=== PATIENT | male | born 1970 | race Caucasian/White ===

== ENCOUNTER 2017-02-04 20:43 | Inpatient (IN) | payer BC, OTHER ==
[2017-02-04] MEDS ORDERED: SODIUM CHLORIDE 0.9% 1,000 ML IV STA (21:20)
[2017-02-04] MEDS ORDERED: HYDROmorphone 0.5 MG/0.5 ML SYRINGE IVP STA (21:20)
[2017-02-04] MEDS ORDERED: ONDANSETRON 4 MG/2 ML VIAL IVP STA (21:20)
--- NOTE | 2017-02-04 21:38 | ED ---
Abdominal Pain HPI - General Chief Complaint: Abdominal Pain Stated Complaint: Abd Pain Time Seen by Provider: 02/04/17 21:15 Source: patient Mode of arrival: ambulatory Limitations: no limitations - History of Present Illness Initial Comments: This is a 46-year-old male patient who presents to the emergency department today with complaints of upper abdominal pain and vomiting 4 hours. Patient states that the pain is an intense pressure like pain that does radiate into his back. He states that the pain is constant. He states he feels tender over the upper abdomen as well. He states prior to onset of symptoms he was feeling well. Patient has a past medical history significant for colon cancer with bowel resection, hernia repair, and cholecystectomy. He also has a history of DVT does have a [place] filter. Patient denies any recent rash, fever, chills , shortness breath, chest pain, diarrhea, constipation, numbness, tingling, dizziness, weakness, hematuria, dysuria, urinary urgency, urinary frequency, headache, visual changes, or any other complaints. He denies any recent travel or sick contacts. Last bowel movement was this morning. States it was normal. - Related Data Home Medications Medication Instructions Recorded Confirmed Esomeprazole Magnesium [NexIUM] 40 mg PO BID 09/30/13 02/04/17 Losartan Potassium [Cozaar] 50 mg PO QAM 09/30/13 02/04/17 Allergies Allergy/AdvReac Type Severity Reaction Status Date / Time Penicillins Allergy Anaphylaxis Verified 02/04/17 21:41 Review of Systems ROS Statement: Those systems with pertinent positive or pertinent negative responses have been documented in the HPI. ROS Other: All systems not noted in ROS Statement are negative. Past Medical History Past Medical History: Cancer, Deep Vein Thrombosis (DVT), GERD/Reflux, Hypertension Additional Past Medical History / Comment(s): LYMPHOMA-CHEMO 2003 History of Any Multi-Drug Resistant Organisms: None Reported Past Surgical History: Bowel Resection, Cholecystectomy, Hernia Repair, Tonsillectomy Additional Past Surgical History / Comment(s): GREENFIELFD FILTER Past Anesthesia/Blood Transfusion Reactions: No Reported Reaction Past Psychological History: No Psychological Hx Reported Smoking Status: Never smoker Past Alcohol Use History: Occasional Past Drug Use History: None Reported - Past Family History Mother Family Medical History: No Reported History Father Family Medical History: Myocardial Infarction ([place]) Additional Family Medical History / Comment(s): AT AGE 48 General Exam Limitations: no limitations General appearance: alert, in no apparent distress, other (this is a well- developed, well-nourished adult male patient in no acute distress. Vital signs upon presentation are temperature 96.8F, pulse 70, respirations 18, blood pressure 151/84, pulse ox 97% on room air.) Eye exam: Present: normal appearance, PERRL, EOMI. Absent: scleral icterus, conjunctival injection, periorbital swelling ENT exam: Present: normal exam, normal oropharynx, mucous membranes moist Respiratory exam: Present: normal lung sounds bilaterally. Absent: respiratory distress, wheezes, rales, rhonchi, stridor Cardiovascular Exam: Present: regular rate, normal rhythm, normal heart sounds. Absent: systolic murmur, diastolic murmur, rubs, gallop, clicks GI/Abdominal exam: Present: soft, distended, tenderness (Tenderness over the upper abdomen especially in the mid epigastric region), normal bowel sounds. Absent: guarding, rebound, rigid, hernia (no obvious abdominal hernia) Back exam: Present: normal inspection. Absent: CVA tenderness (R), CVA tenderness (L) Neurological exam: Present: alert, oriented X3, CN II-XII intact Psychiatric exam: Present: normal affect, normal mood Skin exam: Present: warm, dry, intact, normal color. Absent: rash Course Vital Signs 02/04/17 02/04/17 02/05/17 21:08 23:06 00:00 Temperature 96.8 F L 98.2 F Pulse Rate 70 82 96 Pulse Rate [ Pulse Oximetery ] Respiratory 18 18 20 Rate Blood Pressure 151/84 142/74 135/68 Blood Pressure [Left Arm] O2 Sat by Pulse 97 74 L 96 Oximetry 02/05/17 02/05/17 02/05/17 01:17 01:54 02:44 Temperature 98.5 F Pulse Rate 83 Pulse Rate [ 100 Pulse Oximetery ] Respiratory 16 16 Rate Blood Pressure 139/80 Blood Pressure 140/88 [Left Arm] O2 Sat by Pulse 96 96 95 Oximetry Medical Decision Making - Medical Decision Making 46-year-old male patient presented to emergency department today for evaluation of upper abdominal pain and vomiting 4 hours. Labs were reviewed and did show an elevated white blood cell count of 15.8, an elevated plasma lactic acid at 2.4. Urinalysis was negative. KUB x-ray showed overall nonobstructive bowel gas pattern. With patient's history of multiple abdominal surgeries, elevated white count, an elevated lactic acid did perform computed tomography scan of the abdomen which did show a mechanical bowel obstruction and a partially incarcerated umbilical hernia. Patient continued to have significant pain throughout his stay here. Vital signs are within normal limits. My attending Dr. Marcum did speak to Dr. Mg who agrees to admit patient for further surgical evaluation. Patient will have NG tube placed. IV fluids are ordered. Pain management is ordered. - Lab Data Result diagrams: 02/04/17 21:30 02/04/17 21:30 Lab Results 02/04/17 02/04/17 02/04/17 Range/Units 21:30 21:30 21:30 WBC 15.8 H (3.8-10.6) k/uL RBC 5.66 (4.30-5.90) m/uL Hgb 16.6 (13.0-17.5) gm/dL Hct 50.7 (39.0-53.0) % MCV 89.6 (80.0-100.0) fL MCH 29.3 (25.0-35.0) pg MCHC 32.8 (31.0-37.0) g/dL RDW 12.5 (11.5-15.5) % Plt Count 303 (150-450) k/uL Neutrophils % 84 % Lymphocytes % 11 % Monocytes % 4 % Eosinophils % 1 % Basophils % 0 % Neutrophils # 13.3 H (1.3-7.7) k/uL Lymphocytes # 1.7 (1.0-4.8) k/uL Monocytes # 0.6 (0-1.0) k/uL Eosinophils # 0.1 (0-0.7) k/uL Basophils # 0.0 (0-0.2) k/uL Sodium 142 (137-145) mmol/L Potassium 4.3 (3.5-5.1) mmol/L Chloride 105 (98-107) mmol/L Carbon Dioxide 25 (22-30) mmol/L Anion Gap 12 mmol/L BUN 17 (9-20) mg/dL Creatinine 1.20 (0.66-1.25) mg/dL Est GFR (MDRD) Af Amer >60 (>60 ml/min/1.73 sqM) Est GFR (MDRD) Non-Af >60 (>60 ml/min/1.73 sqM) Glucose 117 H (74-99) mg/dL Lactic Ac Sepsis Rflx Plasma Lactic Acid Darnell 2.4 H* (0.7-2.0) mmol/L Calcium 10.2 (8.4-10.2) mg/dL Total Bilirubin 0.8 (0.2-1.3) mg/dL AST 30 (17-59) U/L ALT 49 (21-72) U/L Alkaline Phosphatase 99 (38-126) U/L Total Protein 8.1 (6.3-8.2) g/dL Albumin 4.7 (3.5-5.0) g/dL Amylase 61 (30-110) U/L Lipase 78 (23-300) U/L Urine Color Urine Appearance (Clear) Urine pH (5.0-8.0) Ur Specific [place] (1.001-1.035) Urine Protein (Negative) Urine Glucose (UA) (Negative) Urine Ketones (Negative) Urine Blood (Negative) Urine Nitrite (Negative) Urine Bilirubin (Negative) Urine Urobilinogen (<2.0) mg/dL Ur Leukocyte Esterase (Negative) 02/04/17 02/04/17 02/05/17 Range/Units 21:30 22:32 01:46 WBC (3.8-10.6) k/uL RBC (4.30-5.90) m/uL Hgb (13.0-17.5) gm/dL Hct (39.0-53.0) % MCV (80.0-100.0) fL MCH (25.0-35.0) pg MCHC (31.0-37.0) g/dL RDW (11.5-15.5) % Plt Count (150-450) k/uL Neutrophils % % Lymphocytes % % Monocytes % % Eosinophils % % Basophils % % Neutrophils # (1.3-7.7) k/uL Lymphocytes # (1.0-4.8) k/uL Monocytes # (0-1.0) k/uL Eosinophils # (0-0.7) k/uL Basophils # (0-0.2) k/uL Sodium (137-145) mmol/L Potassium (3.5-5.1) mmol/L Chloride (98-107) mmol/L Carbon Dioxide (22-30) mmol/L Anion Gap mmol/L BUN (9-20) mg/dL Creatinine (0.66-1.25) mg/dL Est GFR (MDRD) Af Amer (>60 ml/min/1.73 sqM) Est GFR (MDRD) Non-Af (>60 ml/min/1.73 sqM) Glucose (74-99) mg/dL Lactic Ac Sepsis Rflx Y Plasma Lactic Acid Darnell 1.1 (0.7-2.0) mmol/L Calcium (8.4-10.2) mg/dL Total Bilirubin (0.2-1.3) mg/dL AST (17-59) U/L ALT (21-72) U/L Alkaline Phosphatase (38-126) U/L Total Protein (6.3-8.2) g/dL Albumin (3.5-5.0) g/dL Amylase (30-110) U/L Lipase (23-300) U/L Urine Color Yellow Urine Appearance Clear (Clear) Urine pH 6.0 (5.0-8.0) Ur Specific [place] 1.023 (1.001-1.035) Urine Protein Trace H (Negative) Urine Glucose (UA) Negative (Negative) Urine Ketones 1+ H (Negative) Urine Blood Negative (Negative) Urine Nitrite Negative (Negative) Urine Bilirubin Negative (Negative) Urine Urobilinogen 2.0 (<2.0) mg/dL Ur Leukocyte Esterase Negative (Negative) - Radiology Data Radiology results: report reviewed, image reviewed Two-view x-ray of the abdomen shows no sign of intestinal obstruction or pneumoperitoneum. Inferior vena cava filter is noted. There are clips from cholecystectomy. There is no sign of a mass. Lung bases are clear. Impression by Dr. Phelan shows nonacute abdomen. No adverse change compared to old exam. CT of the abdomen and pelvis with contrast report reviewed in its entirety. Impression by Dr. Phelan shows partly incarcerated umbilical hernia containing small bowel. There is an apparent resultant mechanical small bowel obstruction. This is best demonstrated and sagittal image 70. This abnormality however is also present with similar severity on the old computed tomography scan of 10/28/2014. There appears to be decreased flow fluid through the abnormal segment on today's exam. There appears to be very little intestinal content in the large bowel. Disposition Clinical Impression: Mechanical obstruction of the intestine, Incarcerated umbilical hernia Disposition: ADMITTED IP TO THIS [facility] Condition: Serious Referrals: Jhonatan Casanova MD [Primary Care Provider] - 1-2 days Decision to Admit Reason: Admit from EC Decision Date: 02/05/17 Decision Time: 01:30
--- NOTE | 2017-02-04 22:01 | XR ---
EXAMINATION TYPE: XR KUB DATE OF EXAM: 02/04/2017 COMPARISON: 11/01/2014 HISTORY: Abdominal pain TECHNIQUE: 2 views FINDINGS: There is no sign of intestinal obstruction or pneumoperitoneum. Inferior vena cava filter i s noted. There are clips from cholecystectomy. There is no sign of a mass. Lung bases are clear. IMPRESSION: Nonacute abdomen. No adverse change compared to old exam.
[2017-02-04 22:13] LABS: Basophils % (A) 0 %; CHCM 33.6; Eosinophils # (A) 0.1 k/uL (0-0.7); Eosinophils % (A) 1 %; HCT 50.7 % (39.0-53.0); HDW 2.57; HGB 16.6 gm/dL (13.0-17.5); Luc # (Auto) 0.09; Luc % (Auto) 1; Lymphocytes # (A) 1.7 k/uL (1.0-4.8); Lymphocytes % (A) 11 %; MCH 29.3 pg (25.0-35.0); MCHC 32.8 g/dL (31.0-37.0); MCV 89.6 fL (80.0-100.0); Mean Platelet Volume 6.9; Monocytes # (A) 0.6 k/uL (0-1.0); Monocytes % (A) 4 %; Neutrophils # (A) 13.3 k/uL (1.3-7.7); Neutrophils % (A) 84 %; RBC 5.66 m/uL (4.30-5.90); RDW 12.5 % (11.5-15.5); WBC 15.8 k/uL (3.8-10.6); WBC (Perox) 14.23
[2017-02-04 22:25] LABS: Appearance,Urine Clear (Clear); Bilirubin,Urine Negative (Negative); Glucose,Urine (UA) Negative (Negative); Ketones,Urine 1+ (Negative); Leukocyte Esterase,Urine Negative (Negative); Nitrite,Urine Negative (Negative); Protein,Urine Trace (Negative); Specific Gravity,Urine 1.023 (1.001-1.035); UA Billing (MACRO vs. MICRO) CHEM
[2017-02-04 22:32] LABS: ALT 49 U/L (21-72); AST 30 U/L (17-59); Alkaline Phosphatase 99 U/L (38-126); Amylase 61 U/L (30-110); Anion Gap 12 mmol/L; Blood Urea Nitrogen 17 mg/dL (9-20); Calcium 10.2 mg/dL (8.4-10.2); Carbon Dioxide 25 mmol/L (22-30); Chloride 105 mmol/L (98-107); Glucose 117 mg/dL (74-99); Non-African American GFR(MDRD) >60 (>60 ml/min/1.73 sqM); Potassium 4.3 mmol/L (3.5-5.1); Sodium 142 mmol/L (137-145); Total Bilirubin 0.8 mg/dL (0.2-1.3); Total Protein 8.1 g/dL (6.3-8.2)
[2017-02-04] MEDS ORDERED: RX INFO: IV CONTRAST WAS GIVEN 1 EACH MISC MISCELLANE PRN (22:54)
[2017-02-04] MEDS ORDERED: HYDROmorphone 1 MG/ML 1 ML SYRINGE IVP STA (22:56)
--- NOTE | 2017-02-04 23:49 | CT ---
EXAMINATION TYPE: CT abdomen pelvis w con DATE OF EXAM: 02/04/2017 COMPARISON: 10/21/1714 HISTORY: Abd pain CT DLP: 2629.10 mGycm Automated exposure control for dose reduction was used. TECHNIQUE: Helical acquisition of images was performed from the lung bases through the pelvis. CONTRAST: Performed without Oral Contrast and with IV Contrast, patient injected with 100 mL of Omnipaque 300. FINDINGS: Lung bases are clear. There is no pleural effusion. Heart size is normal. Liver spleen pancreas appear normal. There are clips from cholecystectomy. Bile ducts are not dilated . There is no adrenal mass. Kidneys show satisfactory contrast opacification. There is no hydronephrosi s. Inferior vena cava filter is noted. There are some fluid-filled distended loops of small bowel in the mid abdomen. These measure up to 3.5 cm. There is a transition point at the umbilicus. There is a n incarcerated umbilical hernia that contains a loop of small bowel. The hernia measures 3 x 1.5 cm. There is very little intestinal content in the large bowel. I see no bony destructive process. Bladder distends smoothly. There is no evidence of a pelvic mass. There is no sign of appendicitis. IMPRESSION: THERE IS A PARTLY INCARCERATED UMBILICAL HERNIA CONTAINING SMALL BOWEL. THERE IS AN APPARENT RESULTAN T MECHANICAL SMALL BOWEL OBSTRUCTION. THIS IS BEST DEMONSTRATED ON SAGITTAL IMAGE 70. THIS ABNORMALIT Y HOWEVER IS ALSO PRESENT WITH SIMILAR SEVERITY ON THE OLD CT SCAN OF 10/28/2014. THERE APPEARS TO BE DECREASED FLOW OF FLUID THROUGH THE ABNORMAL SEGMENT ON TODAY'S EXAM COMPARED TO OLD EXAM.
[2017-02-05] MEDS ORDERED: HYDROmorphone 1 MG/ML 1 ML SYRINGE IVP STA (00:34)
[2017-02-05] MEDS ORDERED: ONDANSETRON 4 MG/2 ML VIAL IVP STA (00:53)
[2017-02-05] MEDS ORDERED: ONDANSETRON 4 MG/2 ML VIAL IVP PRN (01:25)
[2017-02-05] MEDS ORDERED: NALOXONE 0.4 MG/ML 1 ML VIAL IV PRN (01:25)
[2017-02-05] MEDS: SODIUM CHLORIDE 0.9% 1,000 ML IV SCH ×2 (02:09→11:49)
[2017-02-05] MEDS: HYDROmorphone 1 MG/ML 1 ML SYRINGE IVP PRN ×5 (03:02→21:12)
[2017-02-05] MEDS: FAMOTIDINE 20 MG/2 ML VIAL IV SCH ×2 (09:51→21:12)
--- NOTE | 2017-02-05 10:00 | P.GSHP ---
History of Present Illness H&P Date: 02/05/17 Chief Complaint: Bowel obstruction Patient presents the hospital with a several-day history of nausea vomiting abdominal pain. Pain was increasing in severity. Came to the hospital with those complaints. X-rays and subsequent CAT scan revealed findings consistent with small bowel obstruction. The CAT scan is almost identical to a CAT scan performed 2 years ago. The patient has a history of small bowel lymphoma. He underwent small bowel resection for that in the past. He then had a hernia present at the operative site that was repaired with an onlay mesh. We suspected that the appearance of the small bowel reflected a small herniation of the fascia beneath the mesh in 2014. He was treated nonoperatively at that time and did well with no recurrent symptoms until now. He does not feel a bulge himself. His pain was diffuse in nature. He does feel much better since the nasogastric tube was placed. Lactic acid was initially elevated but normalized. - Review of Systems Comment: The patient denies any acute changes in vision or hearing, no dysphagia or odynophagia, no chest pain or shortness of breath, no dysuria or hematuria, no headache, no runny nose, no rectal bleeding or melena, no unexplained weight loss Past Medical History Past Medical History: Cancer, Deep Vein Thrombosis (DVT), GERD/Reflux, Hypertension Additional Past Medical History / Comment(s): LYMPHOMA-CHEMO 2003 History of Any Multi-Drug Resistant Organisms: None Reported Past Surgical History: Bowel Resection, Cholecystectomy, Hernia Repair, Tonsillectomy Additional Past Surgical History / Comment(s): GREENFIELFD FILTER Past Anesthesia/Blood Transfusion Reactions: No Reported Reaction Past Psychological History: No Psychological Hx Reported Smoking Status: Never smoker Past Alcohol Use History: Occasional Past Drug Use History: None Reported - Past Family History Mother Family Medical History: No Reported History Father Family Medical History: Myocardial Infarction ([place]) Additional Family Medical History / Comment(s): AT AGE 48 Medications and Allergies Home Medications Medication Instructions Recorded Confirmed Type Esomeprazole Magnesium [NexIUM] 40 mg PO BID 09/30/13 02/04/17 History Losartan Potassium [Cozaar] 50 mg PO QAM 09/30/13 02/04/17 History Allergies Allergy/AdvReac Type Severity Reaction Status Date / Time Penicillins Allergy Anaphylaxis Verified 02/04/17 21:41 Surgical - Exam Vital Signs Temp Pulse Resp BP Pulse Ox 96.8 F L 70 18 151/84 97 02/04/17 21:08 02/04/17 21:08 02/04/17 21:08 02/04/17 21:08 02/04/17 21:08 Physical exam: General: Well-developed, well-nourished HEENT: Normocephalic, sclerae nonicteric Abdomen: Somewhat obese, no palpable fascial defect or mass at the umbilicus, mild diffuse tenderness, nondistended Extremities: No edema Neuro: Alert and oriented Results - Labs 02/04/17 21:30 02/04/17 21:30 Abnormal Lab Results - Last 24 Hours (Table) 02/04/17 02/04/17 02/04/17 Range/Units 21:30 21:30 21:30 WBC 15.8 H (3.8-10.6) k/uL Neutrophils # 13.3 H (1.3-7.7) k/uL Glucose 117 H (74-99) mg/dL Plasma Lactic Acid Darnell 2.4 H* (0.7-2.0) mmol/L Urine Protein (Negative) Urine Ketones (Negative) 02/04/17 Range/Units 21:30 WBC (3.8-10.6) k/uL Neutrophils # (1.3-7.7) k/uL Glucose (74-99) mg/dL Plasma Lactic Acid [place] (0.7-2.0) mmol/L Urine Protein Trace H (Negative) Urine Ketones 1+ H (Negative) Diabetes panel 02/04/17 Range/Units 21:30 Sodium 142 (137-145) mmol/L Potassium 4.3 (3.5-5.1) mmol/L Chloride 105 (98-107) mmol/L Carbon Dioxide 25 (22-30) mmol/L BUN 17 (9-20) mg/dL Creatinine 1.20 (0.66-1.25) mg/dL Glucose 117 H (74-99) mg/dL Calcium 10.2 (8.4-10.2) mg/dL AST 30 (17-59) U/L ALT 49 (21-72) U/L Alkaline Phosphatase 99 (38-126) U/L Total Protein 8.1 (6.3-8.2) g/dL Albumin 4.7 (3.5-5.0) g/dL Calcium panel 02/04/17 Range/Units 21:30 Calcium 10.2 (8.4-10.2) mg/dL Albumin 4.7 (3.5-5.0) g/dL Pituitary panel 02/04/17 Range/Units 21:30 Sodium 142 (137-145) mmol/L Potassium 4.3 (3.5-5.1) mmol/L Chloride 105 (98-107) mmol/L Carbon Dioxide 25 (22-30) mmol/L BUN 17 (9-20) mg/dL Creatinine 1.20 (0.66-1.25) mg/dL Glucose 117 H (74-99) mg/dL Calcium 10.2 (8.4-10.2) mg/dL Adrenal panel 02/04/17 Range/Units 21:30 Sodium 142 (137-145) mmol/L Potassium 4.3 (3.5-5.1) mmol/L Chloride 105 (98-107) mmol/L Carbon Dioxide 25 (22-30) mmol/L BUN 17 (9-20) mg/dL Creatinine 1.20 (0.66-1.25) mg/dL Glucose 117 H (74-99) mg/dL Calcium 10.2 (8.4-10.2) mg/dL Total Bilirubin 0.8 (0.2-1.3) mg/dL AST 30 (17-59) U/L ALT 49 (21-72) U/L Alkaline Phosphatase 99 (38-126) U/L Total Protein 8.1 (6.3-8.2) g/dL Albumin 4.7 (3.5-5.0) g/dL Assessment and Plan (1) Partial small bowel obstruction Narrative/Plan: The patient has a CAT scan that looks almost identical to 12 years ago. He responded well to nonoperative therapy at that time. Options of surgical exploration versus observation were reviewed. We will continue nasogastric tube to suction for now. Repeat abdominal x-rays tomorrow. If the patient fails to improve Will consider operative repair. Would consider robotic laparoscopic approach if necessary. Current Visit: No Status: Acute Code(s): K56.69 - OTHER INTESTINAL OBSTRUCTION * DO NOT USE * SNOMED Code(s): 007326807
--- NOTE | 2017-02-05 16:16 | P.CONS ---
History of Present Illness - Reason for Consult Leukocytosis - History of Present Illness This is a pleasant 40-year-old man with a known history of lymphoma after which patient had a bowel resection surgery since then patient had issues with the hernia patient that came in with complaints of abdominal pain 10 x 10 along with nausea vomiting patient received an NG tube NG tube stopped draining now patient is not nauseous patient's NG tube is clamped at this time patient had a CAT scan of the abdomen which showed hernia with possible incarceration patient was admitted to Dr. Mg service, patient denied any fever, chills, nausea, vomiting patient's abdominal been well is well-controlled with the present pain management patient denied any dysuria cough. Review of Systems REVIEW OF SYSTEMS: CONSTITUTIONAL: No fever, no malaise, no fatigue. HEENT: No recent visual problems or hearing problems. Denied any sore throat. CARDIOVASCULAR: No chest pain, orthopnea, PND, no palpitations, no syncope. PULMONARY: No shortness of breath, no cough, no hemoptysis. GASTROINTESTINAL: No diarrhea, NEUROLOGICAL: No headaches, no weakness, no numbness. HEMATOLOGICAL: Denies any bleeding or petechiae. GENITOURINARY: Denies any burning micturition, frequency, or urgency. MUSCULOSKELETAL/RHEUMATOLOGICAL: Denies any joint pain, swelling, or any muscle pain. ENDOCRINE: Denies any polyuria or polydipsia. The rest of the 14-point review of systems is negative. Past Medical History Past Medical History: Cancer, Deep Vein Thrombosis (DVT), GERD/Reflux, Hypertension Additional Past Medical History / Comment(s): LYMPHOMA-CHEMO 2003 History of Any Multi-Drug Resistant Organisms: None Reported Past Surgical History: Bowel Resection, Cholecystectomy, Hernia Repair, Tonsillectomy Additional Past Surgical History / Comment(s): GREENFIELFD FILTER Past Anesthesia/Blood Transfusion Reactions: No Reported Reaction Past Psychological History: No Psychological Hx Reported Smoking Status: Never smoker Past Alcohol Use History: Occasional Past Drug Use History: None Reported - Past Family History Mother Family Medical History: No Reported History Father Family Medical History: Myocardial Infarction ([place]) Additional Family Medical History / Comment(s): AT AGE 48 Medications and Allergies Home Medications Medication Instructions Recorded Confirmed Type Esomeprazole Magnesium [NexIUM] 40 mg PO BID 09/30/13 02/04/17 History Losartan Potassium [Cozaar] 50 mg PO QAM 09/30/13 02/04/17 History Allergies Allergy/AdvReac Type Severity Reaction Status Date / Time Penicillins Allergy Anaphylaxis Verified 02/04/17 21:41 Physical Exam Vitals: Vital Signs Temp Pulse Pulse Resp BP BP Pulse Ox 02/05/17 15:00 97.1 F L 98 16 130/73 95 02/05/17 07:00 98.1 F 106 H 16 124/80 94 L 02/05/17 03:00 16 02/05/17 02:44 98.5 F 100 16 140/88 95 02/05/17 01:54 83 16 139/80 96 02/05/17 01:17 96 02/05/17 00:00 98.2 F 96 20 135/68 96 02/04/17 23:06 82 18 142/74 74 L 02/04/17 21:08 96.8 F L 70 18 151/84 97 Intake and Output 02/05/17 02/05/17 02/05/17 06:59 14:59 22:59 Intake Total 1320 Output Total 650 Balance 670 Intake: Amount of Fluid Infused ( 1000 ml) Intake, IV Titration 320 Amount Sodium Chloride 0.9% 1, 320 000 ml @ 80 mls/hr IV . [id number] ELIZABETH Rx#:[id number] Output: Gastric Drainage 650 Other: # Voids 1 PHYSICAL EXAMINATION: GENERAL: The patient is alert and oriented x3, not in any acute distress. Well developed, well nourished. HEENT: Pupils are round and equally reacting to light. EOMI. No scleral icterus. No conjunctival pallor. Normocephalic, atraumatic. No pharyngeal erythema. No thyromegaly. CARDIOVASCULAR: S1 and S2 present. No murmurs, rubs, or gallops. PULMONARY: Chest is clear to auscultation, no wheezing or crackles. ABDOMEN: Soft, distended abdomen without any rebound or rigidity patient does have some facial that pressure topical area and periorbital area without any obvious hernia MUSCULOSKELETAL: No joint swelling or deformity. EXTREMITIES: No cyanosis, clubbing, or pedal edema. NEUROLOGICAL: Gross neurological examination did not reveal any focal deficits. SKIN: No rashes. Results CBC & Chem 7: 02/04/17 21:30 02/04/17 21:30 Labs: Abnormal Lab Results - Last 24 Hours (Table) 11/03/17 11/03/17 11/03/17 Range/Units 21:30 21:30 21:30 WBC 15.8 H (3.8-10.6) k/uL Neutrophils # 13.3 H (1.3-7.7) k/uL Glucose 117 H (74-99) mg/dL Plasma Lactic Acid Darnell 2.4 H* (0.7-2.0) mmol/L Urine Protein (Negative) Urine Ketones (Negative) 02/04/17 Range/Units 21:30 WBC (3.8-10.6) k/uL Neutrophils # (1.3-7.7) k/uL Glucose (74-99) mg/dL Plasma Lactic Acid Darnell (0.7-2.0) mmol/L Urine Protein Trace H (Negative) Urine Ketones 1+ H (Negative) Assessment and Plan Plan: #1 possible small bowel resection: Conservative measures with an NG tube which is presently clamped IV fluids at 80 mL/h which is appropriate. #2 leukocytosis: Reactive secondary to a partial small bowel obstruction nausea vomiting. Continue with IV fluids. #3 hypertension patient is on losartan at home which can be held at this time to prevent hypotension secondary to nausea vomiting. #4 mild acute renal dysfunction secondary to nausea vomiting prerenal azotemia patient will be continued on IV fluids as mentioned above. #5 history of lymphoma and in the past which is in remission #6 she of DVT in the past without any anticoagulation at this point of time patient had a [place] filter patient is on DVT prophylaxis with subcutaneous heparin
[2017-02-05] MEDS: HEPARIN SODIUM,PORCINE 5,000 UNIT/ML 1 ML VIAL SQ SCH ×2 (17:30→17:35)
[2017-02-06] MEDS: HEPARIN SODIUM,PORCINE 5,000 UNIT/ML 1 ML VIAL SQ SCH ×4 (01:46→23:58)
[2017-02-06] MEDS: HYDROmorphone 1 MG/ML 1 ML SYRINGE IVP PRN (01:50)
--- NOTE | 2017-02-06 07:17 | XR ---
EXAMINATION TYPE: XR abdomen 2V , 3 VIEWS DATE OF EXAM ORDERED: 02/06/2017 HISTORY: Follow-up bowel obstruction. COMPARISON: Previous study dated 02/04/2017. FINDINGS: The lung bases appear clear. The abdominal gas pattern is nonspecific. There are nondistended air-filled loops of large and small bowel throughout the abdomen. There is no evidence of free air. There is no evidence of gross obstruc tion. No unusual calcifications are seen. The patient is NG tube is within the distal esophagus and should likely be advanced. There has been a previous cholecystectomy. There is an inferior vena cava filter in place. IMPRESSION: 1. NONSPECIFIC ABDOMEN. 2. THE PATIENT IS NG TUBE IS NOT WITHIN THE STOMACH AND SHOULD BE ADVANCED.
[2017-02-06 07:36] LABS: Basophils % (A) 0 %; CHCM 32.5; Eosinophils # (A) 0.2 k/uL (0-0.7); Eosinophils % (A) 2 %; HCT 48.9 % (39.0-53.0); HDW 2.52; HGB 15.4 gm/dL (13.0-17.5); Luc # (Auto) 0.16; Luc % (Auto) 1; Lymphocytes # (A) 3.1 k/uL (1.0-4.8); Lymphocytes % (A) 26 %; MCH 29.1 pg (25.0-35.0); MCHC 31.4 g/dL (31.0-37.0); MCV 92.6 fL (80.0-100.0); Mean Platelet Volume 6.8; Monocytes # (A) 0.9 k/uL (0-1.0); Monocytes % (A) 8 %; Neutrophils # (A) 7.2 k/uL (1.3-7.7); Neutrophils % (A) 63 %; RBC 5.29 m/uL (4.30-5.90); RDW 12.6 % (11.5-15.5); WBC 11.6 k/uL (3.8-10.6); WBC (Perox) 11.18
[2017-02-06 07:44] LABS: Anion Gap 11 mmol/L; Blood Urea Nitrogen 18 mg/dL (9-20); Calcium 8.9 mg/dL (8.4-10.2); Carbon Dioxide 25 mmol/L (22-30); Chloride 107 mmol/L (98-107); Glucose 85 mg/dL (74-99); Non-African American GFR(MDRD) >60 (>60 ml/min/1.73 sqM); Potassium 3.7 mmol/L (3.5-5.1); Sodium 143 mmol/L (137-145)
[2017-02-06] MEDS: SODIUM CHLORIDE 0.9% 1,000 ML IV SCH (07:54)
[2017-02-06] MEDS: FAMOTIDINE 20 MG/2 ML VIAL IV SCH ×2 (08:06→20:02)
--- NOTE | 2017-02-06 09:29 | P.PN ---
Subjective Progress Note Date: 02/06/17 Principal diagnosis: Bowel obstruction Patient had 2 large bouts of diarrhea yesterday. No pain at this time. X-rays are improved and the nasogastric tube was in the mid esophagus. White blood cell count 11.6. Objective - Vital Signs Vital signs: Vital Signs Temp 98.5 F 02/06/17 07:00 Pulse 87 02/06/17 07:00 Resp 16 02/06/17 07:00 BP 119/73 02/06/17 07:00 Pulse Ox 96 02/06/17 07:00 Intake & Output 02/05/17 02/06/17 02/06/17 19:59 06:59 18:59 Intake Total Output Total Balance Intake: Intake, IV Titration Amount Sodium Chloride 0.9% 1, 000 ml @ 80 mls/hr IV . [id number] [facility] Rx#:[id number] Output: Gastric Drainage Urine Other: Voiding Method # Voids - Exam Abdomen: Soft, nontender, nondistended - Labs CBC & Chem 7: 02/06/17 07:19 02/06/17 07:19 Labs: Abnormal Lab Results - Last 24 Hours (Table) 02/06/17 Range/Units 07:19 WBC 11.6 H (3.8-10.6) k/uL Assessment and Plan (1) Partial small bowel obstruction Narrative/Plan: We'll remove the nasogastric tube at this point. Begin clear liquids. Ambulate. Current Visit: No Status: Acute Code(s): K56.69 - OTHER INTESTINAL OBSTRUCTION * DO NOT USE * SNOMED Code(s): 000130796
[2017-02-06] MEDS: ACETAMINOPHEN TAB 325 MG TAB PO PRN ×2 (10:54→20:02)
--- NOTE | 2017-02-06 14:55 | P.PN ---
Subjective is admitted with partial small bowel obstruction doing much better today patient has sluggish bowel sounds NG was removed and bleeding in the hallway patient is passing gas Constitutional: Denied any fatigue denied any fever. Cardio vascular: denied any chest pain, palpitations Gastrointestinal denied any nausea vomiting Pulmonary: Denied any shortness of breath cough Neurologic denied any new focal deficits Objective - Vital Signs Vital signs: Vital Signs Temp 98.5 F 02/06/17 07:00 Pulse 87 02/06/17 07:00 Resp 16 02/06/17 07:00 BP 119/73 02/06/17 07:00 Pulse Ox 96 02/06/17 07:00 Intake & Output 02/05/17 02/06/17 02/06/17 19:59 06:59 18:59 Intake Total Output Total Balance Intake: Intake, IV Titration Amount Sodium Chloride 0.9% 1, 000 ml @ 80 mls/hr IV . [id number] [facility] Rx#:[id number] Output: Gastric Drainage Urine Other: Voiding Method # Voids - Exam GENERAL: The patient is alert and oriented x3, not in any acute distress. Well developed, well nourished. HEENT: Pupils are round and equally reacting to light. EOMI. No scleral icterus. No conjunctival pallor. Normocephalic, atraumatic. No pharyngeal erythema. No thyromegaly. CARDIOVASCULAR: S1 and S2 present. No murmurs, rubs, or gallops. PULMONARY: Chest is clear to auscultation, no wheezing or crackles. ABDOMEN: Soft,sluggish bowel sounds, no rebound or rigidity MUSCULOSKELETAL: No joint swelling or deformity. EXTREMITIES: No cyanosis, clubbing, or pedal edema. NEUROLOGICAL: Gross neurological examination did not reveal any focal deficits. SKIN: No rashes. - Labs CBC & Chem 7: 02/06/17 07:19 02/06/17 07:19 Labs: Abnormal Lab Results - Last 24 Hours (Table) 02/06/17 Range/Units 07:19 WBC 11.6 H (3.8-10.6) k/uL Assessment and Plan Plan: #1 possible small bowel resection: Conservative measures with an NG tube which is presently clamped IV fluids at 80 mL/h which is appropriate.probing ileus #2 leukocytosis: Reactive secondary to a partial small bowel obstruction nausea vomiting. Continue with IV fluids. #3 hypertension patient is on losartan at home which can be held at this time to prevent hypotension secondary to nausea vomiting. #4 mild acute renal dysfunction secondary to nausea vomiting prerenal azotemia patient will be continued on IV fluids as mentioned above. #5 history of lymphoma and in the past which is in remission #6 she of DVT in the past without any anticoagulation at this point of time patient had a [place] filter patient is on DVT prophylaxis with subcutaneous heparin
[2017-02-07 06:31] LABS: Basophils % (A) 0 %; CH 29.7; CHCM 33.1; Eosinophils # (A) 0.2 k/uL (0-0.7); Eosinophils % (A) 3 %; HCT 45.3 % (39.0-53.0); HDW 2.67; HGB 14.8 gm/dL (13.0-17.5); Luc # (Auto) 0.17; Luc % (Auto) 2; Lymphocytes % (A) 32 %; MCH 29.4 pg (25.0-35.0); MCHC 32.7 g/dL (31.0-37.0); MCV 89.9 fL (80.0-100.0); Mean Platelet Volume 7.1; Monocytes # (A) 0.7 k/uL (0-1.0); Monocytes % (A) 8 %; Neutrophils # (A) 5.2 k/uL (1.3-7.7); Neutrophils % (A) 56 %; RBC 5.04 m/uL (4.30-5.90); RDW 12.3 % (11.5-15.5); WBC 9.3 k/uL (3.8-10.6); WBC (Perox) 9.36
[2017-02-07 06:44] LABS: Anion Gap 9 mmol/L; Blood Urea Nitrogen 15 mg/dL (9-20); Calcium 9.1 mg/dL (8.4-10.2); Carbon Dioxide 24 mmol/L (22-30); Chloride 106 mmol/L (98-107); Glucose 85 mg/dL (74-99); Non-African American GFR(MDRD) >60 (>60 ml/min/1.73 sqM); Potassium 3.5 mmol/L (3.5-5.1); Sodium 139 mmol/L (137-145)
[2017-02-07] MEDS: SODIUM CHLORIDE 0.9% 1,000 ML IV SCH ×3 (06:49→17:56)
[2017-02-07] MEDS ORDERED: POTASSIUM CHLORIDE ER 20 MEQ TAB.ER PO STA (08:52)
[2017-02-07] MEDS: HEPARIN SODIUM,PORCINE 5,000 UNIT/ML 1 ML VIAL SQ SCH ×3 (08:57→23:25)
[2017-02-07] MEDS: FAMOTIDINE 20 MG/2 ML VIAL IV SCH ×2 (08:57→20:31)
--- NOTE | 2017-02-07 09:27 | P.PN ---
<Mary Ann Mike - Last Filed: 02/07/17 09:31> Subjective Progress Note Date: 02/07/17 46-year-old male seen and examined up ambulating in the [place]. Patient state 3 loose watery stools last night no blood noted in stool less abdominal pain tolerating clear liquid diet reports no nausea no vomiting patients being treated for partial small bowel obstruction Objective - Vital Signs Vital signs: Vital Signs Temp 98.4 F 02/07/17 07:00 Pulse 64 02/07/17 07:00 Resp 16 02/07/17 07:00 BP 127/85 02/07/17 07:00 Pulse Ox 95 02/07/17 07:00 Intake & Output 02/06/17 02/07/17 02/07/17 18:59 06:59 18:59 Intake Total 640 1760 220 Balance 640 1760 220 Weight 122.47 kg Intake: Intake, IV Titration 640 1280 Amount Sodium Chloride 0.9% 1, 640 1280 000 ml @ 80 mls/hr IV . [id number] [facility] Rx#:[id number] Oral 480 220 Other: Voiding Method Toilet # Voids 3 - Exam GENERAL APPEARANCE: 46-year-old male patient is alert, oriented, in no acute distress. Up ambulating in the [place] VITAL SIGNS: Reviewed HEENT: Head is normocephalic and atraumatic. Pupils are equal and reactive. The nares are patent. Oropharynx is clear without lesions. NECK: Supple without lymphadenopathy. Traches midline. HEART: S1, S2. Regular rate and rhythm. Denying chest pain no murmur LUNGS: No crackles or wheezes are heard. On room air adequate air entry essentially clear no cough noted ABDOMEN: Soft, few hypoactive bowel tones noted reports no nausea vomiting reports less abdominal pain less distended. No peritoneal signs. No palpable organomegaly or masses. Patient states he has had 3 loose watery stools during the night no blood noted in urinating no difficulty tolerating clear liquid EXTREMITIES: Normal skin color and turgor. No cyanosis, rash, ulceration, clubbing or edema. Radial pedal pulses are 2/4 bilaterally. NEUROLOGICAL: No focal deficits. Strength and sensation are grossly intact. - Labs CBC & Chem 7: 02/07/17 06:02 02/07/17 06:02 Assessment and Plan Assessment: Impression Present on admission abdominal pain suspect due to partial small bowel obstruction History of small bowel lymphoma Electrolyte abnormality hypokalemia Leukocytosis present on admission suspect reactive Plan Continue clear liquid diet Continue ambulation increase activity Potassium to be replaced Repeat labs in the morning DVT and GI prophylaxis IV fluid at 80cchr The above impression and plan of care have been discussed and directed by signing physician. Mary Ann Mike nurse practitioner acting as scribe for signing physician. <Chemo Mg - Last Filed: 02/07/17 18:14> Objective - Vital Signs Vital signs: Vital Signs Temp 98.5 F 02/07/17 14:43 Pulse 74 02/07/17 14:43 Resp 16 02/07/17 14:43 BP 116/70 02/07/17 14:43 Pulse Ox 95 02/07/17 07:00 Intake & Output 02/06/17 02/07/17 02/07/17 18:59 06:59 18:59 Intake Total 640 1760 1050 Balance 640 1760 1050 Weight 122.47 kg Intake: Intake, IV Titration 640 1280 600 Amount Sodium Chloride 0.9% 1, 640 1280 600 000 ml @ 80 mls/hr IV . [id number] [facility] Rx#:[id number] Oral 480 450 Other: Voiding Method Toilet # Voids 3 1 - Labs CBC & Chem 7: 02/07/17 06:02 02/07/17 06:02 Assessment and Plan Assessment: Patient doing well today. Abdominal pain is resolved. Some hunger pains. No nausea or vomiting. He has had loose stools. Will advance diet. Possible discharge tomorrow. (1) Partial small bowel obstruction Current Visit: No Status: Acute Code(s): K56.69 - OTHER INTESTINAL OBSTRUCTION * DO NOT USE * SNOMED Code(s): 829529211
--- NOTE | 2017-02-07 15:19 | P.PN ---
Subjective is admitted with partial small bowel obstruction doing much better today patient has sluggish bowel sounds NG was removed and bleeding in the hallway patient is passing gas 2016 Patient started having diarrhea about 3 episodes C. diff testing will be obtained if he continues to have diarrhea . Constitutional: Denied any fatigue denied any fever. Cardio vascular: denied any chest pain, palpitations Gastrointestinal denied any nausea vomiting Pulmonary: Denied any shortness of breath cough Neurologic denied any new focal deficits Objective - Vital Signs Vital signs: Vital Signs Temp 98.5 F 02/07/17 14:43 Pulse 74 02/07/17 14:43 Resp 16 02/07/17 14:43 BP 116/70 02/07/17 14:43 Pulse Ox 95 02/07/17 07:00 Intake & Output 02/06/17 02/07/17 02/07/17 18:59 06:59 18:59 Intake Total 640 1760 1050 Balance 640 1760 1050 Weight 122.47 kg Intake: Intake, IV Titration 640 1280 600 Amount Sodium Chloride 0.9% 1, 640 1280 600 000 ml @ 80 mls/hr IV . [id number] [facility] Rx#:[id number] Oral 480 450 Other: Voiding Method Toilet # Voids 3 1 - Exam GENERAL: The patient is alert and oriented x3, not in any acute distress. Well developed, well nourished. HEENT: Pupils are round and equally reacting to light. EOMI. No scleral icterus. No conjunctival pallor. Normocephalic, atraumatic. No pharyngeal erythema. No thyromegaly. CARDIOVASCULAR: S1 and S2 present. No murmurs, rubs, or gallops. PULMONARY: Chest is clear to auscultation, no wheezing or crackles. ABDOMEN: Soft, normoactive bowel sounds, no rebound or rigidity MUSCULOSKELETAL: No joint swelling or deformity. EXTREMITIES: No cyanosis, clubbing, or pedal edema. NEUROLOGICAL: Gross neurological examination did not reveal any focal deficits. SKIN: No rashes. - Labs CBC & Chem 7: 02/07/17 06:02 02/07/17 06:02 Assessment and Plan Plan: #1 possible small bowel resection: NG tube was removed patient was having diarrhea clamped IV fluids at 80 mL/h which is appropriate.probing ileus. We will rule out C. diff #2 leukocytosis: Reactive secondary to a partial small bowel obstruction nausea vomiting. Continue with IV fluids. #3 hypertension patient is on losartan at home which can be held at this time to prevent hypotension secondary to nausea vomiting. #4 mild acute renal dysfunction secondary to nausea vomiting prerenal azotemia patient will be continued on IV fluids as mentioned above. #5 history of lymphoma and in the past which is in remission #6 she of DVT in the past without any anticoagulation at this point of time patient had a [place] filter patient is on DVT prophylaxis with subcutaneous heparin We will continue to follow the patient on as-needed basis.
[2017-02-08] MEDS: SODIUM CHLORIDE 0.9% 1,000 ML IV SCH ×2 (05:38→22:17)
[2017-02-08 07:22] LABS: Basophils # (A) 0.1 k/uL (0-0.2); Basophils % (A) 1 %; CH 30.2; CHCM 33.8; Eosinophils # (A) 0.2 k/uL (0-0.7); Eosinophils % (A) 3 %; HCT 47.7 % (39.0-53.0); HDW 2.65; HGB 15.4 gm/dL (13.0-17.5); Luc # (Auto) 0.15; Luc % (Auto) 2; Lymphocytes # (A) 2.5 k/uL (1.0-4.8); Lymphocytes % (A) 28 %; MCHC 32.4 g/dL (31.0-37.0); MCV 89.6 fL (80.0-100.0); Mean Platelet Volume 6.9; Monocytes # (A) 0.6 k/uL (0-1.0); Monocytes % (A) 7 %; Neutrophils # (A) 5.4 k/uL (1.3-7.7); Neutrophils % (A) 60 %; RBC 5.32 m/uL (4.30-5.90); RDW 12.4 % (11.5-15.5); WBC (Perox) 8.83
[2017-02-08 07:33] LABS: Anion Gap 10 mmol/L; Blood Urea Nitrogen 10 mg/dL (9-20); Calcium 9.1 mg/dL (8.4-10.2); Carbon Dioxide 21 mmol/L (22-30); Chloride 108 mmol/L (98-107); Glucose 86 mg/dL (74-99); Non-African American GFR(MDRD) >60 (>60 ml/min/1.73 sqM); Sodium 139 mmol/L (137-145)
--- NOTE | 2017-02-08 08:02 | XR ---
EXAMINATION TYPE: XR abdomen 2V DATE OF EXAM: 02/08/2017 CLINICAL DATA: 46-year-old male partial small bowel obstruction, [facility] COMPARISON: 02/06/2017 and 02/04/2017. FINDINGS: Lung bases are clear. No evidence for free intraperitoneal air. Persistent air seen throughout the colon. Small air-fluid levels scattered within the small bowel. Mi ldly dilated left abdominal small bowel loop measuring 4.0 cm. Overall appearance is not significantl y changed from prior. Air extends distally into the rectum. IVC filter. Focal punctate left paramedian mid abdominal calcification seems to be localized just oscar p to the abdominal wall musculature on prior CT. Surgical changes at the left lower quadrant. IMPRESSION: 1. Similar mildly dilated 3.9 cm small bowel loop in the left mid abdomen with scattered small air-fl uid levels. Given the presence of colonic air, partial small bowel obstruction not excluded. No evide nce of worsening obstruction. 2. No free air.
[2017-02-08] MEDS: FAMOTIDINE 20 MG/2 ML VIAL IV SCH (08:25)
[2017-02-08] MEDS: HEPARIN SODIUM,PORCINE 5,000 UNIT/ML 1 ML VIAL SQ SCH ×3 (08:25→23:46)
--- NOTE | 2017-02-08 13:37 | P.PN ---
Subjective Progress Note Date: 02/08/17 46-year-old male seen and examined at bedside. Patient has been up ambulating in the hallway. Patient states and 7 AM he has had 1 small loose watery stool no blood noted. Patient continues to report having slight tenderness to the abdominal wall improving. Patient states is tolerating diet no reports of nausea vomiting Objective - Vital Signs Vital signs: Vital Signs Temp 98.4 F 02/08/17 07:00 Pulse 65 02/08/17 10:17 Resp 16 02/08/17 10:17 BP 118/78 02/08/17 07:00 Pulse Ox 96 02/08/17 07:00 Intake & Output 02/07/17 02/08/17 02/08/17 18:59 06:59 18:59 Intake Total 1050 840 Balance 1050 840 Intake: Intake, IV Titration 600 840 Amount Sodium Chloride 0.9% 1, 600 840 000 ml @ 80 mls/hr IV . [id number] [facility] Rx#:[id number] Oral 450 Other: Voiding Method Toilet Toilet # Voids 1 1 - Exam Physical exam 46-year-old gentleman resting in bed appears no acute distress states abdominal discomfort improving Lungs essentially clear adequate air movement on room air Heart S1-S2 audible and regular denying chest pain Abdomen slight tenderness across the abdominal wall nondistended bowel tones present no nausea no vomiting states 1 stool this morning no blood noted Extremities no edema noted - Labs CBC & Chem 7: 02/08/17 06:56 02/08/17 06:56 Labs: Abnormal Lab Results - Last 24 Hours (Table) 02/08/17 Range/Units 06:56 Chloride 108 H (98-107) mmol/L Carbon Dioxide 21 L (22-30) mmol/L Assessment and Plan Assessment: Impression Present on admission abdominal pain suspect due to partial small bowel obstruction History of small bowel lymphoma Electrolyte abnormality hypokalemia Leukocytosis present on admission suspect reactive Plan Advance diet as tolerated Continue ambulation increase activity Repeat labs in the morning DVT and GI prophylaxis IV fluid at 80cchr The above impression and plan of care have been discussed and directed by signing physician. Mary Ann Mike nurse practitioner acting as scribe for signing physician.
[2017-02-08] MEDS: FAMOTIDINE 20 MG TAB PO SCH (22:19)
[2017-02-09 02:28] VITALS: RESP 16
[2017-02-09] MEDS: SODIUM CHLORIDE 0.9% 1,000 ML IV SCH (04:20)
[2017-02-09 07:45] LABS: Basophils % (A) 0 %; CH 30.5; CHCM 34.4; Eosinophils # (A) 0.2 k/uL (0-0.7); Eosinophils % (A) 3 %; HCT 45.1 % (39.0-53.0); HDW 2.65; Luc # (Auto) 0.15; Luc % (Auto) 2; Lymphocytes # (A) 2.3 k/uL (1.0-4.8); Lymphocytes % (A) 27 %; MCH 29.6 pg (25.0-35.0); MCHC 33.3 g/dL (31.0-37.0); MCV 89.1 fL (80.0-100.0); Monocytes # (A) 0.6 k/uL (0-1.0); Monocytes % (A) 7 %; Neutrophils # (A) 5.2 k/uL (1.3-7.7); Neutrophils % (A) 61 %; RBC 5.06 m/uL (4.30-5.90); RDW 12.7 % (11.5-15.5); WBC 8.5 k/uL (3.8-10.6); WBC (Perox) 8.49
[2017-02-09 08:04] LABS: ALT 54 U/L (21-72); AST 31 U/L (17-59); Alkaline Phosphatase 78 U/L (38-126); Anion Gap 10 mmol/L; Blood Urea Nitrogen 13 mg/dL (9-20); Calcium 9.5 mg/dL (8.4-10.2); Carbon Dioxide 22 mmol/L (22-30); Chloride 107 mmol/L (98-107); Glucose 89 mg/dL (74-99); Non-African American GFR(MDRD) >60 (>60 ml/min/1.73 sqM); Potassium 3.7 mmol/L (3.5-5.1); Sodium 139 mmol/L (137-145); Total Bilirubin 0.6 mg/dL (0.2-1.3); Total Protein 6.7 g/dL (6.3-8.2)
[2017-02-09 08:20] VITALS: BP 122/76; PULSE 62; TEMP 97.9
[2017-02-09] MEDS: FAMOTIDINE 20 MG TAB PO SCH (08:55)
[2017-02-09] MEDS: HEPARIN SODIUM,PORCINE 5,000 UNIT/ML 1 ML VIAL SQ SCH (08:56)
--- NOTE | 2017-02-09 09:26 | P.DS ---
Providers Date of admission: 02/05/17 01:14 Expected date of discharge: 02/09/17 Attending physician: Chemo Mg Consults: 02/05/17 10:22 Consult Physician Routine Consulting Provider: Holli Larson Consult Reason/Comments: Medical management Do you want consulting provider notified?: Yes [facility] [place] [facility] Course: 46-year-old male presented on the day of admission to the emergency room with a chief complaint of having a nausea sensation vomiting with abdominal pain which had increased in severity patient did have a CAT scan with abdominal x-rays which did show findings consistent with a small bowel obstruction. The CAT scan was compared to a CAT scan done 2 years prior they were almost identical. Patient does have a history of a small bowel lymphoma. Patient had undergone small bowel resection in the past. Also had a hernia at the operative site repaired. Patient was admitted and treated for the small obstruction . Nasogastric tube was placed on admission placed on bowel rest with IV hydration monitored closely over the course of hospitalization symptoms improved nasogastric tube was able to be removed diet slowly advanced on the day of discharge abdominal pain had resolved patient was tolerating a soft diet bowel function resumed no frequent stooling . Patient was felt to be clinically stable and appropriate to proceed with a discharge to home Impression Present on admission abdominal pain with nausea vomiting suspect due to partial small bowel obstruction resolved History of lymphoma in remission Electrolyte abnormality hypokalemia resolved Leukocytosis present on admission suspect reactive resolved Present on admission acute renal failure secondary to nausea vomiting prerenal azotemia resolved The above impression and plan of care have been discussed and directed by signing physician. Mary Ann Mike nurse practitioner acting as scribe for signing physician. Patient Condition at Discharge: Serious Plan - Discharge Summary Discharge Rx Participant: Yes New Discharge Prescriptions: Continue Esomeprazole Magnesium [NexIUM] 40 mg PO BID Losartan Potassium [Cozaar] 50 mg PO QAM Discharge Medication List Esomeprazole Magnesium [NexIUM] 40 mg PO BID 09/30/13 [History] Losartan Potassium [Cozaar] 50 mg PO QAM 09/30/13 [History] Follow up Appointment(s)/Referral(s): Jhonatan Casanova MD [Primary Care Provider] - 1-2 days Chemo Mg MD [Medical Doctor] - 1 Week Activity/Diet/Wound Care/Special Instructions: Return to the nearest emergency room if symptoms recur nausea vomiting abdominal pain Discharge Disposition: HOME SELF-CARE
--- NOTE | 2017-02-10 01:11 | P.PN ---
Subjective Progress Note Date: 02/08/17 Principal diagnosis: Small bowel obstruction is admitted with partial small bowel obstruction doing much better today patient has sluggish bowel sounds NG was removed and bleeding in the hallway patient is passing gas 2016 Patient started having diarrhea about 3 episodes C. diff testing will be obtained if he continues to have diarrhea . Constitutional: Denied any fatigue denied any fever. Cardio vascular: denied any chest pain, palpitations Gastrointestinal denied any nausea vomiting Pulmonary: Denied any shortness of breath cough Neurologic denied any new focal deficits Objective - Vital Signs Vital signs: Vital Signs Temp 97.9 F 02/09/17 08:20 Pulse 62 02/09/17 08:20 Resp 16 02/09/17 08:20 BP 122/76 02/09/17 08:20 Pulse Ox 95 02/09/17 08:20 Intake & Output 02/08/17 02/09/17 02/09/17 18:59 06:59 18:59 Intake Total 400 150 Balance 400 150 Intake: Intake, IV Titration 400 Amount Sodium Chloride 0.9% 1, 400 000 ml @ 80 mls/hr IV . [id number] [facility] Rx#:[id number] Oral 150 Other: Voiding Method Toilet Toilet # Voids 1 - Exam GENERAL: The patient is alert and oriented x3, not in any acute distress. Well developed, well nourished. HEENT: Pupils are round and equally reacting to light. EOMI. No scleral icterus. No conjunctival pallor. Normocephalic, atraumatic. No pharyngeal erythema. No thyromegaly. CARDIOVASCULAR: S1 and S2 present. No murmurs, rubs, or gallops. PULMONARY: Chest is clear to auscultation, no wheezing or crackles. ABDOMEN: Soft, normoactive bowel sounds, no rebound or rigidity MUSCULOSKELETAL: No joint swelling or deformity. EXTREMITIES: No cyanosis, clubbing, or pedal edema. NEUROLOGICAL: Gross neurological examination did not reveal any focal deficits. - Labs CBC & Chem 7: 02/09/17 07:18 02/09/17 07:18 Assessment and Plan Assessment: #1 possible small bowel obstruction: NG tube was removed. patient was having diarrhea. Continue IV fluids at 80 mL/h which is appropriate.if continues to have diarrhea we will rule out C. diff #2 leukocytosis: Reactive secondary to a partial small bowel obstruction nausea vomiting. Continue with IV fluids. #3 hypertension patient is on losartan at home which can be held at this time to prevent hypotension secondary to nausea vomiting. #4 mild acute renal dysfunction secondary to nausea vomiting prerenal azotemia patient will be continued on IV fluids as mentioned above. #5 history of lymphoma and in the past which is in remission #6 history of DVT in the past without any anticoagulation at this point of time patient had a [place] filter patient is on DVT prophylaxis with subcutaneous heparin
--- NOTE | 2017-02-10 01:13 | P.PN ---
Subjective Progress Note Date: 02/09/17 Principal diagnosis: Small bowel obstruction is admitted with partial small bowel obstruction doing much better today patient has sluggish bowel sounds NG was removed and bleeding in the hallway patient is passing gas 2016 Patient started having diarrhea about 3 episodes C. diff testing will be obtained if he continues to have diarrhea . 02/09/2017 Patient denied any complaints of abdominal pain. Diarrhea resolved. Patient did have bowel movement no fever no chills. Otherwise patient is stable to be discharged home today Constitutional: Denied any fatigue denied any fever. Cardio vascular: denied any chest pain, palpitations Gastrointestinal denied any nausea vomiting Pulmonary: Denied any shortness of breath cough Neurologic denied any new focal deficits Objective - Vital Signs Vital signs: Vital Signs Temp 97.9 F 02/09/17 08:20 Pulse 62 02/09/17 08:20 Resp 16 02/09/17 08:20 BP 122/76 02/09/17 08:20 Pulse Ox 95 02/09/17 08:20 Intake & Output 02/08/17 02/09/17 02/09/17 18:59 06:59 18:59 Intake Total 400 150 Balance 400 150 Intake: Intake, IV Titration 400 Amount Sodium Chloride 0.9% 1, 400 000 ml @ 80 mls/hr IV . [id number] [facility] Rx#:[id number] Oral 150 Other: Voiding Method Toilet Toilet # Voids 1 - Exam GENERAL: The patient is alert and oriented x3, not in any acute distress. Well developed, well nourished. HEENT: Pupils are round and equally reacting to light. EOMI. No scleral icterus. No conjunctival pallor. Normocephalic, atraumatic. No pharyngeal erythema. No thyromegaly. CARDIOVASCULAR: S1 and S2 present. No murmurs, rubs, or gallops. PULMONARY: Chest is clear to auscultation, no wheezing or crackles. ABDOMEN: Soft, normoactive bowel sounds, no rebound or rigidity MUSCULOSKELETAL: No joint swelling or deformity. EXTREMITIES: No cyanosis, clubbing, or pedal edema. NEUROLOGICAL: Gross neurological examination did not reveal any focal deficits. - Labs CBC & Chem 7: 02/09/17 07:18 02/09/17 07:18 Assessment and Plan Assessment: #1 possible small bowel obstruction: Improved conservatively. NG tube was removed. Patient did have bowel movement. No diarrhea today #2 leukocytosis: Reactive secondary to a partial small bowel obstruction nausea vomiting. Resolved #3 hypertension patient is on losartan at home which can be held at this time to prevent hypotension secondary to nausea vomiting. #4 mild acute renal dysfunction secondary to nausea vomiting prerenal azotemia patient will be continued on IV fluids as mentioned above. #5 history of lymphoma and in the past which is in remission #6 history of DVT in the past without any anticoagulation at this point of time patient had a [place] filter patient is on DVT prophylaxis with subcutaneous heparin
== END 2017-02-09 12:33 | disposition home or self-care (01) | DRG 389 ==
LOC: EC 20:43 → 3SUR 02-05 01:14
PROVIDERS: ADMIT Surgery; ATTEND Surgery
PROC: 0D9670Z Drainage of Stomach with Drainage Device, Via Natural or Artificial Opening (ICD-10-PCS; principal; 2017-02-05)
DX: K56.600 Partial intestinal obstruction, unspecified as to cause (principal); K42.0 Umbilical hernia with obstruction, without gangrene; N17.9 Acute kidney failure, unspecified; I10 Essential (primary) hypertension; E87.6 Hypokalemia; D72.829 Elevated white blood cell count, unspecified; K21.9 Gastro-esophageal reflux disease without esophagitis; R79.89 Other specified abnormal findings of blood chemistry; R19.7 Diarrhea, unspecified; Z79.899 Other long term (current) drug therapy; Z85.72 Personal history of non-Hodgkin lymphomas; Z88.0 Allergy status to penicillin; Z82.49 Family history of ischemic heart disease and other diseases of the circulatory system
CPT/HCPCS: 36415; 74000; 74020; 74177; 80048; 80053; 81003; 82150; 83605; 83690; 85025; 96361; 96374; 96375; 96376; 99285

== ENCOUNTER 2017-08-31 16:32 | Inpatient (IN) | payer BC ==
[2017-08-31] MEDS ORDERED: KETOROLAC 30 MG/ML 1 ML VIAL IVP STA (17:20)
[2017-08-31] MEDS ORDERED: SODIUM CHLORIDE 0.9% 1,000 ML IV STA ×2 (17:20)
[2017-08-31] MEDS ORDERED: ONDANSETRON 4 MG/2 ML VIAL IVP STA (17:20)
[2017-08-31] MEDS ORDERED: MORPHINE SULFATE 2 MG/ML SYRINGE IV STA (17:20)
--- NOTE | 2017-08-31 17:20 | ED ---
Abdominal Pain HPI - General Chief Complaint: Abdominal Pain Stated Complaint: POSS BOWEL OBSTRUCTON Time Seen by Provider: 08/31/17 16:59 Source: patient, RN notes reviewed, old records reviewed Mode of arrival: ambulatory Limitations: no limitations - History of Present Illness Initial Comments: This patient's a pleasant 46-year-old male with history of bowel obstructions presents today with 1 day of abdominal pain and nausea and vomiting. He reports that he has not had a bowel movement and has not been passing gas since 11 AM this morning. Patient relates that this feels similar to his previous bouts instructions. His surgeon is Dr. Mg. He's had bowel resection, cholecystectomy, hernia repairs by Dr. Mg. Patient denies any fever or chills. No urinary symptoms including hematuria. He does state that the pain will radiate towards his back. - Related Data Home Medications Medication Instructions Recorded Confirmed Esomeprazole Magnesium [NexIUM] 40 mg PO BID 09/30/13 08/31/17 Losartan Potassium [Cozaar] 50 mg PO QAM 09/30/13 08/31/17 Allergies Allergy/AdvReac Type Severity Reaction Status Date / Time Penicillins Allergy Anaphylaxis Verified 08/31/17 17:50 Review of Systems ROS Statement: Those systems with pertinent positive or pertinent negative responses have been documented in the HPI. ROS Other: All systems not noted in ROS Statement are negative. Past Medical History Past Medical History: Cancer, Deep Vein Thrombosis (DVT), GERD/Reflux, Hypertension Additional Past Medical History / Comment(s): LYMPHOMA-CHEMO 2003 History of Any Multi-Drug Resistant Organisms: None Reported Past Surgical History: Bowel Resection, Cholecystectomy, Hernia Repair, Tonsillectomy Additional Past Surgical History / Comment(s): GREENFIELFD FILTER Past Anesthesia/Blood Transfusion Reactions: No Reported Reaction Past Psychological History: No Psychological Hx Reported Smoking Status: Never smoker Past Alcohol Use History: Occasional Past Drug Use History: None Reported - Past Family History Mother Family Medical History: No Reported History Father Family Medical History: Myocardial Infarction ([place]) Additional Family Medical History / Comment(s): AT AGE 48 General Exam - General Exam Comments Initial Comments: This Patient is a 46-year-old male. Alert and oriented. No significant distress. Reports his pain is a 10 out of 10. Limitations: no limitations General appearance: alert, in no apparent distress Head exam: Present: atraumatic, normocephalic, normal inspection ENT exam: Present: normal exam, mucous membranes moist Neck exam: Present: normal inspection. Absent: tenderness, meningismus, lymphadenopathy Respiratory exam: Present: normal lung sounds bilaterally. Absent: respiratory distress, wheezes, rales, rhonchi, stridor Cardiovascular Exam: Present: regular rate, normal rhythm, normal heart sounds. Absent: systolic murmur, diastolic murmur, rubs, gallop, clicks GI/Abdominal exam: Present: soft, tenderness, diminished bowel sounds, other ( Patient has diffuse abdominal tenderness, worse in left upper quadrant.). Absent: distended, guarding, rebound, rigid, normal bowel sounds Extremities exam: Present: normal inspection, full ROM, normal capillary refill. Absent: tenderness, pedal edema, joint swelling, calf tenderness Back exam: Present: normal inspection Neurological exam: Present: alert, oriented X3, CN II-XII intact Psychiatric exam: Present: normal affect, normal mood Skin exam: Present: warm, dry, intact, normal color. Absent: rash Course Vital Signs 08/31/17 08/31/17 16:54 19:01 Temperature 97.6 F 98.6 F Pulse Rate 80 89 Respiratory 18 16 Rate Blood Pressure 146/81 134/74 O2 Sat by Pulse 96 95 Oximetry Medical Decision Making - Medical Decision Making 38-year-old male history of bowel instructions presents today she pointed nausea vomiting abdominal pain. Has not had bowel movements today. Patient's labwork was reviewed shows elevated leukocytosis. CT abdomen and pelvis are completed. Evidence of partial small bowel traction. NG tube placed. Limited the Patient for medicine consult to surgery. Patient's family does wish that they would not like to do any surgery and have the bowel instruction likely resolve on its own as it has been past. Patient started on IV fluids. Given pain medication. - Lab Data Result diagrams: 08/31/17 17:43 08/31/17 17:43 Lab Results 08/31/17 08/31/17 Range/Units 17:43 17:43 WBC 15.5 H (3.8-10.6) k/uL RBC 5.96 H (4.30-5.90) m/uL Hgb 17.3 (13.0-17.5) gm/dL Hct 51.5 (39.0-53.0) % MCV 86.4 (80.0-100.0) fL MCH 29.1 (25.0-35.0) pg MCHC 33.6 (31.0-37.0) g/dL RDW 13.0 (11.5-15.5) % Plt Count 300 (150-450) k/uL Neutrophils % 80 % Lymphocytes % 13 % Monocytes % 5 % Eosinophils % 1 % Basophils % 0 % Neutrophils # 12.4 H (1.3-7.7) k/uL Lymphocytes # 2.0 (1.0-4.8) k/uL Monocytes # 0.8 (0-1.0) k/uL Eosinophils # 0.1 (0-0.7) k/uL Basophils # 0.0 (0-0.2) k/uL Sodium 143 (137-145) mmol/L Potassium 4.4 (3.5-5.1) mmol/L Chloride 104 (98-107) mmol/L Carbon Dioxide 22 (22-30) mmol/L Anion Gap 17 mmol/L BUN 16 (9-20) mg/dL Creatinine 1.04 (0.66-1.25) mg/dL Est GFR (CKD-EPI)AfAm >90 (>60 ml/min/1.73 sqM) Est GFR (CKD-EPI)NonAf 85 (>60 ml/min/1.73 sqM) Glucose 116 H (74-99) mg/dL Calcium 10.5 H (8.4-10.2) mg/dL Total Bilirubin 0.7 (0.2-1.3) mg/dL AST 33 (17-59) U/L ALT 43 (21-72) U/L Alkaline Phosphatase 101 (38-126) U/L Total Protein 8.0 (6.3-8.2) g/dL Albumin 4.9 (3.5-5.0) g/dL Amylase 62 (30-110) U/L Lipase 91 (23-300) U/L - Radiology Data Radiology results: report reviewed Multiple dilated fluid-filled small bowel loops which appear narrowing region of the malleoli and distal ileum is normal caliber. There is prominence of loops in the colon to mild degree just proximal to the anastomosis of the distal colon surgery site however the opening is widely pain is visualized. [place] clinical correlation is recommended for partial small bowel obstruction. Mild ileus of the colon may be present as well. Mild to moderate fatty infiltration of liver. Read by Dr. Cesar. Disposition Clinical Impression: Partial small bowel obstruction Disposition: ADMITTED IP TO THIS HOSP Condition: Stable Is patient prescribed a controlled substance at d/c from ED?: No When asked, does pt state using other controlled substances?: No If prescribed controlled substance>3 days was MAPS reviewed?: No If opioid is for acute pain is fill amount 7 days or less?: No If Rx opioid, was Start Talking consent form obtained?: No Referrals: Jhonatan Casanova MD [Primary Care Provider] - 1-2 days Time of Disposition: 21:07
[2017-08-31 18:06] LABS: Basophils % (A) 0 %; Eosinophils # (A) 0.1 k/uL (0-0.7); Eosinophils % (A) 1 %; HCT 51.5 % (39.0-53.0); HGB 17.3 gm/dL (13.0-17.5); Lymphocytes % (A) 13 %; MCH 29.1 pg (25.0-35.0); MCHC 33.6 g/dL (31.0-37.0); MCV 86.4 fL (80.0-100.0); Mean Platelet Volume 7.2; Monocytes # (A) 0.8 k/uL (0-1.0); Monocytes % (A) 5 %; Neutrophils # (A) 12.4 k/uL (1.3-7.7); Neutrophils % (A) 80 %; Platelet Count 300 k/uL (150-450); RBC 5.96 m/uL (4.30-5.90); WBC 15.5 k/uL (3.8-10.6)
[2017-08-31 18:27] LABS: ALT 43 U/L (21-72); AST 33 U/L (17-59); Albumin 4.9 g/dL (3.5-5.0); Alkaline Phosphatase 101 U/L (38-126); Amylase 62 U/L (30-110); Blood Urea Nitrogen 16 mg/dL (9-20); Calcium 10.5 mg/dL (8.4-10.2); Carbon Dioxide 22 mmol/L (22-30); Glucose 116 mg/dL (74-99); Lipase 91 U/L (23-300); Potassium 4.4 mmol/L (3.5-5.1); Sodium 143 mmol/L (137-145); Total Bilirubin 0.7 mg/dL (0.2-1.3)
[2017-08-31] MEDS ORDERED: RX INFO: IV CONTRAST WAS GIVEN 1 EACH MISC MISCELLANE PRN (18:34)
--- NOTE | 2017-08-31 19:11 | XR ---
EXAMINATION TYPE: XR KUB DATE OF EXAM: 08/31/2017 COMPARISON: NONE INDICATION: Abdomen pain TECHNIQUE: Single view abdomen upright view FINDINGS: Air-fluid levels are within small bowel loops. Some differential air-fluid levels may be present. Air -fluid level may be within the colon and ascending loop. Ascending loop air-fluid levels are present. Correlate for partial obstruction. Report was called to emergency room PA by Dr. Cesar by telephon e at time of interpretation. Psoas margins are normal. No organomegaly is present. Filter is just to the right of the midline at the L2 level IMPRESSION: 1. Multiple air-fluid levels with some differential air-fluid levels within small bowel as well as ai r fluid within the colon. Correlate for gastroenteritis. Partial small bowel obstruction should be co nsidered.
[2017-08-31 19:29] LABS: Anion Gap 17 mmol/L; Chloride 104 mmol/L (98-107)
--- NOTE | 2017-08-31 20:21 | CT ---
EXAMINATION TYPE: CT abdomen pelvis w con DATE OF EXAM: 08/31/2017 COMPARISON: NONE INDICATION: Generalized abd pain, nausea and vomiting. Abnormal plain films. History of prior bowel o bstructions. DLP: 1944. mGycm, Automated exposure control for dose reduction was used. CONTRAST: 100ml mL of Isovue 300. Study performed without Oral Contrast TECHNIQUE: Axial images were obtained from above the diaphragm to the pubic rami in the axial plane a t 5 mm thick sections. Reconstructed images are reviewed on the computer in the coronal plane. FINDINGS: Limited CT sections are obtained the lung bases. The lung bases are clear. CT ABDOMEN: Liver: Mild to moderate fatty infiltration throughout the liver. No discrete masses are evident. Spleen: Normal Pancreas: Normal Adrenal glands: The adrenal glands are normal. Gallbladder: Surgically absent Kidneys: No masses are evident. No hydronephrosis is present. No cysts are present. Delayed images were obtained through the kidneys, which remain unremarkable. There is a retrocaval right renal arpita ry Aorta: Normal Inferior vena cava: Filter is present below the renal arteries. CT PELVIS: Multiple dilated small bowel loops containing fluid are present. Air is present within the colon whic h is decompressed. Some transition appears to be within the distal ileum proximal to the terminal ile um. This tapers without abrupt change. Fluid appears to be the mid ileum. Distal colonic surgery is n oted. There is slight prominence of the colon just proximal to the surgery site. However, the opening appears widely patent. There is a loop of small bowel in an anterior abdominal wall hernia in the pe riumbilical region. Obstruction ovary is not evident. Appendix: Normal as visualized. No suspicious dilated structure or inflammatory changes evident. Urinary bladder: Normal. Genitourinary structures: Prostate prominence is present. Osseous structures: No suspicious lytic or sclerotic lesions. IMPRESSIONS: 1. Multiple dilated fluid-filled small bowel loops which appear to narrow in the region of the mid i leum. Distal ileum is more normal caliber. There is some prominence of loops of colon to mild degree just proximal to the anastomosis of the distal colon sigmoid colon surgery site. However, the opening is widely patent as visualized. Clinical correlation is recommended for partial small bowel obstruct ion. Mild ileus of the colon may be present as well. 2. Mild to moderate fatty infiltration liver.
[2017-08-31] MEDS ORDERED: MORPHINE SULFATE 2 MG/ML SYRINGE IVP STA (21:00)
[2017-08-31] MEDS ORDERED: KETOROLAC 30 MG/ML 1 ML VIAL IVP PRN (21:02)
[2017-08-31] MEDS ORDERED: MORPHINE SULFATE 4 MG/ML SYRINGE IV PRN (21:02)
[2017-08-31] MEDS ORDERED: NALOXONE 0.4 MG/ML 1 ML VIAL IV PRN (21:02)
[2017-08-31] MEDS ORDERED: ONDANSETRON 4 MG/2 ML VIAL IVP PRN (21:02)
[2017-09-01] MEDS ORDERED: MORPHINE SULFATE 4 MG/ML SYRINGE ONE ×2 (01:30→05:35)
[2017-09-01] MEDS ORDERED: ONDANSETRON 4 MG/2 ML VIAL ONE (01:30)
[2017-09-01] MEDS ORDERED: SODIUM CHLORIDE 0.9% 1,000 ML BAG ONE (01:30)
[2017-09-01 06:26] LABS: Appearance,Urine Clear (Clear); Bilirubin,Urine Negative (Negative); Blood,Urine Negative (Negative); Color,Urine Yellow; Glucose,Urine (UA) Negative (Negative); Ketones,Urine Negative (Negative); Leukocyte Esterase,Urine Negative (Negative); Nitrite,Urine Negative (Negative); Protein,Urine Trace (Negative); Urobilinogen,Urine <2.0 mg/dL (<2.0)
[2017-09-01] MEDS: PANTOPRAZOLE 40 MG/10 ML VIAL IV SCH (09:32)
[2017-09-01] MEDS: SODIUM CHLORIDE 0.9% 1,000 ML IV SCH ×3 (09:36→17:09)
[2017-09-01 14:55] VITALS: RESP 16
--- NOTE | 2017-09-01 16:23 | P.GSCN ---
History of Present Illness Consult date: 09/01/17 Reason for Consult: Abdominal pain History of present illness: Pleasant 46-year-old male who presented on the day of admission to the emergency room after developing a sudden onset of mid epigastric abdominal pain with nausea vomiting and inability to keep fluids down. Patient stated he had not had a bowel movement but was passing gas. Patient stated that he felt similar symptoms when he had a previous bowel obstruction in February 2017. Patient's primary surgical physician is Dr. Mg Who is rounding on behalf of patient has a history of small bowel lymphoma. He underwent a small bowel resection in the past. Patient was last hospitalized for a bowel obstruction in February 2017 treated conservatively Currently patient states since the nasogastric tube is in place there is an improvement in the discomfort in the abdomen and has been up ambulating abdomen less distended less bloating in the emergency room and nasogastric tube was placed and connected to suction with a slight improvement after the nasogastric tube is been placed. CAT scan in the emergency room did show multiple dilated fluid-filled small bowel loops appeared to be narrow in the region of the mid ileum suggestive of partial small bowel obstruction mild ileus of the colon likely. Review of Systems Essentially unremarkable except as mentioned in the present illness Past Medical History Past Medical History: Cancer, Deep Vein Thrombosis (DVT), GERD/Reflux, Hypertension Additional Past Medical History / Comment(s): LYMPHOMA-CHEMO 2003 History of Any Multi-Drug Resistant Organisms: None Reported Past Surgical History: Bowel Resection, Cholecystectomy, Hernia Repair, Tonsillectomy Additional Past Surgical History / Comment(s): GREENFIELFD FILTER Past Anesthesia/Blood Transfusion Reactions: No Reported Reaction Past Psychological History: No Psychological Hx Reported Smoking Status: Never smoker Past Alcohol Use History: Occasional Past Drug Use History: None Reported - Past Family History Mother Family Medical History: No Reported History Father Family Medical History: Myocardial Infarction ([place]) Additional Family Medical History / Comment(s): AT AGE 48 Medications and Allergies Home Medications Medication Instructions Recorded Confirmed Type Esomeprazole Magnesium [NexIUM] 40 mg PO BID 09/30/13 08/31/17 History Losartan Potassium [Cozaar] 50 mg PO QAM 09/30/13 08/31/17 History Allergies Allergy/AdvReac Type Severity Reaction Status Date / Time Penicillins Allergy Anaphylaxis Verified 08/31/17 17:50 Surgical - Exam Vital Signs Temp Pulse Resp BP Pulse Ox 97.6 F 80 18 146/81 96 08/31/17 16:54 08/31/17 16:54 08/31/17 16:54 08/31/17 16:54 08/31/17 16:54 GENERAL APPEARANCE: Pleasant 46-year-old male patient is alert, oriented, in no acute distress. VITAL SIGNS: Reviewed HEENT: Head is normocephalic and atraumatic. Pupils are equal and reactive. The nares are patent. Oropharynx is clear without lesions. NECK: Supple without lymphadenopathy. Traches midline. HEART: S1, S2. Regular rate and rhythm. Denies any chest pain LUNGS: No crackles or wheezes are heard. Adequate air movement bilaterally ABDOMEN: Soft, diffuse tenderness across the abdominal wall with a nasal gastric tube connected to suction brownish secretions noted nondistended with a few bowel sounds. No peritoneal signs. No palpable organomegaly or masses. Reports no nausea no vomiting urinating no difficulty EXTREMITIES: Normal skin color and turgor. No cyanosis, rash, ulceration, clubbing or edema. Radial pedal pulses are 2/4 bilaterally. NEUROLOGICAL: No focal deficits. Strength and sensation are grossly intact. Results - Labs 08/31/17 17:43 08/31/17 17:43 Abnormal Lab Results - Last 24 Hours (Table) 08/31/17 08/31/17 09/01/17 Range/Units 17:43 17:43 05:50 WBC 15.5 H (3.8-10.6) k/uL RBC 5.96 H (4.30-5.90) m/uL Neutrophils # 12.4 H (1.3-7.7) k/uL Glucose 116 H (74-99) mg/dL Calcium 10.5 H (8.4-10.2) mg/dL Ur Specific [place] 1.050 H (1.001-1.035) Urine Protein Trace H (Negative) Diabetes panel 08/31/17 Range/Units 17:43 Sodium 143 (137-145) mmol/L Potassium 4.4 (3.5-5.1) mmol/L Chloride 104 (98-107) mmol/L Carbon Dioxide 22 (22-30) mmol/L BUN 16 (9-20) mg/dL Creatinine 1.04 (0.66-1.25) mg/dL Glucose 116 H (74-99) mg/dL Calcium 10.5 H (8.4-10.2) mg/dL AST 33 (17-59) U/L ALT 43 (21-72) U/L Alkaline Phosphatase 101 (38-126) U/L Total Protein 8.0 (6.3-8.2) g/dL Albumin 4.9 (3.5-5.0) g/dL Calcium panel 08/31/17 Range/Units 17:43 Calcium 10.5 H (8.4-10.2) mg/dL Albumin 4.9 (3.5-5.0) g/dL Pituitary panel 08/31/17 Range/Units 17:43 Sodium 143 (137-145) mmol/L Potassium 4.4 (3.5-5.1) mmol/L Chloride 104 (98-107) mmol/L Carbon Dioxide 22 (22-30) mmol/L BUN 16 (9-20) mg/dL Creatinine 1.04 (0.66-1.25) mg/dL Glucose 116 H (74-99) mg/dL Calcium 10.5 H (8.4-10.2) mg/dL Adrenal panel 08/31/17 Range/Units 17:43 Sodium 143 (137-145) mmol/L Potassium 4.4 (3.5-5.1) mmol/L Chloride 104 (98-107) mmol/L Carbon Dioxide 22 (22-30) mmol/L BUN 16 (9-20) mg/dL Creatinine 1.04 (0.66-1.25) mg/dL Glucose 116 H (74-99) mg/dL Calcium 10.5 H (8.4-10.2) mg/dL Total Bilirubin 0.7 (0.2-1.3) mg/dL AST 33 (17-59) U/L ALT 43 (21-72) U/L Alkaline Phosphatase 101 (38-126) U/L Total Protein 8.0 (6.3-8.2) g/dL Albumin 4.9 (3.5-5.0) g/dL Assessment and Plan Assessment: Impression Present on admission intractable nausea vomiting with abdominal pain suspect due to a partial small bowel obstruction CAT scan of the abdomen pelvis on admission showed evidence to suggest partial small bowel obstruction with a mild ileus of: History of small bowel lymphoma History of a small bowel resection in the past Hernia at the operative site repaired with mesh Plan IV fluid for hydration Clamped the nasogastric tube for the next 6 hours start clear liquid if able to tolerate we'll remove the nasal gastric tube Encourage ambulation DVT and GI prophylaxis Pain control Dictating the consultation note for Dr. lewis rounding on behalf of The above impression and plan of care have been discussed and directed by signing physician. Mary Ann Mike nurse practitioner acting as scribe for signing physician.
[2017-09-01] MEDS: ENOXAPARIN 40 MG/0.4 ML SYRINGE SQ SCH (17:10)
--- NOTE | 2017-09-01 17:14 | HP ---
HISTORY AND PHYSICAL DATE OF ADMISSION: 08/31/17 DATE OF SERVICE: 09/01/17 PRESENTING COMPLAINT: Nausea, vomiting, abdominal pain. HISTORY OF PRESENTING COMPLAINT: This is a 46-year-old patient of Dr. Casanova. Chronic stable medical conditions include GERD, hypertension, obesity. The patient has had prior bowel obstructions and normally follows with Dr. Mg. Dr. Peña is covering for the same. Patient has had prior bowel obstructions and has a history of small bowel lymphoma. The patient has had prior bowel resection and subsequently bowel obstructions. The patient presented with increasing abdominal pain yesterday around noon. The patient subsequently started vomiting after 4 hours. There was no fever and no chills. The patient's last bowel movement was yesterday morning. The patient is found to have a bowel obstruction. NG tube was placed to suction, admitted for the same. REVIEW OF SYSTEMS: Constitutional: Tired. HEENT none. Respiratory none. Cardiovascular none. Gastrointestinal as above. Genitourinary: None. Musculoskeletal none. Dermatological and hematologic, lymphatic none. Psychiatry none. Neurological none. PAST MEDICAL HISTORY: DVT, GERD, hypertension, lymphoma. PAST SURGICAL HISTORY: Bowel resection, cholecystectomy, hernia repair, tonsillectomy, [place] filter. SOCIAL HISTORY: No smoking. Alcohol occasional. . 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 FAMILY HISTORY: Reviewed, noncontributory to the presentation. HOME MEDICATIONS: 1. Cozaar 50 mg p.o. daily. 2. Nexium 40 mg p.o. b.i.d. ALLERGIES: PENICILLIN. PHYSICAL EXAMINATION: Temperature 96.9, pulse 75, respiration 17, blood pressure 152/84, pulse ox 97% on room air. GENERAL APPEARANCE: Well built, BMI 38.7, lying in bed, tired appearing. EYES: Pupils are equal. Conjunctivae normal. HEENT: External appearance of nose and ears normal. Oral cavity dry with NG tube in place. NECK: JVD not raised. Mass not palpable. RESPIRATORY: Effort normal. LUNGS: Fair entry. CARDIOVASCULAR: 1st and second sounds normal. No edema. ABDOMEN: Slightly tender. Liver and spleen palpable. No mass palpable. Bowel sounds are present. LYMPHATIC: No lymph nodes palpable in the neck and axilla. PSYCHIATRY: Alert and oriented x3. Mood and affect normal. NEUROLOGICAL: Pupils equal. Cranial nerves grossly intact. Power and sensation grossly intact. INVESTIGATIONS: White count 15.5, hemoglobin 13.3, potassium 4.4. CT scan of the abdomen and pelvis: Multiple dilated small-bowel loops ending in the region of the mid ileum. Some fatty infiltration of the liver. ASSESSMENT: 1. Acute small-bowel obstruction in a patient has had prior bowel surgery, could be from adhesions, now with NG tube in place. 2. Non-alcoholic hepatitis steatosis. 3. Obesity BMI 38.7. 4. Essential hypertension. 5. Gastroesophageal reflux disease. PLAN: NG tube was placed. The patient is put on IV fluids. Dr. Mg/Dr. Peña was consulted. We will give Lovenox for DVT prophylaxis. Follow electrolytes. Care was discussed with the patient. Copy to Dr. Casanova. MMKELLYL / EMILYN: [id number] /
[2017-09-02] MEDS: ENOXAPARIN 40 MG/0.4 ML SYRINGE SQ SCH (08:21)
[2017-09-02] MEDS: PANTOPRAZOLE 40 MG/10 ML VIAL IV SCH (08:21)
[2017-09-02 08:36] LABS: Anion Gap 13 mmol/L; Blood Urea Nitrogen 16 mg/dL (9-20); Carbon Dioxide 22 mmol/L (22-30); Chloride 105 mmol/L (98-107); Glucose 82 mg/dL (74-99); Potassium 3.9 mmol/L (3.5-5.1); Sodium 140 mmol/L (137-145)
[2017-09-02 10:29] VITALS: BP 128/77; PULSE 62; TEMP 98.2
[2017-09-02] MEDS ORDERED: MORPHINE SULFATE 2 MG/ML SYRINGE IV PRN (11:07)
--- NOTE | 2017-09-02 12:20 | P.DS ---
Providers Date of admission: 08/31/17 21:19 Expected date of discharge: 09/02/17 Attending physician: Hiram Nogueira Consults: 08/31/17 21:02 Consult Physician Stat Consulting Provider: Nicholas Peña Consult Reason/Comments: Small bowel obstruction Do you want consulting provider notified?: Yes [facility] Course: 46-year-old male presented on the day of admission to the emergency room to be evaluated for the chief complaint of sudden onset of midepigastric abdominal pain with intractable nausea vomiting unable to keep any fluid down patient stated that symptoms felt similar to the last episode where he had a small bowel obstruction treated conservatively in February 2017. Patient was placed on bowel rest with nasogastric tube placed with IV fluid for hydration CAT scan done in the emergency room did show multiple dilated fluid-filled small bowel loops suggestive of partial small bowel obstruction mild ileus. On the day of discharge patient was ambulatory on the unit and the nasal gastric tube was removed the day before. Patient was tolerating a full liquid diet stated passing gas abdominal discomfort improved had several small stools and was anxious to be discharged home Impression Present on admission intractable nausea vomiting with abdominal pain suspect due to a partial small bowel obstruction resolved CAT scan of the abdomen pelvis on admission showed evidence to suggest partial small bowel obstruction with a mild ileus of: History of small bowel lymphoma History of a small bowel resection in the past Hernia at the operative site repaired with mesh Patient Condition at Discharge: Stable Plan - Discharge Summary Discharge Rx Participant: No New Discharge Prescriptions: Continue Esomeprazole Magnesium [NexIUM] 40 mg PO BID Losartan Potassium [Cozaar] 50 mg PO QAM Discharge Medication List Esomeprazole Magnesium [NexIUM] 40 mg PO BID 09/30/13 [History] Losartan Potassium [Cozaar] 50 mg PO QAM 09/30/13 [History] Follow up Appointment(s)/Referral(s): Chemo Mg MD [Medical Doctor] - 09/08/17 8:30 am (please bring ID Insurance and Medication List) Jhonatan Casanova MD [Primary Care Provider] - 09/06/17 8:00 am Activity/Diet/Wound Care/Special Instructions: Continue on a soft diet until seen in the follow-up visit with Dr. Mg Discharge Disposition: HOME SELF-CARE
--- NOTE | 2017-09-02 22:55 | PN ---
PROGRESS NOTE DATE OF SERVICE: 09/02/2017 PRESENTING COMPLAINT: Bowel obstruction. INTERVAL HISTORY: This patient presented with small bowel obstruction. Doing much better today. Did tolerate a liquid diet. Had a bowel movement yesterday. Up and about. REVIEW OF SYSTEMS: Done for constitutional, cardiovascular, GI, pulmonary; relevant findings as above. CURRENT MEDICATIONS: Reviewed. PHYSICAL EXAMINATION: Temperature 98.2, pulse 62, respiration 16, blood pressure 128/77, pulse ox 97% on room air. GENERAL APPEARANCE: Lying in bed, comfortable. EYES: Pupils equal. Conjunctivae normal. NECK: JVD not raised. Mass not palpable. RESPIRATORY: Effort normal. Lungs are clear. CARDIOVASCULAR: First and second sounds normal. No edema. ABDOMEN: Soft, non-tender. Liver and spleen not palpable. PSYCHIATRY: Alert and oriented x3. Mood and affect normal. INVESTIGATIONS: Potassium 3.9. ASSESSMENT: 1. Acute small bowel obstruction, partial, with prior bowel surgery, clinically resolved. 2. Non-alcoholic hepatic steatosis. 3. Obesity; body mass index of 38.7. 4. Essential hypertension. 5. Gastroesophageal reflux disease. PLAN: Dr. Casey Reese's TRANSCRIPT CLERK, did discharge the patient this afternoon. MMODL / IJN: [id number] /
== END 2017-09-02 13:30 | disposition home or self-care (01) | DRG 390 ==
LOC: EC 16:32 → 3SUR 21:19
PROVIDERS: ADMIT Hospitalist; ATTEND Hospitalist
DX: K56.51 Intestinal adhesions [bands], with partial obstruction (principal); K56.7 Ileus, unspecified; D72.829 Elevated white blood cell count, unspecified; E66.9 Obesity, unspecified; I10 Essential (primary) hypertension; K21.9 Gastro-esophageal reflux disease without esophagitis; K76.0 Fatty (change of) liver, not elsewhere classified; Z68.38 Body mass index [BMI] 38.0-38.9, adult; Z79.899 Other long term (current) drug therapy; Z82.49 Family history of ischemic heart disease and other diseases of the circulatory system; Z85.72 Personal history of non-Hodgkin lymphomas; Z90.49 Acquired absence of other specified parts of digestive tract; Z92.21 Personal history of antineoplastic chemotherapy; Z95.9 Presence of cardiac and vascular implant and graft, unspecified; Z88.0 Allergy status to penicillin; Z86.718 Personal history of other venous thrombosis and embolism
CPT/HCPCS: 36415; 43753; 74018; 74177; 80048; 80053; 81003; 82150; 83690; 85025; 96361; 96374; 96375; 99285

== ENCOUNTER → 2017-10-31 | Outpatient (CLI) | payer BC ==
[2017-11-01 02:28] LABS: Shrimp IgE 2.34 kU/L
[2017-11-02 13:58] LABS: Crab IgE <0.35 kU/L (<0.35); Crab IgE Class CLASS 0
[2017-11-02 13:59] LABS: Lobster IgE <0.35 kU/L (<0.35); Lobster IgE Class CLASS 0
== END | disposition home or self-care (01) ==
LOC: LABWHC1 15:19
PROVIDERS: ATTEND Nurse Practitioner Adult Health
DX: T78.40XA Allergy, unspecified, initial encounter (principal)
CPT/HCPCS: 36415; 82785; 86003

== ENCOUNTER 2018-05-23 09:16 | Inpatient (IN) | payer BC ==
[2018-05-23] MEDS ORDERED: ONDANSETRON 4 MG/2 ML VIAL IVP STA (09:37)
[2018-05-23] MEDS ORDERED: SODIUM CHLORIDE 0.9% 1,000 ML IV STA ×2 (09:37)
[2018-05-23] MEDS ORDERED: MORPHINE SULFATE 4 MG/ML SYRINGE IV STA ×2 (09:37→11:22)
--- NOTE | 2018-05-23 09:50 | ED ---
General Adult HPI - General Chief complaint: Abdominal Pain Stated complaint: Bowel pain Time Seen by Provider: 05/23/18 09:23 Source: patient, RN notes reviewed Mode of arrival: ambulatory Limitations: no limitations - History of Present Illness Initial comments: Patient 47-year-old male with significant past medical history for bowel resection, bowel obstruction, presented to the emergency room today with a chief complaint of increased nausea vomiting that started yesterday. Patient does admit that he did have a bowel movement in the afternoon. States he is passing gas last night but nothing this morning. Patient does admit that his abdomen feels full and distended. He does admit that it feels similar to an obstruction that is had in the past. Patient denies any signs of blood in the emesis. Patient denies any recent fever, chills, shortness of breath, chest pain , back pain, numbness or tingling, headaches or visual changes, or any other complaints. - Related Data Home Medications Medication Instructions Recorded Confirmed Esomeprazole Magnesium [NexIUM] 40 mg PO BID 09/30/13 05/23/18 Losartan Potassium [Cozaar] 50 mg PO QAM 09/30/13 05/23/18 Allergies Allergy/AdvReac Type Severity Reaction Status Date / Time Penicillins Allergy Anaphylaxis Verified 05/23/18 10:07 Review of Systems ROS Statement: Those systems with pertinent positive or pertinent negative responses have been documented in the HPI. ROS Other: All systems not noted in ROS Statement are negative. Past Medical History Past Medical History: Cancer, Deep Vein Thrombosis (DVT), GERD/Reflux, Hypertension Additional Past Medical History / Comment(s): LYMPHOMA-CHEMO 2004 History of Any Multi-Drug Resistant Organisms: None Reported Past Surgical History: Bowel Resection, Cholecystectomy, Hernia Repair, Tonsillectomy Additional Past Surgical History / Comment(s): GREENFIELFD FILTER Past Anesthesia/Blood Transfusion Reactions: No Reported Reaction Past Psychological History: No Psychological Hx Reported Smoking Status: Never smoker Past Alcohol Use History: Occasional Past Drug Use History: None Reported - Past Family History Mother Family Medical History: No Reported History Father Family Medical History: Myocardial Infarction ([place]) Additional Family Medical History / Comment(s): AT AGE 48 General Exam - General Exam Comments Initial Comments: General: The patient is awake and alert, in no distress, and does not appear acutely ill. Eye: There is normal conjunctiva bilaterally. No signs of icterus. Ears, nose, mouth and throat: There are moist mucous membranes and no oral lesions. Neck: The neck is suppleVD. Cardiovascular: There is a regular rate and rhythm. No murmur, rub or gallop is appreciated. Respiratory: Lungs are clear to auscultation, respirations are non-labored, breath sounds are equal. No wheezes, stridor, rales, or rhonchi. Gastrointestinal: Abdomen soft on palpation. Mild tenderness throughout the upper and lower quadrants. No rebound, guarding Musculoskeletal: Normal ROM, no tenderness. Neurological: A&O x 3. CN II-XII intact, There are no obvious motor or sensory deficits. Coordination appears grossly intact. Speech is normal. Skin: Skin is warm and dry and no rashes or lesions are noted. Psychiatric: Cooperative, appropriate mood & affect, normal judgment. Limitations: no limitations Course Vital Signs 05/23/18 05/23/18 05/23/18 09:19 12:11 12:20 Temperature 97.8 F 98.3 F Pulse Rate 80 78 Respiratory 18 16 Rate Blood Pressure 125/86 139/79 O2 Sat by Pulse 99 96 Oximetry Medical Decision Making - Medical Decision Making Patient's labs have been reviewed and does show 14,000 white count. Patient's had multiple episodes nausea vomiting. Has had no flatulence since yesterday. Patient has history of SBO. Patient CT the abdomen and pelvis does show evidence for small bowel obstruction. Patient will be admitted to the hospital. Patient has seen in the past. - Lab Data Result diagrams: 05/23/18 10:25 05/23/18 10:25 Lab Results 05/23/18 05/23/18 Range/Units 10:25 10:25 WBC 14.3 H (3.8-10.6) k/uL RBC 5.93 H (4.30-5.90) m/uL Hgb 17.3 (13.0-17.5) gm/dL Hct 52.9 (39.0-53.0) % MCV 89.1 (80.0-100.0) fL MCH 29.3 (25.0-35.0) pg MCHC 32.8 (31.0-37.0) g/dL RDW 13.2 (11.5-15.5) % Plt Count 294 (150-450) k/uL Neutrophils % 86 % Lymphocytes % 9 % Monocytes % 4 % Eosinophils % 1 % Basophils % 0 % Neutrophils # 12.3 H (1.3-7.7) k/uL Lymphocytes # 1.2 (1.0-4.8) k/uL Monocytes # 0.5 (0-1.0) k/uL Eosinophils # 0.2 (0-0.7) k/uL Basophils # 0.0 (0-0.2) k/uL Sodium 140 (137-145) mmol/L Potassium 5.0 (3.5-5.1) mmol/L Chloride 103 (98-107) mmol/L Carbon Dioxide 25 (22-30) mmol/L Anion Gap 12 mmol/L BUN 20 (9-20) mg/dL Creatinine 1.27 H (0.66-1.25) mg/dL Est GFR (CKD-EPI)AfAm 76 (>60 ml/min/1.73 sqM) Est GFR (CKD-EPI)NonAf 66 (>60 ml/min/1.73 sqM) Glucose 139 H (74-99) mg/dL Calcium 10.6 H (8.4-10.2) mg/dL Total Bilirubin 1.0 (0.2-1.3) mg/dL AST 28 (17-59) U/L ALT 49 (21-72) U/L Alkaline Phosphatase 88 (38-126) U/L Total Protein 8.1 (6.3-8.2) g/dL Albumin 4.7 (3.5-5.0) g/dL Amylase 55 (30-110) U/L Lipase 76 (23-300) U/L Disposition Clinical Impression: SBO (small bowel obstruction) Disposition: ADMITTED IP TO THIS HOSP Condition: Good Is patient prescribed a controlled substance at d/c from ED?: No Referrals: Jhonatan Casanova MD [Primary Care Provider] - 1-2 days Time of Disposition: 13:18
[2018-05-23 10:53] LABS: Basophils % (A) 0 %; Eosinophils # (A) 0.2 k/uL (0-0.7); Eosinophils % (A) 1 %; HCT 52.9 % (39.0-53.0); HGB 17.3 gm/dL (13.0-17.5); Lymphocytes # (A) 1.2 k/uL (1.0-4.8); Lymphocytes % (A) 9 %; MCH 29.3 pg (25.0-35.0); MCHC 32.8 g/dL (31.0-37.0); MCV 89.1 fL (80.0-100.0); Mean Platelet Volume 6.6; Monocytes # (A) 0.5 k/uL (0-1.0); Monocytes % (A) 4 %; Neutrophils # (A) 12.3 k/uL (1.3-7.7); Neutrophils % (A) 86 %; Platelet Count 294 k/uL (150-450); RBC 5.93 m/uL (4.30-5.90); RDW 13.2 % (11.5-15.5); WBC 14.3 k/uL (3.8-10.6)
[2018-05-23 11:02] LABS: Albumin 4.7 g/dL (3.5-5.0); Calcium 10.6 mg/dL (8.4-10.2); Total Protein 8.1 g/dL (6.3-8.2)
--- NOTE | 2018-05-23 11:23 | XR ---
EXAMINATION TYPE: XR abdomen complete w decub DATE OF EXAM: 05/23/2018 COMPARISON: 08/31/2017 HISTORY: Abdominal pain. History of small bowel obstruction and partial small bowel resection. TECHNIQUE: Supine, upright, and right lateral decubitus views of the abdomen were obtained. FINDINGS: Scattered air-fluid levels are seen within nondilated small bowel, a physiologic number. Link rgical clips are noted within the right upper quadrant from prior cholecystectomy. Surgical sutures s urrounding the left hemicolon. No dilated large or small bowel are noted. Mild degree of retained col onic stool seen within the right hemicolon. Inferior vena cava filter is noted. Osseous structures ar e grossly intact. No pneumoperitoneum. IMPRESSION: Diffuse centralized air-fluid levels within small bowel suggests mild. No dilated loops of small curly l or large bowel to suggest obstruction.
--- NOTE | 2018-05-23 12:30 | CT ---
EXAMINATION TYPE: CT abdomen pelvis w con DATE OF EXAM: 05/23/2018 COMPARISON: 08/31/2017 HISTORY: 47-year-old male with pain and vomiting TECHNIQUE: Contiguous axial scanning of the abdomen and pelvis following administration of 100 ml Iso isabelle 300 IV contrast. Delayed images through the kidneys and coronal/sagittal reconstructions perform ed. CT DLP: 1747.7 mGycm Automated exposure control for dose reduction was used. FINDINGS: Heart normal size without pericardial effusion. Lung bases clear without pleural effusion. No focal liver lesion or biliary ductal dilatation. Portal venous system is patent. Cholecystectomy clips. Adrenal glands, kidneys, spleen, and pancreas appear within normal limits. An IVC filter is present. No free fluid or free air. The majority of the colon is collapsed. Proximal to mid small bowel loops are dilated up to 3.5 cm and fluid-filled with air-fluid levels. In the left mid to lower abdomen, there is a small bowel anastomosis with staple line which remains pat ulous measuring up to 5.8 cm. This may be a chronic post surgical basis. However, the small bowel jus t beyond the anastomosis, axial image 65 and coronal image 59 focally narrows in the remaining small bowel loops are collapsed. There is a small Thomas hernia with the abdominal wall defect at the mid abdominal midline measuring 3.1 cm wide. This contains a short segment of some of the dilated small bowel. This may represent a site of second transition point relating to a partial obstruction, referred to sagittal image 76. Mild associated mesenteric edema, refer to axial image 47. Bladder partially distended. No abnormal fluid collection the pelvis or pelvic lymphadenopathy. Bones: Degenerative changes right SI joint. No osseous destructive process. IMPRESSION: 1. LEFT MID TO LOWER ABDOMINAL SMALL BOWEL ANASTOMOSIS WHICH REMAINS PATULOUS AT 5.8 CM. THIS MAY BE CHRONIC POSTOPERATIVE CHANGE. HOWEVER, THERE IS TRANSITION POINT OF A SUSPECTED HIGH-GRADE SMALL NIKOLAI L OBSTRUCTION IMMEDIATELY FOLLOWING THE ANASTOMOSIS. PROXIMAL SMALL BOWEL LOOPS ARE DILATED UP TO 2.5 CM WITH AIR-FLUID LEVELS. 2. SUSPECT A SECOND TRANSITION POINT OF A PARTIAL SMALL BOWEL OBSTRUCTION (SAGITTAL IMAGE 76) AT THE SITE OF MID ABDOMINAL THOMAS HERNIA. 3. ASSOCIATED MILD MESENTERIC EDEMA. NO FREE AIR OR FREE FLUID.
[2018-05-23] MEDS ORDERED: HYDROmorphone 0.5 MG/0.5 ML SYRINGE IVP STA (13:01)
[2018-05-23] MEDS ORDERED: ONDANSETRON 4 MG/2 ML VIAL IVP PRN (13:19)
[2018-05-23] MEDS ORDERED: SODIUM CHLORIDE 0.9% 1,000 ML IV ONE (13:19)
[2018-05-23] MEDS ORDERED: NALOXONE 0.4 MG/ML 1 ML VIAL IV PRN ×2 (13:19→15:47)
[2018-05-23 14:20] LABS: Appearance,Urine Clear (Clear); Bilirubin,Urine Negative (Negative); Blood,Urine Trace (Negative); Color,Urine Yellow; Glucose,Urine (UA) Negative (Negative); Ketones,Urine Negative (Negative); Leukocyte Esterase,Urine Negative (Negative); Mucus,Urine Few /hpf; Nitrite,Urine Negative (Negative); PH, Urine 5.5 (5.0-8.0); Protein,Urine Trace (Negative); RBC,Urine 2 /hpf (0-5); Urobilinogen,Urine <2.0 mg/dL (<2.0); WBC,Urine 1 /hpf (0-5)
[2018-05-23 14:23] LABS: Specific Gravity,Urine >1.050 (1.001-1.035)
[2018-05-23] MEDS: HYDROmorphone 1 MG/ML 1 ML SYRINGE IVP PRN ×2 (15:40→20:33)
[2018-05-23] MEDS ORDERED: MELATONIN 3 MG TABLET PO PRN (15:47)
--- NOTE | 2018-05-23 15:59 | P.HPIM ---
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 In the ER he underwent an extensive evaluation. His vital signs within normal limits on arrival. Laboratory analysis showed acute kidney injury with a creatinine of 1.27. CT abdomen and pelvis showed possible small bowel obstruction with 2 different transition point , some of which might be chronic. He had an NG tube placed in the ER and received IV fluids as well as antiemetics and pain control. He was subsequently admitted for further monitoring and care. Patient seen and examined at bedside. He states that last night at 10:30 PM he started having lower abdominal pain. He describes it as diffuse around his abdomen with radiation to his back. It is burning pressure at sometimes and then increases in intensity and becomes sharp. He vomited multiple times throughout the night last night and this morning approximately 8 times. He had one episode of diarrhea yesterday. He became flushed and warm feeling with the vomiting yesterday but denies any overt fever or chills. He has not had any chest pain, shortness of breath, or dysuria. He does note increased urination over the last several weeks. He follows with Dr. Casanova on an outpatient basis. He reports his only recent change in medication was coming off of vitamin D 50 ,000 units of starting vitamin D 2000 units approximately 2 weeks ago. His lymphoma has been in remission and he follows with Dr. Mckinnon once yearly. He has seen Dr. Mg in the past for his multiple small bowel obstructions. He was last admitted for 1 in August 2017. Review of Systems Pertinent positives and negatives as discussed in HPI, a complete review of systems was performed and all other systems are negative. Past Medical History Past Medical History: Cancer, Deep Vein Thrombosis (DVT), GERD/Reflux, Hypertension Additional Past Medical History / Comment(s): Lymphoma/small bowel with surgery and chemo in 2003, small bowel obstructions, DVT R calf, History of Any Multi-Drug Resistant Organisms: None Reported Past Surgical History: Bowel Resection, Cholecystectomy, Hernia Repair, Tonsillectomy Additional Past Surgical History / Comment(s): Bowel resection d/t small bowel lymphoma, colonoscopies, incisional hernia repair with mesh x2, vanita filter, port a cath now removed. 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 - Past Family History Mother Family Medical History: No Reported History Additional Family Medical History / Comment(s): Mother is healthy Father Family Medical History: Myocardial Infarction ([place]) Additional Family Medical History / Comment(s): AT AGE 48 OF A AR Medications and Allergies Home Medications Medication Instructions Recorded Confirmed Type Esomeprazole Magnesium [NexIUM] 40 mg PO BID 09/30/13 05/23/18 History Losartan Potassium [Cozaar] 50 mg PO QAM 09/30/13 05/23/18 History Allergies Allergy/AdvReac Type Severity Reaction Status Date / Time Penicillins Allergy Anaphylaxis Verified 05/23/18 10:07 Physical Exam Osteopathic Statement: *. No significant issues noted on an osteopathic structural exam other than those noted in the History and Physical/Consult. Vitals: Vital Signs Temp Pulse Pulse Resp BP BP Pulse Ox 05/23/18 14:55 98.0 F 101 H 16 134/88 96 05/23/18 14:06 98.2 F 74 18 96 05/23/18 13:58 111 H 18 135/89 95 05/23/18 13:00 16 98 05/23/18 12:20 98.3 F 78 96 05/23/18 12:11 16 139/79 05/23/18 09:19 97.8 F 80 18 125/86 99 Intake and Output 05/23/18 05/23/18 05/23/18 06:59 14:59 22:59 Intake Total 1000 Balance 1000 Intake: Amount of Fluid Infused ( 1000 ml) Other: Weight 122.47 kg General: non toxic, moderate distress, appears at stated age, Derm: no unusual rashes/lesions no unusual ecchymoses, warm, dry Head: atraumatic, normocephalic, symmetric Eyes: EOMI, no lid lag, anicteric sclera, pupils equal round reactive to light ENT: Nose and ears atraumatic, no thrush, no pharyngeal erythema Neck: No thyromegaly, no cervical lymphadenopathy, trachea midline, supple Mouth: no lip lesion, mucus membranes dry Cardiovascular: S1S2 reg, no murmur, positive posterior tibial pulse bilateral, no edema, capillary refill less than 2 seconds Lungs: CTA bilateral, no rhonchi, no rales , no accessory muscle use Abdominal: soft, tenderness to palpation diffusely, no guarding, no appreciable organomegaly, hypoactive bowel sounds Ext: no gross muscle atrophy, muscle strength 5 out of 5 in all 4 extremities grossly, no contractures, Neuro: CN II-XI grossly intact, light touch intact all 4 extremities, finger to nose within normal limits, Psych: Alert, oriented, appropriate affect] Results CBC & Chem 7: 05/23/18 10:25 05/23/18 10:25 Labs: Abnormal Lab Results - Last 24 Hours (Table) 05/23/18 05/23/18 05/23/18 Range/Units 10:25 10:25 13:05 WBC 14.3 H (3.8-10.6) k/uL RBC 5.93 H (4.30-5.90) m/uL Neutrophils # 12.3 H (1.3-7.7) k/uL Creatinine 1.27 H (0.66-1.25) mg/dL Glucose 139 H (74-99) mg/dL Calcium 10.6 H (8.4-10.2) mg/dL Ur Specific [place] >1.050 H (1.001-1.035) Urine Protein Trace H (Negative) Urine Blood Trace H (Negative) Urine Mucus Few H (None) /hpf CT scan - abdomen: report reviewed CT scan - pelvis: report reviewed Thrombosis Risk Factor Assmnt - DVT/VTE Prophylaxis DVT/VTE Prophylaxis: Pharmacologic Prophylaxis ordered - Choose All That Apply Any of the Below Risk Factors Present?: Yes Each Factor Represents 1 point: Age 41-60 years, Obesity (BMI >25) Other Risk Factors: Yes Each Risk Factor Represents 2 Points: Malignancy Each Risk Factor Represents 3 Points: History of DVT/PE Other congenital or acquired thrombophilia - If yes, enter type in comment: No Thrombosis Risk Factor Assessment Total Risk Factor Score: 7 Thrombosis Risk Factor Assessment Level: High Risk Assessment and Plan Assessment: Small bowel obstruction with possible transition point -Mentioned obtain NG tube to LIS, ice chips to keep mouth moist -Pain control -Antiemetics -Consult surgery Acute kidney injury secondary to dehydration -Status post 1 L IV fluids in the ER, continue normal saline at 125 an hour -Hold Cozaar today -Repeat basic metabolic profile in a.m. -Avoid additional nephrotoxic agents Hyperglycemia on admission -We'll check hemoglobin A1c -Monitor her sugar level with repeat morning blood sugar Morbid obesity with BMI 38.7 -Structured outpatient weight loss 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 Mckinnon History of DVT -chemical prophylaxis for DVT The patient is admitted with an anticipated greater than 2 midnight stay for evaluation of small bowel obstruction. Surrogate decision-maker:-Mirna CODE STATUS:Full DVT prophylaxis: Heparin Discussed with: Patient, nursing Anticipated discharge date: 2-[address]: home A total of 55 minutes was spent on the care of this complex patient more than 50 % of the time was spent in counseling and care coordination.
[2018-05-23] MEDS: KETOROLAC 30 MG/ML 1 ML VIAL IVP PRN ×2 (17:41→23:57)
[2018-05-23] MEDS: HEPARIN SODIUM,PORCINE 5,000 UNIT/ML 1 ML VIAL SQ SCH ×2 (17:41→23:56)
[2018-05-23] MEDS: SODIUM CHLORIDE 0.9% 1,000 ML IV SCH ×2 (17:43→23:58)
[2018-05-23] MEDS: ONDANSETRON 4 MG/2 ML VIAL IVP PRN ×2 (17:46→23:57)
--- NOTE | 2018-05-23 19:43 | P.GSCN ---
History of Present Illness Consult date: 05/23/18 Reason for Consult: sbo History of present illness: Patient well known to our service. Patient presents with pain that began last night associated with numerous episodes of nausea and vomiting. Some bloating. Patient has a history of previous small bowel resection for lymphoma. He then underwent 2 separate incisional hernia repairs. Last surgery was approximately 8-10 years ago. Over the last 2 years he has had 2 admissions for small bowel obstruction and one outpatient small bowel obstruction that he managed conservatively. Repeat CAT scan performed shows distended proximal small bowel loops with at least 1 possibly 2 separate areas where the bowel transitions into more normal in fact slightly collapsed small bowel. The patient previously as stated has responded well to conservative measures. Nasogastric tube was placed. Clear output currently. Patient's pain is controlled with IV narcotics. Patient describes the pain at times is burning. Denies fevers. White blood cell count slightly elevated. Review of Systems The patient denies any acute changes in vision or hearing, no dysphagia or odynophagia, no chest pain or shortness of breath, no dysuria or hematuria, no headache, no runny nose, no rectal bleeding or melena, no unexplained weight loss Past Medical History Past Medical History: Cancer, Deep Vein Thrombosis (DVT), GERD/Reflux, Hypertension Additional Past Medical History / Comment(s): Lymphoma/small bowel with surgery and chemo in 2003, small bowel obstructions, DVT R calf, History of Any Multi-Drug Resistant Organisms: None Reported Past Surgical History: Bowel Resection, Cholecystectomy, Hernia Repair, Tonsillectomy Additional Past Surgical History / Comment(s): Bowel resection d/t small bowel lymphoma, colonoscopies, incisional hernia repair with mesh x2, vanita filter, port a cath now removed. Past Anesthesia/Blood Transfusion Reactions: No Reported Reaction Smoking Status: Never smoker Past Alcohol Use History: Occasional - Past Family History Mother Family Medical History: No Reported History Additional Family Medical History / Comment(s): Mother is healthy Father Family Medical History: Myocardial Infarction ([place]) Additional Family Medical History / Comment(s): AT AGE 48 OF A [place] Medications and Allergies Home Medications Medication Instructions Recorded Confirmed Type Esomeprazole Magnesium [NexIUM] 40 mg PO BID 09/30/13 05/23/18 History Losartan Potassium [Cozaar] 50 mg PO QAM 09/30/13 05/23/18 History Allergies Allergy/AdvReac Type Severity Reaction Status Date / Time Penicillins Allergy Anaphylaxis Verified 05/23/18 10:07 Surgical - Exam Vital Signs Temp Pulse Resp BP Pulse Ox 97.8 F 80 18 125/86 99 05/23/18 09:19 05/23/18 09:19 05/23/18 09:19 05/23/18 09:19 05/23/18 09:19 Physical exam: General: Well-developed, well-nourished HEENT: Normocephalic, sclerae nonicteric Abdomen: Slightly distended, mild diffuse tenderness, previous scarring noted, no hernias Extremities: No edema Neuro: Alert and oriented Results - Labs 05/23/18 10:25 05/23/18 10:25 Abnormal Lab Results - Last 24 Hours (Table) 05/23/18 05/23/18 05/23/18 Range/Units 10:25 10:25 13:05 WBC 14.3 H (3.8-10.6) k/uL RBC 5.93 H (4.30-5.90) m/uL Neutrophils # 12.3 H (1.3-7.7) k/uL Creatinine 1.27 H (0.66-1.25) mg/dL Glucose 139 H (74-99) mg/dL Calcium 10.6 H (8.4-10.2) mg/dL Ur Specific [place] >1.050 H (1.001-1.035) Urine Protein Trace H (Negative) Urine Blood Trace H (Negative) Urine Mucus Few H (None) /hpf Diabetes panel 05/23/18 Range/Units 10:25 Sodium 140 (137-145) mmol/L Potassium 5.0 (3.5-5.1) mmol/L Chloride 103 (98-107) mmol/L Carbon Dioxide 25 (22-30) mmol/L BUN 20 (9-20) mg/dL Creatinine 1.27 H (0.66-1.25) mg/dL Glucose 139 H (74-99) mg/dL Calcium 10.6 H (8.4-10.2) mg/dL AST 28 (17-59) U/L ALT 49 (21-72) U/L Alkaline Phosphatase 88 (38-126) U/L Total Protein 8.1 (6.3-8.2) g/dL Albumin 4.7 (3.5-5.0) g/dL Calcium panel 05/23/18 Range/Units 10:25 Calcium 10.6 H (8.4-10.2) mg/dL Albumin 4.7 (3.5-5.0) g/dL Pituitary panel 05/23/18 Range/Units 10:25 Sodium 140 (137-145) mmol/L Potassium 5.0 (3.5-5.1) mmol/L Chloride 103 (98-107) mmol/L Carbon Dioxide 25 (22-30) mmol/L BUN 20 (9-20) mg/dL Creatinine 1.27 H (0.66-1.25) mg/dL Glucose 139 H (74-99) mg/dL Calcium 10.6 H (8.4-10.2) mg/dL Adrenal panel 05/23/18 Range/Units 10:25 Sodium 140 (137-145) mmol/L Potassium 5.0 (3.5-5.1) mmol/L Chloride 103 (98-107) mmol/L Carbon Dioxide 25 (22-30) mmol/L BUN 20 (9-20) mg/dL Creatinine 1.27 H (0.66-1.25) mg/dL Glucose 139 H (74-99) mg/dL Calcium 10.6 H (8.4-10.2) mg/dL Total Bilirubin 1.0 (0.2-1.3) mg/dL AST 28 (17-59) U/L ALT 49 (21-72) U/L Alkaline Phosphatase 88 (38-126) U/L Total Protein 8.1 (6.3-8.2) g/dL Albumin 4.7 (3.5-5.0) g/dL Assessment and Plan (1) SBO (small bowel obstruction) Narrative/Plan: Patient with recurrent small bowel obstruction. He has responded well to conservative measures in the past. We'll repeat abdominal x-rays tomorrow. No immediate plans for surgical intervention. Will check plain film of the abdomen to evaluate the tip of the nasogastric tube since there is only clear fluid present within the nasogastric tube and container. Current Visit: Yes Status: Acute Code(s): K56.609 - UNSP INTESTNL OBST, UNSP TO PARTIAL VERSUS COMPLETE OBST SNOMED Code(s): 237251760
--- NOTE | 2018-05-23 19:49 | XR ---
EXAMINATION: XR chest 1V portable DATE AND TIME: 05/23/2018 7:43 PM CLINICAL INDICATION: PHH; check NG tube placement TECHNIQUE: Departmental protocol COMPARISON: 06/16/2009 FINDINGS: Overlying soft tissues are prominent, obscuring visualization. NG tube is present, but very difficult to see distal to the mid thoracic esophagus expected position. It appears to course over the expecte d position of the thoracic esophagus, looping to have its tip apparently positioned over the expected position of the gastric cardia. Clinical NG tube testing is requested, to ensure intragastric positioning. Alternatively, repeat radiography centered over the epigastrium can further characterize. IMPRESSION: Limited study.
--- NOTE | 2018-05-23 21:52 | XR ---
EXAMINATION TYPE: XR abdomen 1V DATE OF EXAM: 05/23/2018 COMPARISON: 05/23/2018, 11:00 AM HISTORY: NG tube placement, follow-up SBO TECHNIQUE: AP supine FINDINGS: NG tube courses over the expected position of the distal most thoracic esophagus, and over the expected position of the gastric cardia - to loop back upon itself to have its tip superimposed o aleshia the expected position of the gastric cardia. IMPRESSION: NG tube.
[2018-05-24] MEDS: HYDROmorphone 1 MG/ML 1 ML SYRINGE IVP PRN ×3 (00:07→12:00)
[2018-05-24] MEDS: KETOROLAC 30 MG/ML 1 ML VIAL IVP PRN ×3 (05:30→23:51)
[2018-05-24] MEDS: ONDANSETRON 4 MG/2 ML VIAL IVP PRN ×2 (05:31→23:51)
[2018-05-24] MEDS: SODIUM CHLORIDE 0.9% 1,000 ML IV SCH ×3 (05:34→23:53)
[2018-05-24 07:55] LABS: Basophils % (A) 0 %; Eosinophils # (A) 0.1 k/uL (0-0.7); Eosinophils % (A) 1 %; HCT 50.3 % (39.0-53.0); HGB 15.6 gm/dL (13.0-17.5); Lymphocytes # (A) 2.6 k/uL (1.0-4.8); Lymphocytes % (A) 24 %; MCH 28.7 pg (25.0-35.0); MCHC 31.1 g/dL (31.0-37.0); MCV 92.1 fL (80.0-100.0); Mean Platelet Volume 6.5; Monocytes # (A) 0.9 k/uL (0-1.0); Monocytes % (A) 8 %; Neutrophils % (A) 65 %; Platelet Count 266 k/uL (150-450); RBC 5.46 m/uL (4.30-5.90); RDW 13.2 % (11.5-15.5); WBC 10.8 k/uL (3.8-10.6)
[2018-05-24 08:08] LABS: Albumin 3.7 g/dL (3.5-5.0); Potassium 4.5 mmol/L (3.5-5.1); Total Bilirubin 1.2 mg/dL (0.2-1.3); Total Protein 6.5 g/dL (6.3-8.2)
[2018-05-24] MEDS: HEPARIN SODIUM,PORCINE 5,000 UNIT/ML 1 ML VIAL SQ SCH ×3 (08:30→23:55)
--- NOTE | 2018-05-24 09:35 | CDI ---
Documentation Clarification Form Date: 05/24/2018 9:06:30 AM From: Lizeth Edwards RN, CCDS Admit Date: 05/23/2018 1:16:00 PM Patient Name: Juve Knott Visit Number: [id number] Discharge Date: ATTENTION: The Clinical Documentation Specialists (CDI) and [facility] Coding Staff appreciate your assistance in clarifying documentation. Please respond to the clarification below the line at the bottom and electronically sign. The CDI & [facility] Coding staff will review the response and follow-up if needed. Please note: Queries are made part of the Legal Health Record. If you have any questions, please contact the author of this message via ITS. Dr. Chemo Mg The patient presented with complaints of nausea and vomiting, some bloating. History/Risk Factors: Small bowel resection for Lymphoma, Incisional hernia repairs x2, Hypertension Clinical Indicators: 47 year-old male with history of small bowel obstruction present with nausea, vomiting and abdominal pain and distention. Lab findings: WBC 14.3 CR 1.27, Cat scan abdomen: Left mid to lower abdominal small bowel anastomosis which remains patulous at 5.8 cm. This may be chronic postoperative change. There is transition point of a suspected high-grade small bowel obstruction immediately following the anastomosis. Proximal small bowel loops are dilated up to 2.5 cm with air-fluid levels Suspect a second transition point of partial small bowel obstruction at site of mid abdominal Thomas hernia Associated mild mesenteric edema. No free air or free fluid. Vital Signs: 125/86 80 18 97.8 99 % RA Treatment: Ice chips NGT LIS IV Fluids Dilaudid IVP PRN Antiemetics Serial Abdomen x-rays In your professional opinion, can you please further clarify small bowel obstruction? (Specify cause if known, e.g.: post procedural, adhesions, mechanical, other) Partial small bowel obstruction Incomplete small bowel obstruction Complete small bowel obstruction Other, please specify Unable to determine (Last Revision: July 2017) Small bowel obstruction incomplete/resolved likely on the basis of adhesions ___ MTDD
[2018-05-24] MEDS ORDERED: SODIUM CHLORIDE 0.9% 500 ML 500 ML IV ONE (10:53)
--- NOTE | 2018-05-24 10:59 | P.PN ---
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 In the ER he underwent an extensive evaluation. His vital signs within normal limits on arrival. Laboratory analysis showed acute kidney injury with a creatinine of 1.27. CT abdomen and pelvis showed possible small bowel obstruction with 2 different transition point , some of which might be chronic. He had an NG tube placed in the ER and received IV fluids as well as antiemetics and pain control. He was subsequently admitted for further monitoring and care. His NGT was maintained over night. He was seen by Dr. Mg who recommended conservative management at this time. Patient examined at bedside. He is still having some abdominal cramping. It is still as severe when it there is yesterday however it is much less frequent. He is still not passing gas. He does feels that his mouth is dry. No chest pain or shortness of breath. Objective - Vital Signs Vital signs: Vital Signs Temp 97.9 F 05/24/18 04:33 Pulse 86 05/24/18 04:33 Resp 18 05/24/18 04:33 BP 149/93 05/24/18 04:33 Pulse Ox 95 05/24/18 04:33 Intake & Output 05/23/18 05/24/18 05/24/18 18:59 06:59 18:59 Intake Total 1000 1750 Output Total 200 375 Balance 800 1375 Weight 122.47 kg Intake: Amount of Fluid Infused ( 1000 ml) Intake, IV Titration 1750 Amount Sodium Chloride 0.9% 1, 1750 000 ml @ 125 mls/hr IV . Q8H [facility] Rx#:[id number] Output: Gastric Drainage 200 375 Other: Voiding Method Toilet # Voids 1 - Exam General: non toxic, no distress, appears at stated age, obese Derm: warm, dry Head: atraumatic, normocephalic, symmetric Eyes: EOMI, no lid lag, anicteric sclera Mouth: no lip lesion, mucus membranes moist Cardiovascular: S1S2 reg, no murmur, positive posterior tibial pulse bilateral, Lungs: CTA bilateral, no rhonchi, no rales , no accessory muscle use Abdominal: Hypoactive bowel sounds soft, + tender to palpation diffusely, no guarding, no appreciable organomegaly Ext: no gross muscle atrophy, no edema, no contractures Neuro: CN II-XI grossly intact, no focal neuro deficits Psych: Alert, oriented, appropriate affect - Labs CBC & Chem 7: 05/24/18 07:29 05/24/18 07:29 Labs: Abnormal Lab Results - Last 24 Hours (Table) 05/23/18 05/23/18 05/23/18 Range/Units 10:25 10:25 13:05 WBC 14.3 H (3.8-10.6) k/uL RBC 5.93 H (4.30-5.90) m/uL Neutrophils # 12.3 H (1.3-7.7) k/uL Chloride (98-107) mmol/L BUN (9-20) mg/dL Creatinine 1.27 H (0.66-1.25) mg/dL Glucose 139 H (74-99) mg/dL Calcium 10.6 H (8.4-10.2) mg/dL Ur Specific [place] >1.050 H (1.001-1.035) Urine Protein Trace H (Negative) Urine Blood Trace H (Negative) Urine Mucus Few H (None) /hpf 05/24/18 05/24/18 Range/Units 07:29 07:29 WBC 10.8 H (3.8-10.6) k/uL RBC (4.30-5.90) m/uL Neutrophils # (1.3-7.7) k/uL Chloride 108 H (98-107) mmol/L BUN 26 H (9-20) mg/dL Creatinine 1.35 H (0.66-1.25) mg/dL Glucose (74-99) mg/dL Calcium (8.4-10.2) mg/dL Ur Specific [place] (1.001-1.035) Urine Protein (Negative) Urine Blood (Negative) Urine Mucus (None) /hpf Assessment and Plan Assessment: Small bowel obstruction with possible transition point -Maintain obtain NG tube to LIS, ice chips to keep mouth moist -Pain control -Antiemetics -Surgery recs appreciated: Conservative mgt at this time Acute kidney injury secondary to dehydration -increase IVF -Hold Cozaar -Repeat basic metabolic profile in a.m. 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 Mckinnon History of DVT -chemical prophylaxis for DVT DVT prophylaxis: Heparin Discussed with: Patient, nursing Anticipated discharge date: 2-[address]: home A total of 25 minutes was spent on the care of this complex patient more than 50 % of the time was spent in counseling and care coordination.
--- NOTE | 2018-05-24 11:32 | XR ---
EXAMINATION TYPE: XR abdomen 2V DATE OF EXAM: 05/24/2018 COMPARISON: 05/23/2018 INDICATION: Small bowel follow up, NG tube placement TECHNIQUE: Single view abdomen upright view. Additional supine view was obtained. FINDINGS: Colonic bowel gas is present. Fecal debris is in the ascending colon. Nondilated air-filled small bow el loops are within the midabdomen. Slightly prominent proximal jejunal small bowel loop is present i n left upper quadrant. Air-fluid levels are present within small bowel loops. Low-grade partial small bowel obstruction in the proximal jejunum is not excluded. Correlate with symptoms. Psoas margins are normal. No organomegaly is present. Filter is within the inferior vena cava region. Nasogastric tube tip is within the left upper quadran t of the abdomen. IMPRESSION: 1. Mild partial small bowel obstruction is not excluded. Resolving partial small bowel obstruction co uld be considered. 2. There is increasing air and fecal debris within the colon.
[2018-05-24 13:35] LABS: Hemoglobin A1C 5.6 % (4.0-6.0)
--- NOTE | 2018-05-24 21:25 | P.PN ---
Subjective Progress Note Date: 05/24/18 Principal diagnosis: Small bowel obstruction Patient states he feels slightly better today. He did pass some flatus. No bowel movement. Today's x-rays appear improved. Nasogastric tube remains clear colored. Tip of nasogastric tube seems appropriately placed. White blood cell count improved. Objective - Vital Signs Vital signs: Vital Signs Temp 98.4 F 05/24/18 20:40 Pulse 78 05/24/18 20:40 Resp 18 05/24/18 20:40 BP 123/74 05/24/18 20:40 Pulse Ox 95 05/24/18 20:40 Intake & Output 05/24/18 05/24/18 05/25/18 06:59 18:59 06:59 Intake Total 1750 1720 Output Total 375 50 Balance 1375 1670 Intake: Intake, IV Titration 1750 1700 Amount Sodium Chloride 0.9% 1, 1750 1700 000 ml @ 150 mls/hr IV . Q6H40M [facility] Rx#:[id number] Oral 20 Output: Gastric Drainage 375 50 Other: Voiding Method Toilet Toilet # Voids 1 2 - Exam Abdomen: Soft, mild distention, mild diffuse tenderness - Labs CBC & Chem 7: 05/24/18 07:29 05/24/18 07:29 Labs: Abnormal Lab Results - Last 24 Hours (Table) 05/24/18 05/24/18 Range/Units 07:29 07:29 WBC 10.8 H (3.8-10.6) k/uL Chloride 108 H (98-107) mmol/L BUN 26 H (9-20) mg/dL Creatinine 1.35 H (0.66-1.25) mg/dL Assessment and Plan (1) SBO (small bowel obstruction) Narrative/Plan: Continue nasogastric tube to suction. Keep nothing by mouth. Ambulate. Current Visit: Yes Status: Acute Code(s): K56.609 - UNSP INTESTNL OBST, UNSP TO PARTIAL VERSUS COMPLETE OBST SNOMED Code(s): 510756834
[2018-05-25] MEDS: SODIUM CHLORIDE 0.9% 1,000 ML IV SCH ×3 (04:58→19:26)
[2018-05-25] MEDS: HEPARIN SODIUM,PORCINE 5,000 UNIT/ML 1 ML VIAL SQ SCH ×3 (08:30→23:56)
--- NOTE | 2018-05-25 10:56 | P.PN ---
Subjective Progress Note Date: 05/25/18 Principal diagnosis: Patient feels okay today still having some abdominal pain didn't have any bowel movement but passed gas No chest pain no shortness of breath Constitutional: No acute distress, conversant, pleasant Eyes: moist conjunctiva, no lid-lag ENMT: NC/AT Oropharynx clear, no erythema, exudates Neck: Supple, FROM, no masses, or JVD No carotid bruits No thyromegaly Lungs: Clear to auscultation Cardiovascular: Heart regular in rate and rhythm, No murmurs, gallops, or rubs No peripheral edema Abdominal: Soft no major tenderness Skin: Normal temperature, tone, texture, turgor No induration No subcutaneous nodules No rash, lesions No ulcers Extremities: No digital cyanosis No clubbing Pedal pulses intact and symmetrical Radial pulses intact and symmetrical Normal gait and station No calf tenderness Psychiatric:Alert and oriented to person, place and time Appropriate affect Intact judgement Neuro: No obvious weakness Vital Signs - 24 hr 05/24/18 05/24/18 05/24/18 12:47 20:40 22:05 Temperature 97.8 F 98.4 F Pulse Rate [ 78 Apical] Pulse Rate [ 75 Pulse Oximetery ] Respiratory 18 18 18 Rate Blood Pressure 149/89 123/74 [Left Arm] O2 Sat by Pulse 95 95 Oximetry 05/25/18 05/25/18 05/25/18 05:00 07:38 09:00 Temperature 98 F 98.5 F Pulse Rate [ 77 Apical] Pulse Rate [ 77 77 Pulse Oximetery ] Respiratory 16 16 Rate Blood Pressure 133/77 135/73 [Left Arm] O2 Sat by Pulse 94 L 95 Oximetry Small bowel obstruction with possible transition point -Maintain obtain NG tube to LIS, ice chips to keep mouth moist -Pain control -Antiemetics Abdominal pain improved patient did pass gas but didn't have any bowel movement Surgery following Acute kidney injury secondary to dehydration - Monitor Hyperglycemia on admission - -Monitor sugar level Morbid obesity with BMI 38.7 -Structured outpatient weight loss 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 Mckinnon History of DVT -chemical prophylaxis for DVT Overall the condition of the patient clinically improving continue conservative management and for any new recommendations from surgery Objective - Vital Signs Vital signs: Vital Signs Temp 98.5 F 05/25/18 07:38 Pulse 77 05/25/18 09:00 Resp 16 05/25/18 07:38 BP 135/73 05/25/18 07:38 Pulse Ox 95 05/25/18 07:38 Intake & Output 05/24/18 05/25/18 05/25/18 18:59 06:59 18:59 Intake Total 1720 20 Output Total 50 200 Balance 1670 20 -200 Intake: Intake, IV Titration 1700 Amount Sodium Chloride 0.9% 1, 1700 000 ml @ 150 mls/hr IV . Q6H40M [facility] Rx#:[id number] Oral 20 20 Output: Gastric Drainage 50 Urine 200 Other: Voiding Method Toilet Toilet Toilet # Voids 2 2 - Labs CBC & Chem 7: 05/24/18 07:29 05/24/18 07:29
--- NOTE | 2018-05-25 22:10 | P.PN ---
Subjective Progress Note Date: 05/25/18 Principal diagnosis: Small bowel obstruction Patient with no new complaints. He is passing flatus. No bowel movement. He has not had any pain medication since last night. NG output seems decreased. Objective - Vital Signs Vital signs: Vital Signs Temp 98.0 F 05/25/18 20:30 Pulse 78 05/25/18 20:30 Resp 16 05/25/18 20:30 BP 137/77 05/25/18 20:30 Pulse Ox 97 05/25/18 20:30 Intake & Output 05/25/18 05/25/18 05/26/18 06:59 18:59 06:59 Intake Total 20 600 Output Total 500 700 Balance 20 -500 -100 Intake: Intake, IV Titration 600 Amount Sodium Chloride 0.9% 1, 600 000 ml @ 150 mls/hr IV . Q6H40M [facility] Rx#:[id number] Oral 20 Output: Gastric Drainage 200 Urine 500 500 Other: Voiding Method Toilet Toilet # Voids 2 - Exam Abdomen: Soft, nontender, nondistended - Labs CBC & Chem 7: 05/24/18 07:29 05/24/18 07:29 Assessment and Plan (1) SBO (small bowel obstruction) Narrative/Plan: Keep nasogastric tube today. Check repeat x-rays tomorrow. Decision regarding small bowel series or nasogastric tube removal based on that study. Current Visit: Yes Status: Acute Code(s): K56.609 - UNSP INTESTNL OBST, UNSP TO PARTIAL VERSUS COMPLETE OBST SNOMED Code(s): 065340984
[2018-05-26] MEDS: SODIUM CHLORIDE 0.9% 1,000 ML IV SCH ×4 (01:44→19:42)
[2018-05-26] MEDS: ONDANSETRON 4 MG/2 ML VIAL IVP PRN ×2 (04:43→12:47)
[2018-05-26] MEDS: KETOROLAC 30 MG/ML 1 ML VIAL IVP PRN ×3 (04:48→19:40)
[2018-05-26] MEDS: HEPARIN SODIUM,PORCINE 5,000 UNIT/ML 1 ML VIAL SQ SCH ×3 (08:08→19:59)
[2018-05-26 09:29] LABS: Basophils % (A) 0 %; Eosinophils # (A) 0.2 k/uL (0-0.7); Eosinophils % (A) 3 %; HCT 46.5 % (39.0-53.0); HGB 14.7 gm/dL (13.0-17.5); Lymphocytes # (A) 1.9 k/uL (1.0-4.8); Lymphocytes % (A) 24 %; MCHC 31.7 g/dL (31.0-37.0); MCV 91.5 fL (80.0-100.0); Monocytes # (A) 0.6 k/uL (0-1.0); Monocytes % (A) 7 %; Neutrophils # (A) 4.9 k/uL (1.3-7.7); Neutrophils % (A) 64 %; Platelet Count 198 k/uL (150-450); RBC 5.08 m/uL (4.30-5.90); RDW 13.1 % (11.5-15.5); WBC 7.7 k/uL (3.8-10.6)
[2018-05-26 09:36] LABS: ALT 43 U/L (21-72); AST 27 U/L (17-59); Albumin 3.7 g/dL (3.5-5.0); Alkaline Phosphatase 77 U/L (38-126); Anion Gap 10 mmol/L; Blood Urea Nitrogen 17 mg/dL (9-20); Calcium 8.8 mg/dL (8.4-10.2); Carbon Dioxide 20 mmol/L (22-30); Chloride 110 mmol/L (98-107); Glucose 79 mg/dL (74-99); Potassium 4.1 mmol/L (3.5-5.1); Sodium 140 mmol/L (137-145); Total Bilirubin 1.3 mg/dL (0.2-1.3); Total Protein 6.4 g/dL (6.3-8.2)
--- NOTE | 2018-05-26 11:27 | P.PN ---
Subjective Progress Note Date: 05/26/18 Principal diagnosis: Patient feels better today did pass gas and did have a bowel movement abdominal pain improved Constitutional: No acute distress, conversant, pleasant Eyes: Anicteric sclerae, moist conjunctiva, no lid-lag PERRLA ENMT: No acute ANXIETY. GETTING "EVERYONE OS-AMY TESTED Neck: Supple, FROM, no masses, or JVD No carotid bruits No thyromegaly Lungs: Clear to auscultation Cardiovascular: Heart regular in rate and rhythm, No murmurs, Abdominal: Soft Nontender, no guarding, rebound or rigidity Abdomen moving with respiration Normoactive bowel sounds No hepatomegaly, No splenomegaly No palpable mass No abdominal wall hernia noted Skin: Normal temperature, tone, texture, turgor No induration No subcutaneous nodules No rash, lesions No ulcers Extremities: No digital cyanosis No clubbing Pedal pulses intact and symmetrical Radial pulses intact and symmetrical Normal gait and station No calf tenderness Psychiatric:Alert and oriented to person, place and time Appropriate affect Intact judgement Neuro: No obvious weakness 5 minutes Vital Signs - 8 hr 05/26/18 04:48 Temperature 97.5 F L Pulse Rate [ 79 Pulse Oximetery ] Respiratory 17 Rate Blood Pressure 169/84 [Left Arm] O2 Sat by Pulse 95 Oximetry Small bowel obstruction with possible transition point No abdominal pain this morning -Maintain obtain NG tube to LIS, ice chips to keep mouth moist -Pain control -Antiemetics Patient did have a bowel movement today and abdominal pain improved awaiting KUB results and surgery decision Acute kidney injury secondary to dehydration - Monitor Hyperglycemia on admission - -Monitor sugar level Morbid obesity with BMI 38.7 -Structured outpatient weight loss 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 Mckinnon History of DVT -chemical prophylaxis for DVT Overall the condition of the patient stable surgery following Objective - Vital Signs Vital signs: Vital Signs Temp 97.5 F L 05/26/18 04:48 Pulse 79 05/26/18 04:48 Resp 17 05/26/18 04:48 BP 169/84 05/26/18 04:48 Pulse Ox 95 05/26/18 04:48 Intake & Output 05/25/18 05/26/18 05/26/18 18:59 06:59 18:59 Intake Total 1800 Output Total 750 2100 Balance -750 -300 Intake: Intake, IV Titration 1800 Amount Sodium Chloride 0.9% 1, 1800 000 ml @ 150 mls/hr IV . Q6H40M [facility] Rx#:[id number] Output: Gastric Drainage 250 600 Urine 500 1500 Other: Voiding Method Toilet Urinal # Voids 1 # Bowel Movements 1 - Labs CBC & Chem 7: 05/26/18 08:33 05/26/18 08:33 Labs: Abnormal Lab Results - Last 24 Hours (Table) 05/26/18 Range/Units 08:33 Chloride 110 H (98-107) mmol/L Carbon Dioxide 20 L (22-30) mmol/L
[2018-05-26 13:06] VITALS: BMI 38.7
--- NOTE | 2018-05-26 14:24 | P.PN ---
Subjective Progress Note Date: 05/26/18 Principal diagnosis: Small bowel obstruction Patient had a large bowel movement yesterday. Minimal pain currently. Nasogastric output however did increase overnight. X-rays improved. Objective - Vital Signs Vital signs: Vital Signs Temp 97.2 F L 05/26/18 11:52 Pulse 62 05/26/18 11:52 Resp 18 05/26/18 11:52 BP 134/74 05/26/18 11:52 Pulse Ox 97 05/26/18 11:52 Intake & Output 05/25/18 05/26/18 05/26/18 18:59 06:59 18:59 Intake Total 1800 Output Total 750 2100 Balance -750 -300 Weight 122.47 kg Intake: Intake, IV Titration 1800 Amount Sodium Chloride 0.9% 1, 1800 000 ml @ 150 mls/hr IV . Q6H40M [facility] Rx#:[id number] Output: Gastric Drainage 250 600 Urine 500 1500 Other: Voiding Method Toilet Urinal # Voids 1 # Bowel Movements 1 - Exam Abdomen: Soft, mild distention, nontender - Labs CBC & Chem 7: 05/26/18 08:33 05/26/18 08:33 Labs: Abnormal Lab Results - Last 24 Hours (Table) 05/26/18 Range/Units 08:33 Chloride 110 H (98-107) mmol/L Carbon Dioxide 20 L (22-30) mmol/L Assessment and Plan (1) SBO (small bowel obstruction) Narrative/Plan: Will check small bowel series today given the increased nasogastric tube output. Further decisions regarding nasogastric tube removal pending those results. Current Visit: Yes Status: Acute Code(s): K56.609 - UNSP INTESTNL OBST, UNSP TO PARTIAL VERSUS COMPLETE OBST SNOMED Code(s): 529726095
--- NOTE | 2018-05-26 16:14 | XR ---
EXAMINATION TYPE: XR abdomen 2V DATE OF EXAM: 05/26/2018 COMPARISON: None INDICATION: Follow-up bowel obstruction TECHNIQUE: Single view abdomen upright view. A supine view was also obtained. FINDINGS: There is normal colonic bowel gas present. Small amounts nonspecific small bowel gas is within the ab domen. Postsurgical changes are noted in the left lower quadrant. Cholecystectomy clips in right upper quadrant. A filter is at the L2-L3 level. Nasogastric tube has i ts tip in the left upper quadrant of the abdomen. Psoas margins are normal. No organomegaly is present. No free air is evident. No suspicious differential air-fluid levels are evident. IMPRESSION: 1. Nonspecific abdomen. Air cells within the colon without evidence of obstruction.
--- NOTE | 2018-05-26 16:19 | FL ---
EXAMINATION TYPE: FL small bowel follow through DATE OF EXAM: 05/26/2018 CLINICAL HISTORY: History of small bowel obstruction with nausea and vomiting. TECHNIQUE: A single contrast small bowel follow through is performed utilizing barium. 16 ounces o f thin barium was injected through the nasogastric tube. 16 seconds of fluoroscopy time was utilized with 7 images saved. COMPARISON: None FINDINGS: The small bowel study shows normal transit to the colon in less than 1 hour and 20 minutes. There is a normal mucosal fold pattern throughout the small bowel. There is no evidence of any stricture or filling defect noted. The terminal ileum is spotted and appears unremarkable. IMPRESSION: Unremarkable small bowel follow through. Normal small bowel to colonic transit time.
[2018-05-26 21:11] VITALS: RESP 16; TEMP 97.7
[2018-05-27] MEDS: SODIUM CHLORIDE 0.9% 1,000 ML IV SCH ×2 (03:14→11:53)
[2018-05-27] MEDS: KETOROLAC 30 MG/ML 1 ML VIAL IVP PRN ×2 (03:14→09:14)
[2018-05-27 04:54] VITALS: BP 124/74; PULSE 54
[2018-05-27 07:55] LABS: Basophils % (A) 0 %; Eosinophils # (A) 0.2 k/uL (0-0.7); Eosinophils % (A) 3 %; HCT 39.6 % (39.0-53.0); HGB 13.4 gm/dL (13.0-17.5); Lymphocytes # (A) 1.9 k/uL (1.0-4.8); Lymphocytes % (A) 25 %; MCH 30.1 pg (25.0-35.0); MCHC 33.7 g/dL (31.0-37.0); MCV 89.4 fL (80.0-100.0); Mean Platelet Volume 6.9; Monocytes # (A) 0.6 k/uL (0-1.0); Monocytes % (A) 8 %; Neutrophils # (A) 4.7 k/uL (1.3-7.7); Neutrophils % (A) 62 %; Platelet Count 209 k/uL (150-450); RBC 4.43 m/uL (4.30-5.90); RDW 12.9 % (11.5-15.5); WBC 7.6 k/uL (3.8-10.6)
[2018-05-27] MEDS: HEPARIN SODIUM,PORCINE 5,000 UNIT/ML 1 ML VIAL SQ SCH (09:09)
--- NOTE | 2018-05-27 09:51 | P.PN ---
Subjective Progress Note Date: 05/27/18 Principal diagnosis: Small bowel obstruction Patient doing well today. Tolerating diet. Yesterday small bowel series was normal. August discharge today. Objective - Vital Signs Vital signs: Vital Signs Temp 97.7 F 05/27/18 04:53 Pulse 54 L 05/27/18 04:53 Resp 16 05/27/18 04:53 BP 124/74 05/27/18 04:53 Pulse Ox 96 05/27/18 04:53 Intake & Output 05/26/18 05/27/18 05/27/18 18:59 06:59 18:59 Intake Total 1200 1340 Balance 1200 1340 Weight 122.47 kg Intake: IV 1200 500 Sodium Chloride 0.9% 1, 1200 500 000 ml @ 150 mls/hr IV . Q6H40M [facility] Rx#:[id number] Intake, IV Titration 600 Amount Sodium Chloride 0.9% 1, 600 000 ml @ 150 mls/hr IV . Q6H40M [facility] Rx#:[id number] Oral 240 Other: Voiding Method Toilet Urinal # Voids 1 - Exam Abdomen: Soft, nontender, nondistended - Labs CBC & Chem 7: 05/27/18 06:55 05/26/18 08:33 Assessment and Plan (1) SBO (small bowel obstruction) Narrative/Plan: Patient with recurrent small bowel obstruction. Likely the patient has a fixed narrowing related to previous adhesions. Discussed the importance of low fiber diet and avoiding trigger foods. August discharge. Follow-up as needed. Current Visit: Yes Status: Acute Code(s): K56.609 - UNSP INTESTNL OBST, UNSP TO PARTIAL VERSUS COMPLETE OBST SNOMED Code(s): 636835589
--- NOTE | 2018-05-27 11:47 | P.DS ---
Providers Date of admission: 05/23/18 13:16 Attending physician: Carina Bhatt DO Consults: 05/23/18 13:19 Consult Physician Stat Consulting Provider: Chemo Mg Reason/Comments: SBO Do you want consulting provider notified?: Yes Primary care physician: Jhonatan Casanova - Discharge Diagnosis(es) (1) SBO (small bowel obstruction) Current Visit: Yes Status: Acute (2) History of lymphoma Current Visit: Yes Status: Acute (3) VERNON (acute kidney injury) Current Visit: Yes Status: Acute (4) Hyperglycemia Current Visit: Yes Status: Acute Hospital Course: The Patient is a 47-year-old male past medical history of hypertension , 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 In the ER he underwent an extensive evaluation. His vital signs within normal limits on arrival. Laboratory analysis showed acute kidney injury with a creatinine of 1.27. CT abdomen and pelvis showed possible small bowel obstruction with 2 different transition point , some of which might be chronic. He had an NG tube placed in the ER and received IV fluids as well as antiemetics and pain control. He was subsequently admitted for further monitoring and care. The patient was placed on NG tube with low intermittent suctioning and was seen by Dr. Mg who recommended conservative management, with treatment the patient's symptoms gradually improved. Follow-up small bowel follow through showed unremarkable small bowel with normal small bowel colonic transit time. The patient's diet was advanced is tolerating his low fiber diet. He was subsequently discharged home in stable condition and instructed to follow-up with his PCP in a week. This discharge process took approximately 35 minutes Patient Condition at Discharge: Good Plan - Discharge Summary Discharge Rx Participant: No New Discharge Prescriptions: No Action Esomeprazole Magnesium [NexIUM] 40 mg PO BID Losartan Potassium [Cozaar] 50 mg PO QAM Discharge Medication List Esomeprazole Magnesium [NexIUM] 40 mg PO BID 09/30/13 [History] Losartan Potassium [Cozaar] 50 mg PO QAM 09/30/13 [History] Follow up Appointment(s)/Referral(s): Jhonatan Casanova MD [Primary Care Provider] - 1-2 days
== END 2018-05-27 13:08 | disposition home or self-care (01) | DRG 389 ==
LOC: EC 09:16 → 3NMEDONC 13:16
PROVIDERS: ADMIT Internal Medicine; ATTEND Internal Medicine
DX: K56.609 Unspecified intestinal obstruction, unspecified as to partial versus complete obstruction (principal); N17.9 Acute kidney failure, unspecified; E66.01 Morbid (severe) obesity due to excess calories; E86.0 Dehydration; I10 Essential (primary) hypertension; K21.9 Gastro-esophageal reflux disease without esophagitis; R73.9 Hyperglycemia, unspecified; Z68.38 Body mass index [BMI] 38.0-38.9, adult; Z92.21 Personal history of antineoplastic chemotherapy; Z90.49 Acquired absence of other specified parts of digestive tract; Z86.718 Personal history of other venous thrombosis and embolism; Z79.899 Other long term (current) drug therapy; Z88.0 Allergy status to penicillin; Z85.72 Personal history of non-Hodgkin lymphomas; Z82.49 Family history of ischemic heart disease and other diseases of the circulatory system
CPT/HCPCS: 36415; 71045; 74018; 74019; 74021; 74177; 74250; 80053; 81001; 82150; 83036; 83690; 85025; 96361; 96374; 96375; 96376; 99285

== ENCOUNTER 2018-07-22 20:58 | Inpatient (IN) | payer BC ==
[2018-07-22] MEDS ORDERED: ONDANSETRON 4 MG/2 ML VIAL IVP STA (22:27)
[2018-07-22] MEDS ORDERED: SODIUM CHLORIDE 0.9% 500 ML 500 ML IV STA (22:27)
[2018-07-22] MEDS ORDERED: HYDROmorphone 1 MG/ML 1 ML SYRINGE IVP STA (22:27)
[2018-07-22 22:42] LABS: Basophils % (A) 0 %; Eosinophils % (A) 0 %; HCT 52.1 % (39.0-53.0); Lymphocytes # (A) 1.7 k/uL (1.0-4.8); Lymphocytes % (A) 10 %; MCH 30.2 pg (25.0-35.0); MCHC 33.4 g/dL (31.0-37.0); MCV 90.6 fL (80.0-100.0); Mean Platelet Volume 7.1; Monocytes # (A) 0.9 k/uL (0-1.0); Monocytes % (A) 5 %; Neutrophils # (A) 14.6 k/uL (1.3-7.7); Neutrophils % (A) 84 %; Platelet Count 281 k/uL (150-450); RBC 5.75 m/uL (4.30-5.90); RDW 13.1 % (11.5-15.5); WBC 17.4 k/uL (3.8-10.6)
--- NOTE | 2018-07-22 22:49 | XR ---
EXAM: XR Abdomen, 1 View CLINICAL HISTORY: ITS.REASON XR Reason: abdominal pain TECHNIQUE: Frontal supine view of the abdomen/pelvis. COMPARISON: Radiograph 05/26/18 IMPRESSION: Copious amounts of stool throughout the colon. IVC filter is in place. No definite bowel obstruction. Cholecystectomy clips are seen. No free air.
[2018-07-22 22:51] LABS: ALT 38 U/L (21-72); AST 24 U/L (17-59); Alkaline Phosphatase 103 U/L (38-126); Amylase 57 U/L (30-110); Anion Gap 12 mmol/L; Blood Urea Nitrogen 19 mg/dL (9-20); Calcium 10.4 mg/dL (8.4-10.2); Carbon Dioxide 24 mmol/L (22-30); Chloride 105 mmol/L (98-107); Glucose 119 mg/dL (74-99); Lipase 78 U/L (23-300); Potassium 4.3 mmol/L (3.5-5.1); Sodium 141 mmol/L (137-145); Total Bilirubin 0.9 mg/dL (0.2-1.3); Total Protein 8.4 g/dL (6.3-8.2)
[2018-07-22 22:57] LABS: HGB 17.4 gm/dL (13.0-17.5)
[2018-07-22 23:03] LABS: Appearance,Urine Clear (Clear); Bilirubin,Urine Negative (Negative); Blood,Urine Negative (Negative); Color,Urine Yellow; Glucose,Urine (UA) Negative (Negative); Hyaline Casts,Urine 7 /lpf (0-2); Ketones,Urine 1+ (Negative); Leukocyte Esterase,Urine Negative (Negative); Mucus,Urine Moderate /hpf; Nitrite,Urine Negative (Negative); PH, Urine 5.5 (5.0-8.0); Protein,Urine 1+ (Negative); RBC,Urine 1 /hpf (0-5); Specific Gravity,Urine 1.027 (1.001-1.035); Squamous Epithelial Cell,Urine <1 /hpf (0-4); Urobilinogen,Urine <2.0 mg/dL (<2.0); WBC,Urine 1 /hpf (0-5)
--- NOTE | 2018-07-22 23:48 | ED ---
Abdominal Pain HPI - General Source: patient Mode of arrival: ambulatory Limitations: no limitations <Nicol Arreaga - Last Filed: 07/23/18 00:54> <Mendy Garner - Last Filed: 07/24/18 03:17> - General Chief Complaint: Abdominal Pain Stated Complaint: Constipation Time Seen by Provider: 07/22/18 21:37 - History of Present Illness Initial Comments: 47-year-old male patient presents to the emergency department today for evaluation of upper abdominal pain and vomiting. Patient states that symptoms started early this morning. Patient states he has vomited several times since then. Patient states he did have a small bowel movement this morning. Patient states he is not currently passing gas. She has had bowel obstructions in the past with his most recent being in May. 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 Patient denies any hematemesis, hematochezia or melena. Denies any fevers or chills with this. Patient denies any recent rash, shortness breath, chest pain, back pain, numbness, tingling, dizziness, weakness, hematuria, dysuria, urinary urgency, urinary frequency, headache, visual changes, or any other complaints. (Nicol Arreaga) - Related Data Home Medications Medication Instructions Recorded Confirmed Losartan Potassium [Cozaar] 50 mg PO DAILY 09/30/13 07/23/18 Allergies Allergy/AdvReac Type Severity Reaction Status Date / Time Penicillins Allergy Anaphylaxis Verified 07/23/18 08:18 Review of Systems ROS Other: All systems not noted in ROS Statement are negative. <Nicol Arreaga - Last Filed: 07/23/18 00:54> ROS Other: All systems not noted in ROS Statement are negative. <Mendy Garner - Last Filed: 07/24/18 03:17> ROS Statement: Those systems with pertinent positive or pertinent negative responses have been documented in the HPI. Past Medical History Past Medical History: Cancer, Deep Vein Thrombosis (DVT), GERD/Reflux, Hypertension Additional Past Medical History / Comment(s): Lymphoma/small bowel with surgery and chemo in 2003, small bowel obstructions, DVT R calf, History of Any Multi-Drug Resistant Organisms: None Reported Past Surgical History: Bowel Resection, Cholecystectomy, Hernia Repair, Tonsillectomy Additional Past Surgical History / Comment(s): Bowel resection d/t small bowel lymphoma, colonoscopies, incisional hernia repair with mesh x2, vanita filter, port a cath now removed. Past Anesthesia/Blood Transfusion Reactions: No Reported Reaction Past Psychological History: No Psychological Hx Reported Smoking Status: Never smoker Past Alcohol Use History: Occasional Past Drug Use History: None Reported - Past Family History Mother Family Medical History: No Reported History Additional Family Medical History / Comment(s): Mother is healthy Father Family Medical History: Myocardial Infarction ([place]) Additional Family Medical History / Comment(s): AT AGE 48 OF A [place] <Nicol Arreaga M - Last Filed: 07/23/18 00:54> General Exam Limitations: no limitations General appearance: alert, in no apparent distress, other (Physical well- developed, well-nourished adult male patient in no acute distress. Vital signs upon presentation are temperature 97.8F, pulse 98, respirations 18, blood pressure 106/87, pulse ox 99% on room air. ) Eye exam: Present: normal appearance, PERRL, EOMI. Absent: scleral icterus, conjunctival injection, periorbital swelling ENT exam: Present: normal exam, normal oropharynx, mucous membranes moist Respiratory exam: Present: normal lung sounds bilaterally. Absent: respiratory distress, wheezes, rales, rhonchi, stridor Cardiovascular Exam: Present: regular rate, normal rhythm, normal heart sounds. Absent: systolic murmur, diastolic murmur, rubs, gallop, clicks GI/Abdominal exam: Present: soft, tenderness (Midepigastric tenderness, periumbi lical tenderness), normal bowel sounds. Absent: distended, guarding, rebound, rigid Neurological exam: Present: alert, oriented X3, CN II-XII intact Psychiatric exam: Present: normal affect, normal mood Skin exam: Present: warm, dry, intact, normal color. Absent: rash <Nicol Arreaga M - Last Filed: 07/23/18 00:54> Course Vital Signs 07/22/18 07/22/18 07/23/18 21:36 23:21 00:30 Temperature 97.8 F Pulse Rate 98 82 84 Respiratory 18 18 18 Rate Blood Pressure 106/87 106/79 113/72 O2 Sat by Pulse 99 98 95 Oximetry 07/23/18 07/23/18 01:47 03:17 Temperature 98.2 F Pulse Rate 83 88 Respiratory 18 18 Rate Blood Pressure 146/87 128/83 O2 Sat by Pulse 96 98 Oximetry Medical Decision Making - Lab Data Result diagrams: 07/22/18 21:54 07/22/18 21:54 - Radiology Data Radiology results: report reviewed, image reviewed <Nicol Arreaga - Last Filed: 07/23/18 00:54> - Lab Data Result diagrams: 07/22/18 21:54 07/22/18 21:54 <Mendy Garner - Last Filed: 07/24/18 03:17> - Medical Decision Making 47-year-old male patient presents to the emergency department today for evaluation of upper abdominal pain and vomiting since this morning. Physical examination does reveal tenderness periumbilically in the midepigastric region. Labs reviewed and did reveal elevated white blood cell count is 17,000, this is felt to be reactive from vomiting. KUB x-ray of the abdomen showed copious amounts of stool throughout the colon but no definite of bowel obstruction, we did then obtain CT abdomen and pelvis with contrast which showed a small bowel obstruction. Patient will be admitted to the hospital for further monitoring and surgical evaluation. As he has not currently vomiting and no longer feeling nauseated we will withhold NG tube at this time but did discuss later placement if his symptoms return. He'll be admitted to Dr. Nogueira with Dr. Mg on consult. Patient verbalizes understanding and is agreeable to this plan of care. (Nicol Arreaga) I was available for consultation in the emergency department. The history and physical exam were done by the midlevel provider. I was consulted for this patient's care. I reviewed the case with the midlevel provider and based on their presentation of the patient, I agree with the assessment, medical decision making and plan of care as documented. I discussed patient care with Dr. ruiz agrees with plan for admission, medical management of small bowel obstruction and a consult to Dr. Torres as the patient is an established patient. Chart was dictated using [employer] dictation software. Attempts were made to correct any dictation errors however some typographical errors may persist. (Mendy Garner) - Lab Data Lab Results 07/22/18 07/22/18 07/22/18 Range/Units 21:54 21:54 22:39 WBC 17.4 H (3.8-10.6) k/uL RBC 5.75 (4.30-5.90) m/uL Hgb 17.4 D (13.0-17.5) gm/dL Hct 52.1 (39.0-53.0) % MCV 90.6 (80.0-100.0) fL MCH 30.2 (25.0-35.0) pg MCHC 33.4 (31.0-37.0) g/dL RDW 13.1 (11.5-15.5) % Plt Count 281 (150-450) k/uL Neutrophils % 84 % Lymphocytes % 10 % Monocytes % 5 % Eosinophils % 0 % Basophils % 0 % Neutrophils # 14.6 H (1.3-7.7) k/uL Lymphocytes # 1.7 (1.0-4.8) k/uL Monocytes # 0.9 (0-1.0) k/uL Eosinophils # 0.0 (0-0.7) k/uL Basophils # 0.0 (0-0.2) k/uL Sodium 141 (137-145) mmol/L Potassium 4.3 (3.5-5.1) mmol/L Chloride 105 (98-107) mmol/L Carbon Dioxide 24 (22-30) mmol/L Anion Gap 12 mmol/L BUN 19 (9-20) mg/dL Creatinine 1.03 (0.66-1.25) mg/dL Est GFR (CKD-EPI)AfAm >90 (>60 ml/min/1.73 sqM) Est GFR (CKD-EPI)NonAf 85 (>60 ml/min/1.73 sqM) Glucose 119 H (74-99) mg/dL Calcium 10.4 H (8.4-10.2) mg/dL Total Bilirubin 0.9 (0.2-1.3) mg/dL AST 24 (17-59) U/L ALT 38 (21-72) U/L Alkaline Phosphatase 103 (38-126) U/L Total Protein 8.4 H (6.3-8.2) g/dL Albumin 5.0 (3.5-5.0) g/dL Amylase 57 (30-110) U/L Lipase 78 (23-300) U/L Urine Color Yellow Urine Appearance Clear (Clear) Urine pH 5.5 (5.0-8.0) Ur Specific [place] 1.027 (1.001-1.035) Urine Protein 1+ H (Negative) Urine Glucose (UA) Negative (Negative) Urine Ketones 1+ H (Negative) Urine Blood Negative (Negative) Urine Nitrite Negative (Negative) Urine Bilirubin Negative (Negative) Urine Urobilinogen <2.0 (<2.0) mg/dL Ur Leukocyte Esterase Negative (Negative) Urine RBC 1 (0-5) /hpf Urine WBC 1 (0-5) /hpf Ur Squamous Epith Cells <1 (0-4) /hpf Hyaline Casts 7 H (0-2) /lpf Urine Mucus Moderate H (None) /hpf - Radiology Data One view x-ray of the abdomen is obtained. Report was reviewed in its entirety. Impression by Dr. Muñoz shows copious amounts of stool throughout the colon. IVC filter is in place. No definite bowel obstruction. Cholecystectomy cultures seen. No free air. CT abdomen and pelvis with contrast was obtained. Report was reviewed in its entirety. Impression by Dr. Muñoz shows evidence of early/partial small bowel obstruction with transition point the site of anastomosis of the left lower quadrant of the abdomen. Hepatic steatosis. (Nicol Arreaga) Disposition Decision to Admit Reason: Admit from EC Decision Date: 07/23/18 Decision Time: 00:54 <Nicol Arreaga - Last Filed: 07/23/18 00:54> <Mendy Garner - Last Filed: 07/24/18 03:17> Clinical Impression: Small bowel obstruction Disposition: ADMITTED IP TO THIS HOSP Condition: Serious
--- NOTE | 2018-07-23 00:02 | CT ---
EXAM: CT Abdomen and Pelvis With Intravenous Contrast CLINICAL HISTORY: ITS.REASON CT Reason: abdominal pain TECHNIQUE: Axial computed tomography images of the abdomen and pelvis with intravenous contrast. CTDI is 38 mGy and DLP is 1740 mGy-cm. This CT exam was performed using one or more of the following dose reduction techniques: automated exposure control, adjustment of the mA and/or kV according to patient size, and/or use of iterative reconstruction technique. COMPARISON: Radiograph 07/22/18 FINDINGS: Lung bases: No mass. No consolidation. ABDOMEN: Liver: Steatosis. Gallbladder and bile ducts: Removed. Pancreas: Unremarkable. Spleen: Unremarkable. Adrenals: Unremarkable. Kidneys and ureters: No hydronephrosis. Stomach and bowel: Dilated loops of small bowel with transition point at the site of anastomosis in the left lower quadrant PELVIS: Appendix: No evidence of appendicitis. Bladder: Unremarkable. Reproductive: Unremarkable. ABDOMEN and PELVIS: Intraperitoneal space: Unremarkable. Bones/joints: No acute fractures. Soft tissues: Unremarkable. Vasculature: No abdominal aortic aneurysm. IVC filter is in place. Lymph nodes: No enlarged lymph nodes. IMPRESSION: 1. Evidence of early/partial small bowel obstruction with transition point in the site of anastomosis at the left lower quadrant of the abdomen. 2. Hepatic steatosis. <MYCVCSECTION> [employer] 07/23/18 00:13 Verify Receipt Verified receipt with Jess in ER for Dr. Arreaga on 07/23 00:13 (-04:00)
[2018-07-23] MEDS ORDERED: NALOXONE 0.4 MG/ML 1 ML VIAL IV PRN (00:52)
[2018-07-23] MEDS: HYDROmorphone 1 MG/ML 1 ML SYRINGE IVP PRN ×7 (01:50→22:51)
[2018-07-23] MEDS: SODIUM CHLORIDE 0.9% 1,000 ML IV SCH ×3 (01:50→19:40)
[2018-07-23] MEDS: ONDANSETRON 4 MG/2 ML VIAL IVP PRN ×3 (04:07→15:28)
[2018-07-23 04:30] VITALS: BMI 38.7
[2018-07-23] MEDS ORDERED: SODIUM CHLORIDE 0.9% 2,000 ML IV ONE (13:50)
--- NOTE | 2018-07-23 13:50 | P.GSCN ---
History of Present Illness Consult date: 07/23/18 Reason for Consult: Bowel obstruction Requesting physician: Mendy Garner History of present illness: CHIEF COMPLAINT: Small bowel obstruction HISTORY OF PRESENT ILLNESS: The patient is a 47 year old male who reports multiple episodes of recurrent small bowel obstruction for more than 2+ days. His last event was May 2018 almost a month and a half ago which was treated conservatively. His history is significant for lymphoma diagnosed after small bowel resection. Reports not able to pass flatus since yesterday. Reports chronic nausea. He does report abdominal gas bloat. No recent emesis today. He had a small bowel resection in 2003 at which time his diagnosis of lymphoma was confirmed. No recent blood in stools. He had last seen Dr. Mg in the last 2 months. He reports his pain is periumbilical including left upper quadrant cramp-like nature and constant. PAST MEDICAL HISTORY: See list. PAST SURGICAL HISTORY: See list. MEDICATIONS: See list. ALLERGIES: See list. SOCIAL HISTORY: No illicit drug use FAMILY HISTORY: No reports of Crohn's disease or inflammatory bowel disease REVIEW OF ORGAN SYSTEMS: CONSTITUTIONAL: No fevers or chills. No recent weight loss. EYES: Denies any trouble with vision. No glasses. HEENT: No difficulties with hearing. No nosebleeds. No difficulty swallowing. RESPIRATORY: Denies pneumonia. Denies any troubles with breathing or dyspnea on exertion. CARDIOVASCULAR: Denies any chest pain, palpitations, or recent heart attacks. GASTROINTESTINAL: Denies fatty food intolerance. Has change in bowel habits and gas bloat. GENITOURINARY: Denies any blood in urine or increased urinary frequency. NEUROLOGICAL: Denies any numbness or tingling along the distal extremities. No seizure disorders or headaches. MUSCULOSKELETAL: Has back pain, stiffness or joint arthritis. SKIN: No current skin cancer. No rash. PSYCHIATRIC: Denies current depression or suicidal thoughts. ENDOCRINE: Denies current thyroid disorders. Denies any blood sugar glucose intolerance. HEME/LYMPHATIC: Denies any lumps and bumps around the neck. Past deep venous thrombosis. ALLERGY/IMMUNOLOGY: Past history of chemotherapy for lymphoma. BREAST: Denies current breast lumps, pain or nipple discharge. PHYSICAL EXAM: VITALS: Reviewed CONSTITUTIONAL: Well developed and in no acute distress. EYES: Conjuctivae without sclera icterus. Pupils are equally round and reactive to light. Extraocular movements grossly intact. HEAD, EARS, NOSE, THROAT: Moist buccal mucosa. Head is atraumatic, normocephalic. Hears conversational speech. No nasal drainage. Good dentition. NECK: Supple. No JV distention. No thyroidomegaly. RESPIRATORY: Non-labored respirations and equal bilateral excursions. No gross wheezes. CARDIOVASCULAR: Regular rate and rhythm. Extremities without moderate edema. Palpable 2+ radial pulses. ABDOMEN: Soft. Well-healed periumbilical incision midline. No peritonitis. Minimal distention. LYMPH: No neck lymphadenopathy. No axillary lymphadenopathy. MUSCULOSKELETAL: Range of motion bilateral upper extremities within normal veras its. Nail and fingers with good capillary refill. SKIN: Warm and well perfused with good skin turgor. NEUROLOGIC: Cranial nerves I through XII grossly intact. No focal or lateralizing signs. PSYCH: Appropriate affect. Alert and oriented to person, place and time. Displays appropriate insight. CLINCAL LABS: Reviewed with leukocytosis, white count over 17,000 RADIOLOGY: Report reviewed without pneumoperitoneum IMAGING: Independently reviewed with localized small bowel loops along the left upper lower abdomen. ASSESSMENT: 1. History of recurrent small bowel obstruction 2. Personal history of lymphoma, small bowel PLAN: 1. Recommend IV fluid hydration as symptoms with ongoing over 2+ days 2. Advised nasogastric tube decompression for conservative treatment 3. May have ice chips only. Thank you for this kind consultation. Past Medical History Past Medical History: Cancer, Deep Vein Thrombosis (DVT), GERD/Reflux, Hypertension Additional Past Medical History / Comment(s): Lymphoma/small bowel with surgery and chemo in 2003, small bowel obstructions, DVT R calf, History of Any Multi-Drug Resistant Organisms: None Reported Past Surgical History: Bowel Resection, Cholecystectomy, Hernia Repair, Tonsillectomy Additional Past Surgical History / Comment(s): Bowel resection d/t small bowel lymphoma, colonoscopies, incisional hernia repair with mesh x2, vanita filter, port a cath now removed. Past Anesthesia/Blood Transfusion Reactions: No Reported Reaction Past Psychological History: No Psychological Hx Reported Additional Psychological History / Comment(s): Pt resides with his spouse. 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 Smoking Status: Never smoker Past Alcohol Use History: Rare Past Drug Use History: None Reported - Past Family History Mother Family Medical History: No Reported History Additional Family Medical History / Comment(s): Mother is healthy Father Family Medical History: Myocardial Infarction ([place]) Additional Family Medical History / Comment(s): AT AGE 48 OF A [place] Medications and Allergies Home Medications Medication Instructions Recorded Confirmed Type Losartan Potassium [Cozaar] 50 mg PO DAILY 09/30/13 07/23/18 History Allergies Allergy/AdvReac Type Severity Reaction Status Date / Time Penicillins Allergy Anaphylaxis Verified 07/23/18 08:18 Surgical - Exam Vital Signs Temp Pulse Resp BP Pulse Ox 97.8 F 98 18 106/87 99 07/22/18 21:36 07/22/18 21:36 07/22/18 21:36 07/22/18 21:36 07/22/18 21:36 Results - Labs 07/22/18 21:54 07/22/18 21:54 Abnormal Lab Results - Last 24 Hours (Table) 07/22/18 07/22/18 07/22/18 Range/Units 21:54 21:54 22:39 WBC 17.4 H (3.8-10.6) k/uL Neutrophils # 14.6 H (1.3-7.7) k/uL Glucose 119 H (74-99) mg/dL Calcium 10.4 H (8.4-10.2) mg/dL Total Protein 8.4 H (6.3-8.2) g/dL Urine Protein 1+ H (Negative) Urine Ketones 1+ H (Negative) Hyaline Casts 7 H (0-2) /lpf Urine Mucus Moderate H (None) /hpf Diabetes panel 07/22/18 Range/Units 21:54 Sodium 141 (137-145) mmol/L Potassium 4.3 (3.5-5.1) mmol/L Chloride 105 (98-107) mmol/L Carbon Dioxide 24 (22-30) mmol/L BUN 19 (9-20) mg/dL Creatinine 1.03 (0.66-1.25) mg/dL Glucose 119 H (74-99) mg/dL Calcium 10.4 H (8.4-10.2) mg/dL AST 24 (17-59) U/L ALT 38 (21-72) U/L Alkaline Phosphatase 103 (38-126) U/L Total Protein 8.4 H (6.3-8.2) g/dL Albumin 5.0 (3.5-5.0) g/dL Calcium panel 07/22/18 Range/Units 21:54 Calcium 10.4 H (8.4-10.2) mg/dL Albumin 5.0 (3.5-5.0) g/dL Pituitary panel 07/22/18 Range/Units 21:54 Sodium 141 (137-145) mmol/L Potassium 4.3 (3.5-5.1) mmol/L Chloride 105 (98-107) mmol/L Carbon Dioxide 24 (22-30) mmol/L BUN 19 (9-20) mg/dL Creatinine 1.03 (0.66-1.25) mg/dL Glucose 119 H (74-99) mg/dL Calcium 10.4 H (8.4-10.2) mg/dL Adrenal panel 07/22/18 Range/Units 21:54 Sodium 141 (137-145) mmol/L Potassium 4.3 (3.5-5.1) mmol/L Chloride 105 (98-107) mmol/L Carbon Dioxide 24 (22-30) mmol/L BUN 19 (9-20) mg/dL Creatinine 1.03 (0.66-1.25) mg/dL Glucose 119 H (74-99) mg/dL Calcium 10.4 H (8.4-10.2) mg/dL Total Bilirubin 0.9 (0.2-1.3) mg/dL AST 24 (17-59) U/L ALT 38 (21-72) U/L Alkaline Phosphatase 103 (38-126) U/L Total Protein 8.4 H (6.3-8.2) g/dL Albumin 5.0 (3.5-5.0) g/dL - Imaging CT scan - abdomen: report reviewed, image reviewed CT scan - pelvis: report reviewed, image reviewed Assessment and Plan (1) Morbid obesity due to excess calories Current Visit: Yes Status: Acute Code(s): E66.01 - MORBID (SEVERE) OBESITY DUE TO EXCESS CALORIES SNOMED Code(s): 262482810 (2) BMI 38.0-38.9,adult Current Visit: Yes Status: Acute Code(s): Z68.38 - BODY MASS INDEX (BMI) 38.0-38.9, ADULT SNOMED Code(s): 114036053 (3) History of DVT (deep vein thrombosis) Current Visit: Yes Status: Acute Code(s): Z86.718 - PERSONAL HISTORY OF O THER VENOUS THROMBOSIS AND EMBOLISM SNOMED Code(s): 574046977 (4) SBO (small bowel obstruction) Current Visit: Yes Status: Acute Code(s): K56.609 - UNSP INTESTNL OBST, UNSP TO PARTIAL VERSUS COMPLETE OBST SNOMED Code(s): 084170862 (5) VERNON (acute kidney injury) Current Visit: No Status: Acute Code(s): N17.9 - ACUTE KIDNEY FAILURE, UNSPECIFIED SNOMED Code(s): 26199979 (6) History of lymphoma Current Visit: No Status: Acute Code(s): Z85.79 - PRSNL HX OF MALIG NEOPLM OF LYMPHOID, HEMATPOETC & REL TISS SNOMED Code(s): 695573192 (7) Partial small bowel obstruction Current Visit: No Status: Acute Code(s): K56.69 - OTHER INTESTINAL OBSTRUCTION * DO NOT USE * SNOMED Code(s): 045749925 (8) Hypertensive heart disease Current Visit: Yes Status: Acute Code(s): I11.9 - HYPERTENSIVE HEART DISEASE WITHOUT HEART FAILURE SNOMED Code(s): 14588528
--- NOTE | 2018-07-23 19:12 | XR ---
EXAMINATION TYPE: XR chest 1V DATE OF EXAM: 07/23/2018 COMPARISON: 05/23/2018 HISTORY: NG tube placement TECHNIQUE: Single frontal view of the chest is obtained. FINDINGS: Heart and mediastinum are normal. Lungs are clear. There is nasogastric tube looped in the gastric fundus. Diaphragm is normal. IMPRESSION: Normal chest. NG tube is in good position.
[2018-07-23] MEDS: ENOXAPARIN 40 MG/0.4 ML SYRINGE SQ SCH (22:43)
--- NOTE | 2018-07-24 03:56 | HP ---
HISTORY AND PHYSICAL DATE OF ADMISSION: 07/23/2018 PRESENTING COMPLAINT: Abdominal pain. HISTORY OF PRESENTING COMPLAINT: This is a pleasant 47-year-old patient of Dr. Casanova. Chronic stable medical conditions include GERD, hypertension, obesity. The patient does follow up with Dr. Mg. The patient has had a history of small bowel lymphoma and has been treated with bowel resection and subsequently has had bowel resections not too long ago. He was in the hospital in May. Had an NG tube placed and patient responded to conservative management. The patient and his were out, had breakfast and following breakfast patient started off with increasing abdominal pain and it became severe, followed by nausea, vomiting. There were no fever, no chills. The patient's last bowel movement was yesterday. Patient presented here. The patient's CT scan of the abdomen and pelvis showed a small bowel obstruction and patient admitted for the same. When I saw the patient, NG tube had just been ordered by Dr. Guzman. The patient's is present. REVIEW OF SYSTEMS: CONSTITUTIONAL: Tired. HEENT: None. RESPIRATORY: None. GASTROINTESTINAL: As above. GENITOURINARY: None. MUSCULOSKELETAL: None. DERMATOLOGICAL, HEMATOLOGIC, LYMPHATICS: None. PSYCHIATRY: None. NEUROLOGICAL: None. PAST HISTORY: DVT, GERD, hypertension, lymphoma, recurrent bowel obstruction. PAST SURGICAL HISTORY: Bowel resection, cholecystectomy, hernia repair, tonsillectomy, Speedy filter. SOCIAL HISTORY: No smoking. Alcohol occasionally. . 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 FAMILY HISTORY: Reviewed and noncontributory to presentation. HOME MEDICATIONS: Cozaar 50 mg a day. ALLERGIES: PENICILLIN. PHYSICAL EXAMINATION: Temperature 98.3, pulse 75, respiration 16, blood pressure 120/79, pulse ox 95% on room air. GENERAL APPEARANCE: Well-built. BMI 38. Lying in bed, awake. EYES: Pupils equal. Conjunctivae normal. HEENT: External appearance of ears and nose is normal. Oral cavity normal. NECK: JVD not raised. Mass not palpable. Respiratory effort normal. LUNGS: Clear. CARDIOVASCULAR: First and second sounds normal. No edema. ABDOMEN: Distended, tender. No guarding or rigidity. Bowel sounds sluggish. LYMPHATIC: No lymph node palpable in neck or axillae. PSYCHIATRY: Alert and oriented x3. Mood and affect normal. NEUROLOGICAL: Pupils equal. Cranial nerves grossly intact. Power and sensation grossly intact. INVESTIGATIONS: White count 19.4, hemoglobin 17.4, potassium 4.3. BUN and creatinine is normal. Calcium 10.4. CT scan of the abdomen and pelvis shows partial early partial small bowel obstruction and hepatic steatosis. ASSESSMENT: 1. Acute partial small bowel obstruction in a patient who has had previous bowel surgery for lymphoma and bowel resection with recurrent episodes. Now will be requiring an NG tube. 2. Obesity, BMI 38. 3. Hepatic steatosis. 4. Gastroesophageal reflux disease. 5. Essential hypertension. PLAN: The patient is getting an NG tube. Home medications will be resumed. We will increase IV fluids to 125 mL an hour. Lovenox for DVT prophylaxis. Dr. Guzman from General Surgery saw the patient. Care was discussed with the patient and . MYRNA / JAYE: [id number] /
[2018-07-24] MEDS: HYDROmorphone 1 MG/ML 1 ML SYRINGE IVP PRN (04:23)
[2018-07-24 07:52] LABS: Anion Gap 3 mmol/L; Blood Urea Nitrogen 18 mg/dL (9-20); Calcium 8.9 mg/dL (8.4-10.2); Carbon Dioxide 29 mmol/L (22-30); Chloride 110 mmol/L (98-107); Glucose 77 mg/dL (74-99); Potassium 4.2 mmol/L (3.5-5.1); Sodium 142 mmol/L (137-145)
[2018-07-24 08:22] LABS: Basophils % (A) 0 %; Eosinophils # (A) 0.2 k/uL (0-0.7); Eosinophils % (A) 2 %; HCT 42.6 % (39.0-53.0); Lymphocytes # (A) 2.5 k/uL (1.0-4.8); Lymphocytes % (A) 32 %; MCH 29.6 pg (25.0-35.0); MCHC 32.9 g/dL (31.0-37.0); MCV 89.9 fL (80.0-100.0); Mean Platelet Volume 7.1; Monocytes # (A) 0.5 k/uL (0-1.0); Monocytes % (A) 7 %; Neutrophils # (A) 4.5 k/uL (1.3-7.7); Neutrophils % (A) 57 %; Platelet Count 233 k/uL (150-450); RBC 4.74 m/uL (4.30-5.90); RDW 13.7 % (11.5-15.5)
[2018-07-24] MEDS: ENOXAPARIN 40 MG/0.4 ML SYRINGE SQ SCH (09:29)
--- NOTE | 2018-07-24 09:50 | XR ---
EXAMINATION TYPE: XR KUB DATE OF EXAM: 07/24/2018 COMPARISON: 07/22/2018 INDICATION: Abdomen pain history of small bowel obstruction TECHNIQUE: Single view abdomen upright view FINDINGS: Normal colonic bowel gas is present. There are some air-fluid levels within the ascending colon. Smal l bowel has couple of air-fluid levels and is nondilated. Nasogastric tube is been introduced and has its tip in left upper quadrant of the abdomen. Psoas margins are normal. No organomegaly is present. Cholecystectomy clips are in the right upper quadrant. Note is made of an IVC filter. IMPRESSION: 1. Nonspecific abdomen. Air and fecal debris is within the colon. Small amount of small bowel gas is present.
--- NOTE | 2018-07-24 15:08 | P.PN ---
Subjective Progress Note Date: 07/24/18 Principal diagnosis: Small bowel obstruction Patient is well known to our service. Patient was just hospitalized approximately 2 months ago with similar symptoms. Patient was eating food and [place] that consisted of a large caramel apple. The patient states he noticed the consistency was quite fibrous. The following morning after he had that the evening prior he developed abdominal discomfort, swelling, and subsequent vomiting. Patient has responded well to conservative measures for his bowel obstruction the past. The patient and I have felt that he likely has 1 or more sites of small bowel narrowing that is obstructing with ends dry foods. Between his last episode and now he had been trying to avoid foods with skins or seeds or dry foods. Currently he is doing better. His pain is resolved. He is passing flatus today. His x-rays today are improved as well. Objective - Vital Signs Vital signs: Vital Signs Temp 97.9 F 07/24/18 07:00 Pulse 78 07/24/18 07:00 Resp 14 07/24/18 07:00 BP 157/93 07/24/18 07:00 Pulse Ox 95 07/24/18 07:00 Intake & Output 07/23/18 07/24/18 07/24/18 18:59 06:59 18:59 Intake Total 525 900 Output Total 250 1350 550 Balance 275 -450 -550 Intake: Intake, IV Titration 525 900 Amount Sodium Chloride 0.9% 1, 525 900 000 ml @ 75 mls/hr IV . [id number] [facility] Rx#:[id number] Output: Gastric Drainage 250 450 50 Urine 900 500 Other: Voiding Method Toilet Toilet Urinal # Voids 2 - Exam Abdomen: Soft, nontender, nondistended - Labs CBC & Chem 7: 07/24/18 07:16 07/24/18 07:16 Labs: Abnormal Lab Results - Last 24 Hours (Table) 07/24/18 Range/Units 07:16 Chloride 110 H (98-107) mmol/L Assessment and Plan (1) SBO (small bowel obstruction) Narrative/Plan: Options reviewed with the patient. He would like to hold off on surgical exploration at this time. I suspect the patient's obstruction has resolved spontaneously at this point. We'll remove nasogastric tube. Begin clear liquid s. Current Visit: Yes Status: Acute Code(s): K56.609 - UNSP INTESTNL OBST, UNSP TO PARTIAL VERSUS COMPLETE OBST SNOMED Code(s): 823958025
[2018-07-24] MEDS: SODIUM CHLORIDE 0.9% 1,000 ML IV SCH ×2 (18:27→20:30)
--- NOTE | 2018-07-25 04:41 | PN ---
PROGRESS NOTE DATE OF SERVICE: July 24, 2018 PRESENTING COMPLAINT: Bowel obstruction. INTERVAL HISTORY: This patient with previous bowel surgery, admitted with small-bowel obstruction. NG tube remains in place. Abdominal pain is better. Has passed some flatus. No bowel movement. No fever no chills. REVIEW OF SYSTEMS: Done for constitutional, cardiovascular, GI, pulmonary; relevant findings as above. CURRENT MEDICATIONS: Reviewed. PHYSICAL EXAMINATION: VITAL SIGNS: Temperature 98.1, pulse 83, respirations 16, blood pressure 144/88, pulse ox 97% on room air. GENERAL APPEARANCE: Lying in bed, awake. EYES: Pupils equal. Conjunctivae normal. HEENT: External appearance of nose and ears normal. Oral cavity normal. NG tube in place. RESPIRATORY: Effort normal. LUNGS are clear. CARDIOVASCULAR: First and second sounds normal. No edema. ABDOMEN: Distended, soft. Mild tenderness. Bowel sounds sluggish. Liver and spleen not palpable. PSYCHIATRY: Alert and oriented x3. Mood and affect normal. INVESTIGATIONS: White count 18, hemoglobin 14. Abdominal x-ray is also noted. ASSESSMENT: 1. Acute small-bowel obstruction NG tube in place. 2. Obesity BMI 30. 3. Hepatic steatosis. 4. Gastroesophageal reflux disease. 5. Essential hypertension. PLAN: Continue current medication and treatment plan. Follow with surgery. Care was discussed with the patient. MMODL / IJN: [id number] /
[2018-07-25] MEDS: ENOXAPARIN 40 MG/0.4 ML SYRINGE SQ SCH (08:44)
--- NOTE | 2018-07-25 10:52 | P.PN ---
<Cynthia Abarca - Last Filed: 07/25/18 10:48> Subjective Progress Note Date: 07/25/18 CHIEF COMPLAINT: Small bowel obstruction HISTORY OF PRESENT ILLNESS: Patient seen and examined at the bedside. NG tube was discontinued yesterday and patient was started on liquids. Patient denies abdominal pain. Denies nausea or vomiting. Patient reports passing flatus and having 2 soft bowel movements overnight. PHYSICAL EXAM: VITAL SIGNS: Reviewed. GENERAL: Well-developed in no acute distress. HEENT: No sclera icterus. Extraocular movements grossly intact. Moist buccal mucosa. Head is atraumatic, normocephalic. ABDOMEN: Soft. Nondistended. Nontender. NEUROLOGIC: Alert and oriented. Cranial nerves II through XII grossly intact. ASSESSMENT: 1. Small bowel obstruction PLAN: 1. Advance diet to full liquids for lunch 2. Possible discharge home this afternoon Nurse practitioner note has been reviewed by physician. Signing provider agrees with the documented findings, assessment, and plan of care. Objective - Vital Signs Vital signs: Vital Signs Temp 98.4 F 07/25/18 07:00 Pulse 69 07/25/18 07:00 Resp 14 07/25/18 07:00 BP 167/83 07/25/18 07:00 Pulse Ox 96 07/25/18 07:00 Intake & Output 07/24/18 07/25/18 07/25/18 18:59 06:59 18:59 Intake Total 600 Output Total 550 0 Balance -550 600 Intake: Intake, IV Titration 600 Amount Sodium Chloride 0.9% 1, 600 000 ml @ 75 mls/hr IV . [id number] [facility] Rx#:[id number] Output: Gastric Drainage 50 Urine 500 Emesis 0 Other: Voiding Method Toilet # Bowel Movements 1 - Labs CBC & Chem 7: 07/24/18 07:16 07/24/18 07:16 <Chemo Mg - Last Filed: 07/25/18 17:04> Subjective As above. Patient doing well. Tolerating diet. Good bowel function now. Will discharge today. Follow-up as outpatient. Objective - Vital Signs Vital signs: Vital Signs Temp 98 F 07/25/18 15:00 Pulse 70 07/25/18 15:00 Resp 12 07/25/18 15:00 BP 146/93 07/25/18 15:00 Pulse Ox 99 07/25/18 15:00 Intake & Output 07/24/18 07/25/18 07/25/18 18:59 06:59 18:59 Intake Total 600 500 Output Total 550 0 Balance -550 600 500 Intake: Intake, IV Titration 600 500 Amount Sodium Chloride 0.9% 1, 600 500 000 ml @ 75 mls/hr IV . [id number] [facility] Rx#:[id number] Output: Gastric Drainage 50 Urine 500 Emesis 0 Other: Voiding Method Toilet # Voids 2 # Bowel Movements 1 - Labs CBC & Chem 7: 07/24/18 07:16 07/24/18 07:16 Assessment and Plan (1) SBO (small bowel obstruction) Current Visit: Yes Status: Acute Code(s): K56.609 - UNSP INTESTNL OBST, UNSP TO PARTIAL VERSUS COMPLETE OBST SNOMED Code(s): 363644128
[2018-07-25 16:17] VITALS: BP 146/93; PULSE 70; RESP 12; TEMP 98
--- NOTE | 2018-07-26 06:50 | DS ---
DISCHARGE SUMMARY DATE OF ADMISSION: 07/23/2018 DATE OF DISCHARGE: 07/25/2018 FINAL DIAGNOSES: 1. Acute partial small-bowel obstruction, responded well to NG tube. 2. Obesity, body mass index 38. 3. Hepatic steatosis. 4. Gastroesophageal reflux disease. 5. Essential hypertension. 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 Yet again presented with bowel obstruction and was given NG tube to which he responded well. Today, having bowel movement, passing flatus. Did tolerate a diet. Doing well. No further symptoms. Cleared by Surgery to go home. On examination, temperature 98.4, pulse 69, respiration 14, blood pressure 146/93, pulse ox 99% on room air. ABDOMEN: Soft, minimal tenderness. CONSULTATION: Dr. Mg from General Surgery. DISCHARGE MEDICATION: Losartan 50 mg p.o. daily. Follow up with Dr. Mg in 2 weeks. Follow up with Dr. Jhonatan Casanova in 3 days. The patient may return to work on 07/28/2018. MMODL / IJN: [id number] /
== END 2018-07-25 17:42 | disposition home or self-care (01) | DRG 390 ==
LOC: EC 20:58 → 4SSUR 07-23 01:56
PROVIDERS: ADMIT Hospitalist; ATTEND Hospitalist
DX: K56.600 Partial intestinal obstruction, unspecified as to cause (principal); E66.01 Morbid (severe) obesity due to excess calories; K76.0 Fatty (change of) liver, not elsewhere classified; K21.9 Gastro-esophageal reflux disease without esophagitis; I11.9 Hypertensive heart disease without heart failure; Z68.38 Body mass index [BMI] 38.0-38.9, adult; Z92.21 Personal history of antineoplastic chemotherapy; Z86.718 Personal history of other venous thrombosis and embolism; Z90.49 Acquired absence of other specified parts of digestive tract; Z85.72 Personal history of non-Hodgkin lymphomas; Z79.899 Other long term (current) drug therapy; Z88.0 Allergy status to penicillin; Z82.49 Family history of ischemic heart disease and other diseases of the circulatory system
CPT/HCPCS: 36415; 71045; 74018; 74177; 80048; 80053; 81001; 82150; 83690; 85025; 96361; 96374; 96375; 96376; 99285

== ENCOUNTER 2020-05-04 18:45 | Inpatient (IN) | payer BC ==
[2020-05-04] MEDS ORDERED: PANTOPRAZOLE 40 MG/10 ML VIAL IVP STA (19:06)
[2020-05-04] MEDS ORDERED: MORPHINE SULFATE 4 MG/ML SYRINGE IV STA (19:06)
[2020-05-04] MEDS ORDERED: SODIUM CHLORIDE 0.9% 1,000 ML IV STA ×3 (19:06→20:53)
[2020-05-04] MEDS ORDERED: METOCLOPRAMIDE 5 MG/ML 2 ML VIAL IVP STA (19:06)
[2020-05-04] MEDS ORDERED: ONDANSETRON 4 MG/2 ML VIAL IVP PRN (19:57)
[2020-05-04] MEDS ORDERED: LABETALOL SYRINGE 5 MG/ML IVP STA (20:03)
--- NOTE | 2020-05-04 20:03 | ED ---
Abdominal Pain HPI - General Chief Complaint: Abdominal Pain Stated Complaint: bowel problem Time Seen by Provider: 05/04/20 18:54 Source: patient Mode of arrival: ambulatory Limitations: no limitations - History of Present Illness Initial Comments: This 49-year-old male presents with a complaint of some diffuse abdominal pain. He states that this started at approximately 11 AM today. He does complain of some moderate abdominal distention. He did have a bowel movement at approximately 11 AM today. He's had several bouts of nausea and vomiting. He has a history of previous bowel obstruction and states that this feels. He similar. He last had a bowel obstruction approximately 2 years ago. His initial bulb structure and wasn't 2004 due to an abdominal mass which was removed. He talked to his surgeon on-call and they recommended that he come to the emergency department for further evaluation and treatment. He denies any fevers or chills. There is no other complaints or modifying factors. He relates that the pain is fairly severe. - Related Data Home Medications Medication Instructions Recorded Confirmed Esomeprazole Magnesium [NexIUM] 40 mg PO BID 05/04/20 05/04/20 Losartan Potassium [Cozaar] 50 mg PO DAILY 05/04/20 05/04/20 Allergies Allergy/AdvReac Type Severity Reaction Status Date / Time Penicillins Allergy Anaphylaxis Verified 05/04/20 20:14 Review of Systems ROS Statement: Those systems with pertinent positive or pertinent negative responses have been documented in the HPI. ROS Other: All systems not noted in ROS Statement are negative. Past Medical History Past Medical History: Cancer, Deep Vein Thrombosis (DVT), GERD/Reflux, Hyp ertension Additional Past Medical History / Comment(s): Lymphoma/small bowel with surgery and chemo in 2003, small bowel obstructions, DVT R calf, History of Any Multi-Drug Resistant Organisms: None Reported Past Surgical History: Bowel Resection, Cholecystectomy, Hernia Repair, Tonsillectomy Additional Past Surgical History / Comment(s): Bowel resection d/t small bowel lymphoma, colonoscopies, incisional hernia repair with mesh x2, vanita filter, port a cath now removed. Past Anesthesia/Blood Transfusion Reactions: No Reported Reaction Past Psychological History: No Psychological Hx Reported Smoking Status: Never smoker Past Alcohol Use History: Rare Past Drug Use History: None Reported - Past Family History Mother Family Medical History: No Reported History Additional Family Medical History / Comment(s): Mother is healthy Father Family Medical History: Myocardial Infarction (AR) Additional Family Medical History / Comment(s): AT AGE 48 OF A AR General Exam - General Exam Comments Initial Comments: GENERAL: The patient is well nourished and well hydrated. VITAL SIGNS: Heart rate, blood pressure, respiratory rate reviewed as recorded in nurse's notes. EYES: Pupils are round and reactive. Extraocular movements are intact. No conjunctival / lid redness or swelling. ENT: No external evidence of injury, swelling, or ecchymosis. Airway is patent. Throat is clear. NECK: Nontender. No swelling or evidence of injury. No subcutaneous emphysema. Trachea is midline. No thyroid mass. HEART: Regular rate and rhythm. Good peripheral pulses. LUNGS/CHEST: Breath sounds clear and equal bilaterally. No rales, rhonchi, or wheezes. No ecchymosis, subcutaneous emphysema, or tenderness. ABDOMEN: There is mild distention, obese abdomen, moderate diffuse tenderness. No palpable masses or organomegaly. No peritoneal signs. No abdominal wall swelling or ecchymosis. EXTREMITIES: No extremity tenderness. Normal muscle tone and function. No thoracolumbar tenderness. NEUROLOGIC: Sensation is grossly intact. Cranial nerve exam reveals face is symmetrical, tongue is midline, speech is clear. SKIN: No abrasions or ecchymosis is noted. No induration or masses noted. PSYCHIATRIC: Alert and oriented. Appropriate behavior and judgment. Limitations: no limitations Course Vital Signs 05/04/20 05/04/20 18:47 20:32 Temperature 98.8 F Pulse Rate 102 H 74 Respiratory 20 18 Rate Blood Pressure 184/112 177/98 O2 Sat by Pulse 99 98 Oximetry Medical Decision Making - Medical Decision Making The patient was seen and examined. All diagnostics are reviewed. He receives 4 mg of morphine intravenously and 10 mg Reglan. Ample fluid hydration is given. The laboratory came back showing an elevation of the white blood cell count as well as an elevation of the lactic acid. The computed tomography scan came back suspicious for partial small bowel obstruction, please see report for details. It is felt as though symptoms are consistent with a partial small bowel obstruction. The patient receives additional morphine for intractable pain and is feeling better on recheck. The case is discussed with Dr. Peña and he is agreeable with admission. He would like IV fluids, NG tube, IV antibiotics and for patient to be admitted to Dr. Nielsen's service. Patient is agreeable with this plan. - Lab Data Result diagrams: 05/04/20 19:50 05/04/20 19:50 Lab Results 05/04/20 05/04/20 05/04/20 Range/Units 19:50 19:50 19:50 WBC 16.0 H (3.8-10.6) k/uL RBC 5.76 (4.30-5.90) m/uL Hgb 17.0 (13.0-17.5) gm/dL Hct 51.1 (39.0-53.0) % MCV 88.7 (80.0-100.0) fL MCH 29.6 (25.0-35.0) pg MCHC 33.3 (31.0-37.0) g/dL RDW 12.8 (11.5-15.5) % Plt Count 267 (150-450) k/uL MPV 7.8 Neutrophils % 75 % Lymphocytes % 18 % Monocytes % 5 % Eosinophils % 1 % Basophils % 0 % Neutrophils # 12.0 H (1.3-7.7) k/uL Lymphocytes # 2.8 (1.0-4.8) k/uL Monocytes # 0.8 (0-1.0) k/uL Eosinophils # 0.1 (0-0.7) k/uL Basophils # 0.1 (0-0.2) k/uL Sodium 141 (137-145) mmol/L Potassium 4.6 (3.5-5.1) mmol/L Chloride 107 (98-107) mmol/L Carbon Dioxide 23 (22-30) mmol/L Anion Gap 11 mmol/L BUN 13 (9-20) mg/dL Creatinine 1.12 (0.66-1.25) mg/dL Est GFR (CKD-EPI)AfAm 88 (>60 ml/min/1.73 sqM) Est GFR (CKD-EPI)NonAf 76 (>60 ml/min/1.73 sqM) Glucose 121 H (74-99) mg/dL Plasma Lactic Acid Darnell 3.7 H* (0.7-2.0) mmol/L Calcium 10.0 (8.4-10.2) mg/dL Total Bilirubin 0.6 (0.2-1.3) mg/dL AST 36 (17-59) U/L ALT 48 (4-49) U/L Alkaline Phosphatase 96 (38-126) U/L Total Protein 8.1 (6.3-8.2) g/dL Albumin 4.6 (3.5-5.0) g/dL Lipase 111 (23-300) U/L Disposition Clinical Impression: Acute abdominal pain, Hypertensive urgency, Nausea and vomiting, Hx of int estinal obstruction, Partial small bowel obstruction, Leukocytosis, Lactic acidosis Disposition: ADMITTED IP TO THIS HOSP Condition: Fair Is patient prescribed a controlled substance at d/c from ED?: No Referrals: Jhonatan Casanova MD [Primary Care Provider] - 1-2 days Time of Disposition: 20:58 Decision Date: 05/04/20 Decision Time: 20:58
[2020-05-04 20:06] LABS: Basophils # (A) 0.1 k/uL (0-0.2); Basophils % (A) 0 %; Eosinophils # (A) 0.1 k/uL (0-0.7); Eosinophils % (A) 1 %; HCT 51.1 % (39.0-53.0); Lymphocytes # (A) 2.8 k/uL (1.0-4.8); Lymphocytes % (A) 18 %; MCH 29.6 pg (25.0-35.0); MCHC 33.3 g/dL (31.0-37.0); MCV 88.7 fL (80.0-100.0); Mean Platelet Volume 7.8; Monocytes # (A) 0.8 k/uL (0-1.0); Monocytes % (A) 5 %; Neutrophils % (A) 75 %; Platelet Count 267 k/uL (150-450); RBC 5.76 m/uL (4.30-5.90); RDW 12.8 % (11.5-15.5)
[2020-05-04 20:18] LABS: Albumin 4.6 g/dL (3.5-5.0); Potassium 4.6 mmol/L (3.5-5.1); Total Bilirubin 0.6 mg/dL (0.2-1.3); Total Protein 8.1 g/dL (6.3-8.2)
--- NOTE | 2020-05-04 20:40 | CT ---
EXAMINATION TYPE: CT abdomen pelvis w con DATE OF EXAM: 05/04/2020 COMPARISON: 07/22/2018 HISTORY: Abdominal pain, changes in bowel activity. Hx small bowel ca, hx bowel resection CT DLP: 2109.9 mGycm Automated exposure control for dose reduction was used. CONTRAST: Performed with IV Contrast, patient injected with 100 mL of Isovue 300. Images obtained from the diaphragm to the floor the pelvis with IV contrast. The lung bases are clear. There is no pleural effusion. Heart size is normal. Liver spleen stomach pancreas appear intact. Bile ducts are not dilated. There are clips from cholecy stectomy. There is no adrenal mass. Kidneys show satisfactory contrast opacification. There is no hydronephrosi s. There is inferior vena cava filter noted. There is no retroperitoneal adenopathy. Ureters are not dilated. Delayed images show normal renal excretion. The bladder distends smoothly. There is no ingui nal hernia. There is no ascites. There are some mildly dilated fluid-filled loops of small bowel in the mid abdomen. There is no evide nce of thickened appendix. Terminal ileum appears normal. There is previous small bowel surgery in th e left mid abdomen. Small bowel dilated up to 4.2 cm. Transition point not seen. Lumbar vertebra have normal alignment. There is no compression fracture. Posterior elements are intac t. Sacroiliac joints appear normal. Bony pelvis is intact. Hip joints are intact. IMPRESSION: Dilated small bowel suggestive of ileus or partial mechanical obstruction not significantly different than old exam. Previous surgery.
[2020-05-04] MEDS ORDERED: MORPHINE SULFATE 4 MG/ML SYRINGE IVP STA (20:44)
[2020-05-04] MEDS ORDERED: LEVOFLOXACIN 750MG-D5W PMX 750 MG in DEXTROSE/WATER 1 150ML.BAG IVPB STA (20:52)
[2020-05-04] MEDS ORDERED: metroNIDAZOLE-NS PMX 500 MG in SALINE 1 100ML.BAG IVPB STA (20:52)
[2020-05-04] MEDS ORDERED: MORPHINE SULFATE 4 MG/ML SYRINGE IV PRN (20:58)
[2020-05-04] MEDS ORDERED: ACETAMINOPHEN TAB 325 MG TAB PO PRN (20:58)
[2020-05-04] MEDS ORDERED: NALOXONE 0.4 MG/ML 1 ML VIAL IV PRN (20:58)
[2020-05-04] MEDS ORDERED: LABETALOL 5 MG/ML VIAL MDV IVP PRN (21:03)
[2020-05-04 21:17] LABS: Prothrombin Time 10.4 sec (9.0-12.0)
[2020-05-04 21:21] LABS: Partial Thromboplastin Time 19.6 sec (22.0-30.0)
[2020-05-04 21:33] LABS: Appearance,Urine Clear (Clear); Bilirubin,Urine Negative (Negative); Blood,Urine Negative (Negative); Color,Urine Yellow; Glucose,Urine (UA) Negative (Negative); Ketones,Urine Negative (Negative); Leukocyte Esterase,Urine Negative (Negative); Nitrite,Urine Negative (Negative); Protein,Urine Trace (Negative); Urobilinogen,Urine <2.0 mg/dL (<2.0)
--- NOTE | 2020-05-04 21:43 | XR ---
EXAMINATION TYPE: XR KUB DATE OF EXAM: 05/04/2020 COMPARISON: 07/24/2018 HISTORY: Check tube placement TECHNIQUE: 2 views supine FINDINGS: There is nasogastric tube with the tip at the gastric fundus. Bowel gas pattern shows some distended small bowel loops with air and fluid. There are clips from cholecystectomy. Lung bases are clear. There is contrast in the urinary bladder. IMPRESSION: Mildly dilated small bowel appears new compared to old exam. No free air. NG tube is in t he gastric fundus.
[2020-05-04 21:46] LABS: Specific Gravity,Urine 1.046 (1.001-1.035)
[2020-05-04] MEDS ORDERED: hydrALAZINE HCL 20 MG/ML 1 ML VIAL IVP PRN (22:17)
[2020-05-05] MEDS: ONDANSETRON 4 MG/2 ML VIAL IVP PRN ×2 (00:13→07:43)
[2020-05-05] MEDS: HYDROmorphone 1 MG/ML 1 ML SYRINGE IVP PRN ×7 (01:04→19:47)
[2020-05-05] MEDS: metroNIDAZOLE-NS PMX 500 MG in SALINE 1 100ML.BAG IVPB SCH ×3 (05:36→19:48)
[2020-05-05 06:49] LABS: Basophils % (A) 0 %; Eosinophils % (A) 0 %; HCT 47.3 % (39.0-53.0); HGB 15.9 gm/dL (13.0-17.5); Lymphocytes # (A) 1.2 k/uL (1.0-4.8); Lymphocytes % (A) 7 %; MCHC 33.5 g/dL (31.0-37.0); MCV 89.4 fL (80.0-100.0); Mean Platelet Volume 7.2; Monocytes # (A) 1.1 k/uL (0-1.0); Monocytes % (A) 7 %; Neutrophils # (A) 13.9 k/uL (1.3-7.7); Neutrophils % (A) 85 %; Platelet Count 277 k/uL (150-450); RBC 5.29 m/uL (4.30-5.90); RDW 12.8 % (11.5-15.5); WBC 16.3 k/uL (3.8-10.6)
[2020-05-05] MEDS: ENOXAPARIN 40 MG/0.4 ML SYRINGE SQ SCH (07:43)
[2020-05-05] MEDS: PANTOPRAZOLE 40 MG/10 ML VIAL IV SCH (07:45)
[2020-05-05] MEDS ORDERED: LOSARTAN 25 MG TAB PO SCH (09:00)
--- NOTE | 2020-05-05 11:16 | P.GSHP ---
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 Patient is also history of incisional hernia repair with mesh and DVT with Sp[place] filter placement. Patient presented to the emergency room with complaints of diffuse abdominal pain that started around 11:00 yesterday morning. He complains of abdominal distention with nausea and vomiting intermittently. His last bowel movement was around 8 AM yesterday. He reports since then he has had no bowel movements or passed any gas. Patient had computed tomography scan of the abdomen and pelvis showing dilated small bowel suggestive of ileus or partial mechanical obstruction not significantly diffe rent than old exam. Patient did have elevated white count of 16.3 and elevated lactic acid of 3.7. He was hypertensive. He's received IV fluids, IV antibiotics and medications for blood pressure. During the night patient's NG tube was not suctioning correctly. I NG tube was adjusted by nursing this morning. And he has had about 700 out brownish liquid over the last 3 hours. Patient is now reporting some improvement in his abdominal discomfort and distention. He denies any fever, chills or sweats. PAST MEDICAL HISTORY: See list. PAST SURGICAL HISTORY: See list. MEDICATIONS: See list. ALLERGIES: See list. SOCIAL HISTORY: No illicit drug use. REVIEW OF SYSTEMS: CONSTITUTIONAL: Denies fever or chills. HEENT: Denies blurred vision, vision changes, or eye pain. Denies hemoptysis CARDIOVASCULAR: Denies chest pain or pressure. RESPIRATORY: No shortness of breath. GASTROINTESTINAL: See HPI for pertinent findings HEMATOLOGIC: Denies bleeding disorders. GENITOURINARY: Denies any blood in urine or increased urinary frequency. SKIN: Denies pruitis. Denies rash. PHYSICAL EXAM: VITAL SIGNS: Reviewed GENERAL: Well-developed in no acute distress. HEENT: No sclera icterus. Extraocular movements grossly intact. Moist buccal mucosa. Head is atraumatic, normocephalic. No nasal drainage. ABDOMEN: Distended, diffuse tenderness NEUROLOGIC: Alert and oriented. Cranial nerves II through XII grossly intact. LABORATORY DATA: WBC 16 down to 16.3 hemoglobin 17 down to 15.9 Sodium 141 creatinine 1.12 glucose 121 lactic 3.7 down to 1.8 LFTs and lipase normal Covid not detected UA negative IMAGING: computed tomography scan of the abdomen and pelvis showing dilated small bowel suggestive of ileus or partial mechanical obstruction not significantly different than old exam. KUB x-ray mildly dilated small bowel appears new compared to old exam. No free air. ASSESSMENT: 1. Partial small bowel obstruction versus ileus 2. History of recurrent small bowel obstructions 3. 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 Signing provider agrees with the documented findings, assessment, and plan of care. Past Medical History Past Medical History: Cancer, Deep Vein Thrombosis (DVT), GERD/Reflux, Hypertension Additional Past Medical History / Comment(s): Lymphoma/small bowel with surgery and chemo in 2003, small bowel obstructions, DVT R calf, History of Any Multi-Drug Resistant Organisms: None Reported Past Surgical History: Bowel Resection, Cholecystectomy, Hernia Repair, Tonsillectomy Additional Past Surgical History / Comment(s): Bowel resection d/t small bowel lymphoma, colonoscopies, incisional hernia repair with mesh x2, vanita filter, port a cath now removed. Past Anesthesia/Blood Transfusion Reactions: No Reported Reaction Past Psychological History: No Psychological Hx Reported Additional Psychological History / Comment(s): Pt resides with his spouse. 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 Smoking Status: Never smoker Past Alcohol Use History: Rare Past Drug Use History: None Reported - Past Family History Mother Family Medical History: No Reported History Additional Family Medical History / Comment(s): Mother is healthy Father Family Medical History: Myocardial Infarction ([place]) Additional Family Medical History / Comment(s): AT AGE 48 OF A [place] Medications and Allergies Home Medications Medication Instructions Recorded Confirmed Type Esomeprazole Magnesium [NexIUM] 40 mg PO BID 05/04/20 05/04/20 History Losartan Potassium [Cozaar] 50 mg PO DAILY 05/04/20 05/04/20 History Allergies Allergy/AdvReac Type Severity Reaction Status Date / Time Penicillins Allergy Anaphylaxis Verified 05/04/20 20:14 Surgical - Exam Vital Signs Temp Pulse Resp BP Pulse Ox 98.8 F 102 H 20 184/112 99 05/04/20 18:47 05/04/20 18:47 05/04/20 18:47 05/04/20 18:47 05/04/20 18:47 Results - Labs 05/05/20 06:04 05/04/20 19:50 Abnormal Lab Results - Last 24 Hours (Table) 05/04/20 05/04/20 05/04/20 Range/Units 19:50 19:50 19:50 WBC 16.0 H (3.8-10.6) k/uL Neutrophils # 12.0 H (1.3-7.7) k/uL Monocytes # (0-1.0) k/uL APTT (22.0-30.0) sec Glucose 121 H (74-99) mg/dL Plasma Lactic Acid Darnell (0.7-2.0) mmol/L Ur Specific [place] 1.046 H (1.001-1.035) Urine Protein Trace H (Negative) 05/04/20 05/04/20 05/05/20 Range/Units 19:50 20:50 06:04 WBC 16.3 H (3.8-10.6) k/uL Neutrophils # 13.9 H (1.3-7.7) k/uL Monocytes # 1.1 H (0-1.0) k/uL APTT 19.6 L (22.0-30.0) sec Glucose (74-99) mg/dL Plasma Lactic Acid Darnell 3.7 H* (0.7-2.0) mmol/L Ur Specific [place] (1.001-1.035) Urine Protein (Negative) Diabetes panel 05/04/20 Range/Units 19:50 Sodium 141 (137-145) mmol/L Potassium 4.6 (3.5-5.1) mmol/L Chloride 107 (98-107) mmol/L Carbon Dioxide 23 (22-30) mmol/L BUN 13 (9-20) mg/dL Creatinine 1.12 (0.66-1.25) mg/dL Glucose 121 H (74-99) mg/dL Calcium 10.0 (8.4-10.2) mg/dL AST 36 (17-59) U/L ALT 48 (4-49) U/L Alkaline Phosphatase 96 (38-126) U/L Total Protein 8.1 (6.3-8.2) g/dL Albumin 4.6 (3.5-5.0) g/dL Calcium panel 05/04/20 Range/Units 19:50 Calcium 10.0 (8.4-10.2) mg/dL Albumin 4.6 (3.5-5.0) g/dL Pituitary panel 05/04/20 Range/Units 19:50 Sodium 141 (137-145) mmol/L Potassium 4.6 (3.5-5.1) mmol/L Chloride 107 (98-107) mmol/L Carbon Dioxide 23 (22-30) mmol/L BUN 13 (9-20) mg/dL Creatinine 1.12 (0.66-1.25) mg/dL Glucose 121 H (74-99) mg/dL Calcium 10.0 (8.4-10.2) mg/dL Adrenal panel 05/04/20 Range/Units 19:50 Sodium 141 (137-145) mmol/L Potassium 4.6 (3.5-5.1) mmol/L Chloride 107 (98-107) mmol/L Carbon Dioxide 23 (22-30) mmol/L BUN 13 (9-20) mg/dL Creatinine 1.12 (0.66-1.25) mg/dL Glucose 121 H (74-99) mg/dL Calcium 10.0 (8.4-10.2) mg/dL Total Bilirubin 0.6 (0.2-1.3) mg/dL AST 36 (17-59) U/L ALT 48 (4-49) U/L Alkaline Phosphatase 96 (38-126) U/L Total Protein 8.1 (6.3-8.2) g/dL Albumin 4.6 (3.5-5.0) g/dL <Chemo Mg - Last Filed: 05/05/20 14:44> History of Present Illness As above. Patient with recurrent bowel obstruction thought to be related to a recurrent incisional hernia containing a small loop of small intestine. CAT scan fairly similar to the patient's prior 2 admissions dating back 2 years. Patient feels better after nasogastric tube was working better. He thinks this obstruction may be related to eating coleslaw on Tuesday. Last bowel movement and flatus yesterday. Continue NG tube to suction. Options again discussed with the patient regarding repair recurrent incisional hernia. He will consider. For now repeat x-rays tomorrow. Surgical - Exam Vital Signs Temp Pulse Resp BP Pulse Ox 98.8 F 102 H 20 184/112 99 05/04/20 18:47 05/04/20 18:47 05/04/20 18:47 05/04/20 18:47 05/04/20 18:47 Results - Labs 05/05/20 06:04 05/04/20 19:50 Abnormal Lab Results - Last 24 Hours (Table) 05/04/20 05/04/20 05/04/20 Range/Units 19:50 19:50 19:50 WBC 16.0 H (3.8-10.6) k/uL Neutrophils # 12.0 H (1.3-7.7) k/uL Monocytes # (0-1.0) k/uL APTT (22.0-30.0) sec Glucose 121 H (74-99) mg/dL Plasma Lactic Acid Darnell (0.7-2.0) mmol/L Ur Specific [place] 1.046 H (1.001-1.035) Urine Protein Trace H (Negative) 05/04/20 05/04/20 05/05/20 Range/Units 19:50 20:50 06:04 WBC 16.3 H (3.8-10.6) k/uL Neutrophils # 13.9 H (1.3-7.7) k/uL Monocytes # 1.1 H (0-1.0) k/uL APTT 19.6 L (22.0-30.0) sec Glucose (74-99) mg/dL Plasma Lactic Acid Darnell 3.7 H* (0.7-2.0) mmol/L Ur Specific [place] (1.001-1.035) Urine Protein (Negative) Diabetes panel 05/04/20 Range/Units 19:50 Sodium 141 (137-145) mmol/L Potassium 4.6 (3.5-5.1) mmol/L Chloride 107 (98-107) mmol/L Carbon Dioxide 23 (22-30) mmol/L BUN 13 (9-20) mg/dL Creatinine 1.12 (0.66-1.25) mg/dL Glucose 121 H (74-99) mg/dL Calcium 10.0 (8.4-10.2) mg/dL AST 36 (17-59) U/L ALT 48 (4-49) U/L Alkaline Phosphatase 96 (38-126) U/L Total Protein 8.1 (6.3-8.2) g/dL Albumin 4.6 (3.5-5.0) g/dL Calcium panel 05/04/20 Range/Units 19:50 Calcium 10.0 (8.4-10.2) mg/dL Albumin 4.6 (3.5-5.0) g/dL Pituitary panel 05/04/20 Range/Units 19:50 Sodium 141 (137-145) mmol/L Potassium 4.6 (3.5-5.1) mmol/L Chloride 107 (98-107) mmol/L Carbon Dioxide 23 (22-30) mmol/L BUN 13 (9-20) mg/dL Creatinine 1.12 (0.66-1.25) mg/dL Glucose 121 H (74-99) mg/dL Calcium 10.0 (8.4-10.2) mg/dL Adrenal panel 05/04/20 Range/Units 19:50 Sodium 141 (137-145) mmol/L Potassium 4.6 (3.5-5.1) mmol/L Chloride 107 (98-107) mmol/L Carbon Dioxide 23 (22-30) mmol/L BUN 13 (9-20) mg/dL Creatinine 1.12 (0.66-1.25) mg/dL Glucose 121 H (74-99) mg/dL Calcium 10.0 (8.4-10.2) mg/dL Total Bilirubin 0.6 (0.2-1.3) mg/dL AST 36 (17-59) U/L ALT 48 (4-49) U/L Alkaline Phosphatase 96 (38-126) U/L Total Protein 8.1 (6.3-8.2) g/dL Albumin 4.6 (3.5-5.0) g/dL
[2020-05-05] MEDS: SODIUM CHLORIDE 0.9% 1,000 ML IV SCH (11:28)
--- NOTE | 2020-05-05 13:02 | P.CONS ---
History of Present Illness - Reason for Consult Partial small bowel obstruction. - History of Present Illness Pleasant 49-year-old male with known history of a small bowel resection in 2003 for small bowel lymphoma with multiple small bowel obstructions came in the with complaints of nausea vomiting abdominal pain across the abdomen in the midabdomen sharp in nature 9/10 in severity with multiple episodes of nausea vomiting. Patient is found to have partial small bowel obstruction. Patient has an NG tube drained about 850 mL. Patient had a CT of the abdomen which showed ileus or partial mechanical small bowel obstruction. Patient had a lactic acid elevation. And had incisional hernia repair in the past and patient does have leukocytosis. Patient was also started on antibiotics in ER. Patient blood pressure is low normal patient does state losartan for blood pressure. Review of Systems REVIEW OF SYSTEMS: CONSTITUTIONAL: No fever, no malaise, no fatigue. HEENT: No recent visual problems or hearing problems. Denied any sore throat. CARDIOVASCULAR: No chest pain, orthopnea, PND, no palpitations, no syncope. PULMONARY: No shortness of breath, no cough, no hemoptysis. GASTROINTESTINAL: As mentioned in HPI NEUROLOGICAL: No headaches, no weakness, no numbness. HEMATOLOGICAL: Denies any bleeding or petechiae. GENITOURINARY: Denies any burning micturition, frequency, or urgency. MUSCULOSKELETAL/RHEUMATOLOGICAL: Denies any joint pain, swelling, or any muscle pain. ENDOCRINE: Denies any polyuria or polydipsia. The rest of the 14-point review of systems is negative. Past Medical History Past Medical History: Cancer, Deep Vein Thrombosis (DVT), GERD/Reflux, Hypertension Additional Past Medical History / Comment(s): Lymphoma/small bowel with surgery and chemo in 2003, small bowel obstructions, DVT R calf, History of Any Multi-Drug Resistant Organisms: None Reported Past Surgical History: Bowel Resection, Cholecystectomy, Hernia Repair, Tonsillectomy Additional Past Surgical History / Comment(s): Bowel resection d/t small bowel lymphoma, colonoscopies, incisional hernia repair with mesh x2, vanita filter, port a cath now removed. Past Anesthesia/Blood Transfusion Reactions: No Reported Reaction Past Psychological History: No Psychological Hx Reported Additional Psychological History / Comment(s): Pt resides with his spouse. 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 Smoking Status: Never smoker Past Alcohol Use History: Rare Past Drug Use History: None Reported - Past Family History Mother Family Medical History: No Reported History Additional Family Medical History / Comment(s): Mother is healthy Father Family Medical History: Myocardial Infarction ([place]) Additional Family Medical History / Comment(s): AT AGE 48 OF A [place] Medications and Allergies Home Medications Medication Instructions Recorded Confirmed Type Esomeprazole Magnesium [NexIUM] 40 mg PO BID 05/04/20 05/04/20 History Losartan Potassium [Cozaar] 50 mg PO DAILY 05/04/20 05/04/20 History Allergies Allergy/AdvReac Type Severity Reaction Status Date / Time Penicillins Allergy Anaphylaxis Verified 05/04/20 20:14 Physical Exam Vitals: Vital Signs Temp Pulse Pulse Resp BP BP Pulse Ox 05/05/20 08:00 98.0 F 90 16 108/57 93 L 05/05/20 02:50 98.1 F 82 16 104/63 96 05/04/20 23:10 97.7 F 73 18 123/76 99 05/04/20 22:33 74 18 129/79 98 05/04/20 21:00 75 18 160/88 97 05/04/20 20:32 74 18 177/98 98 05/04/20 18:47 98.8 F 102 H 20 184/112 99 Intake and Output 05/04/20 05/05/20 05/05/20 22:59 06:59 14:59 Intake Total 1000 Output Total 850 Balance 1000 -850 Intake: Intake, IV Titration 1000 Amount Sodium Chloride 0.9% 1, 900 000 ml @ 75 mls/hr IV . [id number] [facility] Rx#:[id number] metroNIDAZOLE-NS PMX 500 100 mg In Saline 1 100ml.bag @ 100 mls/hr IVPB Q8H [facility] Rx#:[id number] Output: Gastric Drainage 850 Other: Voiding Method Urinal Weight 128.82 kg PHYSICAL EXAMINATION: GENERAL: The patient is alert and oriented x3, not in any acute distress. Well developed, well nourished. HEENT: Pupils are round and equally reacting to light. EOMI. No scleral icterus. No conjunctival pallor. Normocephalic, atraumatic. No pharyngeal erythema. No thyromegaly. CARDIOVASCULAR: S1 and S2 present. No murmurs, rubs, or gallops. PULMONARY: Chest is clear to auscultation, no wheezing or crackles. ABDOMEN: Distended absent bowel sounds tympanic MUSCULOSKELETAL: No joint swelling or deformity. EXTREMITIES: No cyanosis, clubbing, or pedal edema. NEUROLOGICAL: Gross neurological examination did not reveal any focal deficits. SKIN: No rashes. Results CBC & Chem 7: 05/05/20 06:04 05/04/20 19:50 Labs: Abnormal Lab Results - Last 24 Hours (Table) 05/04/20 05/04/20 05/04/20 Range/Units 19:50 19:50 19:50 WBC 16.0 H (3.8-10.6) k/uL Neutrophils # 12.0 H (1.3-7.7) k/uL Monocytes # (0-1.0) k/uL APTT (22.0-30.0) sec Glucose 121 H (74-99) mg/dL Plasma Lactic Acid Darnell (0.7-2.0) mmol/L Ur Specific [place] 1.046 H (1.001-1.035) Urine Protein Trace H (Negative) 05/04/20 05/04/20 05/05/20 Range/Units 19:50 20:50 06:04 WBC 16.3 H (3.8-10.6) k/uL Neutrophils # 13.9 H (1.3-7.7) k/uL Monocytes # 1.1 H (0-1.0) k/uL APTT 19.6 L (22.0-30.0) sec Glucose (74-99) mg/dL Plasma Lactic Acid Darnell 3.7 H* (0.7-2.0) mmol/L Ur Specific [place] (1.001-1.035) Urine Protein (Negative) Assessment and Plan Plan: -Ileus or partial small bowel obstruction: Patient had and an NG tube, bowel rest continue with IV fluids. -Hypertension patient is hypotensive to avoid hypotension hold off on losartan and monitor blood pressure -History of lymphoma in the past -History of DVT in the past presently not on anti-correlation presently and DVT prophylaxis with subcutaneous heparin -Gastroesophageal reflux disease
[2020-05-05] MEDS: LEVOFLOXACIN 750MG-D5W PMX 750 MG in DEXTROSE/WATER 1 150ML.BAG IVPB SCH (19:48)
[2020-05-06] MEDS: SODIUM CHLORIDE 0.9% 1,000 ML IV SCH ×4 (00:15→21:32)
[2020-05-06] MEDS: HYDROmorphone 1 MG/ML 1 ML SYRINGE IVP PRN (01:47)
[2020-05-06] MEDS: metroNIDAZOLE-NS PMX 500 MG in SALINE 1 100ML.BAG IVPB SCH ×3 (05:12→21:24)
[2020-05-06] MEDS: ENOXAPARIN 40 MG/0.4 ML SYRINGE SQ SCH (08:02)
[2020-05-06] MEDS: PANTOPRAZOLE 40 MG/10 ML VIAL IV SCH (08:02)
--- NOTE | 2020-05-06 08:42 | XR ---
I told atelectasis. Follow-up is EXAMINATION TYPE: XR abdomen 2V DATE OF EXAM: 05/06/2020 HISTORY: Pain. Technique: 2 views of the abdomen are submitted. Comparison: None. Findings: There is no convincing evidence of pneumoperitoneum. NG tube is noted to course into the stomach. Cho lecystectomy clips and IVC filter in place. The Bowel gas pattern is nonspecific and nonobstructive. No sizable air-fluid levels are seen. No mass effects are noted. No renal calcifications are identified. IMPRESSION: 1. Nonspecific nonobstructive bowel gas pattern
[2020-05-06 10:30] LABS: Basophils # (A) 0.02 X 10*3/uL (0.00-0.10); Basophils % (A) 0.2 %; Eosinophils # (A) 0.14 X 10*3/uL (0.04-0.35); Eosinophils % (A) 1.4 %; HCT 46.8 % (39.6-50.0); Lymphocytes # (A) 3.01 X 10*3/uL (0.90-5.00); Lymphocytes % (A) 30.9 %; MCH 29.7 pg (27.0-32.0); MCHC 32.1 g/dL (32.0-37.0); MCV 92.7 fL (80.0-97.0); Monocytes # (A) 1.01 X 10*3/uL (0.20-1.00); Monocytes % (A) 10.4 %; Neutrophils # (A) 5.52 X 10*3/uL (1.80-7.70); Neutrophils % (A) 56.8 %; Platelet Count 230 X 10*3/uL (140-440); RBC 5.05 X 10*6/uL (4.40-5.60); WBC 9.73 X 10*3/uL (4.50-10.00)
[2020-05-06 10:51] LABS: African American GFR (CKD) 100.6 (60.0-200.0); Anion Gap 9.6 mmol/L (4.00-12.00); Carbon Dioxide 24.4 mmol/L (21.6-31.8); Non-African American GFR(CKD) 86.8 (60.0-200.0); Potassium 3.9 mmol/L (3.5-5.5)
--- NOTE | 2020-05-06 11:17 | P.PN ---
<Britt Ortiz - Last Filed: 05/06/20 12:01> Subjective Progress Note Date: 05/06/20 CHIEF COMPLAINT: Abdominal pain HISTORY OF PRESENT ILLNESS: Patient is being followed for partial small bowel obstruction. Patient is reporting improvement in his abdominal pain. He is passing gas. Denies any bowel movement. Denies any nausea or vomiting. He reports the last time he needed pain medication was once to the night. Per nursing NG tube output is decreased. 410 mL output noted through NG tube through the night. Fluid is greenish in color. Afebrile WBC normalized at 9.73 Abdominal x-ray showing nonspecific nonobstructive bowel gas pattern PHYSICAL EXAM: VITAL SIGNS: Reviewed. GENERAL: Well-developed in no acute distress. HEENT: No sclera icterus. Extraocular movements grossly intact. Moist buccal mucosa. Head is atraumatic, normocephalic. ABDOMEN: Soft. Decreased abdominal distention. Nontender NEUROLOGIC: Alert and oriented. Cranial nerves II through XII grossly intact. ASSESSMENT: 1. Recurrent Partial small bowel obstruction thought to be related to recurrent incisional hernia containing a small loop of small intestine 2. History of recurrent small bowel obstructions 3. 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 Signing provider agrees with the documented findings, assessment, and plan of care. Objective - Vital Signs Vital signs: Vital Signs Temp 98.3 F 05/06/20 08:00 Pulse 72 05/06/20 08:00 Resp 16 05/06/20 08:00 BP 144/80 05/06/20 08:00 Pulse Ox 96 05/06/20 08:00 Intake & Output 05/05/20 05/06/20 05/06/20 18:59 06:59 18:59 Output Total 850 410 Balance -850 -410 Output: Gastric Drainage 850 410 Other: Voiding Method Urinal Urinal Urinal - Labs CBC & Chem 7: 05/06/20 06:51 05/06/20 06:51 Labs: Abnormal Lab Results - Last 24 Hours (Table) 05/06/20 Range/Units 06:51 Monocytes # 1.01 H (0.20-1.00) X 10*3/uL <Chemo Mg - Last Filed: 05/06/20 12:05> Subjective As above. Patient feels better today. He is passing flatus. NG output remains somewhat high. We'll keep NG tube today. Possibly remove tomorrow if improved. Today's x-rays show no evidence of obstruction currently. Objective - Vital Signs Vital signs: Vital Signs Temp 98.3 F 05/06/20 08:00 Pulse 72 05/06/20 08:00 Resp 16 05/06/20 08:00 BP 144/80 05/06/20 08:00 Pulse Ox 96 05/06/20 08:00 Intake & Output 05/05/20 05/06/20 05/06/20 18:59 06:59 18:59 Output Total 850 410 Balance -850 -410 Output: Gastric Drainage 850 410 Other: Voiding Method Urinal Urinal Urinal - Labs CBC & Chem 7: 05/06/20 06:51 05/06/20 06:51 Labs: Abnormal Lab Results - Last 24 Hours (Table) 05/06/20 Range/Units 06:51 Monocytes # 1.01 H (0.20-1.00) X 10*3/uL
--- NOTE | 2020-05-06 15:43 | P.PN ---
Subjective Progress Note Date: 05/06/20 - Reason for Consult Partial small bowel obstruction. - History of Present Illness Pleasant 49-year-old male with known history of a small bowel resection in 2003 for small bowel lymphoma with multiple small bowel obstructions came in the with complaints of nausea vomiting abdominal pain across the abdomen in the midabdomen sharp in nature 9/10 in severity with multiple episodes of nausea vomiting. Patient is found to have partial small bowel obstruction. Patient has an NG tube drained about 850 mL. Patient had a [address] of the abdomen which showed ileus or partial mechanical small bowel obstruction. Patient had a lactic acid elevation. And had incisional hernia repair in the past and patient does have leukocytosis. Patient was also started on antibiotics in ER. Patient blood pressure is low normal patient does state losartan for blood pressure. 05/06/2020 Patient is seen in follow-up this morning currently sitting up at the bedside continue his with NG tube and continues to have bilious output noted. Patient continues with abdominal distention and is passing gas but no reports of bowel movements noted. Patient had repeat abdominal x-ray showing nonspecific nonobstructive bowel gas pattern. Following closely with surgery and patient is maintained on IV antibiotics in the form of Levaquin and Flagyl and will continue at this time. Patient is maintained on IV fluids as well. Current creatinine slightly improved today at 1 and patient normally takes Cozaar at home and will continue to monitor blood pressure closely with the possibility of resuming home medications. Will repeat a.m. labs. Review of systems: Constitutional: No reports of fatigue, fever, or chills Cardiovascular: No reports of chest pain or palpitations Respiratory: No reports of shortness of breath or cough GI: No reports of nausea, vomiting, or diarrhea, reports improvement in abdominal discomfort : No reports of dysuria or retention Neurovascular: No reports of weakness or numbness All medications have been reviewed Objective - Vital Signs Vital signs: Vital Signs Temp 98.3 F 05/06/20 08:00 Pulse 72 05/06/20 08:00 Resp 16 05/06/20 08:00 BP 144/80 05/06/20 08:00 Pulse Ox 96 05/06/20 08:00 Intake & Output 05/05/20 05/06/20 05/06/20 18:59 06:59 18:59 Output Total 850 410 Balance -850 -410 Output: Gastric Drainage 850 410 Other: Voiding Method Urinal Urinal - Exam GENERAL: The patient is alert and oriented x3, not in any acute distress. Well developed, well nourished. HEENT: Pupils are round and equally reacting to light. EOMI. No scleral icterus. No conjunctival pallor. Normocephalic, atraumatic. No pharyngeal erythema. No thyromegaly. CARDIOVASCULAR: S1 and S2 present. No murmurs, rubs, or gallops. PULMONARY: Chest is clear to auscultation, no wheezing or crackles. ABDOMEN: Distended , nontender, hypoactive bowel sounds noted MUSCULOSKELETAL: No joint swelling or deformity. EXTREMITIES: No cyanosis, clubbing, or pedal edema. NEUROLOGICAL: Gross neurological examination did not reveal any focal deficits. SKIN: No rashes. - Labs CBC & Chem 7: 05/06/20 06:51 05/06/20 06:51 Assessment and Plan Assessment: -Ileus versus partial small bowel obstruction: Patient continues with NG tube, bowel rest continue with IV fluids. -Hypertension, we'll continue to monitor closely and possibly resume losartan after repeat labs tomorrow -History of lymphoma in the past -History of DVT in the past presently not on anticoagulation presently -DVT prophylaxis with subcutaneous heparin -Gastroesophageal reflux disease -GI prophylaxis: Protonix Plan: Continue with NG tube at this time and monitor abdominal distention and NG output. Continue to monitor vital signs and repeat a.m. labs and possibly resume losartan in the morning. Creatinine is 1.0 and will continue with IV fluids and bowel rest at this time. Will continue to follow along with surgery.
[2020-05-06] MEDS: LEVOFLOXACIN 750MG-D5W PMX 750 MG in DEXTROSE/WATER 1 150ML.BAG IVPB SCH (21:24)
[2020-05-07] MEDS: SODIUM CHLORIDE 0.9% 1,000 ML IV SCH ×3 (05:22→19:11)
[2020-05-07] MEDS: metroNIDAZOLE-NS PMX 500 MG in SALINE 1 100ML.BAG IVPB SCH ×3 (05:22→20:24)
[2020-05-07] MEDS: ENOXAPARIN 40 MG/0.4 ML SYRINGE SQ SCH (07:42)
[2020-05-07] MEDS: PANTOPRAZOLE 40 MG/10 ML VIAL IV SCH (07:42)
[2020-05-07 10:08] LABS: African American GFR (CKD) 100.6 (60.0-200.0); Anion Gap 11.9 mmol/L (4.00-12.00); Calcium 8.9 mg/dL (8.7-10.3); Carbon Dioxide 20.1 mmol/L (21.6-31.8); Non-African American GFR(CKD) 86.8 (60.0-200.0); Potassium 3.7 mmol/L (3.5-5.5)
--- NOTE | 2020-05-07 11:40 | P.PN ---
Subjective Progress Note Date: 05/07/20 Principal diagnosis: Small bowel obstruction Patient feels well today. Passing flatus. No pain. Nasogastric tube output decreased. Objective - Vital Signs Vital signs: Vital Signs Temp 98.1 F 05/07/20 07:26 Pulse 73 05/07/20 07:26 Resp 18 05/07/20 07:26 BP 146/77 05/07/20 07:26 Pulse Ox 96 05/07/20 07:26 Intake & Output 05/06/20 05/07/20 05/07/20 18:59 06:59 18:59 Intake Total 1100 Output Total 2000 Balance -1999 1100 Intake: IV 1100 Sodium Chloride 0.9% 1, 1000 000 ml @ 125 mls/hr IV . Q8H [facility] Rx#:[id number] metroNIDAZOLE-NS PMX 500 100 mg In Saline 1 100ml.bag @ 100 mls/hr IVPB Q8H [facility] Rx#:[id number] Output: Gastric Drainage 500 Drainage 500 Left 500 Urine 1000 Other: Voiding Method Urinal Urinal # Voids 1 2 - Exam Abdomen: Soft, nontender, nondistended - Labs CBC & Chem 7: 05/06/20 06:51 05/07/20 06:30 Labs: Abnormal Lab Results - Last 24 Hours (Table) 05/07/20 Range/Units 06:30 Carbon Dioxide 20.1 L (21.6-31.8) mmol/L Assessment and Plan (1) Partial small bowel obstruction Narrative/Plan: Patient doing better today. Will remove nasogastric tube. Begin clear liquid diet. Possible discharge tomorrow. Current Visit: Yes Status: Acute Code(s): K56.600 - PARTIAL INTESTINAL OBSTRUCTION, UNSPECIFIED TO CAUSE SNOMED Code(s): 320255411
[2020-05-07 13:05] LABS: Basophils # (A) 0.04 X 10*3/uL (0.00-0.10); Basophils % (A) 0.5 %; Eosinophils # (A) 0.13 X 10*3/uL (0.04-0.35); Eosinophils % (A) 1.6 %; HCT 43.7 % (39.6-50.0); HGB 13.9 g/dL (13.0-17.0); Lymphocytes % (A) 29.1 %; MCH 29.4 pg (27.0-32.0); MCHC 31.8 g/dL (32.0-37.0); MCV 92.6 fL (80.0-97.0); Mean Platelet Volume 11.3 fL (9.5-12.2); Monocytes # (A) 0.79 X 10*3/uL (0.20-1.00); Monocytes % (A) 9.6 %; Neutrophils # (A) 4.84 X 10*3/uL (1.80-7.70); Neutrophils % (A) 58.7 %; Platelet Count 201 X 10*3/uL (140-440); RBC 4.72 X 10*6/uL (4.40-5.60); RDW 12.9 % (11.5-14.5); WBC 8.24 X 10*3/uL (4.50-10.00)
--- NOTE | 2020-05-07 21:11 | P.PN ---
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 Patient is found to have partial small bowel obstruction. Patient has an NG tube drained about 850 mL. Patient had a CT of the abdomen which showed ileus or partial mechanical small bowel obstruction. Patient had a lactic acid elevation. And had incisional hernia repair in the past Today-NG tube output has decreased. Patient is positive flatus. NG tube was taken out earlier today. Patient has been ablating. No nausea vomiting. Review of systems: Was done for constitutional, cardiovascular, GI, pulmonary. relevant finding as above Active Medications Acetaminophen (Acetaminophen Tab 325 Mg Tab) 650 mg PO Q6HR PRN PRN Reason: Mild Pain or Fever > 100.5 Enoxaparin Sodium (Enoxaparin 40 Mg/0.4 Ml Syringe) 40 mg SQ DAILY [facility] Last Admin: 05/07/20 07:42 Dose: 40 mg Documented by: Hydromorphone HCl (Hydromorphone 1 Mg/Ml 1 Ml Syringe) 1 mg IVP Q2HR PRN PRN Reason: Pain Last Admin: 05/06/20 01:47 Dose: 1 mg Documented by: Levofloxacin 750 mg/ IV (Solution) 150 mls @ 100 mls/hr IVPB Q24H [facility] Last Admin: 05/06/20 21:24 Dose: 100 mls/hr Documented by: Metronidazole 500 mg/ IV (Solution) 100 mls @ 100 mls/hr IVPB Q8H [facility] Last Admin: 05/07/20 20:24 Dose: 100 mls/hr Documented by: Sodium Chloride (Saline 0.9%) 1,000 mls @ 125 mls/hr IV .Q8H [facility] Last Admin: 05/07/20 19:11 Dose: 125 mls/hr Documented by: Morphine Sulfate (Morphine Sulfate 4 Mg/Ml Syringe) 4 mg IV Q4HR PRN PRN Reason: Severe Pain Last Admin: 05/05/20 00:13 Dose: 4 mg Documented by: Naloxone HCl (Naloxone 0.4 Mg/Ml 1 Ml Vial) 0.2 mg IV Q2M PRN PRN Reason: Opioid Reversal Ondansetron HCl (Ondansetron 4 Mg/2 Ml Vial) 8 mg IVP ONCE PRN PRN Reason: Nausea Ondansetron HCl (Ondansetron 4 Mg/2 Ml Vial) 4 mg IVP Q8HR PRN PRN Reason: Nausea And Vomiting Last Admin: 05/05/20 07:43 Dose: 4 mg Documented by: Pantoprazole Sodium (Pantoprazole 40 Mg/10 Ml Vial) 40 mg IV DAILY [facility] Last Admin: 05/07/20 07:42 Dose: 40 mg Documented by: On examination: VITAL SIGNS: 98.2, 66, 18, 152/80, 95% room air GENERAL APPEARANCE: Laying in bed, not in distress HEENT: Normal external appearance of nose and ear. Oral cavity dry, NG tube- discontinued EYES: Pupils equal. Conjunctiva normal. NECK: JVD not raised. Mass not palpable. RESPIRATORY: Respiratory effort normal. Lungs clear to auscultation. CARDIOVASCULAR: First and second sounds normal. No edema. ABDOMEN: Soft. Slight distention. Liver and spleen not palpable. No tenderness. No mass palpable. PSYCHIATRY: Alert and oriented x3. Mood and affect normal. Investigations: White count 8.2 hemoglobin 13.9 potassium 3.7 creatinine 1.0 Coronavirus [PCR]-not detected Computed tomography scan of the abdomen-this dilated small bowel suggestive of ileus or partial mechanical obstruction. Assessment: -Possible partial small bowel obstruction. NG tube discontinued. -GERD -Essential hypertension Plan: Patient leukocytosis appears to be more reactive. No obvious evidence of any infection. No fevers. We'll discontinue antibiotics. NG tube being discontinued by surgery. Started patient clear liquid diet. Patient has been ambulating. Discussed with the patient. Thank you Dr. Torres
[2020-05-07] MEDS: LEVOFLOXACIN 750MG-D5W PMX 750 MG in DEXTROSE/WATER 1 150ML.BAG IVPB SCH (21:37)
[2020-05-08] MEDS: metroNIDAZOLE-NS PMX 500 MG in SALINE 1 100ML.BAG IVPB SCH ×3 (04:34→21:06)
[2020-05-08] MEDS: SODIUM CHLORIDE 0.9% 1,000 ML IV SCH ×2 (04:35→08:47)
[2020-05-08] MEDS: ENOXAPARIN 40 MG/0.4 ML SYRINGE SQ SCH (08:46)
[2020-05-08] MEDS: PANTOPRAZOLE 40 MG/10 ML VIAL IV SCH (08:47)
--- NOTE | 2020-05-08 14:22 | P.PN ---
<Britt Ortiz - Last Filed: 05/08/20 14:17> Subjective Progress Note Date: 05/08/20 CHIEF COMPLAINT: Abdominal pain HISTORY OF PRESENT ILLNESS: Patient is being followed for partial small bowel obstruction. Patient had NG tube removed yesterday. He is tolerating clear liquid diet. He is having bowel movements yesterday and this morning. He reports passing gas yesterday. He denies any nausea or vomiting. He does complain of some abdominal cramping. But feels that may be due to him feeling hungry. He is afebrile. No new labs PHYSICAL EXAM: VITAL SIGNS: Reviewed. GENERAL: Well-developed in no acute distress. HEENT: No sclera icterus. Extraocular movements grossly intact. Moist buccal mucosa. Head is atraumatic, normocephalic. ABDOMEN: Soft. Nondistended. Nontender NEUROLOGIC: Alert and oriented. Cranial nerves II through XII grossly intact. ASSESSMENT: 1. Recurrent Partial small bowel obstruction thought to be related to recurrent incisional hernia containing a small loop of small intestine. Resolving. 2. History of recurrent small bowel obstructions 3. History of small bowel lymphoma requiring small bowel resection in 2003 PLAN: -Advance diet to full liquids -Increase activity -GI Protonix and DVT prophylaxis Lovenox Physician Catering Manager note has been reviewed by physician. Signing provider agrees with the documented findings, assessment, and plan of care. Objective - Vital Signs Vital signs: Vital Signs Temp 98.3 F 05/08/20 13:54 Pulse 78 05/08/20 13:54 Resp 18 05/08/20 13:54 BP 152/72 05/08/20 13:54 Pulse Ox 96 05/08/20 13:54 Intake & Output 05/07/20 05/08/20 05/08/20 18:59 06:59 18:59 Intake Total 1100 1100 Balance 1100 1100 Intake: IV 1100 1100 Sodium Chloride 0.9% 1, 1000 1000 000 ml @ 125 mls/hr IV . Q8H [facility] Rx#:[id number] metroNIDAZOLE-NS PMX 500 100 100 mg In Saline 1 100ml.bag @ 100 mls/hr IVPB Q8H [facility] Rx#:[id number] Other: Voiding Method Urinal # Voids 2 # Bowel Movements 1 1 - Labs CBC & Chem 7: 05/07/20 06:30 05/07/20 06:30 <Chemo Mg - Last Filed: 05/08/20 15:44> Subjective Patient having some abdominal cramps this afternoon. He has had 4 bowel mo vements since yesterday. No nausea or vomiting. Does not have pain like when he came into the hospital. Will increase diet for dinner. Discharge tomorrow if tolerates. Objective - Vital Signs Vital signs: Vital Signs Temp 98.3 F 05/08/20 13:54 Pulse 78 05/08/20 13:54 Resp 18 05/08/20 13:54 BP 152/72 05/08/20 13:54 Pulse Ox 96 05/08/20 13:54 Intake & Output 05/07/20 05/08/20 05/08/20 18:59 06:59 18:59 Intake Total 1100 1100 Balance 1100 1100 Intake: IV 1100 1100 Sodium Chloride 0.9% 1, 1000 1000 000 ml @ 125 mls/hr IV . Q8H [facility] Rx#:[id number] metroNIDAZOLE-NS PMX 500 100 100 mg In Saline 1 100ml.bag @ 100 mls/hr IVPB Q8H [facility] Rx#:[id number] Other: Voiding Method Urinal # Voids 2 # Bowel Movements 1 1 - Labs CBC & Chem 7: 05/07/20 06:30 05/07/20 06:30 Assessment and Plan (1) Partial small bowel obstruction Current Visit: Yes Status: Acute Code(s): K56.600 - PARTIAL INTESTINAL OBSTRUCTION, UNSPECIFIED TO CAUSE SNOMED Code(s): 742841319
[2020-05-08] MEDS: LOSARTAN 50 MG TAB PO SCH (15:08)
--- NOTE | 2020-05-08 19:46 | P.PN ---
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 Patient is found to have partial small bowel obstruction. Patient has an NG tube drained about 850 mL. Patient had a CT of the abdomen which showed ileus or partial mechanical small bowel obstruction. Patient had a lactic acid elevation. And had incisional hernia repair in the past Today-tolerated clear liquids. Has had couple of bowel movements. No nausea vomiting. Has been out of bed. Abdomen pain. Review of systems: Was done for constitutional, cardiovascular, GI, pulmonary. relevant finding as above Active Medications Acetaminophen (Acetaminophen Tab 325 Mg Tab) 650 mg PO Q6HR PRN PRN Reason: Mild Pain or Fever > 100.5 Enoxaparin Sodium (Enoxaparin 40 Mg/0.4 Ml Syringe) 40 mg SQ DAILY [facility] Last Admin: 05/08/20 08:46 Dose: 40 mg Documented by: Hydromorphone HCl (Hydromorphone 1 Mg/Ml 1 Ml Syringe) 1 mg IVP Q2HR PRN PRN Reason: Pain Last Admin: 05/06/20 01:47 Dose: 1 mg Documented by: Levofloxacin 750 mg/ IV (Solution) 150 mls @ 100 mls/hr IVPB Q24H [facility] Last Admin: 05/07/20 21:37 Dose: 100 mls/hr Documented by: Metronidazole 500 mg/ IV (Solution) 100 mls @ 100 mls/hr IVPB Q8H [facility] Last Admin: 05/08/20 12:17 Dose: 100 mls/hr Documented by: Losartan Potassium (Losartan 50 Mg Tab) 50 mg PO DAILY [facility] Last Admin: 05/08/20 15:08 Dose: 50 mg Documented by: Morphine Sulfate (Morphine Sulfate 4 Mg/Ml Syringe) 4 mg IV Q4HR PRN PRN Reason: Severe Pain Last Admin: 05/05/20 00:13 Dose: 4 mg Documented by: Naloxone HCl (Naloxone 0.4 Mg/Ml 1 Ml Vial) 0.2 mg IV Q2M PRN PRN Reason: Opioid Reversal Ondansetron HCl (Ondansetron 4 Mg/2 Ml Vial) 8 mg IVP ONCE PRN PRN Reason: Nausea Ondansetron HCl (Ondansetron 4 Mg/2 Ml Vial) 4 mg IVP Q8HR PRN PRN Reason: Nausea And Vomiting Last Admin: 05/05/20 07:43 Dose: 4 mg Documented by: On examination: VITAL SIGNS: 98.3, 78, 18, 152/72, 96% room air GENERAL APPEARANCE: Sitting up comfortable HEENT: Normal external appearance of nose and ear. Oral cavity normal EYES: Pupils equal. Conjunctiva normal. NECK: JVD not raised. Mass not palpable. RESPIRATORY: Respiratory effort normal. Lungs clear to auscultation. CARDIOVASCULAR: First and second sounds normal. No edema. ABDOMEN: Soft. Liver and spleen not palpable. No tenderness. No mass palpable. PSYCHIATRY: Alert and oriented x3. Mood and affect normal. Investigations: White count 8.2 hemoglobin 13.9 potassium 3.7 creatinine 1.0 Coronavirus [PCR]-not detected Computed tomography scan of the abdomen-this dilated small bowel suggestive of ileus or partial mechanical obstruction. Assessment: -Possible partial small bowel obstruction. NG tube discontinued.-Improved -GERD -Essential hypertension -Reactive leukocytosis-improved Plan: Doing much better. Advance to full liquids. Patient is medically stable. Encourage ambulation Thank you Dr. Torres
[2020-05-08] MEDS: LEVOFLOXACIN 750MG-D5W PMX 750 MG in DEXTROSE/WATER 1 150ML.BAG IVPB SCH (22:58)
[2020-05-09] MEDS: metroNIDAZOLE-NS PMX 500 MG in SALINE 1 100ML.BAG IVPB SCH (04:54)
[2020-05-09 07:32] VITALS: BP 113/77; PULSE 77; RESP 16; TEMP 97.9
[2020-05-09] MEDS: LOSARTAN 50 MG TAB PO SCH (07:44)
[2020-05-09] MEDS: ENOXAPARIN 40 MG/0.4 ML SYRINGE SQ SCH (07:44)
[2020-05-09 11:47] VITALS: BMI 40.7
--- NOTE | 2020-05-09 11:59 | P.DS ---
<Britt Ortiz - Last Filed: 05/09/20 11:55> Providers Expected date of discharge: 05/09/20 Hospital Course: Discharge diagnosis 1. Recurrent Partial small bowel obstruction thought to be related to recurrent incisional hernia containing a small loop of small intestine. Resolved and treated conservatively. 2. History of recurrent small bowel obstructions 3. History of small bowel lymphoma requiring small bowel resection in 2003 Hospital course This is a 49-year-old male with a known history of recurrent small bowel obstructions and history of small bowel lymphoma requiring small bowel resection in 2003. Patient is also history of incisional hernia repair with mesh and DVT with [place] filter placement. Patient presented to the emergency room with complaints of diffuse abdominal pain. He complains of abdominal distention with nausea and vomiting intermittently. Patient had computed tomography scan of the abdomen and pelvis showing dilated small bowel suggestive of ileus or partial mechanical obstruction not significantly different than old exam. Patient did have elevated white count of 16.3 and elevated lactic acid of 3.7. Patient diagnosed with a recurrent partial small bowel obstruction thought to be related to recurrent incisional hernia containing a small loop of small intestine. Patient was treated conservatively. He had NG tube placed. He then started having bowel movements and flatus. NG tube was removed. He was started on clear liquid diet and advanced slowly. He is currently tolerating a low fiber diet. Abdominal pain resolved. He is having bowel movements and flatus. He is afebrile. His white count normalized. He is stable for discharge. Please refer to chart for any further details. Physician Whiting Can Worker note has been reviewed by physician. Signing provider agrees with the documented findings, assessment, and plan of care. Patient Condition at Discharge: Fair Plan - Discharge Summary Discharge Rx Participant: No New Discharge Prescriptions: Continue Esomeprazole Magnesium [NexIUM] 40 mg PO BID Losartan Potassium [Cozaar] 50 mg PO DAILY Discharge Medication List Esomeprazole Magnesium [NexIUM] 40 mg PO BID 05/04/20 [History] Losartan Potassium [Cozaar] 50 mg PO DAILY 05/04/20 [History] Follow up Appointment(s)/Referral(s): Chemo Mg MD [Medical Doctor] - 1 Week Jhonatan Casanova MD [Primary Care Provider] - 1-2 days Patient Instructions/Handouts: Bowel Obstruction (DC) Activity/Diet/Wound Care/Special Instructions: Low fiber diet <Chemo Mg - Last Filed: 05/09/20 12:18> Providers Date of admission: 05/04/20 21:40 Attending physician: Chemo Mg Consults: 05/05/20 11:03 Consult Physician Routine Consulting Provider: Hiram Nogueira Consult Reason/Comments: medical management Do you want consulting provider notified?: Yes Primary care physician: Jhonatan Casanova - Stefan Diagnosis(es) (1) Partial small bowel obstruction Current Visit: Yes Status: Acute Hospital Course: As above. Patient admitted with partial small bowel obstruction. Symptoms gradually improved after nasogastric tube decompression. Doing well at this time. We'll discharge home on low fiber diet. Follow-up in the office 1-2 weeks.
--- NOTE | 2020-05-09 23:12 | P.PN ---
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 Patient is found to have partial small bowel obstruction. Patient has an NG tube drained about 850 mL. Patient had a CT of the abdomen which showed ileus or partial mechanical small bowel obstruction. Patient had a lactic acid elevation. And had incisional hernia repair in the past Today-diet was further advanced. Had bowel movement. Feeling better. No nausea vomiting. Feeling well. Review of systems: Was done for constitutional, cardiovascular, GI, pulmonary. relevant finding as above Current medications reviewed in today's electronic records On examination: VITAL SIGNS: 97.9, 77, 16, 22981, 97% on room air GENERAL APPEARANCE: Sitting up comfortable HEENT: Normal external appearance of nose and ear. Oral cavity normal EYES: Pupils equal. Conjunctiva normal. NECK: JVD not raised. Mass not palpable. RESPIRATORY: Respiratory effort normal. Lungs clear to auscultation. CARDIOVASCULAR: First and second sounds normal. No edema. ABDOMEN: Soft. Liver and spleen not palpable. No tenderness. No mass palpable. PSYCHIATRY: Alert and oriented x3. Mood and affect normal. Investigations: White count 8.2 hemoglobin 13.9 potassium 3.7 creatinine 1.0 Coronavirus [PCR]-not detected Computed tomography scan of the abdomen-this dilated small bowel suggestive of ileus or partial mechanical obstruction. Assessment: -Possible partial small bowel obstruction. NG tube discontinued.-Improved -GERD -Essential hypertension -Reactive leukocytosis-improved Plan: Doing well. Diet advanced. If discharged to follow-up with family doctor. Thank you Dr. Torres
== END 2020-05-09 12:42 | disposition home or self-care (01) | DRG 394 ==
LOC: EC 18:45 → 4SSUR 21:40
PROVIDERS: ADMIT Surgery; ATTEND Surgery
PROC: 0D9670Z Drainage of Stomach with Drainage Device, Via Natural or Artificial Opening (ICD-10-PCS; principal; 2020-05-04)
DX: K43.0 Incisional hernia with obstruction, without gangrene (principal); Z68.41 Body mass index [BMI] 40.0-44.9, adult; I10 Essential (primary) hypertension; K21.9 Gastro-esophageal reflux disease without esophagitis; I16.0 Hypertensive urgency; E66.9 Obesity, unspecified; Z20.822 Contact with and (suspected) exposure to COVID-19; Z92.21 Personal history of antineoplastic chemotherapy; Z90.49 Acquired absence of other specified parts of digestive tract; Z86.718 Personal history of other venous thrombosis and embolism; Z82.49 Family history of ischemic heart disease and other diseases of the circulatory system; Z85.72 Personal history of non-Hodgkin lymphomas; Z79.899 Other long term (current) drug therapy; Z88.8 Allergy status to other drugs, medicaments and biological substances; Z88.0 Allergy status to penicillin; Z98.890 Other specified postprocedural states
CPT/HCPCS: 36415; 74018; 74019; 74177; 80048; 80053; 81003; 83605; 83690; 85025; 85610; 85730; 87635; 96361; 96365; 96375; 96376; 99285

== ENCOUNTER 2020-07-17 10:54 | Emergency (ER) | payer BC ==
[2020-07-17 11:22] VITALS: RESP 18; TEMP 97.8
[2020-07-17] MEDS ORDERED: ONDANSETRON 4 MG/2 ML VIAL IVP STA (11:42)
[2020-07-17] MEDS ORDERED: KETOROLAC 15 MG/ML 1 ML VIAL IVP STA (11:42)
[2020-07-17] MEDS ORDERED: SODIUM CHLORIDE 0.9% 1,000 ML IV STA (11:42)
[2020-07-17] MEDS ORDERED: HYDROmorphone 0.5 MG/0.5 ML SYRINGE IVP STA ×2 (11:42→12:47)
--- NOTE | 2020-07-17 12:22 | ED ---
General Adult HPI - General Chief complaint: Urogenital Stated complaint: Sent by PCP - Colin kidney stones Time Seen by Provider: 07/17/20 11:24 Source: patient Mode of arrival: ambulatory Limitations: no limitations - History of Present Illness Initial comments: 49-year-old male patient presents to the emergency department today for evaluation of right flank pain with radiation to the right groin. Patient states he has a constant urge to urinate. Denies any dysuria or hematuria. Denies any fever or chills. States he has felt clammy all day. States he did have some nausea and one episode of vomiting. Denies any constipation or diarrhea. Denies pain radiation down his legs. Denies numbness or tingling or saddle anesthesia. Has had bowel obstruction related to malignancy and subsequent bowel resection and cholecystectomy in the past. Denies any hematochezia or melena. Denies history of kidney stones or similar symptoms. Patient denies any recent rash, cough, shortness of breath, chest pain, numbness, tingling, dizziness, weakness, visual changes, or any other complaints. - Related Data Home Medications Medication Instructions Recorded Confirmed Esomeprazole Magnesium [NexIUM] 40 mg PO BID 05/04/20 07/17/20 Losartan Potassium [Cozaar] 50 mg PO DAILY 05/04/20 07/17/20 Previous Rx's Medication Instructions Recorded HYDROcodone/APAP 5-325MG [[place] 5] 1 each PO Q6HR PRN #12 tab 07/17/20 Ibuprofen [Motrin] 600 mg PO Q8HR PRN #30 tab 07/17/20 Ondansetron [Zofran ODT] 4 mg PO Q8HR PRN #10 tab 07/17/20 Tamsulosin HCl [Flomax] 0.4 mg PO DAILY #7 cap 07/17/20 Allergies Allergy/AdvReac Type Severity Reaction Status Date / Time Penicillins Allergy Anaphylaxis Verified 07/17/20 12:39 Review of Systems ROS Statement: Those systems with pertinent positive or pertinent negative responses have been documented in the HPI. ROS Other: All systems not noted in ROS Statement are negative. Past Medical History Past Medical History: Cancer, Deep Vein Thrombosis (DVT), GERD/Reflux, Hypertension Additional Past Medical History / Comment(s): Lymphoma/small bowel with surgery and chemo in 2004, small bowel obstructions, DVT R calf, History of Any Multi-Drug Resistant Organisms: None Reported Past Surgical History: Bowel Resection, Cholecystectomy, Hernia Repair, Tonsillectomy Additional Past Surgical History / Comment(s): Bowel resection d/t small bowel lymphoma, colonoscopies, incisional hernia repair with mesh x2, vanita filter, port a cath now removed. Past Anesthesia/Blood Transfusion Reactions: No Reported Reaction Past Psychological History: No Psychological Hx Reported Smoking Status: Never smoker Past Alcohol Use History: Rare Past Drug Use History: None Reported - Past Family History Mother Family Medical History: No Reported History Additional Family Medical History / Comment(s): Mother is healthy Father Family Medical History: Myocardial Infarction ([place]) Additional Family Medical History / Comment(s): AT AGE 48 OF A [place] General Exam Limitations: no limitations General appearance: alert, in no apparent distress, other (This is a well- developed, well-nourished adult male patient in no acute distress. Vital signs upon presentation are temperature 97.8F, pulse 60, respirations 18, blood pressure 161/92, pulse ox 98% on room air.) ENT exam: Present: normal exam, normal oropharynx, mucous membranes moist Respiratory exam: Present: normal lung sounds bilaterally. Absent: respiratory distress, wheezes, rales, rhonchi, stridor Cardiovascular Exam: Present: regular rate, normal rhythm, normal heart sounds. Absent: systolic murmur, diastolic murmur, rubs, gallop, clicks GI/Abdominal exam: Present: soft, tenderness (Right-sided abdominal tenderness), normal bowel sounds. Absent: distended, guarding, rebound, rigid Neurological exam: Present: alert Psychiatric exam: Present: normal affect, normal mood Skin exam: Present: warm, dry, intact, normal color. Absent: rash Course Vital Signs 07/17/20 07/17/20 11:20 14:05 Temperature 97.8 F Pulse Rate 60 79 Respiratory 18 18 Rate Blood Pressure 161/92 144/78 O2 Sat by Pulse 98 98 Oximetry Medical Decision Making - Medical Decision Making 49-year-old male patient presents to the emergency department today for evaluation of right flank pain right groin pain. Physical examination did reveal right CVA tenderness. Right lower quadrant tenderness. Labs reviewed and did reveal white blood cell count of 14.0, creatinine 1.35, lactic 2.3. The white count is felt to be reactive from pain and vomiting. The lactic acid secondary to dehydration. CT abdomen and pelvis was obtained and did show evidence for right-sided hydronephrosis and right distal ureteral stone. I did discuss any results with the patient. Be treated for kidney stone with Flomax, pain medication, nausea medication. He'll be discharged follow-up with urology as soon as possible. Return parameters were discussed in detail. He verbalizes understanding and agrees with this plan. Case discussed with my attending Dr. Murphy. - Lab Data Result diagrams: 07/17/20 11:45 07/17/20 11:45 Lab Results 07/17/20 07/17/20 07/17/20 Range/Units 11:45 11:45 11:45 WBC 14.0 H (3.8-10.6) k/uL RBC 5.41 (4.30-5.90) m/uL Hgb 16.5 (13.0-17.5) gm/dL Hct 47.1 (39.0-53.0) % MCV 87.0 (80.0-100.0) fL MCH 30.6 (25.0-35.0) pg MCHC 35.1 (31.0-37.0) g/dL RDW 12.5 (11.5-15.5) % Plt Count 252 (150-450) k/uL MPV 7.1 Neutrophils % 84 % Lymphocytes % 10 % Monocytes % 5 % Eosinophils % 1 % Basophils % 0 % Neutrophils # 11.7 H (1.3-7.7) k/uL Lymphocytes # 1.4 (1.0-4.8) k/uL Monocytes # 0.6 (0-1.0) k/uL Eosinophils # 0.1 (0-0.7) k/uL Basophils # 0.0 (0-0.2) k/uL Sodium 139 (137-145) mmol/L Potassium 4.1 (3.5-5.1) mmol/L Chloride 104 (98-107) mmol/L Carbon Dioxide 24 (22-30) mmol/L Anion Gap 11 mmol/L BUN 17 (9-20) mg/dL Creatinine 1.35 H (0.66-1.25) mg/dL Est GFR (CKD-EPI)AfAm 70 (>60 ml/min/1.73 sqM) Est GFR (CKD-EPI)NonAf 60 (>60 ml/min/1.73 sqM) Glucose 118 H (74-99) mg/dL Lactic Ac Sepsis Rflx Plasma Lactic Acid Darnell (0.7-2.0) mmol/L Calcium 9.9 (8.4-10.2) mg/dL Total Bilirubin 0.7 (0.2-1.3) mg/dL AST 37 (17-59) U/L ALT 38 (4-49) U/L Alkaline Phosphatase 98 (38-126) U/L Total Protein 7.6 (6.3-8.2) g/dL Albumin 4.6 (3.5-5.0) g/dL Lipase 89 (23-300) U/L Urine Color Yellow Urine Appearance Clear (Clear) Urine pH 5.5 (5.0-8.0) Ur Specific [place] 1.019 (1.001-1.035) Urine Protein Trace H (Negative) Urine Glucose (UA) Negative (Negative) Urine Ketones Negative (Negative) Urine Blood Trace H (Negative) Urine Nitrite Negative (Negative) Urine Bilirubin Negative (Negative) Urine Urobilinogen <2.0 (<2.0) mg/dL Ur Leukocyte Esterase Negative (Negative) Urine RBC <1 (0-5) /hpf Urine WBC 1 (0-5) /hpf Ur Squamous Epith Cells <1 (0-4) /hpf Hyaline Casts 1 (0-2) /lpf Urine Mucus Few H (None) /hpf 07/17/20 07/17/20 Range/Units 11:45 13:09 WBC (3.8-10.6) k/uL RBC (4.30-5.90) m/uL Hgb (13.0-17.5) gm/dL Hct (39.0-53.0) % MCV (80.0-100.0) fL MCH (25.0-35.0) pg MCHC (31.0-37.0) g/dL RDW (11.5-15.5) % Plt Count (150-450) k/uL MPV Neutrophils % % Lymphocytes % % Monocytes % % Eosinophils % % Basophils % % Neutrophils # (1.3-7.7) k/uL Lymphocytes # (1.0-4.8) k/uL Monocytes # (0-1.0) k/uL Eosinophils # (0-0.7) k/uL Basophils # (0-0.2) k/uL Sodium (137-145) mmol/L Potassium (3.5-5.1) mmol/L Chloride (98-107) mmol/L Carbon Dioxide (22-30) mmol/L Anion Gap mmol/L BUN (9-20) mg/dL Creatinine (0.66-1.25) mg/dL Est GFR (CKD-EPI)AfAm (>60 ml/min/1.73 sqM) Est GFR (CKD-EPI)NonAf (>60 ml/min/1.73 sqM) Glucose (74-99) mg/dL Lactic Ac Sepsis Rflx Y Plasma Lactic Acid Darnell 2.3 H* (0.7-2.0) mmol/L Calcium (8.4-10.2) mg/dL Total Bilirubin (0.2-1.3) mg/dL AST (17-59) U/L ALT (4-49) U/L Alkaline Phosphatase (38-126) U/L Total Protein (6.3-8.2) g/dL Albumin (3.5-5.0) g/dL Lipase (23-300) U/L Urine Color Urine Appearance (Clear) Urine pH (5.0-8.0) Ur Specific [place] (1.001-1.035) Urine Protein (Negative) Urine Glucose (UA) (Negative) Urine Ketones (Negative) Urine Blood (Negative) Urine Nitrite (Negative) Urine Bilirubin (Negative) Urine Urobilinogen (<2.0) mg/dL Ur Leukocyte Esterase (Negative) Urine RBC (0-5) /hpf Urine WBC (0-5) /hpf Ur Squamous Epith Cells (0-4) /hpf Hyaline Casts (0-2) /lpf Urine Mucus (None) /hpf - Radiology Data Radiology results: report reviewed, image reviewed CT of the pelvis without contrast was obtained. Report reviewed in its entirety. Impression by Dr. Miller shows interval passage of 2 mm calculus in the distal right ureter causing mild right-sided hydronephrosis. Disposition Clinical Impression: Kidney stone on right side Disposition: HOME SELF-CARE Condition: Good Instructions (If sedation given, give patient instructions): Kidney Stones (ED) Additional Instructions: Increase fluids. Take medications as directed. Follow-up through primary care physician for recheck in 1-2 days. Follow-up with urology as soon as possible. Return to the emergency department for any new, worsening, or concerning symptoms Prescriptions: Tamsulosin HCl [Flomax] 0.4 mg PO DAILY #7 cap Ibuprofen [Motrin] 600 mg PO Q8HR PRN #30 tab PRN Reason: Pain HYDROcodone/APAP 5-325MG [[place] 5] 1 each PO Q6HR PRN #12 tab PRN Reason: Pain Ondansetron [Zofran ODT] 4 mg PO Q8HR PRN #10 tab PRN Reason: Nausea Is patient prescribed a controlled substance at d/c from ED?: No Referrals: Jhonatan Casanova MD [Primary Care Provider] - 1-2 days Deion Roldan MD [STAFF PHYSICIAN] - 1-2 days Time of Disposition: 13:44
[2020-07-17 12:48] LABS: Basophils % (A) 0 %; Eosinophils # (A) 0.1 k/uL (0-0.7); Eosinophils % (A) 1 %; HCT 47.1 % (39.0-53.0); HGB 16.5 gm/dL (13.0-17.5); Lymphocytes # (A) 1.4 k/uL (1.0-4.8); Lymphocytes % (A) 10 %; MCH 30.6 pg (25.0-35.0); MCHC 35.1 g/dL (31.0-37.0); Mean Platelet Volume 7.1; Monocytes # (A) 0.6 k/uL (0-1.0); Monocytes % (A) 5 %; Neutrophils # (A) 11.7 k/uL (1.3-7.7); Neutrophils % (A) 84 %; Platelet Count 252 k/uL (150-450); RBC 5.41 m/uL (4.30-5.90); RDW 12.5 % (11.5-15.5)
--- NOTE | 2020-07-17 12:48 | CT ---
EXAMINATION TYPE: CT abdomen pelvis wo con DATE OF EXAM: 07/17/2020 HISTORY: Right flank pain CT DLP: 1504 mGycm. Automated Exposure Control for Dose Reduction was Utilized. TECHNIQUE: CT scan of the abdomen and pelvis is performed without oral or IV contrast. COMPARISON: CT abdomen and pelvis May 04, 2020 and older studies FINDINGS: Within the limitations of a non-contrast study, the following observations are made. LUNG BASES: No significant abnormality is appreciated. LIVER/GB: Cholecystectomy clips are redemonstrated. Liver remains diffusely low dense consistent with diffuse fatty infiltration. PANCREAS: No significant abnormality is seen. SPLEEN: No significant abnormality is seen. ADRENALS: No significant abnormality is seen. KIDNEYS: There is and interval passage of 2 mm calculus into distal right ureter axial image 139 caus ing mild right-sided perinephric fat stranding and mild right-sided hydronephrosis, stone previously seen mid to lower pole level coronal image 76. BOWEL: Suboptimal evaluation without enteric contrast. Stomach poorly distended and suboptimally eval uated. No suspicious small or large bowel dilatation. Small bowel anastomosis left mid to lower abdom en laterally. Areas of mild wall thickening and small and large bowel loops project of poor distentio n, mild uncomplicated enterocolitis felt less likely. GENITAL ORGANS: Upper limits of normal in size prostate. LYMPH NODES: No greater than 1cm abdominal or pelvic lymph nodes are appreciated. OSSEOUS STRUCTURES: No significant abnormality is seen. OTHER: Stable infrarenal IVC protruding outside venous wall. IMPRESSION: Interval passage of 2 mm calculus into distal right ureter causing mild right-sided hydro nephrosis.
[2020-07-17 13:02] LABS: Albumin 4.6 g/dL (3.5-5.0); Appearance,Urine Clear (Clear); Bilirubin,Urine Negative (Negative); Blood,Urine Trace (Negative); Calcium 9.9 mg/dL (8.4-10.2); Color,Urine Yellow; Glucose,Urine (UA) Negative (Negative); Hyaline Casts,Urine 1 /lpf (0-2); Ketones,Urine Negative (Negative); Leukocyte Esterase,Urine Negative (Negative); Mucus,Urine Few /hpf; Nitrite,Urine Negative (Negative); PH, Urine 5.5 (5.0-8.0); Potassium 4.1 mmol/L (3.5-5.1); Protein,Urine Trace (Negative); RBC,Urine <1 /hpf (0-5); Specific Gravity,Urine 1.019 (1.001-1.035); Squamous Epithelial Cell,Urine <1 /hpf (0-4); Total Bilirubin 0.7 mg/dL (0.2-1.3); Total Protein 7.6 g/dL (6.3-8.2); Urobilinogen,Urine <2.0 mg/dL (<2.0); WBC,Urine 1 /hpf (0-5)
[2020-07-17 14:06] VITALS: BP 144/78; PULSE 79
== END 2020-07-17 14:06 | disposition home or self-care (01) ==
LOC: EC 10:54
DX: N13.2 Hydronephrosis with renal and ureteral calculous obstruction (principal); K21.9 Gastro-esophageal reflux disease without esophagitis; I10 Essential (primary) hypertension; Z86.718 Personal history of other venous thrombosis and embolism; Z79.1 Long term (current) use of non-steroidal anti-inflammatories (NSAID); Z79.899 Other long term (current) drug therapy; Z90.49 Acquired absence of other specified parts of digestive tract; Z88.0 Allergy status to penicillin
CPT/HCPCS: 36415; 80053; 83605; 83690; 85025; 81001; 74176; 99284; 96374; 96375 ×2; 96376; 96361; J2405; J1885; J1170

== ENCOUNTER → 2020-11-24 | Outpatient (CLI) | payer BC ==
--- NOTE | 2020-11-25 03:35 | MR ---
EXAMINATION TYPE: MR knee RT wo con DATE OF EXAM: 11/24/2020 COMPARISON: None HISTORY: Right knee pain, pain behind knee for 1 month. Exam performed without contrast. The anterior and posterior cruciate ligaments are intact. The collateral ligaments are intact. Joint spaces are fairly normal. I see no bony destructive process. There is no evidence of a fracture. There is some mild increased signal in the posterior horn medial meniscus without extension to the ar ticular surface. The lateral meniscus appears intact. Patella is intact. There is no significant knee joint effusion. I see no focal bone destruction. IMPRESSION: No evidence of ligamentous tear. Intrasubstance tear of the posterior horn medial meniscus without extension to the articular surface. No fracture. Normal joint spaces.
== END | disposition home or self-care (01) ==
LOC: RADMRIMAIN 17:16
PROVIDERS: ATTEND Orthopaedic Surgery Sports Medicine
DX: M23.321 Other meniscus derangements, posterior horn of medial meniscus, right knee (principal)

== ENCOUNTER 2021-02-12 16:00 | Emergency (ER) | payer BC ==
[2021-02-12 17:39] VITALS: BP 132/92
--- NOTE | 2021-02-12 18:04 | ED ---
General Adult HPI - General Chief complaint: Recheck/Abnormal Lab/Rx Stated complaint: Hypertension, 165/118, headache Time Seen by Provider: 02/12/21 17:24 Source: patient Mode of arrival: ambulatory Limitations: no limitations - History of Present Illness Initial comments: 50-year-old male presents to the emergency room for hypertension. Patient stat es they checked his blood pressure at home and it was 160/118. States he was having a slight headache. Patient states he gets this headache frequently especially when stressed. Patient's called his doctor who told him to come into the emergency room. She denies any chest pain back pain abdominal pain shortness of breath. Is otherwise feeling fine.Patient has no other complaints at this time including shortness of breath, chest pain, abdominal pain, nausea or vomiting, headache, or visual changes. - Related Data Home Medications Medication Instructions Recorded Confirmed Esomeprazole Magnesium [NexIUM] 40 mg PO BID 05/04/20 07/17/20 Losartan Potassium [Cozaar] 50 mg PO DAILY 05/04/20 07/17/20 Previous Rx's Medication Instructions Recorded HYDROcodone/APAP 5-325MG [[place] 5] 1 each PO Q6HR PRN #12 tab 07/17/20 Ibuprofen [Motrin] 600 mg PO Q8HR PRN #30 tab 07/17/20 Ondansetron [Zofran ODT] 4 mg PO Q8HR PRN #10 tab 07/17/20 Tamsulosin HCl [Flomax] 0.4 mg PO DAILY #7 cap 07/17/20 Allergies Allergy/AdvReac Type Severity Reaction Status Date / Time Penicillins Allergy Anaphylaxis Verified 02/12/21 17:02 Review of Systems ROS Statement: Those systems with pertinent positive or pertinent negative responses have been documented in the HPI. ROS Other: All systems not noted in ROS Statement are negative. Past Medical History Past Medical History: Cancer, Deep Vein Thrombosis (DVT), GERD/Reflux, Hypertension Additional Past Medical History / Comment(s): Lymphoma/small bowel with surgery and chemo in 2003, small bowel obstructions, DVT R calf, History of Any Multi-Drug Resistant Organisms: None Reported Past Surgical History: Bowel Resection, Cholecystectomy, Hernia Repair, T onsillectomy Additional Past Surgical History / Comment(s): Bowel resection d/t small bowel lymphoma, colonoscopies, incisional hernia repair with mesh x2, vanita filter, port a cath now removed. Past Anesthesia/Blood Transfusion Reactions: No Reported Reaction Past Psychological History: No Psychological Hx Reported Smoking Status: Never smoker Past Alcohol Use History: Rare Past Drug Use History: None Reported - Past Family History Mother Family Medical History: No Reported History Additional Family Medical History / Comment(s): Mother is healthy Father Family Medical History: Myocardial Infarction ([place]) Additional Family Medical History / Comment(s): AT AGE 48 OF A [place] General Exam Limitations: no limitations General appearance: alert, in no apparent distress Head exam: Present: atraumatic Eye exam: Present: normal appearance, PERRL, EOMI. Absent: scleral icterus, conjunctival injection ENT exam: Present: normal exam, mucous membranes moist Neck exam: Present: normal inspection, full ROM. Absent: tenderness Respiratory exam: Present: normal lung sounds bilaterally. Absent: respiratory distress, wheezes, rales Cardiovascular Exam: Present: regular rate, normal rhythm, normal heart sounds GI/Abdominal exam: Present: soft, normal bowel sounds. Absent: distended, tenderness Course Vital Signs 02/12/21 02/12/21 02/12/21 17:03 17:29 17:38 Temperature 98.1 F Pulse Rate 88 Respiratory 20 Rate Blood Pressure 145/103 141/100 132/92 O2 Sat by Pulse 98 Oximetry Medical Decision Making - Medical Decision Making presents initially pretensive however this did improve significantly throughout his stay to 132/92. Patient's headache is almost resolved. He has had headaches several times in the past and this is neither the worst headache of his life or an unusual headache. At this time patient is stable for outpatient follow-up. He will keep a log of his blood pressures. It is more appropriate for patient to be managed by primary care for this. He will return here for any worsening symptoms. Disposition Clinical Impression: Hypertension Disposition: HOME SELF-CARE Condition: Good Instructions (If sedation given, give patient instructions): Hypertension (ED) Additional Instructions: Please follow-up with your doctor in one to 2 days. Return to the emergency room for any worsening symptoms. Is patient prescribed a controlled substance at d/c from ED?: No Referrals: Frederic Hollis DO [Primary Care Provider] - 1-2 days Time of Disposition: 18:03
[2021-02-12 18:14] VITALS: PULSE 82; RESP 16; TEMP 98
== END 2021-02-12 18:14 | disposition home or self-care (01) ==
LOC: EC 16:00
DX: I10 Essential (primary) hypertension (principal); K21.9 Gastro-esophageal reflux disease without esophagitis; Z88.0 Allergy status to penicillin; Z86.718 Personal history of other venous thrombosis and embolism; Z90.49 Acquired absence of other specified parts of digestive tract; Z90.89 Acquired absence of other organs
CPT/HCPCS: 99283

== ENCOUNTER → 2021-02-13 | Outpatient (CLI) | payer BC ==
--- NOTE | 2021-02-13 10:52 | CT ---
EXAMINATION TYPE: CT brain wo con DATE OF EXAM: 02/13/2021 COMPARISON: None HISTORY: 50-year-old male R51.9, Headaches TECHNIQUE: Examination was done in axial plane without intravenous contrast. Coronal and sagittal r econstructions performed. CT DLP: 961.00 mGycm Automated exposure control for dose reduction was used. FINDINGS: There is no evidence of acute intracranial hemorrhage, acute ischemic changes, mass, mass-effect, or extra-axial fluid collection. There is no effacement of cerebral sulci or basal subarachnoid cister ns. There is no hydrocephalus. There is no midline shift. Puentes-white matter distinction is preserv ed. Paranasal sinuses and mastoid air cells well pneumatized. Orbits and globes are intact. IMPRESSION: No acute intracranial abnormality seen.
== END | disposition home or self-care (01) ==
LOC: RADCTMAIN 10:25
PROVIDERS: ATTEND Family Medicine
DX: R51.9 Headache, unspecified (principal)
CPT/HCPCS: 70450

== ENCOUNTER → 2021-02-20 | Outpatient (CLI) | payer BC ==
[2021-02-20 12:35] LABS: Appearance,Urine Clear (Clear); Bilirubin,Urine Negative (Negative); Blood,Urine Negative (Negative); Color,Urine Yellow; Glucose,Urine (UA) Negative (Negative); Ketones,Urine Negative (Negative); Leukocyte Esterase,Urine Negative (Negative); Nitrite,Urine Negative (Negative); PH, Urine 5.5 (5.0-8.0); Protein,Urine Negative (Negative); Specific Gravity,Urine 1.019 (1.001-1.035); Urobilinogen,Urine <2.0 mg/dL (<2.0)
[2021-02-20 18:46] LABS: HCT 52.3 % (39.6-50.0); HGB 16.9 g/dL (13.0-17.0); MCH 29.2 pg (27.0-32.0); MCHC 32.3 g/dL (32.0-37.0); MCV 90.5 fL (80.0-97.0); Mean Platelet Volume 9.7 fL (9.5-12.2); Platelet Count 319 X 10*3/uL (140-440); RBC 5.78 X 10*6/uL (4.40-5.60); RDW 12.2 % (11.5-14.5); WBC 8.93 X 10*3/uL (4.50-10.00)
[2021-02-20 20:29] LABS: ALT 38 U/L (10-49); AST 30 U/L (14-35); African American GFR (CKD) 72.7 (60.0-200.0); Albumin 4.8 g/dL (3.8-4.9); Albumin/Globulin Ratio 1.66 (1.60-3.17); Alkaline Phosphatase 100 U/L (41-126); BUN/Creat Ratio 16.62 Ratio (12.00-20.00); Blood Urea Nitrogen 21.6 mg/dL (9.0-27.0); Calcium 9.9 mg/dL (8.7-10.3); Carbon Dioxide 20.3 mmol/L (21.6-31.8); Chloride 101 mmol/L (96-109); Chol/HDL Ratio 5.15 Ratio; Globulin 2.9 g/dL (1.6-3.3); Glucose 96 mg/dL (70-110); LDL Cholesterol,Calculated 139.6 mg/dL (0.0-131.0); Non-African American GFR(CKD) 62.7 (60.0-200.0); Potassium 4.2 mmol/L (3.5-5.5); Sodium 137 mmol/L (135-145); Total Protein 7.7 g/dL (6.2-8.2)
== END | disposition home or self-care (01) ==
LOC: LABWHC1 11:01
PROVIDERS: ATTEND Family Medicine
DX: Z00.00 Encounter for general adult medical examination without abnormal findings (principal)
CPT/HCPCS: 36415; 80053; 80061; 81003; 82306; 83036; 84153; 84443; 85027

== ENCOUNTER → 2021-04-23 | Outpatient (CLI) | payer BC ==
--- NOTE | 2021-04-23 15:23 | CONS ---
CONSULTATION DATE OF SERVICE: 04/23/2021 This 50-year-old gentleman has been evaluated in [facility] for possible obstructive sleep apnea-hypopnea syndrome. HISTORY OF PRESENT ILLNESS/SLEEP-WAKE EVALUATION: Patient's usual sleep schedule is from 10:30 p.m. to 7 a.m. on weekdays and from 11 p.m. to 9 a.m. on weekends. Usually no problems with falling asleep, although he has a TV set in the bedroom. He usually sleeps on the side position. According to his , he has severe snoring and witnessed episodes of stopped breathing during sleep. The patient wakes up from sleep 4 times with 2 episodes of nocturia. No history of hypnagogic hallucinations, sleep paralysis or cataplexy. In the morning the patient wakes up tired, falling asleep during the day. He may take naps whenever he has time. [place] Sleepiness Scale is significantly increased to 16. PAST MEDICAL HISTORY: Positive for hypertension, acid reflux. PAST SURGICAL HISTORY: Neck surgery, hernia repair, bowel resection for cancer. MEDICATIONS: 1. Losartan 50 mg once a day. 2. prazole 40 mg once a day. SOCIAL HISTORY: Negative for smoking. Alcohol consumption rarely. FAMILY HISTORY: Hypertension, heart problems and arthritis. REVIEW OF SYSTEMS: Multiple awakenings from sleep, snoring, sleepiness during the day. No fevers. No double vision. No recent chest pain. No shortness of breath. No abdominal pain. No bleeding episodes. No blood in the urine. No seizure episodes. PHYSICAL EXAMINATION: GENERAL: Pleasant gentleman without distress. VITAL SIGNS: BP 167/81, HR 68, RR 14, height 5 feet 9 inches, weight 276.4, temperature 98.0, oxygen saturation at room air 95%. BMI 40.7. HEENT: PERRLA, EOMI, evaluation of oropharynx showed tongue protrudes midline. Extremely low position of soft palate; Mallampati IV. NECK: Supple, no JVD. Thyroid is not palpable. Wide neck; 20 inches in circumference. LUNGS: Clear to percussion and to auscultation. Good air exchange. No wheezing or rhonchi. HEART: S1, S2 regular. No murmurs, gallops, or rubs. ABDOMEN: Obese. EXTREMITIES: No clubbing or cyanosis. CLIENT PROFESSIONAL: Awake, alert, and oriented X3. Cranial nerves 2 to 7 intact. There is no fasciculation or atrophy. noted. No focal deficits observed. IMPRESSION: 1. Loud snoring, witnessed episodes of stopped breathing during sleep, multiple awakenings from sleep, extremely low position of soft palate, Mallampati IV, wide neck, 20 inches in circumference, excessive daytime sleepiness, [place] Sleepiness Scale 16; obstructive sleep apnea-hypopnea syndrome. 2. Obesity; body mass index 40.7. 3. Hypertension. 4. History of Burkitt lymphoma, status post abdominal surgery, including bowel resection. 5. Acid reflux. 6. Status post neck surgery. 7. Status post hernia repair. PLAN: 1. Home sleep apnea test for evaluation of patient's breathing during sleep. 2. CPAP/BiPAP titration if sleep study confirms obstructive sleep apnea-hypopnea syndrome. 3. Preferable position during sleep on the side. 4. No driving if patient feels any sleepiness. 5. I will see patient for follow up visit to explain results of testing and following plan. Thank you very much for referring this patient for consultation. Sincerely, Renan Chavez MD, PhD, FAASM Diplomat of [place] [employer] Sleep Medicine Board of [place] [employer] [facility] [place] MMODL / IJN: [id number] /
== END ==
LOC: SLEEP 14:10
PROVIDERS: ATTEND Internal Medicine
DX: G47.33 Obstructive sleep apnea (adult) (pediatric) (principal); E66.9 Obesity, unspecified; Z68.41 Body mass index [BMI] 40.0-44.9, adult; I10 Essential (primary) hypertension; K21.9 Gastro-esophageal reflux disease without esophagitis; Z85.79 Personal history of other malignant neoplasms of lymphoid, hematopoietic and related tissues; Z98.890 Other specified postprocedural states; Z79.899 Other long term (current) drug therapy; Z88.0 Allergy status to penicillin
CPT/HCPCS: 99211

== ENCOUNTER 2021-08-09 22:38 | Inpatient (IN) | payer BC ==
[2021-08-10] MEDS ORDERED: SODIUM CHLORIDE 0.9% 1,000 ML IV STA (01:28)
[2021-08-10] MEDS ORDERED: ONDANSETRON 4 MG/2 ML VIAL IVP STA (01:29)
[2021-08-10] MEDS ORDERED: MORPHINE SULFATE 4 MG/ML SYRINGE IV STA ×2 (01:29→03:57)
--- NOTE | 2021-08-10 01:32 | ED ---
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 Patient has had multiple bowel obstructions in the past and feels like he might be getting an obstruction again. Complaining of cramping pain to the left abdomen which is intermittent. No alleviating factors. Exacerbated by palpation. Patient denying any chest pain or shortness of breath. No fever or chills. No difficulty with urinations. Patient states his last bowel movement was a very tiny amount at 5 PM. Patient has stopped passing gas. Patient also has had nausea and vomiting. No headache, no fever or chills, no changes in vision or hearing, no sore throat or difficulty with speech, no neck pain, no chest pain or shortness of breath, no changes in urination or bowel movements, no numbness or tingling, no extremity pain, no skin rashes or lesions. MD Complaint: abdominal pain - Related Data Home Medications Medication Instructions Recorded Confirmed Esomeprazole Magnesium [NexIUM] 40 mg PO BID 05/04/20 07/17/20 Losartan Potassium [Cozaar] 50 mg PO DAILY 05/04/20 07/17/20 Previous Rx's Medication Instructions Recorded HYDROcodone/APAP 5-325MG [[place] 5] 1 each PO Q6HR PRN #12 tab 07/17/20 Ibuprofen [Motrin] 600 mg PO Q8HR PRN #30 tab 07/17/20 Ondansetron [Zofran ODT] 4 mg PO Q8HR PRN #10 tab 07/17/20 Tamsulosin HCl [Flomax] 0.4 mg PO DAILY #7 cap 07/17/20 Allergies Allergy/AdvReac Type Severity Reaction Status Date / Time Penicillins Allergy Anaphylaxis Verified 08/09/21 22:55 Review of Systems ROS Statement: Those systems with pertinent positive or pertinent negative responses have been documented in the HPI. ROS Other: All systems not noted in ROS Statement are negative. Past Medical History Past Medical History: Cancer, Deep Vein Thrombosis (DVT), GERD/Reflux, Hypertension Additional Past Medical History / Comment(s): Lymphoma/small bowel with surgery and chemo in 2003, small bowel obstructions, DVT R calf, History of Any Multi-Drug Resistant Organisms: None Reported Past Surgical History: Bowel Resection, Cholecystectomy, Hernia Repair, Tonsillectomy Additional Past Surgical History / Comment(s): Bowel resection d/t small bowel lymphoma, colonoscopies, incisional hernia repair with mesh x2, vanita filter, port a cath now removed. Past Anesthesia/Blood Transfusion Reactions: No Reported Reaction Past Psychological History: No Psychological Hx Reported Smoking Status: Never smoker Past Alcohol Use History: Rare Past Drug Use History: None Reported - Past Family History Mother Family Medical History: No Reported History Additional Family Medical History / Comment(s): Mother is healthy Father Family Medical History: Myocardial Infarction ([place]) Additional Family Medical History / Comment(s): AT AGE 48 OF A [place] General Exam Limitations: no limitations General appearance: alert, in no apparent distress Head exam: Present: atraumatic, normocephalic, normal inspection Eye exam: Present: normal appearance, PERRL, EOMI. Absent: scleral icterus, conjunctival injection, periorbital swelling ENT exam: Present: normal exam, mucous membranes moist Neck exam: Present: normal inspection, full ROM. Absent: tenderness, meningismus, lymphadenopathy Respiratory exam: Present: normal lung sounds bilaterally. Absent: respiratory distress, wheezes, rales, rhonchi, stridor Cardiovascular Exam: Present: regular rate, normal rhythm, normal heart sounds. Absent: systolic murmur, diastolic murmur, rubs, gallop, clicks GI/Abdominal exam: Present: soft, tenderness, guarding (Left abdomen), normal bowel sounds. Absent: distended, rebound, rigid Extremities exam: Present: normal inspection, full ROM, normal capillary refill. Absent: tenderness, pedal edema, joint swelling, calf tenderness Back exam: Present: normal inspection Neurological exam: Present: alert, oriented X3, CN II-XII intact Psychiatric exam: Present: normal affect, normal mood Skin exam: Present: warm, dry, intact, normal color. Absent: rash Course Vital Signs 08/09/21 08/10/21 22:52 02:34 Temperature 98.6 F Pulse Rate 83 72 Respiratory 18 20 Rate Blood Pressure 183/104 130/66 O2 Sat by Pulse 96 96 Oximetry - Reevaluation(s) Reevaluation #1: 08/10/21 03:48 Medical record is reviewed Symptoms minimally improved after anti-emetics and pain medicine Computed tomography scan consistent with a mechanical small bowel obstruction Patient is informed of results and questions answered Patient in no distress Medical Decision Making - Medical Decision Making Patient presents with symptomatology consistent with early small bowel obstruction. Other etiologies such as diverticulitis, other intra-abdominal infectious versus plantar etiology possible. Does not fit the clinical picture of cardiopulmonary disease. Less likely urological. Discussed findings with the patient. Discussed treatment plan. Patient will be admitted to Dr. Nogueira. Consult to Dr. Mg Supervising physicians Dr. Marcum. - Lab Data Result diagrams: 08/10/21 01:28 08/10/21 01:28 Lab Results 08/10/21 08/10/21 08/10/21 Range/Units 01:28 01:28 01:28 WBC 13.8 H (3.8-10.6) k/uL RBC 5.28 (4.30-5.90) m/uL Hgb 15.9 (13.0-17.5) gm/dL Hct 47.3 (39.0-53.0) % MCV 89.7 (80.0-100.0) fL MCH 30.2 (25.0-35.0) pg MCHC 33.7 (31.0-37.0) g/dL RDW 13.1 (11.5-15.5) % Plt Count 268 (150-450) k/uL MPV 7.1 Neutrophils % 81 % Lymphocytes % 13 % Monocytes % 5 % Eosinophils % 0 % Basophils % 0 % Neutrophils # 11.2 H (1.3-7.7) k/uL Lymphocytes # 1.7 (1.0-4.8) k/uL Monocytes # 0.7 (0-1.0) k/uL Eosinophils # 0.0 (0-0.7) k/uL Basophils # 0.0 (0-0.2) k/uL Sodium 136 L (137-145) mmol/L Potassium 4.3 (3.5-5.1) mmol/L Chloride 103 (98-107) mmol/L Carbon Dioxide 26 (22-30) mmol/L Anion Gap 7 mmol/L BUN 17 (9-20) mg/dL Creatinine 1.27 H (0.66-1.25) mg/dL Est GFR (CKD-EPI)AfAm 75 (>60 ml/min/1.73 sqM) Est GFR (CKD-EPI)NonAf 65 (>60 ml/min/1.73 sqM) Glucose 118 H (74-99) mg/dL Plasma Lactic Acid Darnell 1.2 (0.7-2.0) mmol/L Calcium 9.6 (8.4-10.2) mg/dL Total Bilirubin 0.7 (0.2-1.3) mg/dL AST 27 (17-59) U/L ALT 29 (4-49) U/L Alkaline Phosphatase 90 (38-126) U/L Total Protein 7.7 (6.3-8.2) g/dL Albumin 4.4 (3.5-5.0) g/dL Lipase 102 (23-300) U/L Urine Color Urine Appearance (Clear) Urine pH (5.0-8.0) Ur Specific [place] (1.001-1.035) Urine Protein (Negative) Urine Glucose (UA) (Negative) Urine Ketones (Negative) Urine Blood (Negative) Urine Nitrite (Negative) Urine Bilirubin (Negative) Urine Urobilinogen (<2.0) mg/dL Ur Leukocyte Esterase (Negative) 08/10/21 Range/Units 01:57 WBC (3.8-10.6) k/uL RBC (4.30-5.90) m/uL Hgb (13.0-17.5) gm/dL Hct (39.0-53.0) % MCV (80.0-100.0) fL MCH (25.0-35.0) pg MCHC (31.0-37.0) g/dL RDW (11.5-15.5) % Plt Count (150-450) k/uL MPV Neutrophils % % Lymphocytes % % Monocytes % % Eosinophils % % Basophils % % Neutrophils # (1.3-7.7) k/uL Lymphocytes # (1.0-4.8) k/uL Monocytes # (0-1.0) k/uL Eosinophils # (0-0.7) k/uL Basophils # (0-0.2) k/uL Sodium (137-145) mmol/L Potassium (3.5-5.1) mmol/L Chloride (98-107) mmol/L Carbon Dioxide (22-30) mmol/L Anion Gap mmol/L BUN (9-20) mg/dL Creatinine (0.66-1.25) mg/dL Est GFR (CKD-EPI)AfAm (>60 ml/min/1.73 sqM) Est GFR (CKD-EPI)NonAf (>60 ml/min/1.73 sqM) Glucose (74-99) mg/dL Plasma Lactic Acid [place]ell (0.7-2.0) mmol/L Calcium (8.4-10.2) mg/dL Total Bilirubin (0.2-1.3) mg/dL AST (17-59) U/L ALT (4-49) U/L Alkaline Phosphatase (38-126) U/L Total Protein (6.3-8.2) g/dL Albumin (3.5-5.0) g/dL Lipase (23-300) U/L Urine Color Yellow Urine Appearance Clear (Clear) Urine pH 6.0 (5.0-8.0) Ur Specific [place] 1.022 (1.001-1.035) Urine Protein Negative (Negative) Urine Glucose (UA) Negative (Negative) Urine Ketones Negative (Negative) Urine Blood Negative (Negative) Urine Nitrite Negative (Negative) Urine Bilirubin Negative (Negative) Urine Urobilinogen <2.0 (<2.0) mg/dL Ur Leukocyte Esterase Negative (Negative) - Radiology Data Radiology results: report reviewed, image reviewed Disposition Clinical Impression: Abdominal pain, Partial small bowel obstruction, Uncontrolled hypertension Disposition: ADMITTED IP TO THIS [facility] Condition: Fair Is patient prescribed a controlled substance at d/c from ED?: No Time of Disposition: 03:48 Decision to Admit Reason: Admit from EC Decision Time: 03:48
[2021-08-10 02:47] LABS: Appearance,Urine Clear (Clear); Bilirubin,Urine Negative (Negative); Blood,Urine Negative (Negative); Color,Urine Yellow; Glucose,Urine (UA) Negative (Negative); Ketones,Urine Negative (Negative); Leukocyte Esterase,Urine Negative (Negative); Nitrite,Urine Negative (Negative); Protein,Urine Negative (Negative); Specific Gravity,Urine 1.022 (1.001-1.035); Urobilinogen,Urine <2.0 mg/dL (<2.0)
[2021-08-10 02:51] LABS: Basophils % (A) 0 %; Eosinophils % (A) 0 %; HCT 47.3 % (39.0-53.0); HGB 15.9 gm/dL (13.0-17.5); Lymphocytes # (A) 1.7 k/uL (1.0-4.8); Lymphocytes % (A) 13 %; MCH 30.2 pg (25.0-35.0); MCHC 33.7 g/dL (31.0-37.0); MCV 89.7 fL (80.0-100.0); Mean Platelet Volume 7.1; Monocytes # (A) 0.7 k/uL (0-1.0); Monocytes % (A) 5 %; Neutrophils # (A) 11.2 k/uL (1.3-7.7); Neutrophils % (A) 81 %; Platelet Count 268 k/uL (150-450); RBC 5.28 m/uL (4.30-5.90); RDW 13.1 % (11.5-15.5); WBC 13.8 k/uL (3.8-10.6)
--- NOTE | 2021-08-10 02:52 | XR ---
EXAMINATION TYPE: XR abdomen acute w cxr DATE OF EXAM: 08/10/2021 COMPARISON: 05/06/2020 HISTORY: Abdominal pain TECHNIQUE: 5 views FINDINGS: Heart and mediastinum are normal. Lungs are clear. Diaphragm is normal. Bony thorax appears intact. There are clips from cholecystectomy. There is inferior vena cava filter. There is no eviden ce of a mass. IMPRESSION: Normal chest. Nonacute abdomen.
[2021-08-10 03:01] LABS: Albumin 4.4 g/dL (3.5-5.0); Calcium 9.6 mg/dL (8.4-10.2); Potassium 4.3 mmol/L (3.5-5.1); Total Bilirubin 0.7 mg/dL (0.2-1.3); Total Protein 7.7 g/dL (6.3-8.2)
--- NOTE | 2021-08-10 03:28 | CT ---
EXAMINATION TYPE: CT abdomen pelvis w con DATE OF EXAM: 08/10/2021 COMPARISON: 07/17/2020 HISTORY: abdominal pain and vomiting. prior history of lymphoma which affected small bowel. SX hist ory of bowel resection, cholecystectomy, and hernia repair with mesh. CT DLP: 2302.8 mGycm Automated exposure control for dose reduction was used. CONTRAST: Performed with IV Contrast, patient injected with 100ml mL of Isovue 300. The lung bases are clear. No pleural effusion. Heart size is normal. No pericardial effusion. There a re clips from cholecystectomy. Liver and spleen are intact. Stomach is intact. The bile ducts are not dilated. There is no evidence of pancreatic mass. There is no adrenal mass. Kidneys show satisfactory contrast opacification. There is no hydronephrosi s. Ureters are not dilated. Delayed images show normal renal excretion. There is inferior vena cava f ilter. There is no retroperitoneal adenopathy. Bladder distends smoothly. There is no inguinal hernia . There are multiple dilated fluid-filled small bowel loops in the mid abdomen. Distal small bowel is n ot dilated. There is previous bowel surgery with anastomosis in the left mid abdomen. Small bowel dil ated up to more than 6 cm. Transition point not identified. Lumbar vertebrae have normal alignment. Posterior elements are intact. No compression fracture. Bony pelvis is intact. The hip joints are intact. IMPRESSION: Dilated small bowel in the mid abdomen suggestive of a partial mechanical small bowel obstruction whi ch is a change compared to old exam. Transition point not seen. There is clearing of the right-sided renal obstruction compared to old exam. No evidence of any significant adenopathy.
[2021-08-10] MEDS ORDERED: ONDANSETRON 4 MG/2 ML VIAL IVP PRN (03:52)
[2021-08-10] MEDS ORDERED: NALOXONE 0.4 MG/ML 1 ML VIAL IV PRN (03:52)
[2021-08-10] MEDS ORDERED: MORPHINE SULFATE 4 MG/ML SYRINGE IV PRN (03:52)
[2021-08-10] MEDS: SODIUM CHLORIDE 0.9% 1,000 ML IV SCH ×3 (04:22→19:25)
--- NOTE | 2021-08-10 09:45 | XR ---
EXAMINATION TYPE: XR abdomen 1V DATE OF EXAM: 08/10/2021 9:40 AM CLINICAL HISTORY: NG tube placement. TECHNIQUE: Two supine KUB images of the abdomen are obtained. COMPARISON: CT abdomen and pelvis earlier today FINDINGS: New nasogastric tube projects below diaphragm and is coiled in gastric fundus. Some paucity of bowel gas. Visualized gas noted in nondistended small and large bowel loops. Single p rominent fluid-filled small bowel loop left lower quadrant seen better on CT. Midabdominal IVC filter redemonstrated. Cholecystectomy clips redemonstrated. Lung bases remain clear. Osseous structures ar e intact. IMPRESSION: As above.
[2021-08-10] MEDS: ONDANSETRON 4 MG/2 ML VIAL IVP PRN ×2 (09:49→16:06)
--- NOTE | 2021-08-10 10:54 | P.GSCN ---
History of Present Illness Consult date: 08/10/21 History of present illness: CHIEF COMPLAINT: Abdominal pain HISTORY OF PRESENT ILLNESS: This is a 50-year-old male with a known history of recurrent small bowel obstructions, history of Burkitt's lymphoma with small bowel resection in 2003. Patient last hospitalized in May 2020 with a recurrent partial small bowel obstruction thought to be related to a recurrent incisional hernia containing small loop of small intestine. He was treated conservatively. Patient reports that yesterday afternoon he ate fish and fries for lunch and then started having abdominal pain about an hour later. Most of his pain is on the left side of the abdomen and near the umbilicus. He started to become bloated and distended. And then he started to have vomiting. He did have 2 small bowel movements around 5:00 yesterday. Since then has had no further stool or flatus. He had NG tube placed with output noted in the ER per the patient. After that has had no further out through the NG tube. He had a computed tomography scan of the abdomen and pelvis showing dilated small bowel in the mid abdomen suggestive of a partial mechanical small bowel obstruction which is a change compared to old exam. Transition point not seen. Patient did have elevated white count 13.8. Denies any fever chills or sweats. Patient's other surgical history includes incisional hernia repair with mesh 2. PAST MEDICAL HISTORY: See list. PAST SURGICAL HISTORY: See list. MEDICATIONS: See list. ALLERGIES: See list. SOCIAL HISTORY: No illicit drug use. REVIEW OF SYSTEMS: CONSTITUTIONAL: Denies fever or chills. HEENT: Denies blurred vision, vision changes, or eye pain. Denies hemoptysis CARDIOVASCULAR: Denies chest pain or pressure. RESPIRATORY: No shortness of breath. GASTROINTESTINAL: See HPI for pertinent findings HEMATOLOGIC: Denies bleeding disorders. GENITOURINARY: Denies any blood in urine or increased urinary frequency. SKIN: Denies pruitis. Denies rash. PHYSICAL EXAM: VITAL SIGNS: Reviewed GENERAL: Well-developed in no acute distress. HEENT: No sclera icterus. Extraocular movements grossly intact. Moist buccal mucosa. Head is atraumatic, normocephalic. No nasal drainage. ABDOMEN: Soft. distended. Tenderness of palpation of the left side of the abdomen near the umbilicus. NEUROLOGIC: Alert and oriented. Cranial nerves II through XII grossly intact. LABORATORY DATA: WBC 13.8 hemoglobin 15.9 platelets 268 Sodium 136 potassium 4.3 creatinine 1.27 Lactic acid 1.2 LFTs and lipase within normal range Urinalysis negative IMAGING: computed tomography scan of the abdomen and pelvis showing dilated small bowel in the mid abdomen suggestive of a partial mechanical small bowel obstruction which is a change compared to old exam. Transition point not seen. There is clearing of the right-sided renal calculus obstruction compared to old exam. ASSESSMENT: 1. Abdominal pain 2. Partial mechanical small bowel obstruction 3. History of lymphoma status post small bowel resection in 2003 4. History of incisional hernia repair with mesh placement PLAN: -Further recommendations forthcoming per surgeon -Continue NG tube for decompression -Abdominal x-ray ordered for placement of NG tube -Keep patient nothing by mouth -Continue IV fluids -Continue supportive care -continue antiemetics -Continue pain medication as needed thank you for this consultation Physician Can Patcher note has been reviewed by physician. Signing provider agrees with the documented findings, assessment, and plan of care. I have personally seen and examined the patient, reviewed the MARKETING SERVICES COORDINATOR /PAs history, exam and MDM and agree with the assessment and plan as written. Based on total visit time, I have performed more than 50% of the visit. As above: CAT scan films reviewed. No transition point is identified at this time. Seems to be a gradual tapering of the bowel caliber. Keep nasogastric tube to suction given the patient's complaints of crampy abdominal pain. Repeat abdominal x-rays tomorrow. Will follow. Past Medical History Past Medical History: Cancer, Deep Vein Thrombosis (DVT), GERD/Reflux, Hyperten ronaldo Additional Past Medical History / Comment(s): Lymphoma/small bowel with surgery and chemo in 2003, small bowel obstructions, DVT R calf, History of Any Multi-Drug Resistant Organisms: None Reported Past Surgical History: Bowel Resection, Cholecystectomy, Hernia Repair, Tonsillectomy Additional Past Surgical History / Comment(s): Bowel resection d/t small bowel lymphoma, colonoscopies, incisional hernia repair with mesh x2, vanita filter, port a cath -now removed. Past Anesthesia/Blood Transfusion Reactions: No Reported Reaction Past Psychological History: No Psychological Hx Reported Additional Psychological History / Comment(s): Pt resides with his spouse. 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 Smoking Status: Never smoker Past Alcohol Use History: Rare Past Drug Use History: None Reported - Past Family History Mother Family Medical History: No Reported History Additional Family Medical History / Comment(s): Mother is healthy Father Family Medical History: Myocardial Infarction ([place]) Additional Family Medical History / Comment(s): AT AGE 48 OF A [place] Medications and Allergies Home Medications Medication Instructions Recorded Confirmed Type Esomeprazole Magnesium [NexIUM] 40 mg PO BID 05/04/20 08/10/21 History Losartan Potassium [Cozaar] 50 mg PO DAILY 05/04/20 08/10/21 History Cholecalciferol [Vitamin D3 (25 50 mcg PO DAILY 08/10/21 08/10/21 History Mcg = 1000 Iu)] Ibuprofen [Motrin] 800 mg PO TID PRN 08/10/21 08/10/21 History Pseudoephedrine HCl [Sudafed 240 mg PO DAILY 08/10/21 08/10/21 History 24-Hour] Allergies Allergy/AdvReac Type Severity Reaction Status Date / Time Penicillins Allergy Anaphylaxis Verified 08/10/21 07:34 Surgical - Exam Vital Signs Temp Pulse Resp BP Pulse Ox 98.6 F 83 18 183/104 96 08/09/21 22:52 08/09/21 22:52 08/09/21 22:52 08/09/21 22:52 08/09/21 22:52 Results - Labs 08/10/21 01:28 08/10/21 01:28 Abnormal Lab Results - Last 24 Hours (Table) 08/10/21 08/10/21 Range/Units 01:28 01:28 WBC 13.8 H (3.8-10.6) k/uL Neutrophils # 11.2 H (1.3-7.7) k/uL Sodium 136 L (137-145) mmol/L Creatinine 1.27 H (0.66-1.25) mg/dL Glucose 118 H (74-99) mg/dL Diabetes panel 08/10/21 Range/Units 01:28 Sodium 136 L (137-145) mmol/L Potassium 4.3 (3.5-5.1) mmol/L Chloride 103 (98-107) mmol/L Carbon Dioxide 26 (22-30) mmol/L BUN 17 (9-20) mg/dL Creatinine 1.27 H (0.66-1.25) mg/dL Glucose 118 H (74-99) mg/dL Calcium 9.6 (8.4-10.2) mg/dL AST 27 (17-59) U/L ALT 29 (4-49) U/L Alkaline Phosphatase 90 (38-126) U/L Total Protein 7.7 (6.3-8.2) g/dL Albumin 4.4 (3.5-5.0) g/dL Calcium panel 08/10/21 Range/Units 01:28 Calcium 9.6 (8.4-10.2) mg/dL Albumin 4.4 (3.5-5.0) g/dL Pituitary panel 08/10/21 Range/Units 01:28 Sodium 136 L (137-145) mmol/L Potassium 4.3 (3.5-5.1) mmol/L Chloride 103 (98-107) mmol/L Carbon Dioxide 26 (22-30) mmol/L BUN 17 (9-20) mg/dL Creatinine 1.27 H (0.66-1.25) mg/dL Glucose 118 H (74-99) mg/dL Calcium 9.6 (8.4-10.2) mg/dL Adrenal panel 08/10/21 Range/Units 01:28 Sodium 136 L (137-145) mmol/L Potassium 4.3 (3.5-5.1) mmol/L Chloride 103 (98-107) mmol/L Carbon Dioxide 26 (22-30) mmol/L BUN 17 (9-20) mg/dL Creatinine 1.27 H (0.66-1.25) mg/dL Glucose 118 H (74-99) mg/dL Calcium 9.6 (8.4-10.2) mg/dL Total Bilirubin 0.7 (0.2-1.3) mg/dL AST 27 (17-59) U/L ALT 29 (4-49) U/L Alkaline Phosphatase 90 (38-126) U/L Total Protein 7.7 (6.3-8.2) g/dL Albumin 4.4 (3.5-5.0) g/dL
[2021-08-10] MEDS: PSEUDOEPHEDRINE 12HR 120 MG TABLET.ER PO SCH ×2 (11:27→19:27)
[2021-08-10] MEDS: LOSARTAN 50 MG TAB PO SCH (11:29)
[2021-08-10] MEDS: HYDROmorphone 1 MG/ML 1 ML SYRINGE IVP PRN ×2 (12:35→18:13)
[2021-08-10] MEDS: HEPARIN SODIUM,PORCINE/PF 5,000 UNIT/0.5 ML SYRINGE SQ SCH (16:06)
--- NOTE | 2021-08-10 19:44 | P.HPIM ---
History of Present Illness H&P Date: 08/10/21 Chief Complaint: Abdominal cramping This is a pleasant 50-year-old patient of Dr. Hollis. Chronic stable medical conditions include GERD, hypertension, morbid obesity hepatic steatosis. 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 Has had recurrent bowel obstructions. Often managed with NG tube suction and conservative management. Patient ate lunch and following that patient started having abdominal cramping yesterday. For by nausea vomiting. Increasing abdominal pain. Had a bowel movement on 5 PM yesterday. Normally has a bowel movement every day. Presented to ER with partial small bowel obstruction. NG tube was placed. Abdomen is distended this morning. Still having abdominal pain. 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 . 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 Alcohol occasionally. Family history: Reviewed, noncontributory to presentation Physical examination: VITAL SIGNS: 97.7, 87, 18, 171/99, 96% room air GENERAL: BMI 41.1, recliner but awake, tired. EYES: Pupils equal. Conjunctiva normal. HEENT: External appearance of nose and ears normal, oral cavity dry mucous membrane, NG tube. NECK: JVD not raised; masses not palpable. HEART: First and second heart sounds are normal; no edema. LUNGS: Respiratory rate normal; clear to auscultation. ABDOMEN: Soft, distended, mild tenderness, no guarding rigidity liver spleen not palpable, no masses palpable. PSYCH: Alert and oriented x3; mood and affect normal. MUSCULOSKELETAL:No Clubbing/cyanosis;muscles-grossly intact NEUROLOGICAL: Cranial nerves grossly intact; no facial asymmetry, power and sensation grossly intact. LYMPHATICS: No lymph nodes palpable in the axilla and neck INVESTIGATIONS, reviewed in the clinical context: White count 13.8 hemoglobin 15.9 platelets 268 sodium 136 potassium 4.3 creatinine 1.27 UA: Negative Chest x-ray film personally reviewed by me-unremarkable Abdominal x-ray film personally reviewed by me: Air-fluid levels. Some stool on the right side. Computed tomography scan abdomen and pelvis with contrast: Dilated small bowel in the mid abdomen suggested a partial mechanical small bowel obstruction. Transition point not seen. Assessment and plan: -Acute small bowel obstruction with no obvious transition point in a patient with probable prior small bowel surgery for lymphoma. NG tube to suction. Nothing by mouth. IV fluids -Morbid obesity BMI of 41.1 Weight loss measures -Essential hypertension Cozaar 50 mg a day -GERD Nexium 40 mg twice a day -Hepatic steatosis Follow-up with PCP NG tube to suction. IV fluids. Due to prophylaxis. Resume Cozaar. IV Protonix. Discussed with patient. Surgery consulted. Given the complexity and severity of patient's condition expect the patient to be in the hospital at least for 2 overnights Past Medical History Past Medical History: Cancer, Deep Vein Thrombosis (DVT), GERD/Reflux, Hypertension Additional Past Medical History / Comment(s): Lymphoma/small bowel with surgery and chemo in 2003, small bowel obstructions, DVT R calf, History of Any Multi-Drug Resistant Organisms: None Reported Past Surgical History: Bowel Resection, Cholecystectomy, Hernia Repair, Tonsillectomy Additional Past Surgical History / Comment(s): Bowel resection d/t small bowel lymphoma, colonoscopies, incisional hernia repair with mesh x2, vanita filter, port a cath -now removed. Past Anesthesia/Blood Transfusion Reactions: No Reported Reaction Past Psychological History: No Psychological Hx Reported Additional Psychological History / Comment(s): Pt resides with his spouse. 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 Smoking Status: Never smoker Past Alcohol Use History: Rare Past Drug Use History: None Reported - Past Family History Mother Family Medical History: No Reported History Additional Family Medical History / Comment(s): Mother is healthy Father Family Medical History: Myocardial Infarction ([place]) Additional Family Medical History / Comment(s): AT AGE 48 OF A [place] Medications and Allergies Home Medications Medication Instructions Recorded Confirmed Type Esomeprazole Magnesium [NexIUM] 40 mg PO BID 05/04/20 08/10/21 History Losartan Potassium [Cozaar] 50 mg PO DAILY 05/04/20 08/10/21 History Cholecalciferol [Vitamin D3 (25 50 mcg PO DAILY 08/10/21 08/10/21 History Mcg = 1000 Iu)] Ibuprofen [Motrin] 800 mg PO TID PRN 08/10/21 08/10/21 History Pseudoephedrine HCl [Sudafed 240 mg PO DAILY 08/10/21 08/10/21 History 24-Hour] Allergies Allergy/AdvReac Type Severity Reaction Status Date / Time Penicillins Allergy Anaphylaxis Verified 08/10/21 07:34 Physical Exam Vitals: Vital Signs Temp Pulse Pulse Resp BP BP Pulse Ox 08/10/21 05:36 97.7 F 87 18 171/99 96 08/10/21 03:52 98.2 F 75 18 130/81 98 08/10/21 02:34 72 20 130/66 96 08/09/21 22:52 98.6 F 83 18 183/104 96 Intake and Output 08/09/21 08/10/21 08/10/21 22:59 06:59 14:59 Intake Total 260 Balance 260 Intake: Intake, IV Titration 260 Amount Sodium Chloride 0.9% 1, 260 000 ml @ 130 mls/hr IV . Q7H42M [facility] Rx#:[id number] Other: Voiding Method Toilet # Voids 1 Weight 126.099 kg 126.099 kg Results CBC & Chem 7: 08/10/21 01:28 08/10/21 01:28 Labs: Abnormal Lab Results - Last 24 Hours (Table) 08/10/21 08/10/21 Range/Units 01:28 01:28 WBC 13.8 H (3.8-10.6) k/uL Neutrophils # 11.2 H (1.3-7.7) k/uL Sodium 136 L (137-145) mmol/L Creatinine 1.27 H (0.66-1.25) mg/dL Glucose 118 H (74-99) mg/dL Thrombosis Risk Factor Assmnt - Choose All That Apply Each Factor Represents 1 point: Obesity (BMI >25) Each Risk Factor Represents 3 Points: History of DVT/PE Other congenital or acquired thrombophilia - If yes, enter type in comment: No Thrombosis Risk Factor Assessment Total Risk Factor Score: 4 Thrombosis Risk Factor Assessment Level: Moderate Risk
[2021-08-10] MEDS: PANTOPRAZOLE 40 MG TABLET PO SCH (20:31)
[2021-08-11] MEDS: HEPARIN SODIUM,PORCINE/PF 5,000 UNIT/0.5 ML SYRINGE SQ SCH ×3 (00:05→16:05)
[2021-08-11] MEDS: HYDROmorphone 1 MG/ML 1 ML SYRINGE IVP PRN ×3 (00:07→22:33)
[2021-08-11] MEDS: SODIUM CHLORIDE 0.9% 1,000 ML IV SCH ×3 (02:46→19:27)
[2021-08-11] MEDS: LOSARTAN 50 MG TAB PO SCH (08:48)
[2021-08-11] MEDS: PANTOPRAZOLE 40 MG TABLET PO SCH ×2 (08:48→17:56)
[2021-08-11] MEDS: PSEUDOEPHEDRINE 12HR 120 MG TABLET.ER PO SCH ×3 (08:49→22:32)
--- NOTE | 2021-08-11 09:08 | XR ---
EXAMINATION TYPE: XR abdomen 2V DATE OF EXAM: 08/11/2021 CLINICAL DATA: 50-year-old male follow-up ileus versus small bowel obstruction, [facility] COMPARISON: 08/10/2021 FINDINGS: NG tube at the proximal portion of the stomach, unchanged. Cholecystectomy clips. Trapezoid IVC filte r. Surgical material left mid abdomen from prior bowel surgery. Some scattered small air-fluid levels are present. Some mild air remains within the right-sided colon. Small bowel loops measures up to 3. 5 cm in the right side of the abdomen (versus 3.7 cm on the 08/10/2021 CT). The patient's left-sided sm all bowel anastomosis remains patulous at 5.2 cm versus 6.4 cm on 08/20/2021, likely chronic postsurgi kat change. IMPRESSION: 1. There may be a residual partial small bowel obstruction. Small bowel loop in the right side of the abdomen is mildly dilated at 3.5 cm versus 3.7 cm on the recent CT. No javi progression in the degr ee of small bowel obstruction. 2. Note: Review of the patient's CT suggests transition point at the level of the patient's ventral a bdominal wall mesh repair, refer to sagittal images 79 through 81.
--- NOTE | 2021-08-11 11:05 | P.PN ---
Subjective Progress Note Date: 08/11/21 CHIEF COMPLAINT: Abdominal pain HISTORY OF PRESENT ILLNESS: Patient reports is feeling better today. His left side abdominal pain has resolved. He still has some pain just above the umbilicus. NG tube clears output 250 mL reported. Patient reports the nausea has resolved. Denies any flatus or bowel movement. Abdominal x-ray there may be a residual partial small bowel dissection. Small bowel loop in the right side of the abdomen is mildly dilated at 3.5 cm versus 3.[address] No javi progression in the degree of small bowel obstruction. Note review of patient's CT per radiology suggest transition point at the level of patient's ventral abdominal wall mesh repair. PHYSICAL EXAM: VITAL SIGNS: Reviewed. GENERAL: Well-developed in no acute distress. HEENT: No sclera icterus. Extraocular movements grossly intact. Moist buccal mucosa. Head is atraumatic, normocephalic. ABDOMEN: Soft. Distended. Tenderness to palpation above the umbilicus NEUROLOGIC: Alert and oriented. Cranial nerves II through XII grossly intact. ASSESSMENT: 1. Partial mechanical small bowel obstruction 2. Previous abdominal surgeries 3. History of lymphoma status post small bowel resection in 2003 PLAN: -Patient scheduled for exploratory laparotomy with possible bowel resection today with Dr. Mg -Continue NG tube for decompression -Keep patient nothing by mouth -Continue IV fluids -Continue pain medication as needed -Continue supportive care -DVT prophylaxis subcu heparin Physician Vp & General Counsel note has been reviewed by physician. Signing provider agrees with the documented findings, assessment, and plan of care. I have personally seen and examined the patient, reviewed the TELEMETRY TECHNICIAN /PAs history, exam and MDM and agree with the assessment and plan as written. Based on total visit time, I have performed more than 50% of the visit. As above: Patient's abdominal x-rays were reviewed. Appreciate radiology's review of the prior CAT scan. CAT scan again reviewed and now I am able to visualize a transition point near his previous incisional hernia repair site. This is the same site that the patient has had frequent partial small bowel obstructions in the past. Options reviewed with the patient. We'll proceed with exploratory laparotomy with lysis of adhesions, possible bowel resection. Risks of bleeding, infection, scarring, recurrent obstruction, leak, abscess, recurrent hernia reviewed. He understands and wishes to proceed. Objective - Vital Signs Vital signs: Vital Signs Temp 97.3 F L 05/10/22 04:44 Pulse 78 08/11/21 04:44 Resp 16 08/11/21 04:44 BP 143/78 08/11/21 04:44 Pulse Ox 96 08/11/21 04:44 Intake & Output 08/10/21 08/11/21 08/11/21 18:59 06:59 18:59 Intake Total 1560 1650 Output Total 250 Balance 1310 1650 Intake: Intake, IV Titration 1560 1650 Amount Sodium Chloride 0.9% 1, 1560 1650 000 ml @ 130 mls/hr IV . Q7H42M [facility] Rx#:[id number] Output: Gastric Drainage 250 Other: Voiding Method Toilet Toilet # Voids 2 1 - Labs CBC & Chem 7: 08/11/21 10:51 08/10/21 01:28
[2021-08-11 11:13] LABS: Basophils # (A) 0.1 k/uL (0-0.2); Basophils % (A) 1 %; Eosinophils # (A) 0.1 k/uL (0-0.7); Eosinophils % (A) 2 %; HCT 50.5 % (39.0-53.0); HGB 15.9 gm/dL (13.0-17.5); Lymphocytes # (A) 2.7 k/uL (1.0-4.8); Lymphocytes % (A) 30 %; MCHC 31.5 g/dL (31.0-37.0); MCV 92.1 fL (80.0-100.0); Mean Platelet Volume 7.4; Monocytes # (A) 0.7 k/uL (0-1.0); Monocytes % (A) 7 %; Neutrophils # (A) 5.4 k/uL (1.3-7.7); Neutrophils % (A) 59 %; Platelet Count 247 k/uL (150-450); RBC 5.48 m/uL (4.30-5.90); RDW 12.6 % (11.5-15.5); WBC 9.2 k/uL (3.8-10.6)
[2021-08-11 11:42] LABS: African American GFR (CKD) >90 (>60 ml/min/1.73 sqM); Anion Gap 12 mmol/L; Blood Urea Nitrogen 14 mg/dL (9-20); Calcium 8.9 mg/dL (8.4-10.2); Carbon Dioxide 21 mmol/L (22-30); Chloride 106 mmol/L (98-107); Glucose 82 mg/dL (74-99); Non-African American GFR(CKD) 82 (>60 ml/min/1.73 sqM); Potassium 4.2 mmol/L (3.5-5.1); Sodium 139 mmol/L (137-145)
[2021-08-11] MEDS ORDERED: IV FLUID CONTINUATION 1,000 ML IV ONE (13:02)
[2021-08-11] MEDS ORDERED: LIDOCAINE 2% INJ 20 MG/ML (2 ML VIAL) ONE (13:40)
[2021-08-11] MEDS ORDERED: ePHEDrine 50 MG/ML 1 ML VIAL ONE (13:40)
[2021-08-11] MEDS ORDERED: MIDAZOLAM 2 MG/2 ML VIAL ONE (13:40)
[2021-08-11] MEDS ORDERED: fentaNYL (PF) 50 MCG/ML 2 ML AMP ONE (13:40)
[2021-08-11] MEDS ORDERED: PROPOFOL 10 MG/ML 20 ML VIAL IV ONE (13:40)
[2021-08-11] MEDS ORDERED: HYDROmorphone (PF) 1 MG/ML ONE (13:40)
[2021-08-11] MEDS ORDERED: ROCURONIUM 10 MG/ML (5 ML VIAL) IV ONE (13:40)
[2021-08-11] MEDS ORDERED: SUCCINYLCHOLINE CHLORIDE VIAL 200 MG/10 ML VIAL IV ONE (13:40)
[2021-08-11] MEDS ORDERED: NEOSTIGMINE 1 MG/ML 10 ML VIAL ONE (13:40)
[2021-08-11] MEDS ORDERED: GLYCOPYRROLATE 0.2 MG/ML 2 ML VIAL ONE (13:40)
[2021-08-11] MEDS ORDERED: SODIUM CHLORIDE 0.9% 100 ML with ceFAZolin 3,000 MG IV ONE ×2 (14:08)
[2021-08-11] MEDS ORDERED: LACTATED RINGERS 1,000 ML IV ONE (15:31)
[2021-08-11] MEDS ORDERED: HYDROmorphone 1 MG/ML 1 ML SYRINGE IVP PRN (15:56)
--- NOTE | 2021-08-11 16:02 | P.OP ---
Date of Procedure: 08/11/21 Procedure(s) Performed: PREOPERATIVE DIAGNOSIS: Small bowel obstruction POSTOPERATIVE DIAGNOSIS: Small bowel obstruction secondary to recurrent incarcerated incisional hernia with extensive abdominal adhesions PROCEDURE: Exporter laparotomy, extensive lysis of adhesions, small bowel resection, repair recurrent incarcerated incisional hernia SURGEON: Haritha EBL: 25 mL ANESTHESIA: Gen. COMPLICATIONS: None OPERATIVE PROCEDURE: Patient place in the operating table in the supine position. The patient was placed under general anesthesia. Aldridge catheter was placed. Abdomen was prepped and draped sterilely. Previous midline incision was re-incised using the scalpel. This was later lengthened in a superior direction. Subcutaneous tissues were divided using electrocautery. The patient's previous onlay mesh was divided sharply using a scalpel. The patient had extensive adhesions beneath the mesh. It appeared that just inferior to the umbilicus the rectus had beneath the mesh allowing a pocket of bowel to sneak up into the preperitoneal space. This was where the blockage was located. This portion of bowel was fully mobilized. It was very scarred down and had a defect present from our dissection. There were other smaller serosal tears in the bowel immediately adjacent to that. For that reason once we had full visibility I proceeded with a small bowel resection. The bowel was divided proximal and distal at sites of healthy viable tissue using a linear 75 stapler. The antimesenteric portion of the staple line was removed and the linear 75 blue stapler was fired along the antimesenteric border. The remaining defect was then closed using a TX 60 device. A TX 60 stapler line was indicated using interrupted 3-0 GI silk sutures. A 3-0 GI silk crotch stitch was also placed. The abdomen was irrigated. No bleeding was seen. I then reapproximated the patient's mesh and fascia using interrupted #2 Ethibond sutures in a [id number] fashion. When we approached the infraumbilical location the rectus muscle was included in our closure of the mesh. A drain was placed anterior to the fascial closure exiting from the suprapubic location. This is sutured in place using a 3-0 silk stitch. Subcutaneous tissues were closed using 3-0 Vicryl sutures. Skin was closed using paco. Sterile dressing and abdominal binder were then applied. DISPOSITION: Stable to recovery room
[2021-08-11] MEDS ORDERED: HYDROmorphone 0.5 MG/0.5 ML SYRINGE IVP ONE ×4 (16:17→17:07)
--- NOTE | 2021-08-11 17:15 | P.PN ---
Progress Note - Text Progress Note Date: 08/11/21 Chief Complaint: Abdominal cramping This is a pleasant 50-year-old patient of Dr. Hollis. Chronic stable medical conditions include GERD, hypertension, morbid obesity hepatic steatosis. 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 Has had recurrent bowel obstructions. Often managed with NG tube suction and conservative management. Patient ate lunch and following that patient started having abdominal cramping yesterday. For by nausea vomiting. Increasing abdominal pain. Had a bowel movement on 5 PM yesterday. Normally has a bowel movement every day. Presented to ER with partial small bowel obstruction. NG tube was placed. Abdomen is distended this morning. Still having abdominal pain. Being followed by surgery August 11: NG tube remained in place. Saw the patient before going on for surgery this afternoon. Had been passing some flatus. Abdominal pain present. Patient's found to have several adhesions and a small partial small bowel resected. was present at the bedside. Active Medications Heparin Sodium (Porcine) (Heparin Sodium,Porcine/Pf 5,000 Unit/0.5 Ml Syringe) 5,000 unit SQ Q8HR [facility] Last Admin: 08/11/21 16:05 Dose: Not Given Documented by: Hydromorphone HCl (Hydromorphone 1 Mg/Ml 1 Ml Syringe) 1 mg IVP Q3HR PRN PRN Reason: Pain Last Admin: 08/11/21 00:07 Dose: 1 mg Documented by: Hydromorphone HCl (Hydromorphone 1 Mg/Ml 1 Ml Syringe) 1 mg IVP Q3HR PRN PRN Reason: Moderate to Severe Pain Sodium Chloride (Saline 0.9%) 1,000 mls @ 130 mls/hr IV .Q7H42M [facility] Last Admin: 08/11/21 09:06 Dose: 130 mls/hr Documented by: Acetaminophen 1,000 mg/ IV (Solution) 100 mls @ 400 mls/hr IVPB Q6HR [facility] Stop: 08/12/21 18:01 Ketorolac Tromethamine (Ketorolac 15 Mg/Ml 1 Ml Vial) 15 mg IVP Q6HR [facility] Stop: 08/13/21 12:01 Losartan Potassium (Losartan 50 Mg Tab) 50 mg PO DAILY [facility] Last Admin: 08/11/21 08:48 Dose: 50 mg Documented by: Naloxone HCl (Naloxone 0.4 Mg/Ml 1 Ml Vial) 0.2 mg IV Q2M PRN PRN Reason: Opioid Reversal Ondansetron HCl (Ondansetron 4 Mg/2 Ml Vial) 4 mg IVP Q6HR PRN PRN Reason: Nausea And Vomiting Last Admin: 08/10/21 16:06 Dose: 4 mg Documented by: Pantoprazole Sodium (Pantoprazole 40 Mg Tablet) 40 mg PO AC-BID [facility] Last Admin: 08/11/21 08:48 Dose: Not Given Documented by: Pseudoephedrine HCl (Pseudoephedrine 12hr 120 Mg Tablet.Er) 120 mg PO BID [facility] Last Admin: 08/11/21 08:49 Dose: Not Given Documented by: Past history to include: DVT right leg, lymphoma small bowel surgery and chemotherapy in 2003, hypertension, GERD, obesity, morbid obesity Social history: [facility] for [employer]. . Nonsmoker. Alcohol occasionally. Family history: Reviewed, noncontributory to presentation Physical examination: VITAL SIGNS: 98.1, 81, 20, 150/81, 95% room air GENERAL: Sitting at the edge bed, awake EYES: Pupils equal. Conjunctiva normal. HEENT: External appearance of nose and ears normal, oral cavity dry mucous membrane, NG tube. NECK: JVD not raised; masses not palpable. HEART: First and second heart sounds are normal; no edema. LUNGS: Respiratory rate normal; clear to auscultation. ABDOMEN: Soft, distended, mild tenderness, no guarding rigidity liver spleen not palpable, no masses palpable. PSYCH: Alert and oriented x3; mood and affect normal. MUSCULOSKELETAL:No Clubbing/cyanosis;muscles-grossly intact INVESTIGATIONS, reviewed in the clinical context: August 11: Echo 9.2 hemoglobin 15.9 potassium 4.2 creatinine 1.05 White count 13.8 hemoglobin 15.9 platelets 268 sodium 136 potassium 4.3 creatinine 1.27 UA: Negative Chest x-ray film personally reviewed by me-unremarkable Abdominal x-ray film personally reviewed by me: Air-fluid levels. Some stool on the right side. Computed tomography scan abdomen and pelvis with contrast: Dilated small bowel in the mid abdomen suggested a partial mechanical small bowel obstruction. Transition point not seen. Assessment and plan: -Acute small bowel obstruction with no obvious transition point in a patient with probable prior small bowel surgery for lymphoma. NG tube to suction. Nothing by mouth. IV fluids: Slow to respond Underwent partial resection today. -Morbid obesity BMI of 41.1 Weight loss measures -Essential hypertension Cozaar 50 mg a day -GERD Nexium 40 mg twice a day -Hepatic steatosis Follow-up with PCP Patient underwent surgery today. Lysis of adhesions partial small bowel resection. Postop orders to continue per Dr. Torres.
[2021-08-11] MEDS: KETOROLAC 15 MG/ML 1 ML VIAL IVP SCH (17:54)
[2021-08-11] MEDS: ONDANSETRON 4 MG/2 ML VIAL IVP PRN (17:54)
[2021-08-11] MEDS: ACETAMINOPHEN IV (For NPO) 1,000 MG in EMPTY BAG 1 BAG IVPB SCH (17:55)
[2021-08-12] MEDS: ACETAMINOPHEN IV (For NPO) 1,000 MG in EMPTY BAG 1 BAG IVPB SCH ×4 (00:33→17:42)
[2021-08-12] MEDS: KETOROLAC 15 MG/ML 1 ML VIAL IVP SCH ×4 (00:34→17:42)
[2021-08-12] MEDS: ONDANSETRON 4 MG/2 ML VIAL IVP PRN ×2 (00:37→09:14)
[2021-08-12] MEDS: HEPARIN SODIUM,PORCINE/PF 5,000 UNIT/0.5 ML SYRINGE SQ SCH ×3 (00:37→15:50)
[2021-08-12] MEDS: SODIUM CHLORIDE 0.9% 1,000 ML IV SCH ×3 (02:45→19:49)
[2021-08-12] MEDS: HYDROmorphone 1 MG/ML 1 ML SYRINGE IVP PRN ×4 (02:46→19:45)
[2021-08-12 07:05] LABS: Basophils % (A) 0 %; Eosinophils % (A) 0 %; HCT 49.5 % (39.0-53.0); HGB 15.8 gm/dL (13.0-17.5); Lymphocytes # (A) 1.4 k/uL (1.0-4.8); Lymphocytes % (A) 9 %; MCH 29.4 pg (25.0-35.0); MCHC 31.9 g/dL (31.0-37.0); MCV 92.1 fL (80.0-100.0); Mean Platelet Volume 7.3; Monocytes # (A) 1.4 k/uL (0-1.0); Monocytes % (A) 10 %; Neutrophils # (A) 11.9 k/uL (1.3-7.7); Neutrophils % (A) 79 %; Platelet Count 212 k/uL (150-450); RBC 5.37 m/uL (4.30-5.90); RDW 12.5 % (11.5-15.5); WBC 15.1 k/uL (3.8-10.6)
[2021-08-12 07:38] LABS: African American GFR (CKD) 89 (>60 ml/min/1.73 sqM); Anion Gap 11 mmol/L; Blood Urea Nitrogen 17 mg/dL (9-20); Calcium 8.5 mg/dL (8.4-10.2); Carbon Dioxide 19 mmol/L (22-30); Chloride 106 mmol/L (98-107); Glucose 102 mg/dL (74-99); Non-African American GFR(CKD) 77 (>60 ml/min/1.73 sqM); Potassium 4.3 mmol/L (3.5-5.1); Sodium 136 mmol/L (137-145)
[2021-08-12] MEDS: PANTOPRAZOLE 40 MG TABLET PO SCH ×2 (09:13→17:41)
[2021-08-12] MEDS: LOSARTAN 50 MG TAB PO SCH (09:14)
--- NOTE | 2021-08-12 12:31 | P.PN ---
Subjective Progress Note Date: 08/12/21 CHIEF COMPLAINT: Abdominal pain HISTORY OF PRESENT ILLNESS: Patient is status post exploratory laparotomy, extensive lysis of adhesions, small bowel resection and repair of recurrent incarcerated incisional hernia. Postop day #1. Patient reporting that he is having abdominal pain. He is due for pain medication. He also is complaining of some nausea. He has NG tube in place. He had 900 mL output through the NG tube. He is currently nothing by mouth except for ice chips. Afebrile. Tachycardia. White count is up at 15.1. Hemoglobin 15.8 platelets 212 creatinine 1.10 PHYSICAL EXAM: VITAL SIGNS: Reviewed. GENERAL: Well-developed in no acute distress. HEENT: No sclera icterus. Extraocular movements grossly intact. Moist buccal mucosa. Head is atraumatic, normocephalic. ABDOMEN: Soft. Distended. Incisional dressing clean dry and intact. Abdominal binder in place. KAYLEIGH drain with sanguinous output NEUROLOGIC: Alert and oriented. Cranial nerves II through XII grossly intact. ASSESSMENT: 1. Small bowel obstruction secondary to recurrent incarcerated incisional hernia with extensive abdominal adhesions status post exploratory laparotomy, extensive lysis of adhesions, small bowel resection and repair of recurrent incarcerated incisional hernia PLAN: -Continue NG tube for decompression -Keep patient nothing by mouth -Continue pain medication -Continue antiemetics -Continue IV fluids -Continue supportive care -Add incentive spirometer -DVT prophylaxis subcu heparin and GI prophylaxis Protonix Physician Health Physics Technician note has been reviewed by physician. Signing provider agrees with the documented findings, assessment, and plan of care. I have personally seen and examined the patient, reviewed the LINE HAUL DRIVER /PAs history, exam and MDM and agree with the assessment and plan as written. Based on total visit time, I have performed more than 50% of the visit. As above: Patient complaining of pain. Says its improved from yesterday evening. Nasogastric tube remains in place. Keep nothing by mouth for now. We'll continue antibiotics because of the intraoperative findings. Gradually increase activity. Objective - Vital Signs Vital signs: Vital Signs Temp 98.2 F 08/12/21 11:42 Pulse 99 08/12/21 11:42 Resp 20 08/12/21 11:42 BP 149/83 08/12/21 11:42 Pulse Ox 93 L 08/12/21 11:42 Intake & Output 0508/12/21 08/12/21 18:59 06:59 18:59 Intake Total 2210 1960 Output Total 600 1620 200 Balance 1610 340 -200 Intake: IV 1300 Intake, IV Titration 910 1960 Amount ACETAMINOPHEN IV (For NPO 400 ) 1,000 mg In Empty Bag 1 bag @ 400 mls/hr IVPB Q6HR [facility] Rx#:[id number] Sodium Chloride 0.9% 1, 910 1560 000 ml @ 130 mls/hr IV . Q7H42M [facility] Rx#:[id number] Output: Gastric Drainage 900 Urine 450 720 200 Estimated Blood Loss 150 Other: Voiding Method Indwelling Catheter Indwelling Catheter - Labs CBC & Chem 7: 08/12/21 06:22 08/12/21 06:22 Labs: Abnormal Lab Results - Last 24 Hours (Table) 08/12/21 08/12/21 Range/Units 06:22 06:22 WBC 15.1 H (3.8-10.6) k/uL Neutrophils # 11.9 H (1.3-7.7) k/uL Monocytes # 1.4 H (0-1.0) k/uL Sodium 136 L (137-145) mmol/L Carbon Dioxide 19 L (22-30) mmol/L Glucose 102 H (74-99) mg/dL
[2021-08-12] MEDS: LEVOFLOXACIN 500MG-D5W PMX 500 MG in DEXTROSE/WATER 1 100ML.BAG IVPB SCH (14:37)
--- NOTE | 2021-08-12 16:45 | P.PN ---
Progress Note - Text Progress Note Date: 08/12/21 Chief Complaint: Abdominal cramping This is a pleasant 50-year-old patient of Dr. Hollis. Chronic stable medical conditions include GERD, hypertension, morbid obesity hepatic steatosis. 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 Has had recurrent bowel obstructions. Often managed with NG tube suction and conservative management. Patient ate lunch and following that patient started having abdominal cramping yesterday. For by nausea vomiting. Increasing abdominal pain. Had a bowel movement on 5 PM yesterday. Normally has a bowel movement every day. Presented to ER with partial small bowel obstruction. NG tube was placed. Abdomen is distended this morning. Still having abdominal pain. Being followed by surgery August 11: NG tube remained in place. Saw the patient before going on for surgery this afternoon. Had been passing some flatus. Abdominal pain present. Patient's found to have several adhesions and a small partial small bowel resected. was present at the bedside. August 12: NG tube in place. About thousand cc through a G-tube. Aldridge catheter discontinued today. Nothing by mouth. Abdominal pain. No flatus. Had the patient set up in a chair. Has a KAYLEIGH drain Active Medications Heparin Sodium (Porcine) (Heparin Sodium,Porcine/Pf 5,000 Unit/0.5 Ml Syringe) 5,000 unit SQ Q8HR [facility] Last Admin: 08/12/21 15:50 Dose: 5,000 unit Documented by: Hydromorphone HCl (Hydromorphone 1 Mg/Ml 1 Ml Syringe) 1 mg IVP Q3HR PRN PRN Reason: Pain Last Admin: 08/12/21 14:38 Dose: 1 mg Documented by: Hydromorphone HCl (Hydromorphone 1 Mg/Ml 1 Ml Syringe) 1 mg IVP Q3HR PRN PRN Reason: Moderate to Severe Pain Sodium Chloride (Saline 0.9%) 1,000 mls @ 130 mls/hr IV .Q7H42M [facility] Last Admin: 08/12/21 10:31 Dose: 130 mls/hr Documented by: Acetaminophen 1,000 mg/ IV (Solution) 100 mls @ 400 mls/hr IVPB Q6HR [facility] Stop: 08/12/21 18:01 Last Admin: 08/12/21 12:01 Dose: 400 mls/hr Documented by: Levofloxacin 500 mg/ IV (Solution) 100 mls @ 100 mls/hr IVPB Q24H [facility]; Protocol Last Admin: 08/12/21 14:37 Dose: 100 mls/hr Documented by: Ketorolac Tromethamine (Ketorolac 15 Mg/Ml 1 Ml Vial) 15 mg IVP Q6HR [facility] Stop: 08/13/21 12:01 Last Admin: 08/12/21 12:00 Dose: 15 mg Documented by: Losartan Potassium (Losartan 50 Mg Tab) 50 mg PO DAILY [facility] Last Admin: 08/12/21 09:14 Dose: 50 mg Documented by: Naloxone HCl (Naloxone 0.4 Mg/Ml 1 Ml Vial) 0.2 mg IV Q2M PRN PRN Reason: Opioid Reversal Ondansetron HCl (Ondansetron 4 Mg/2 Ml Vial) 4 mg IVP Q6HR PRN PRN Reason: Nausea And Vomiting Last Admin: 08/12/21 09:14 Dose: 4 mg Documented by: Pantoprazole Sodium (Pantoprazole 40 Mg Tablet) 40 mg PO AC-BID [facility] Last Admin: 08/12/21 09:13 Dose: Not Given Documented by: Pseudoephedrine HCl (Pseudoephedrine 12hr 120 Mg Tablet.Er) 120 mg PO BID [facility] Last Admin: 08/11/21 22:32 Dose: Not Given Documented by: Past history to include: DVT right leg, lymphoma small bowel surgery and chemotherapy in 2003, hypertension, GERD, obesity, morbid obesity Social history: Retirement for [employer] - [employer]. . Nonsmoker. Alcohol occasionally. Family history: Reviewed, noncontributory to presentation Physical examination: VITAL SIGNS: 8.2, 99, 20, 149/83, 93% room air GENERAL: Sitting up in a chair, awake EYES: Pupils equal. Conjunctiva normal. HEENT: External appearance of nose and ears normal, oral cavity dry mucous membrane, NG tube. NECK: JVD not raised; masses not palpable. HEART: First and second heart sounds are normal; no edema. LUNGS: Respiratory rate normal; clear to auscultation. ABDOMEN: Soft, distended, mild tenderness, no guarding rigidity liver spleen not palpable, no masses palpable. Binder in place. KAYLEIGH drain. PSYCH: Alert and oriented x3; mood and affect normal. MUSCULOSKELETAL:No Clubbing/cyanosis;muscles-grossly intact INVESTIGATIONS, reviewed in the clinical context: August 12: White count 15.1 hemoglobin 15.8 potassium 4.3 creatinine 1.1 August 11: Echo 9.2 hemoglobin 15.9 potassium 4.2 creatinine 1.05 White count 13.8 hemoglobin 15.9 platelets 268 sodium 136 potassium 4.3 creatinine 1.27 UA: Negative Chest x-ray film personally reviewed by me-unremarkable Abdominal x-ray film personally reviewed by me: Air-fluid levels. Some stool on the right side. Computed tomography scan abdomen and pelvis with contrast: Dilated small bowel in the mid abdomen suggested a partial mechanical small bowel obstruction. Transition point not seen. Assessment and plan: -Acute small bowel obstruction with no obvious transition point in a patient with probable prior small bowel surgery for lymphoma. NG tube to suction. Nothing by mouth. IV fluids: Underwent partial resection . August 12. NG tube remains in place. IV fluids. -Morbid obesity BMI of 41.1 Weight loss measures -Essential hypertension Cozaar 50 mg a day -GERD Nexium 40 mg twice a day -Hepatic steatosis Follow-up with PCP Nothing by mouth. NG tube to suction. DC Aldridge. Up in chair. Activity is started. IV fluids. IV Levaquin.
[2021-08-12] MEDS: PSEUDOEPHEDRINE 12HR 120 MG TABLET.ER PO SCH (19:49)
[2021-08-13] MEDS: KETOROLAC 15 MG/ML 1 ML VIAL IVP SCH ×3 (00:13→13:04)
[2021-08-13] MEDS: HEPARIN SODIUM,PORCINE/PF 5,000 UNIT/0.5 ML SYRINGE SQ SCH ×3 (00:14→15:14)
[2021-08-13] MEDS: SODIUM CHLORIDE 0.9% 1,000 ML IV SCH ×3 (02:35→17:43)
[2021-08-13] MEDS: HYDROmorphone 1 MG/ML 1 ML SYRINGE IVP PRN ×2 (02:56→17:45)
[2021-08-13] MEDS: PSEUDOEPHEDRINE 12HR 120 MG TABLET.ER PO SCH ×2 (09:52→20:42)
[2021-08-13] MEDS: PANTOPRAZOLE 40 MG TABLET PO SCH ×2 (09:52→17:35)
[2021-08-13] MEDS: LOSARTAN 50 MG TAB PO SCH (09:52)
--- NOTE | 2021-08-13 11:32 | P.PN ---
Subjective Progress Note Date: 08/13/21 CHIEF COMPLAINT: Abdominal pain HISTORY OF PRESENT ILLNESS: Patient is status post exploratory laparotomy, extensive lysis of adhesions, small bowel resection and repair of recurrent incarcerated incisional hernia. Postop day #2. Patient complains of abdominal pain. But reports the pain is controlled with pain medication. Denies any flatus. He does rate his pain about a 3 out of 10. Denies any nausea. No output recorded through NG tube. Afebrile. Labs from today are pending Patient reporting that he is having abdominal pain. He is due for pain medication. He also is complaining of some nausea. He has NG tube in place. He had 900 mL output through the NG tube. He is currently nothing by mouth except for ice chips. Afebrile. Tachycardia. White count is up at 15.1. Hemoglobin 15.8 platelets 212 creatinine 1.10 PHYSICAL EXAM: VITAL SIGNS: Reviewed. GENERAL: Well-developed in no acute distress. HEENT: No sclera icterus. Extraocular movements grossly intact. Moist buccal m ucosa. Head is atraumatic, normocephalic. ABDOMEN: Soft. Distended. Incisional dressing clean dry and intact. Abdominal binder in place. KAYLEIGH drain with sanguinous output NEUROLOGIC: Alert and oriented. Cranial nerves II through XII grossly intact. ASSESSMENT: 1. Small bowel obstruction secondary to recurrent incarcerated incisional hernia with extensive abdominal adhesions status post exploratory laparotomy, extensive lysis of adhesions, small bowel resection and repair of recurrent inca rcerated incisional hernia PLAN: -Continue NG tube for decompression -Keep patient nothing by mouth -Continue antibiotics -Continue pain medication -Continue antiemetics -Continue IV fluids -Continue supportive care -Continue incentive spirometer -DVT prophylaxis subcu heparin and GI prophylaxis Protonix Physician Environmental Protection Specialist note has been reviewed by physician. Signing provider agrees with the documented findings, assessment, and plan of care. I have personally seen and examined the patient, reviewed the INTERNAL COMBUSTION ENGINE SUBASSEMBLER /PAs history, exam and MDM and agree with the assessment and plan as written. Based on total visit time, I have performed more than 50% of the visit. As above: Patient doing well today. Pain is improved. He is passing flatus. We'll remove the nasogastric tube. Continue ice chips only for now. Possibly start clear liquids tomorrow. Objective - Vital Signs Vital signs: Vital Signs Temp 98.4 F 08/13/21 10:00 Pulse 80 08/13/21 10:00 Resp 18 08/13/21 10:00 BP 151/95 08/13/21 10:00 Pulse Ox 94 L 08/13/21 04:54 Intake & Output 08/12/21 08/13/21 08/13/21 18:59 06:59 18:59 Intake Total 1560 Output Total 460 620 Balance -460 940 Weight 126.099 kg Intake: Intake, IV Titration 1560 Amount Sodium Chloride 0.9% 1, 1560 000 ml @ 130 mls/hr IV . Q7H42M [facility] Rx#:[id number] Oral 0 Output: Drainage 30 20 Abdomen 30 20 Urine 430 600 Other: Voiding Method Indwelling Catheter Urinal # Voids 0 # Bowel Movements 0 - Labs CBC & Chem 7: 08/13/21 11:53 08/13/21 11:53
[2021-08-13 12:17] LABS: Basophils % (A) 0 %; Eosinophils # (A) 0.2 k/uL (0-0.7); Eosinophils % (A) 2 %; HCT 43.6 % (39.0-53.0); HGB 14.2 gm/dL (13.0-17.5); Lymphocytes # (A) 1.5 k/uL (1.0-4.8); Lymphocytes % (A) 13 %; MCH 29.5 pg (25.0-35.0); MCHC 32.6 g/dL (31.0-37.0); MCV 90.6 fL (80.0-100.0); Mean Platelet Volume 7.6; Monocytes # (A) 0.6 k/uL (0-1.0); Monocytes % (A) 5 %; Neutrophils # (A) 8.8 k/uL (1.3-7.7); Neutrophils % (A) 78 %; Platelet Count 212 k/uL (150-450); RBC 4.81 m/uL (4.30-5.90); WBC 11.3 k/uL (3.8-10.6)
[2021-08-13 12:30] LABS: African American GFR (CKD) >90 (>60 ml/min/1.73 sqM); Anion Gap 9 mmol/L; Blood Urea Nitrogen 17 mg/dL (9-20); Calcium 8.4 mg/dL (8.4-10.2); Carbon Dioxide 22 mmol/L (22-30); Chloride 108 mmol/L (98-107); Glucose 84 mg/dL (74-99); Non-African American GFR(CKD) 87 (>60 ml/min/1.73 sqM); Potassium 4.2 mmol/L (3.5-5.1); Sodium 139 mmol/L (137-145)
[2021-08-13] MEDS: LEVOFLOXACIN 500MG-D5W PMX 500 MG in DEXTROSE/WATER 1 100ML.BAG IVPB SCH (13:07)
--- NOTE | 2021-08-13 16:23 | P.PN ---
Progress Note - Text Progress Note Date: 08/13/21 Chief Complaint: Abdominal cramping This is a pleasant 50-year-old patient of Dr. Hollis. Chronic stable medical conditions include GERD, hypertension, morbid obesity hepatic steatosis. 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 Has had recurrent bowel obstructions. Often managed with NG tube suction and conservative management. Patient ate lunch and following that patient started having abdominal cramping yesterday. For by nausea vomiting. Increasing abdominal pain. Had a bowel movement on 5 PM yesterday. Normally has a bowel movement every day. Presented to ER with partial small bowel obstruction. NG tube was placed. Abdomen is distended this morning. Still having abdominal pain. Being followed by surgery August 11: NG tube remained in place. Saw the patient before going on for surgery this afternoon. Had been passing some flatus. Abdominal pain present. Patient's found to have several adhesions and a small partial small bowel resected. was present at the bedside. August 12: NG tube in place. About thousand cc through a G-tube. Aldridge catheter discontinued today. Nothing by mouth. Abdominal pain. No flatus. Had the patient set up in a chair. Has a KAYLEIGH drain August 13: NG tube remains in place. Possible flatus. No BM. Abdomen distended. Abdominal pain present. Changing of water. KAYLEIGH drain in place. Active Medications Heparin Sodium (Porcine) (Heparin Sodium,Porcine/Pf 5,000 Unit/0.5 Ml Syringe) 5,000 unit SQ Q8HR [facility] Last Admin: 08/13/21 15:14 Dose: 5,000 unit Documented by: Hydromorphone HCl (Hydromorphone 1 Mg/Ml 1 Ml Syringe) 1 mg IVP Q3HR PRN PRN Reason: Pain Last Admin: 08/13/21 02:56 Dose: 1 mg Documented by: Hydromorphone HCl (Hydromorphone 1 Mg/Ml 1 Ml Syringe) 1 mg IVP Q3HR PRN PRN Reason: Moderate to Severe Pain Sodium Chloride (Saline 0.9%) 1,000 mls @ 130 mls/hr IV .Q7H42M [facility] Last Admin: 08/13/21 09:52 Dose: 130 mls/hr Documented by: Levofloxacin 500 mg/ IV (Solution) 100 mls @ 100 mls/hr IVPB Q24H [facility]; Protocol Last Admin: 08/13/21 13:07 Dose: 100 mls/hr Documented by: Losartan Potassium (Losartan 50 Mg Tab) 50 mg PO DAILY [facility] Last Admin: 08/13/21 09:52 Dose: 50 mg Documented by: Naloxone HCl (Naloxone 0.4 Mg/Ml 1 Ml Vial) 0.2 mg IV Q2M PRN PRN Reason: Opioid Reversal Ondansetron HCl (Ondansetron 4 Mg/2 Ml Vial) 4 mg IVP Q6HR PRN PRN Reason: Nausea And Vomiting Last Admin: 08/12/21 09:14 Dose: 4 mg Documented by: Pantoprazole Sodium (Pantoprazole 40 Mg Tablet) 40 mg PO AC-BID [facility] Last Admin: 08/13/21 09:52 Dose: 40 mg Documented by: Pseudoephedrine HCl (Pseudoephedrine 12hr 120 Mg Tablet.Er) 120 mg PO BID [facility] Last Admin: 08/13/21 09:52 Dose: 120 mg Documented by: Past history to include: DVT right leg, lymphoma small bowel surgery and chemotherapy in 2003, hypertension, GERD, obesity, morbid obesity 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 Alcohol occasionally. Family history: Reviewed, noncontributory to presentation Physical examination: VITAL SIGNS: 99.1, 1 or 2, 20, 160 [place] 95, 93% room air GENERAL: He planning in bed, awake EYES: Pupils equal. Conjunctiva normal. HEENT: External appearance of nose and ears normal, oral cavity dry mucous membrane, NG tube. NECK: JVD not raised; masses not palpable. HEART: First and second heart sounds are normal; no edema. LUNGS: Respiratory rate normal; clear to auscultation. ABDOMEN: Soft, distended, mild tenderness, no guarding rigidity liver spleen not palpable, no masses palpable. Binder in place. KAYLEIGH drain. PSYCH: Alert and oriented x3; mood and affect normal. MUSCULOSKELETAL:No Clubbing/cyanosis;muscles-grossly intact INVESTIGATIONS, reviewed in the clinical context: August 13: White count 11.3 hemoglobin 14.2 potassium 4.2 creatinine 0.99 August 12: White count 15.1 hemoglobin 15.8 potassium 4.3 creatinine 1.1 August 10: Echo 9.2 hemoglobin 15.9 potassium 4.2 creatinine 1.05 White count 13.8 hemoglobin 15.9 platelets 268 sodium 136 potassium 4.3 creatinine 1.27 UA: Negative Chest x-ray film personally reviewed by me-unremarkable Abdominal x-ray film personally reviewed by me: Air-fluid levels. Some stool on the right side. Computed tomography scan abdomen and pelvis with contrast: Dilated small bowel in the mid abdomen suggested a partial mechanical small bowel obstruction. Transition point not seen. Assessment and plan: -Acute small bowel obstruction with no obvious transition point in a patient with probable prior small bowel surgery for lymphoma. NG tube to suction. Nothing by mouth. IV fluids: Underwent partial resection . August 12. NG tube remains in place. IV fluids. -Morbid obesity BMI of 41.1 Weight loss measures -Essential hypertension Cozaar 50 mg a day -GERD Nexium 40 mg twice a day -Hepatic steatosis Follow-up with PCP Nothing by mouth. NG tube to suction. Tired. IV fluids. IV Levaquin. Discussed with patient
[2021-08-14] MEDS ORDERED: HEPARIN SODIUM,PORCINE 5,000 UNIT/ML 1 ML VIAL ONE (00:59)
[2021-08-14] MEDS: SODIUM CHLORIDE 0.9% 1,000 ML IV SCH ×3 (06:25→17:33)
[2021-08-14] MEDS: HEPARIN SODIUM,PORCINE/PF 5,000 UNIT/0.5 ML SYRINGE SQ SCH ×4 (06:25→23:38)
[2021-08-14 09:35] LABS: Basophils % (A) 0 %; Eosinophils # (A) 0.4 k/uL (0-0.7); Eosinophils % (A) 3 %; HCT 41.5 % (39.0-53.0); HGB 13.7 gm/dL (13.0-17.5); Lymphocytes # (A) 1.5 k/uL (1.0-4.8); Lymphocytes % (A) 15 %; MCHC 33.1 g/dL (31.0-37.0); MCV 90.8 fL (80.0-100.0); Mean Platelet Volume 7.8; Monocytes # (A) 0.6 k/uL (0-1.0); Monocytes % (A) 6 %; Neutrophils # (A) 7.5 k/uL (1.3-7.7); Neutrophils % (A) 74 %; Platelet Count 214 k/uL (150-450); RBC 4.58 m/uL (4.30-5.90); RDW 13.1 % (11.5-15.5); WBC 10.2 k/uL (3.8-10.6)
[2021-08-14] MEDS: LOSARTAN 50 MG TAB PO SCH (09:39)
[2021-08-14] MEDS: PANTOPRAZOLE 40 MG TABLET PO SCH ×2 (09:39→17:38)
[2021-08-14] MEDS: PSEUDOEPHEDRINE 12HR 120 MG TABLET.ER PO SCH ×2 (09:39→23:38)
[2021-08-14] MEDS: HYDROmorphone 1 MG/ML 1 ML SYRINGE IVP PRN ×2 (09:41→12:49)
--- NOTE | 2021-08-14 13:02 | P.PN ---
Subjective Progress Note Date: 08/14/21 CHIEF COMPLAINT: Abdominal pain HISTORY OF PRESENT ILLNESS: Patient is status post exploratory laparotomy, extensive lysis of adhesions, small bowel resection and repair of recurrent incarcerated incisional hernia. Postop day #3. Patient does complain of abdominal pain. He rates pain about a 4 out of 10. He is having flatus and bowel movement. Denies any nausea or vomiting. NG tube was removed yesterday. He is currently tolerating ice chips. KAYLEIGH drain 15 mL serosanguineous output PHYSICAL EXAM: VITAL SIGNS: Reviewed. GENERAL: Well-developed in no acute distress. HEENT: No sclera icterus. Extraocular movements grossly intact. Moist buccal mucosa. Head is atraumatic, normocephalic. ABDOMEN: Soft. Mildly Distended. Incisional dressing clean dry and intact. Abdominal binder in place. KAYLEIGH drain with sanguinous output NEUROLOGIC: Alert and oriented. Cranial nerves II through XII grossly intact. ASSESSMENT: 1. Small bowel obstruction secondary to recurrent incarcerated incisional hernia with extensive abdominal adhesions status post exploratory laparotomy, extensive lysis of adhesions, small bowel resection and repair of recurrent incarcerated incisional hernia PLAN: -Nothing by mouth except for ice chips and medications -[place] added PRN for pain -Continue antibiotics -Continue pain medication -Continue antiemetics -Continue IV fluids -Continue supportive care -Continue incentive spirometer -Encourage patient to ambulate -DVT prophylaxis subcu heparin and GI prophylaxis Protonix Physician Patch Sander note has been reviewed by physician. Signing provider agrees with the documented findings, assessment, and plan of care. I have personally seen and examined the patient, reviewed the PHTHALIC ACID PURIFIER /PAs history, exam and MDM and agree with the assessment and plan as written. Based on total visit time, I have performed more than 50% of the visit. As above: Patient seems to be doing better. Passing flatus. His abdominal pain is improved today. KAYLEIGH drain is serosanguineous. Agree with increasing activity. Will begin clear liquids. Objective - Vital Signs Vital signs: Vital Signs Temp 98.4 F 08/14/21 09:52 Pulse 80 08/14/21 09:52 Resp 18 08/14/21 09:52 BP 128/81 08/14/21 09:52 Pulse Ox 93 L 08/14/21 05:00 Intake & Output 08/13/21 08/14/21 08/14/21 18:59 06:59 18:59 Intake Total 1560 Output Total 600 315 600 Balance 960 -315 -600 Intake: Intake, IV Titration 1560 Amount Sodium Chloride 0.9% 1, 1560 000 ml @ 130 mls/hr IV . Q7H42M [facility] Rx#:[id number] Output: Drainage 15 Abdomen 15 Urine 600 300 600 Other: Voiding Method Urinal Urinal # Voids 2 - Labs CBC & Chem 7: 08/14/21 09:10 08/13/21 11:53
[2021-08-14] MEDS: LEVOFLOXACIN 500MG-D5W PMX 500 MG in DEXTROSE/WATER 1 100ML.BAG IVPB SCH (14:49)
[2021-08-14] MEDS: HYDROcodone/APAP 5-325MG 1 EACH TAB PO PRN ×2 (16:21→23:57)
--- NOTE | 2021-08-14 17:37 | P.PN ---
Progress Note - Text Progress Note Date: 08/14/21 Chief Complaint: Abdominal cramping This is a pleasant 50-year-old patient of Dr. Hollis. Chronic stable medical conditions include GERD, hypertension, morbid obesity hepatic steatosis. 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 Has had recurrent bowel obstructions. Often managed with NG tube suction and conservative management. Patient ate lunch and following that patient started having abdominal cramping yesterday. For by nausea vomiting. Increasing abdominal pain. Had a bowel movement on 5 PM yesterday. Normally has a bowel movement every day. Presented to ER with partial small bowel obstruction. NG tube was placed. Abdomen is distended this morning. Still having abdominal pain. Being followed by surgery August 11: NG tube remained in place. Saw the patient before going on for surgery this afternoon. Had been passing some flatus. Abdominal pain present. Patient's found to have several adhesions and a small partial small bowel resected. was present at the bedside. August 12: NG tube in place. About thousand cc through a G-tube. Aldridge catheter discontinued today. Nothing by mouth. Abdominal pain. No flatus. Had the patient set up in a chair. Has a KAYLEIGH drain August 13: NG tube remains in place. Possible flatus. No BM. Abdomen distended. Abdominal pain present. Changing of water. KAYLEIGH drain in place. August 14: NG tube discontinued yesterday. Has been passing flatus. No BM. Some abdominal distention and pain. KAYLEIGH drain. Encourage the patient ambulated in the hallway. Active Medications Hydrocodone Bitart/Acetaminophen (Hydrocodone/Apap 5-325mg 1 Each Tab) 1 each PO Q4HR PRN PRN Reason: Pain Last Admin: 08/14/21 16:21 Dose: 1 each Documented by: Heparin Sodium (Porcine) (Heparin Sodium,Porcine/Pf 5,000 Unit/0.5 Ml Syringe) 5,000 unit SQ Q8HR [facility] Last Admin: 08/14/21 14:50 Dose: 5,000 unit Documented by: Hydromorphone HCl (Hydromorphone 1 Mg/Ml 1 Ml Syringe) 1 mg IVP Q3HR PRN PRN Reason: Pain Last Admin: 08/14/21 12:49 Dose: 1 mg Documented by: Hydromorphone HCl (Hydromorphone 1 Mg/Ml 1 Ml Syringe) 1 mg IVP Q3HR PRN PRN Reason: Moderate to Severe Pain Sodium Chloride (Saline 0.9%) 1,000 mls @ 130 mls/hr IV .Q7H42M [facility] Last Admin: 08/14/21 17:33 Dose: 130 mls/hr Documented by: Levofloxacin 500 mg/ IV (Solution) 100 mls @ 100 mls/hr IVPB Q24H [facility]; Protocol Last Admin: 08/14/21 14:49 Dose: 100 mls/hr Documented by: Losartan Potassium (Losartan 50 Mg Tab) 50 mg PO DAILY [facility] Last Admin: 08/14/21 09:39 Dose: 50 mg Documented by: Naloxone HCl (Naloxone 0.4 Mg/Ml 1 Ml Vial) 0.2 mg IV Q2M PRN PRN Reason: Opioid Reversal Ondansetron HCl (Ondansetron 4 Mg/2 Ml Vial) 4 mg IVP Q6HR PRN PRN Reason: Nausea And Vomiting Last Admin: 08/12/21 09:14 Dose: 4 mg Documented by: Pantoprazole Sodium (Pantoprazole 40 Mg Tablet) 40 mg PO AC-BID [facility] Last Admin: 08/14/21 09:39 Dose: 40 mg Documented by: Pseudoephedrine HCl (Pseudoephedrine 12hr 120 Mg Tablet.Er) 120 mg PO BID [facility] Last Admin: 08/14/21 09:39 Dose: 120 mg Documented by: Past history to include: DVT right leg, lymphoma small bowel surgery and chemotherapy in 2003, hypertension, GERD, obesity, morbid obesity Social history: [facility] for [email or web address]. . Nonsmoker. Alcohol occasionally. Family history: Reviewed, noncontributory to presentation Physical examination: VITAL SIGNS: 98.2, 84, 18, 1 46 x 80, 95% room air GENERAL: reclining in bed, awake EYES: Pupils equal. Conjunctiva normal. HEENT: External appearance of nose and ears normal, oral cavity dry mucous membrane, NG tube. NECK: JVD not raised; masses not palpable. HEART: First and second heart sounds are normal; no edema. LUNGS: Respiratory rate normal; clear to auscultation. ABDOMEN: Soft, distended, mild tenderness, no guarding rigidity liver spleen not palpable, no masses palpable. Binder in place. KAYLEIGH drain. PSYCH: Alert and oriented x3; mood and affect normal. MUSCULOSKELETAL:No Clubbing/cyanosis;muscles-grossly intact INVESTIGATIONS, reviewed in the clinical context: August 14: White count 10.2 hemoglobin 13.7 platelets 214 August 13: White count 11.3 hemoglobin 14.2 potassium 4.2 creatinine 0.99 August 12: White count 15.1 hemoglobin 15.8 potassium 4.3 creatinine 1.1 August 11: Echo 9.2 hemoglobin 15.9 potassium 4.2 creatinine 1.05 White count 13.8 hemoglobin 15.9 platelets 268 sodium 136 potassium 4.3 creatinine 1.27 UA: Negative Chest x-ray film personally reviewed by me-unremarkable Abdominal x-ray film personally reviewed by me: Air-fluid levels. Some stool on the right side. Computed tomography scan abdomen and pelvis with contrast: Dilated small bowel in the mid abdomen suggested a partial mechanical small bowel obstruction. Transition point not seen. Assessment and plan: -Acute small bowel obstruction with no obvious transition point in a patient with probable prior small bowel surgery for lymphoma. NG tube to suction. Nothing by mouth. IV fluids: Underwent partial resection . August 12. NG tube remains in place. IV fluids. -Morbid obesity BMI of 41.1 Weight loss measures -Essential hypertension Cozaar 50 mg a day -GERD Nexium 40 mg twice a day -Hepatic steatosis Follow-up with PCP Clear liquid diet. Increase activity. Chewing gum. Discussed with patient.
[2021-08-14] MEDS: ONDANSETRON 4 MG/2 ML VIAL IVP PRN (23:56)
[2021-08-15] MEDS: SODIUM CHLORIDE 0.9% 1,000 ML IV SCH ×4 (01:19→23:56)
[2021-08-15] MEDS: LOSARTAN 50 MG TAB PO SCH (08:18)
[2021-08-15] MEDS: HYDROcodone/APAP 5-325MG 1 EACH TAB PO PRN ×3 (08:18→19:54)
[2021-08-15] MEDS: HEPARIN SODIUM,PORCINE/PF 5,000 UNIT/0.5 ML SYRINGE SQ SCH (08:18)
[2021-08-15] MEDS: PANTOPRAZOLE 40 MG TABLET PO SCH ×2 (08:18→16:50)
[2021-08-15] MEDS: PSEUDOEPHEDRINE 12HR 120 MG TABLET.ER PO SCH ×2 (10:44→21:15)
--- NOTE | 2021-08-15 12:46 | P.PN ---
Progress Note - Text Progress Note Date: 08/15/21 Patient feels better. He's had some flatus. He is requesting repeat. He is complaining about heparin shots. He wants to be switched to Lovenox. On exam vital signs are stable. Abdomen soft. Incisions is clean and intact.. Patient was then advanced. Weeks for discharge home next 24-48 hours.
[2021-08-15] MEDS: LEVOFLOXACIN 500MG-D5W PMX 500 MG in DEXTROSE/WATER 1 100ML.BAG IVPB SCH (13:49)
[2021-08-15] MEDS: ONDANSETRON 4 MG/2 ML VIAL IVP PRN (13:57)
--- NOTE | 2021-08-15 15:01 | P.PN ---
Progress Note - Text Progress Note Date: 08/15/21 Chief Complaint: Abdominal cramping This is a pleasant 50-year-old patient of Dr. Hollis. Chronic stable medical conditions include GERD, hypertension, morbid obesity hepatic steatosis. 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 Has had recurrent bowel obstructions. Often managed with NG tube suction and conservative management. Patient ate lunch and following that patient started having abdominal cramping yesterday. For by nausea vomiting. Increasing abdominal pain. Had a bowel movement on 5 PM yesterday. Normally has a bowel movement every day. Presented to ER with partial small bowel obstruction. NG tube was placed. Abdomen is distended this morning. Still having abdominal pain. Being followed by surgery August 11: NG tube remained in place. Saw the patient before going on for surgery this afternoon. Had been passing some flatus. Abdominal pain present. Patient's found to have several adhesions and a small partial small bowel resected. was present at the bedside. August 12: NG tube in place. About thousand cc through a G-tube. Aldridge catheter discontinued today. Nothing by mouth. Abdominal pain. No flatus. Had the patient set up in a chair. Has a KAYLEIGH drain August 13: NG tube remains in place. Possible flatus. No BM. Abdomen distended. Abdominal pain present. Changing of water. KAYLEIGH drain in place. August 14: NG tube discontinued yesterday. Has been passing flatus. No BM. Some abdominal distention and pain. KAYLEIGH drain. Encourage the patient ambulated in the hallway. August 15: Patient is small bowel movement. Flatus. Abdominal pain. Has ambulated. No nausea vomiting. Clear liquid diet. at the bedside. Active Medications Hydrocodone Bitart/Acetaminophen (Hydrocodone/Apap 5-325mg 1 Each Tab) 1 each PO Q4HR PRN PRN Reason: Pain Last Admin: 08/15/21 14:42 Dose: 1 each Documented by: Enoxaparin Sodium (Enoxaparin 40 Mg/0.4 Ml Syringe) 40 mg SQ DAILY [facility] Hydromorphone HCl (Hydromorphone 1 Mg/Ml 1 Ml Syringe) 1 mg IVP Q3HR PRN PRN Reason: Pain Last Admin: 08/14/21 12:49 Dose: 1 mg Documented by: Hydromorphone HCl (Hydromorphone 1 Mg/Ml 1 Ml Syringe) 1 mg IVP Q3HR PRN PRN Reason: Moderate to Severe Pain Sodium Chloride (Saline 0.9%) 1,000 mls @ 130 mls/hr IV .Q7H42M [facility] Last Admin: 08/15/21 08:21 Dose: 130 mls/hr Documented by: Levofloxacin 500 mg/ IV (Solution) 100 mls @ 100 mls/hr IVPB Q24H [facility]; Protocol Last Admin: 08/15/21 13:49 Dose: 100 mls/hr Documented by: Losartan Potassium (Losartan 50 Mg Tab) 50 mg PO DAILY [facility] Last Admin: 08/15/21 08:18 Dose: 50 mg Documented by: Naloxone HCl (Naloxone 0.4 Mg/Ml 1 Ml Vial) 0.2 mg IV Q2M PRN PRN Reason: Opioid Reversal Ondansetron HCl (Ondansetron 4 Mg/2 Ml Vial) 4 mg IVP Q6HR PRN PRN Reason: Nausea And Vomiting Last Admin: 08/15/21 13:57 Dose: 4 mg Documented by: Pantoprazole Sodium (Pantoprazole 40 Mg Tablet) 40 mg PO AC-BID [facility] Last Admin: 08/15/21 08:18 Dose: 40 mg Documented by: Pseudoephedrine HCl (Pseudoephedrine 12hr 120 Mg Tablet.Er) 120 mg PO BID [facility] Last Admin: 08/15/21 10:44 Dose: 120 mg Documented by: Past history to include: DVT right leg, lymphoma small bowel surgery and chemotherapy in 2003, hypertension, GERD, obesity, morbid obesity Social history: [employer] for [employer]. . Nonsmoker. Alcohol occasionally. Family history: Reviewed, noncontributory to presentation Physical examination: VITAL SIGNS: 98.5, 97, 16, 138/86, 97% room air GENERAL: Up in a chair, EYES: Pupils equal. Conjunctiva normal. HEENT: External appearance of nose and ears normal, oral cavity dry mucous membrane, NG tube. NECK: JVD not raised; masses not palpable. HEART: First and second heart sounds are normal; no edema. LUNGS: Respiratory rate normal; clear to auscultation. ABDOMEN: Soft, distended, mild tenderness, no guarding rigidity liver spleen not palpable, no masses palpable. Binder in place. KAYLEIGH drain. PSYCH: Alert and oriented x3; mood and affect normal. MUSCULOSKELETAL:No Clubbing/cyanosis;muscles-grossly intact INVESTIGATIONS, reviewed in the clinical context: August 14: White count 10.2 hemoglobin 13.7 platelets 214 August 13: White count 11.3 hemoglobin 14.2 potassium 4.2 creatinine 0.99 August 12: White count 15.1 hemoglobin 15.8 potassium 4.3 creatinine 1.1 August 11: Echo 9.2 hemoglobin 15.9 potassium 4.2 creatinine 1.05 White count 13.8 hemoglobin 15.9 platelets 268 sodium 136 potassium 4.3 creatinine 1.27 UA: Negative Chest x-ray film personally reviewed by me-unremarkable Abdominal x-ray film personally reviewed by me: Air-fluid levels. Some stool on the right side. Computed tomography scan abdomen and pelvis with contrast: Dilated small bowel in the mid abdomen suggested a partial mechanical small bowel obstruction. Transition point not seen. Assessment and plan: -Acute small bowel obstruction with no obvious transition point in a patient with prior small bowel surgery for lymphoma. Underwent partial small bowel resection - August 12. NG tube discontinued. Clear liquid diet -Morbid obesity BMI of 41.1 Weight loss measures -Essential hypertension Cozaar 50 mg a day -GERD Nexium 40 mg twice a day -Hepatic steatosis Follow-up with PCP Clear liquid diet. Increase activity. Chewing gum. Discussed with patient and .
[2021-08-16] MEDS: LOSARTAN 50 MG TAB PO SCH (07:59)
[2021-08-16] MEDS: SODIUM CHLORIDE 0.9% 1,000 ML IV SCH ×3 (07:59→22:53)
[2021-08-16] MEDS: ENOXAPARIN 40 MG/0.4 ML SYRINGE SQ SCH (07:59)
[2021-08-16] MEDS: PANTOPRAZOLE 40 MG TABLET PO SCH ×2 (07:59→16:39)
[2021-08-16] MEDS: HYDROcodone/APAP 5-325MG 1 EACH TAB PO PRN ×3 (07:59→20:40)
[2021-08-16] MEDS: PSEUDOEPHEDRINE 12HR 120 MG TABLET.ER PO SCH ×2 (08:00→20:41)
--- NOTE | 2021-08-16 10:06 | P.PN ---
Progress Note - Text Progress Note Date: 08/16/21 Patient feels slightly better today. He states his pain is slightly better than yesterday. On exam vital signs are stable. Abdomen is soft. Incision site is clean dry tach. Status post repair of incarcerated incisional hernia and small bowel resection. Patient will continue receive supportive care. He will have his diet advanced once his bowel function improves.
[2021-08-16] MEDS: LEVOFLOXACIN 500MG-D5W PMX 500 MG in DEXTROSE/WATER 1 100ML.BAG IVPB SCH (12:45)
--- NOTE | 2021-08-16 12:55 | P.PN ---
Progress Note - Text Progress Note Date: 08/16/21 Chief Complaint: Abdominal cramping This is a pleasant 50-year-old patient of Dr. Hollis. Chronic stable medical conditions include GERD, hypertension, morbid obesity hepatic steatosis. 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 Has had recurrent bowel obstructions. Often managed with NG tube suction and conservative management. Patient ate lunch and following that patient started having abdominal cramping yesterday. For by nausea vomiting. Increasing abdominal pain. Had a bowel movement on 5 PM yesterday. Normally has a bowel movement every day. Presented to ER with partial small bowel obstruction. NG tube was placed. Abdomen is distended this morning. Still having abdominal pain. Being followed by surgery August 11: NG tube remained in place. Saw the patient before going on for surgery this afternoon. Had been passing some flatus. Abdominal pain present. Patient's found to have several adhesions and a small partial small bowel resected. was present at the bedside. August 12: NG tube in place. About thousand cc through a G-tube. Aldridge catheter discontinued today. Nothing by mouth. Abdominal pain. No flatus. Had the patient set up in a chair. Has a KAYLEIGH drain August 13: NG tube remains in place. Possible flatus. No BM. Abdomen distended. Abdominal pain present. Changing of water. KAYLEIGH drain in place. August 14: NG tube discontinued yesterday. Has been passing flatus. No BM. Some abdominal distention and pain. KAYLEIGH drain. Encourage the patient ambulated in the hallway. August 15: Patient is small bowel movement. Flatus. Abdominal pain. Has ambulated. No nausea vomiting. Clear liquid diet. at the bedside. August 16: No BM. Flatus. Has been up about in the hallway. Advance to full liquid diet by surgery. Discussed with patient and at the bedside. Active Medications Hydrocodone Bitart/Acetaminophen (Hydrocodone/Apap 5-325mg 1 Each Tab) 1 each PO Q4HR PRN PRN Reason: Pain Last Admin: 08/16/21 07:59 Dose: 1 each Documented by: Enoxaparin Sodium (Enoxaparin 40 Mg/0.4 Ml Syringe) 40 mg SQ DAILY [facility] Last Admin: 08/16/21 07:59 Dose: 40 mg Documented by: Hydromorphone HCl (Hydromorphone 1 Mg/Ml 1 Ml Syringe) 1 mg IVP Q3HR PRN PRN Reason: Pain Last Admin: 08/14/21 12:49 Dose: 1 mg Documented by: Hydromorphone HCl (Hydromorphone 1 Mg/Ml 1 Ml Syringe) 1 mg IVP Q3HR PRN PRN Reason: Moderate to Severe Pain Sodium Chloride (Saline 0.9%) 1,000 mls @ 130 mls/hr IV .Q7H42M [facility] Last Admin: 08/16/21 12:45 Dose: 130 mls/hr Documented by: Levofloxacin 500 mg/ IV (Solution) 100 mls @ 100 mls/hr IVPB Q24H [facility]; Protocol Last Admin: 08/16/21 12:45 Dose: 100 mls/hr Documented by: Losartan Potassium (Losartan 50 Mg Tab) 50 mg PO DAILY [facility] Last Admin: 08/16/21 07:59 Dose: 50 mg Documented by: Naloxone HCl (Naloxone 0.4 Mg/Ml 1 Ml Vial) 0.2 mg IV Q2M PRN PRN Reason: Opioid Reversal Ondansetron HCl (Ondansetron 4 Mg/2 Ml Vial) 4 mg IVP Q6HR PRN PRN Reason: Nausea And Vomiting Last Admin: 08/15/21 13:57 Dose: 4 mg Documented by: Pantoprazole Sodium (Pantoprazole 40 Mg Tablet) 40 mg PO AC-BID [facility] Last Admin: 08/16/21 07:59 Dose: 40 mg Documented by: Pseudoephedrine HCl (Pseudoephedrine 12hr 120 Mg Tablet.Er) 120 mg PO BID [facility] Last Admin: 08/16/21 08:00 Dose: 120 mg Documented by: Past history to include: DVT right leg, lymphoma small bowel surgery and chemotherapy in 2003, hypertension, GERD, obesity, morbid obesity Social history: [employer] for [employer]. . Nonsmoker. Alcohol occasionally. Family history: Reviewed, noncontributory to presentation Physical examination: VITAL SIGNS: 97.8, 91, 16, 142/77, 93% room air GENERAL: Up in a chair, EYES: Pupils equal. Conjunctiva normal. HEENT: External appearance of nose and ears normal, oral cavity dry mucous mem brane, NG tube. NECK: JVD not raised; masses not palpable. HEART: First and second heart sounds are normal; no edema. LUNGS: Respiratory rate normal; clear to auscultation. ABDOMEN: Soft, distended, mild tenderness, no guarding rigidity liver spleen not palpable, no masses palpable. Binder in place. KAYLEIGH drain. PSYCH: Alert and oriented x3; mood and affect normal. MUSCULOSKELETAL:No Clubbing/cyanosis;muscles-grossly intact INVESTIGATIONS, reviewed in the clinical context: August 14: White count 10.2 hemoglobin 13.7 platelets 214 August 13: White count 11.3 hemoglobin 14.2 potassium 4.2 creatinine 0.99 August 12: White count 15.1 hemoglobin 15.8 potassium 4.3 creatinine 1.1 August 11: Echo 9.2 hemoglobin 15.9 potassium 4.2 creatinine 1.05 White count 13.8 hemoglobin 15.9 platelets 268 sodium 136 potassium 4.3 creatinine 1.27 UA: Negative Chest x-ray film personally reviewed by me-unremarkable Abdominal x-ray film personally reviewed by me: Air-fluid levels. Some stool on the right side. Computed tomography scan abdomen and pelvis with contrast: Dilated small bowel in the mid abdomen suggested a partial mechanical small bowel obstruction. Transition point not seen. Assessment and plan: -Acute small bowel obstruction with no obvious transition point in a patient with prior small bowel surgery for lymphoma. Underwent partial small bowel resection - August 12. NG tube discontinued. Full liquid diet -Morbid obesity BMI of 41.1 Weight loss measures -Essential hypertension Cozaar 50 mg a day -GERD Nexium 40 mg twice a day -Hepatic steatosis Follow-up with PCP Fall liquid diet. Increase activity. . Discussed with patient and .
[2021-08-17] MEDS: ONDANSETRON 4 MG/2 ML VIAL IVP PRN (02:17)
[2021-08-17] MEDS: SODIUM CHLORIDE 0.9% 1,000 ML IV SCH (05:35)
[2021-08-17] MEDS: ENOXAPARIN 40 MG/0.4 ML SYRINGE SQ SCH (08:42)
[2021-08-17] MEDS: PANTOPRAZOLE 40 MG TABLET PO SCH ×2 (08:42→17:06)
[2021-08-17] MEDS: LOSARTAN 50 MG TAB PO SCH (08:42)
[2021-08-17] MEDS: PSEUDOEPHEDRINE 12HR 120 MG TABLET.ER PO SCH ×2 (08:42→20:27)
--- NOTE | 2021-08-17 11:37 | P.PN ---
Subjective Progress Note Date: 08/17/21 CHIEF COMPLAINT: Abdominal pain HISTORY OF PRESENT ILLNESS: Patient is status post exploratory laparotomy, extensive lysis of adhesions, small bowel resection and repair of recurrent incarcerated incisional hernia. Postop day #6. Patient is sitting up bedside chair. He does report some abdominal pain. Denies any nausea or vomiting. He is currently on a dysphagia chopped diet. Patient has been having flatus. Last bowel movement recorded on 08/15/2021. Afebrile. No new labs PHYSICAL EXAM: VITAL SIGNS: Reviewed. GENERAL: Well-developed in no acute distress. HEENT: No sclera icterus. Extraocular movements grossly intact. Moist buccal mucosa. Head is atraumatic, normocephalic. ABDOMEN: Soft. Abdominal binder in place. KAYLEIGH drain with sanguinous output NEUROLOGIC: Alert and oriented. Cranial nerves II through XII grossly intact. ASSESSMENT: 1. Small bowel obstruction secondary to recurrent incarcerated incisional hernia with extensive abdominal adhesions status post exploratory laparotomy, extensive lysis of adhesions, small bowel resection and repair of recurrent incarcerated incisional hernia PLAN: -Continue dysphagia chopped diet -Continue antibiotics -Continue pain medication -heplock IV -Continue supportive care -Continue incentive spirometer -Encourage patient to ambulate -DVT prophylaxis subcu heparin and GI prophylaxis Protonix Physician Security Technician note has been reviewed by physician. Signing provider agrees with the documented findings, assessment, and plan of care. I have personally seen and examined the patient, reviewed the ELECTRONICS DESIGN ENGINEER /PAs history, exam and MDM and agree with the assessment and plan as written. Based on total visit time, I have performed more than 50% of the visit. As above: Patient doing well today. He has had 2 bowel movements. Abdominal pain is improving. KAYLEIGH drain is serosanguineous. Continue regular foods. Ambulate. Anticipate discharge tomorrow. Objective - Vital Signs Vital signs: Vital Signs Temp 98.1 F 08/17/21 04:33 Pulse 87 08/17/21 08:39 Resp 18 08/17/21 04:33 BP 160/91 08/17/21 08:39 Pulse Ox 93 L 08/17/21 08:39 Intake & Output 08/16/21 08/17/21 08/17/21 18:59 06:59 18:59 Intake Total 2060 Output Total 1400 Balance 660 Intake: Intake, IV Titration 1560 Amount Sodium Chloride 0.9% 1, 1560 000 ml @ 130 mls/hr IV . Q7H42M [facility] Rx#:[id number] Oral 500 Output: Urine 1400 Other: Voiding Method Toilet Toilet Toilet Urinal Urinal Urinal # Voids 3 - Labs CBC & Chem 7: 08/14/21 09:10 08/13/21 11:53
[2021-08-17] MEDS: LEVOFLOXACIN 500MG-D5W PMX 500 MG in DEXTROSE/WATER 1 100ML.BAG IVPB SCH (13:08)
[2021-08-17 13:41] VITALS: BMI 41.0
--- NOTE | 2021-08-17 14:22 | P.PN ---
Progress Note - Text Progress Note Date: 08/17/21 Chief Complaint: Abdominal cramping This is a pleasant 50-year-old patient of Dr. Hollis. Chronic stable medical conditions include GERD, hypertension, morbid obesity hepatic steatosis. 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 Has had recurrent bowel obstructions. Often managed with NG tube suction and conservative management. Patient ate lunch and following that patient started having abdominal cramping yesterday. For by nausea vomiting. Increasing abdominal pain. Had a bowel movement on 5 PM yesterday. Normally has a bowel movement every day. Presented to ER with partial small bowel obstruction. NG tube was placed. Abdomen is distended this morning. Still having abdominal pain. Being followed by surgery August 11: NG tube remained in place. Saw the patient before going on for surgery this afternoon. Had been passing some flatus. Abdominal pain present. Patient's found to have several adhesions and a small partial small bowel resected. was present at the bedside. August 12: NG tube in place. About thousand cc through a G-tube. Aldridge catheter discontinued today. Nothing by mouth. Abdominal pain. No flatus. Had the patient set up in a chair. Has a KAYLEIGH drain August 13: NG tube remains in place. Possible flatus. No BM. Abdomen distended. Abdominal pain present. Changing of water. KAYLEIGH drain in place. August 14: NG tube discontinued yesterday. Has been passing flatus. No BM. Some abdominal distention and pain. KAYLEIGH drain. Encourage the patient ambulated in the hallway. August 15: Patient is small bowel movement. Flatus. Abdominal pain. Has ambulated. No nausea vomiting. Clear liquid diet. at the bedside. August 16: No BM. Flatus. Has been up about in the hallway. Advance to full liquid diet by surgery. Discussed with patient and at the bedside. August 17: Patient had explosive bowel movement 2 this morning. Advance to chopped diet. Feeling better. Ambulating. Active Medications Hydrocodone Bitart/Acetaminophen (Hydrocodone/Apap 5-325mg 1 Each Tab) 1 each PO Q4HR PRN PRN Reason: Pain Last Admin: 08/16/21 20:40 Dose: 1 each Documented by: Enoxaparin Sodium (Enoxaparin 40 Mg/0.4 Ml Syringe) 40 mg SQ DAILY [facility] Last Admin: 08/17/21 08:42 Dose: 40 mg Documented by: Hydromorphone HCl (Hydromorphone 1 Mg/Ml 1 Ml Syringe) 1 mg IVP Q3HR PRN PRN Reason: Pain Last Admin: 08/14/21 12:49 Dose: 1 mg Documented by: Hydromorphone HCl (Hydromorphone 1 Mg/Ml 1 Ml Syringe) 1 mg IVP Q3HR PRN PRN Reason: Moderate to Severe Pain Levofloxacin 500 mg/ IV (Solution) 100 mls @ 100 mls/hr IVPB Q24H [facility]; Protocol Last Admin: 08/17/21 13:08 Dose: 100 mls/hr Documented by: Losartan Potassium (Losartan 50 Mg Tab) 50 mg PO DAILY [facility] Last Admin: 08/17/21 08:42 Dose: 50 mg Documented by: Naloxone HCl (Naloxone 0.4 Mg/Ml 1 Ml Vial) 0.2 mg IV Q2M PRN PRN Reason: Opioid Reversal Ondansetron HCl (Ondansetron 4 Mg/2 Ml Vial) 4 mg IVP Q6HR PRN PRN Reason: Nausea And Vomiting Last Admin: 08/17/21 02:17 Dose: 4 mg Documented by: Pantoprazole Sodium (Pantoprazole 40 Mg Tablet) 40 mg PO AC-BID [facility] Last Admin: 08/17/21 08:42 Dose: 40 mg Documented by: Pseudoephedrine HCl (Pseudoephedrine 12hr 120 Mg Tablet.Er) 120 mg PO BID [facility] Last Admin: 08/17/21 08:42 Dose: Not Given Documented by: Past history to include: DVT right leg, lymphoma small bowel surgery and chemotherapy in 2003, hypertension, GERD, obesity, morbid obesity Social history: [employer] for [employer]. . Nonsmoker. Alcohol occasionally. Family history: Reviewed, noncontributory to presentation Physical examination: VITAL SIGNS: 98.1, 87, 14, 150/83, 97% room air GENERAL: Up in a chair, EYES: Pupils equal. Conjunctiva normal. HEENT: External appearance of nose and ears normal, oral cavity dry mucous membrane, NG tube. NECK: JVD not raised; masses not palpable. HEART: First and second heart sounds are normal; no edema. LUNGS: Respiratory rate normal; clear to auscultation. ABDOMEN: Soft, less distended, mild tenderness, no guarding rigidity liver spleen not palpable, no masses palpable. Binder in place. KAYLEIGH drain. PSYCH: Alert and oriented x3; mood and affect normal. MUSCULOSKELETAL:No Clubbing/cyanosis;muscles-grossly intact INVESTIGATIONS, reviewed in the clinical context: August 14: White count 10.2 hemoglobin 13.7 platelets 214 August 13: White count 11.3 hemoglobin 14.2 potassium 4.2 creatinine 0.99 August 12: White count 15.1 hemoglobin 15.8 potassium 4.3 creatinine 1.1 August 11: Echo 9.2 hemoglobin 15.9 potassium 4.2 creatinine 1.05 White count 13.8 hemoglobin 15.9 platelets 268 sodium 136 potassium 4.3 creatinine 1.27 UA: Negative Chest x-ray film personally reviewed by me-unremarkable Abdominal x-ray film personally reviewed by me: Air-fluid levels. Some stool on the right side. Computed tomography scan abdomen and pelvis with contrast: Dilated small bowel in the mid abdomen suggested a partial mechanical small bowel obstruction. Transition point not seen. Assessment and plan: -Acute small bowel obstruction with no obvious transition point in a patient with prior small bowel surgery for lymphoma. Underwent partial small bowel resection - August 12. NG tube discontinued. Had a large BM today. Advance to chopped diet. -Morbid obesity BMI of 41.1 Weight loss measures -Essential hypertension Cozaar 50 mg a day -GERD Nexium 40 mg twice a day -Hepatic steatosis Follow-up with PCP Attending better. Advance to chopped diet. Other medications to continue. Discussed with patient.
[2021-08-18] MEDS: HYDROcodone/APAP 5-325MG 1 EACH TAB PO PRN ×2 (02:04→14:09)
[2021-08-18] MEDS: PANTOPRAZOLE 40 MG TABLET PO SCH (09:49)
[2021-08-18] MEDS: LOSARTAN 50 MG TAB PO SCH (09:49)
[2021-08-18] MEDS: PSEUDOEPHEDRINE 12HR 120 MG TABLET.ER PO SCH (09:50)
[2021-08-18] MEDS: ENOXAPARIN 40 MG/0.4 ML SYRINGE SQ SCH (09:50)
--- NOTE | 2021-08-18 12:28 | P.PN ---
Subjective Progress Note Date: 08/18/21 CHIEF COMPLAINT: Abdominal pain HISTORY OF PRESENT ILLNESS: Patient is status post exploratory laparotomy, extensive lysis of adhesions, small bowel resection and repair of recurrent incarcerated incisional hernia. Postop day #7. Patient reports his abdominal pain is controlled. Denies any nausea or vomiting. Tolerating diet. Has been up and ambulating. Did have 4 bowel movements yesterday. KAYLEIGH drain with 25 mL sanguinous output this morning. Afebrile PHYSICAL EXAM: VITAL SIGNS: Reviewed. GENERAL: Well-developed in no acute distress. HEENT: No sclera icterus. Extraocular movements grossly intact. Moist buccal mucosa. Head is atraumatic, normocephalic. ABDOMEN: Soft. Incision site with a very small area of oozing blood in the middle of the incision. Otherwise clean dry and intact. KAYLEIGH drain with sanguinous output NEUROLOGIC: Alert and oriented. Cranial nerves II through XII grossly intact. ASSESSMENT: 1. Small bowel obstruction secondary to recurrent incarcerated incisional hernia with extensive abdominal adhesions status post exploratory laparotomy, extensive lysis of adhesions, small bowel resection and repair of recurrent incarcerated incisional hernia PLAN: -Patient can be discharged surgical standpoint -KAYLEIGH drain to be discontinued before discharge -Continue regular diet -Continue incentive spirometer -Encourage patient to ambulate -DVT prophylaxis subcu heparin and GI prophylaxis Protonix Physician Limousine Rental Clerk note has been reviewed by physician. Signing provider agrees with the documented findings, assessment, and plan of care. I have personally seen and examined the patient, reviewed the PROFESSOR OF PSYCHIATRY /PAs history, exam and MDM and agree with the assessment and plan as written. Based on total visit time, I have performed more than 50% of the visit. As above: Patient doing well today. Tolerating diet. May discharge. Follow- up one week. Objective - Vital Signs Vital signs: Vital Signs Temp 97.9 F 08/18/21 04:17 Pulse 79 08/18/21 04:17 Resp 20 08/18/21 04:17 BP 139/85 08/18/21 04:17 Pulse Ox 97 08/18/21 07:16 Intake & Output 08/17/21 08/18/21 08/18/21 18:59 06:59 18:59 Intake Total 120 Output Total 25 Balance 120 -25 Weight 126.099 kg Intake: Intake, IV Titration 120 Amount Sodium Chloride 0.9% 1, 120 000 ml @ 130 mls/hr IV . Q7H42M [facility] Rx#:[id number] Output: Drainage 25 Abdomen 25 Other: Voiding Method Toilet Toilet Toilet Urinal Urinal Urinal # Voids 1 - Labs CBC & Chem 7: 08/14/21 09:10 08/13/21 11:53
[2021-08-18 13:19] VITALS: BP 150/92; PULSE 85; RESP 16; TEMP 98.5
[2021-08-18] MEDS: LEVOFLOXACIN 500MG-D5W PMX 500 MG in DEXTROSE/WATER 1 100ML.BAG IVPB SCH (14:04)
--- NOTE | 2021-08-18 17:21 | P.DS ---
Providers Date of admission: 08/10/21 05:03 Expected date of discharge: 08/18/21 Attending physician: Hiram Nogueira Consults: 08/10/21 03:52 Consult Physician Urgent Consulting Provider: Chemo Mg Reason/Comments: part SBO Do you want consulting provider notified?: Yes, Notify in am Primary care physician: [facility] Course: Chief Complaint: Abdominal cramping This is a pleasant 50-year-old patient of Dr. Hollis. Chronic stable medical conditions include GERD, hypertension, morbid obesity hepatic steatosis. 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 Has had recurrent bowel obstructions. Often managed with NG tube suction and conservative management. Patient ate lunch and following that patient started having abdominal cramping yesterday. For by nausea vomiting. Increasing abdominal pain. Had a bowel movement on 5 PM yesterday. Normally has a bowel movement every day. Presented to ER with partial small bowel obstruction. NG tube was placed. Abdomen is distended this morning. Still having abdominal pain. Being followed by surgery. NG tube was removed. Patient underwent surgery found to several adhesions small bowel partial was resected. KAYLEIGH drain in place. Eventually patient's a good bowel movement. Up and about. August 18: Ambulatory. Tolerating diet. KAYLEIGH drain being removed by surgery. No antibiotics per surgery. 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 Questions answered. 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 . Nonsmoker. Alcohol occasionally. Family history: Reviewed, noncontributory to presentation Physical examination: VITAL SIGNS: 98.5, 95, 16, 150/92, 94% room air GENERAL: Up in a chair, comfortable EYES: Pupils equal. Conjunctiva normal. HEENT: External appearance of nose and ears normal, oral cavity dry mucous membrane, NG tube. NECK: JVD not raised; masses not palpable. HEART: First and second heart sounds are normal; no edema. LUNGS: Respiratory rate normal; clear to auscultation. ABDOMEN: Soft, not, mild tenderness, no guarding rigidity liver spleen not palpable, no masses palpable. Binder in place. KAYLEIGH drain. PSYCH: Alert and oriented x3; mood and affect normal. MUSCULOSKELETAL:No Clubbing/cyanosis;muscles-grossly intact INVESTIGATIONS, reviewed in the clinical context: August 14: White count 10.2 hemoglobin 13.7 platelets 214 White count 13.8 hemoglobin 15.9 platelets 268 sodium 136 potassium 4.3 creatinine 1.27 UA: Negative Chest x-ray film personally reviewed by me-unremarkable Abdominal x-ray film personally reviewed by me: Air-fluid levels. Some stool on the right side. Computed tomography scan abdomen and pelvis with contrast: Dilated small bowel in the mid abdomen suggested a partial mechanical small bowel obstruction. Transition point not seen. Assessment and plan: -Acute small bowel obstruction with no obvious transition point in a patient with prior small bowel surgery for lymphoma. Underwent partial small bowel resection - August 12. NG tube discontinued. Tolerating diet. -Morbid obesity BMI of 41.1 Weight loss measures -Essential hypertension Cozaar 50 mg a day -GERD Nexium 40 mg twice a day -Hepatic steatosis Follow-up with PCP Disposition: Home Patient Condition at Discharge: Fair Plan - Discharge Summary New Discharge Prescriptions: New HYDROcodone/APAP 5-325MG [[place] 5-325] 1 tab PO Q6HR PRN 3 Days #12 tab PRN Reason: Pain Continue Esomeprazole Magnesium [NexIUM] 40 mg PO BID Losartan Potassium [Cozaar] 50 mg PO DAILY Cholecalciferol [Vitamin D3 (25 Mcg = 1000 Iu)] 50 mcg PO DAILY Pseudoephedrine HCl [Sudafed 24-Hour] 240 mg PO DAILY Ibuprofen [Motrin] 800 mg PO TID PRN PRN Reason: Pain Discharge Medication List Esomeprazole Magnesium [NexIUM] 40 mg PO BID 05/04/20 [History] Losartan Potassium [Cozaar] 50 mg PO DAILY 05/04/20 [History] Cholecalciferol [Vitamin D3 (25 Mcg = 1000 Iu)] 50 mcg PO DAILY 08/10/21 [History] Ibuprofen [Motrin] 800 mg PO TID PRN 08/10/21 [History] Pseudoephedrine HCl [Sudafed 24-Hour] 240 mg PO DAILY 08/10/21 [History] HYDROcodone/APAP 5-325MG [[place] 5-325] 1 tab PO Q6HR PRN 3 Days #12 tab 08/18/21 [Rx] Follow up Appointment(s)/Referral(s): Chemo Mg MD [Medical Doctor] - 08/26/21 3:15 pm Frederic Hollis DO [Primary Care Provider] - 1 Week (The office will call you with an appointment time and date.) Patient Instructions/Handouts: Hydrocodone/Acetaminophen (By mouth), Acute Wounds (DC), Bowel Resection (DC) Activity/Diet/Wound Care/Special Instructions: No driving while taking [place] No lifting over 10 pounds You may shower. No soaking or tub baths for 2 weeks Very light activity until you are reevaluated at your follow up appointment with your surgeon Discharge Disposition: HOME SELF-CARE
== END 2021-08-18 16:25 | disposition home or self-care (01) | DRG 330 ==
LOC: EC 22:38 → 5NMEDONC 08-10 05:03
PROVIDERS: ADMIT Hospitalist; ATTEND Hospitalist
PROC: 0D9670Z Drainage of Stomach with Drainage Device, Via Natural or Artificial Opening (ICD-10-PCS; 2021-08-10)
PROC: 0DB80ZZ Excision of Small Intestine, Open Approach (ICD-10-PCS; principal; 2021-08-11 08:30)
PROC: 0DN80ZZ Release Small Intestine, Open Approach (ICD-10-PCS; principal; 2021-08-11 08:30)
DX: K43.0 Incisional hernia with obstruction, without gangrene (principal); Z68.41 Body mass index [BMI] 40.0-44.9, adult; K76.0 Fatty (change of) liver, not elsewhere classified; E66.01 Morbid (severe) obesity due to excess calories; K66.0 Peritoneal adhesions (postprocedural) (postinfection); I10 Essential (primary) hypertension; K21.9 Gastro-esophageal reflux disease without esophagitis; Z79.899 Other long term (current) drug therapy; Z86.718 Personal history of other venous thrombosis and embolism; Z92.21 Personal history of antineoplastic chemotherapy; Z90.49 Acquired absence of other specified parts of digestive tract; Z90.89 Acquired absence of other organs; Z87.19 Personal history of other diseases of the digestive system; Z95.828 Presence of other vascular implants and grafts; Z85.72 Personal history of non-Hodgkin lymphomas; Z98.890 Other specified postprocedural states; Z71.3 Dietary counseling and surveillance; Z88.0 Allergy status to penicillin; Z82.49 Family history of ischemic heart disease and other diseases of the circulatory system
CPT/HCPCS: 36415; 74018; 74019; 74022; 74177; 80048; 80053; 81003; 83605; 83690; 85025; 88307; 94760; 96374; 96375; 96376; 99285

== ENCOUNTER 2021-08-26 15:59 | Inpatient (IN) | payer BC ==
[2021-08-26] MEDS ORDERED: SODIUM CHLORIDE 0.9% 1,000 ML IV STA (17:12)
--- NOTE | 2021-08-26 17:15 | ED ---
General Adult HPI - General Chief complaint: Syncope Stated complaint: syncopal episode Time Seen by Provider: 08/26/21 17:05 Source: patient, family, RN notes reviewed, old records reviewed Mode of arrival: EMS Limitations: no limitations - History of Present Illness Initial comments: 50-year-old male who is 2 weeks postop abdominal surgery presenting for evaluation of near-syncope, lightheadedness and urinary frequency and urgency. Patient was seen by Dr. Mg for follow-up today. He had symptoms prior to his evaluation of lightheadedness and near syncope. The burning on urination and urinary frequency and urgency began today. He's had no measured fever. No chest pain or dyspnea. Mild cough which is chronic. He's had nausea without significant vomiting. He's had normal bowel movements. He states his abdomen is healing quite well. - Related Data Home Medications Medication Instructions Recorded Confirmed Esomeprazole Magnesium [NexIUM] 40 mg PO BID 05/04/20 08/26/21 Cholecalciferol [Vitamin D3 (25 50 mcg PO DAILY 08/10/21 08/26/21 Mcg = 1000 Iu)] Ibuprofen [Motrin] 800 mg PO TID PRN 08/10/21 08/26/21 Pseudoephedrine HCl [Sudafed 240 mg PO DAILY 08/10/21 08/26/21 24-Hour] Losartan [Cozaar] 50 mg PO DAILY 08/26/21 08/26/21 Previous Rx's Medication Instructions Recorded HYDROcodone/APAP 5-325MG [[place] 1 tab PO Q6HR PRN 3 Days #12 tab 08/18/21 5-325] Allergies Allergy/AdvReac Type Severity Reaction Status Date / Time Penicillins Allergy Anaphylaxis Verified 08/26/21 18:23 Review of Systems ROS Statement: Those systems with pertinent positive or pertinent negative responses have been documented in the HPI. ROS Other: All systems not noted in ROS Statement are negative. Past Medical History Past Medical History: Cancer, Deep Vein Thrombosis (DVT), GERD/Reflux, Hypertension Additional Past Medical History / Comment(s): Lymphoma/small bowel with surgery and chemo in 2003, small bowel obstructions, DVT R calf, History of Any Multi-Drug Resistant Organisms: None Reported Past Surgical History: Bowel Resection, Cholecystectomy, Hernia Repair, Tonsillectomy Additional Past Surgical History / Comment(s): Bowel resection d/t small bowel lymphoma, colonoscopies, incisional hernia repair with mesh x2, vanita filter, port a cath -now removed, bowel resection x2 Past Anesthesia/Blood Transfusion Reactions: No Reported Reaction Past Psychological History: No Psychological Hx Reported Smoking Status: Never smoker Past Alcohol Use History: Occasional Past Drug Use History: None Reported, Unable to Obtain - Past Family History Mother Family Medical History: No Reported History Additional Family Medical History / Comment(s): Mother is healthy Father Family Medical History: Myocardial Infarction ([place]) Additional Family Medical History / Comment(s): AT AGE 48 OF A [place] General Exam Limitations: no limitations General appearance: alert, in no apparent distress Head exam: Present: atraumatic, normocephalic Eye exam: Present: normal appearance, PERRL ENT exam: Present: mucous membranes dry Neck exam: Present: normal inspection. Absent: tenderness, meningismus Respiratory exam: Present: normal lung sounds bilaterally. Absent: respiratory distress, wheezes Cardiovascular Exam: Present: regular rate, normal rhythm GI/Abdominal exam: Present: soft. Absent: distended, tenderness, guarding exam: Present: normal inspection. Absent: testicular tenderness, urethral discharge, scrotal swelling Extremities exam: Present: normal inspection. Absent: normal capillary refill, pedal edema Neurological exam: Present: alert, oriented X3, CN II-XII intact. Absent: motor sensory deficit Psychiatric exam: Present: normal affect, normal mood Skin exam: Present: warm, dry, intact. Absent: cyanosis, diaphoretic Course Vital Signs 08/26/21 08/26/21 16:41 19:46 Temperature 97.8 F Pulse Rate 74 71 Respiratory 16 16 Rate Blood Pressure 99/56 94/59 O2 Sat by Pulse 96 98 Oximetry EKG Findings - EKG Comments: EKG Findings:: EKG: Sinus rhythm left axis deviation, rate of 78, CA interval 177, QRS duration 106, QTC 419, no ST segment elevation. Medical Decision Making - Medical Decision Making 50-year-old male with lightheadedness, near-syncope, and urinary urgency. Patient has a marginal blood pressure upon arrival. Workup is initiated. He is in sinus rhythm. He's given IV fluids. Laboratory studies reveal a white blood cell count elevated with left shift. He has an acute kidney injury creatinine 1.64. Urinalysis shows leukocytes without bacteria present. Urine culture pending. I did perform CT of the abdomen pelvis which shows postsurgical changes without other acute findings. The patient will benefit from IV hydration and close monitoring overnight. He will be admitted to [facility]. - Lab Data Result diagrams: 08/26/21 18:57 08/26/21 18:57 Lab Results 08/26/21 08/26/21 08/26/21 Range/Units 17:13 18:57 18:57 WBC 18.4 H (3.8-10.6) k/uL RBC 5.31 (4.30-5.90) m/uL Hgb 15.0 (13.0-17.5) gm/dL Hct 48.3 (39.0-53.0) % MCV 90.9 (80.0-100.0) fL MCH 28.3 (25.0-35.0) pg MCHC 31.1 (31.0-37.0) g/dL RDW 12.2 (11.5-15.5) % Plt Count 403 (150-450) k/uL MPV 6.9 Neutrophils % 86 % Lymphocytes % 8 % Monocytes % 4 % Eosinophils % 0 % Basophils % 0 % Neutrophils # 15.8 H (1.3-7.7) k/uL Lymphocytes # 1.5 (1.0-4.8) k/uL Monocytes # 0.8 (0-1.0) k/uL Eosinophils # 0.1 (0-0.7) k/uL Basophils # 0.1 (0-0.2) k/uL PT 10.8 (9.0-12.0) sec INR 1.0 (<1.2) APTT 20.9 L (22.0-30.0) sec Sodium (137-145) mmol/L Potassium (3.5-5.1) mmol/L Chloride (98-107) mmol/L Carbon Dioxide (22-30) mmol/L Anion Gap mmol/L BUN (9-20) mg/dL Creatinine (0.66-1.25) mg/dL Est GFR (CKD-EPI)AfAm (>60 ml/min/1.73 sqM) Est GFR (CKD-EPI)NonAf (>60 ml/min/1.73 sqM) Glucose (74-99) mg/dL Calcium (8.4-10.2) mg/dL Total Bilirubin (0.2-1.3) mg/dL AST (17-59) U/L ALT (4-49) U/L Alkaline Phosphatase (38-126) U/L Troponin I (0.000-0.034) ng/mL Total Protein (6.3-8.2) g/dL Albumin (3.5-5.0) g/dL Urine Color Yellow Urine Appearance Cloudy (Clear) Urine pH 5.5 (5.0-8.0) Ur Specific [place] 1.019 (1.001-1.035) Urine Protein 2+ H (Negative) Urine Glucose (UA) Trace H (Negative) Urine Ketones Negative (Negative) Urine Blood Trace H (Negative) Urine Nitrite Negative (Negative) Urine Bilirubin Negative (Negative) Urine Urobilinogen <2.0 (<2.0) mg/dL Ur Leukocyte Esterase Moderate H (Negative) Urine RBC 2 (0-5) /hpf Urine WBC 20 H (0-5) /hpf Ur Squamous Epith Cells 1 (0-4) /hpf Hyaline Casts 21 H (0-2) /lpf Urine Mucus Many H (None) /hpf 08/26/21 08/26/21 Range/Units 18:57 18:57 WBC (3.8-10.6) k/uL RBC (4.30-5.90) m/uL Hgb (13.0-17.5) gm/dL Hct (39.0-53.0) % MCV (80.0-100.0) fL MCH (25.0-35.0) pg MCHC (31.0-37.0) g/dL RDW (11.5-15.5) % Plt Count (150-450) k/uL MPV Neutrophils % % Lymphocytes % % Monocytes % % Eosinophils % % Basophils % % Neutrophils # (1.3-7.7) k/uL Lymphocytes # (1.0-4.8) k/uL Monocytes # (0-1.0) k/uL Eosinophils # (0-0.7) k/uL Basophils # (0-0.2) k/uL PT (9.0-12.0) sec INR (<1.2) APTT (22.0-30.0) sec Sodium 136 L (137-145) mmol/L Potassium 4.7 (3.5-5.1) mmol/L Chloride 102 (98-107) mmol/L Carbon Dioxide 22 (22-30) mmol/L Anion Gap 12 mmol/L BUN 24 H (9-20) mg/dL Creatinine 1.65 H (0.66-1.25) mg/dL Est GFR (CKD-EPI)AfAm 54 (>60 ml/min/1.73 sqM) Est GFR (CKD-EPI)NonAf 47 (>60 ml/min/1.73 sqM) Glucose 102 H (74-99) mg/dL Calcium 9.3 (8.4-10.2) mg/dL Total Bilirubin 0.7 (0.2-1.3) mg/dL AST 29 (17-59) U/L ALT 25 (4-49) U/L Alkaline Phosphatase 112 (38-126) U/L Troponin I <0.012 (0.000-0.034) ng/mL Total Protein 7.6 (6.3-8.2) g/dL Albumin 4.2 (3.5-5.0) g/dL Urine Color Urine Appearance (Clear) Urine pH (5.0-8.0) Ur Specific [place] (1.001-1.035) Urine Protein (Negative) Urine Glucose (UA) (Negative) Urine Ketones (Negative) Urine Blood (Negative) Urine Nitrite (Negative) Urine Bilirubin (Negative) Urine Urobilinogen (<2.0) mg/dL Ur Leukocyte Esterase (Negative) Urine RBC (0-5) /hpf Urine WBC (0-5) /hpf Ur Squamous Epith Cells (0-4) /hpf Hyaline Casts (0-2) /lpf Urine Mucus (None) /hpf Disposition Clinical Impression: Dehydration, VERNON (acute kidney injury), UTI (urinary tract infection) Disposition: ADMITTED IP TO THIS HOSP Condition: Stable Is patient prescribed a controlled substance at d/c from ED?: No Referrals: Frederic Hollis DO [Primary Care Provider] - 1-2 days Time of Disposition: 20:56
[2021-08-26 19:02] LABS: Basophils # (A) 0.1 k/uL (0-0.2); Basophils % (A) 0 %; Eosinophils # (A) 0.1 k/uL (0-0.7); Eosinophils % (A) 0 %; HCT 48.3 % (39.0-53.0); Lymphocytes # (A) 1.5 k/uL (1.0-4.8); Lymphocytes % (A) 8 %; MCH 28.3 pg (25.0-35.0); MCHC 31.1 g/dL (31.0-37.0); MCV 90.9 fL (80.0-100.0); Mean Platelet Volume 6.9; Monocytes # (A) 0.8 k/uL (0-1.0); Monocytes % (A) 4 %; Neutrophils # (A) 15.8 k/uL (1.3-7.7); Neutrophils % (A) 86 %; Platelet Count 403 k/uL (150-450); RBC 5.31 m/uL (4.30-5.90); RDW 12.2 % (11.5-15.5); WBC 18.4 k/uL (3.8-10.6)
[2021-08-26 19:13] LABS: Albumin 4.2 g/dL (3.5-5.0); Calcium 9.3 mg/dL (8.4-10.2); Potassium 4.7 mmol/L (3.5-5.1); Total Bilirubin 0.7 mg/dL (0.2-1.3); Total Protein 7.6 g/dL (6.3-8.2)
[2021-08-26 19:22] LABS: Prothrombin Time 10.8 sec (9.0-12.0)
[2021-08-26 19:27] LABS: Partial Thromboplastin Time 20.9 sec (22.0-30.0)
[2021-08-26 20:02] LABS: Appearance,Urine Cloudy (Clear); Bilirubin,Urine Negative (Negative); Blood,Urine Trace (Negative); Color,Urine Yellow; Glucose,Urine (UA) Trace (Negative); Hyaline Casts,Urine 21 /lpf (0-2); Ketones,Urine Negative (Negative); Leukocyte Esterase,Urine Moderate (Negative); Mucus,Urine Many /hpf; Nitrite,Urine Negative (Negative); PH, Urine 5.5 (5.0-8.0); Protein,Urine 2+ (Negative); RBC,Urine 2 /hpf (0-5); Specific Gravity,Urine 1.019 (1.001-1.035); Squamous Epithelial Cell,Urine 1 /hpf (0-4); Urobilinogen,Urine <2.0 mg/dL (<2.0); WBC,Urine 20 /hpf (0-5)
[2021-08-26] MEDS ORDERED: LEVOFLOXACIN 500MG-D5W PMX 500 MG in DEXTROSE/WATER 1 100ML.BAG IVPB STA (20:06)
[2021-08-26] MEDS ORDERED: SODIUM CHLORIDE 0.9% 500 ML 500 ML IV ONE (20:07)
[2021-08-26] MEDS: SODIUM CHLORIDE 0.9% 1,000 ML IV SCH (20:48)
--- NOTE | 2021-08-26 20:54 | CT ---
EXAMINATION TYPE: CT abdomen pelvis wo con DATE OF EXAM: 08/26/2021 COMPARISON: 08/10/2021 HISTORY: flank pain, lightheaded, dysuria. recent bowel ressection CT DLP: 1357.4 mGycm Automated exposure control for dose reduction was used. Images obtained from the diaphragm to the floor the pelvis without contrast. Lung bases are clear. No pleural effusion. Heart size is normal. No pericardial effusion. Liver splee n and stomach pancreas appear normal. The bile ducts are not dilated. There are clips from cholecyste ctomy. There is no adrenal mass. Kidneys have normal size. No hydronephrosis. There is inferior vena cava fi lter noted. There are skin paco at the anterior abdominal wall. There is fat stranding in the midl ine incision. There are surgical clips due to bowel surgery in the anterior mid abdomen. The lumbar vertebra have normal alignment. Disc spaces are normal. No compression fracture. The bony pelvis is intact. Hip joints are intact. There is no ascites or free air. No evidence of a bowel obstruction. IMPRESSION: Postsurgical changes on the anterior abdominal wall with some fat stranding and edema. No abscess. Marshall wel surgery. There is clearing of the dilated loops of small bowel compared to old exam.
[2021-08-26] MEDS ORDERED: NALOXONE 0.4 MG/ML 1 ML VIAL IV PRN (20:57)
[2021-08-26] MEDS ORDERED: ACETAMINOPHEN TAB 325 MG TAB PO PRN (20:57)
[2021-08-26] MEDS ORDERED: fentaNYL (PF) 50 MCG/ML 2 ML AMP IVP STA (21:04)
[2021-08-27] MEDS: HYDROmorphone 0.5 MG/0.5 ML SYRINGE IVP PRN ×5 (00:08→20:21)
[2021-08-27] MEDS: SODIUM CHLORIDE 0.9% 1,000 ML IV SCH ×3 (06:30→19:54)
[2021-08-27 09:15] LABS: Basophils % (A) 0 %; Eosinophils % (A) 0 %; HCT 42.9 % (39.0-53.0); HGB 13.7 gm/dL (13.0-17.5); Lymphocytes # (A) 2.1 k/uL (1.0-4.8); Lymphocytes % (A) 16 %; MCH 28.9 pg (25.0-35.0); MCHC 31.9 g/dL (31.0-37.0); MCV 90.6 fL (80.0-100.0); Mean Platelet Volume 6.8; Monocytes # (A) 0.8 k/uL (0-1.0); Monocytes % (A) 6 %; Neutrophils # (A) 9.8 k/uL (1.3-7.7); Neutrophils % (A) 76 %; Platelet Count 275 k/uL (150-450); RBC 4.73 m/uL (4.30-5.90); WBC 12.8 k/uL (3.8-10.6)
[2021-08-27 09:37] LABS: African American GFR (CKD) 78 (>60 ml/min/1.73 sqM); Anion Gap 11 mmol/L; Blood Urea Nitrogen 24 mg/dL (9-20); Calcium 8.9 mg/dL (8.4-10.2); Carbon Dioxide 21 mmol/L (22-30); Chloride 105 mmol/L (98-107); Glucose 131 mg/dL (74-99); Magnesium 1.7 mg/dL (1.6-2.3); Non-African American GFR(CKD) 67 (>60 ml/min/1.73 sqM); Potassium 4.4 mmol/L (3.5-5.1); Sodium 137 mmol/L (137-145)
[2021-08-27] MEDS ORDERED: HYDROmorphone 0.5 MG/0.5 ML SYRINGE ONE (13:00)
[2021-08-27] MEDS ORDERED: HEPARIN SODIUM 1,000 UN/ML (10ML VL) ONE (13:00)
[2021-08-27] MEDS ORDERED: ACETAMINOPHEN TAB 325 MG TAB ONE (13:00)
[2021-08-27] MEDS ORDERED: SODIUM CHLORIDE 0.9% 1,000 ML BAG ONE (13:00)
--- NOTE | 2021-08-27 14:54 | P.HPIM ---
History of Present Illness This is a pleasant 50 years old male with past medical history of Deep Vein Thrombosis , GERD/Reflux, Hypertension, Lymphoma/small bowel with surgery and chemo in 2003, small bowel obstructions, DVT R calf 2003 Presents with dizziness and lightheadedness. Patient states that he has history of bowel lymphoma and DVT many years ago and his undergoing treatment for now and he is not on a blood thinner. recently he had a bowel surgery with dr. temple for bowel obstruction on 08/11, he was discharged from this hospital on 08/18 and he wants to see dr. green for follow-up appointment, he had low back pain and went to see him for that too. while in the office he had 2 episodes of presyncope and patient was referred to the emergency room. Patient also was complaining of from bilateral leg pain with left leg more indurated. He denies any weakness in his leg, no numbness. The patient borderline hypotensive. He has urinary symptoms of dysuria and feeling of pressure. Patient denies chest pain or dyspnea, no cough or blood. He denies smoking, alcohol patient has normal bowel movement passing gases. Patient is hemodynamically stable, blood pressure on the low side 92/55. As leukocytosis of 18.4 K, X CBC is unremarkable. INR is 1.0. BMP showed sodium of 136, creatinine 1.6. Rest of BMP and liver enzymes are unremarkable CT of the abdomen and pelvis was ordered to the emergency room but [facility] system was down and I could not look into the report, however her EGD report (shows postsurgical changes without other acute findings). Review of Systems CONSTITUTIONAL: No fever, no malaise, no fatigue. HEENT: No recent visual problems or hearing problems. Denied any sore throat. CARDIOVASCULAR: No orthopnea, PND, no palpitations, no syncope. PULMONARY: No shortness of breath, no cough, no hemoptysis. GASTROINTESTINAL: No diarrhea, no nausea, no vomiting, no abdominal pain. Normoactive bowel sounds. NEUROLOGICAL: No headaches, no weakness, no numbness. HEMATOLOGICAL: Denies any bleeding or petechiae. GENITOURINARY: Denies any urinary frequency, or urgency. -MUSCULOSKELETAL/RHEUMATOLOGICAL: Denies any joint pain, swelling, or any muscle pain. Except what is mentioned above ENDOCRINE: Denies any polyuria or polydipsia. Past Medical History Past Medical History: Cancer, Deep Vein Thrombosis (DVT), GERD/Reflux, Hypertension Additional Past Medical History / Comment(s): Lymphoma/small bowel with surgery and chemo in 2003, small bowel obstructions, DVT R calf 2003 History of Any Multi-Drug Resistant Organisms: None Reported Past Surgical History: Bowel Resection, Cholecystectomy, Hernia Repair, Orthopedic Surgery, Tonsillectomy Additional Past Surgical History / Comment(s): Bowel resection d/t small bowel lymphoma, colonoscopies, incisional hernia repair with mesh x2, vanita filter, port a cath -now removed, bowel resection x2, cervical spine surgery with implant 2004 Past Anesthesia/Blood Transfusion Reactions: No Reported Reaction Past Psychological History: No Psychological Hx Reported Additional Psychological History / Comment(s): Pt resides with his spouse. 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 Smoking Status: Never smoker Past Alcohol Use History: Occasional Past Drug Use History: None Reported, Unable to Obtain - Past Family History Mother Family Medical History: No Reported History Additional Family Medical History / Comment(s): Mother is healthy Father Family Medical History: Myocardial Infarction ([place]) Additional Family Medical History / Comment(s): AT AGE 48 OF A [place] Medications and Allergies Home Medications Medication Instructions Recorded Confirmed Type RX: Esomeprazole Magnesium [NexIUM] 40 mg PO BID 05/04/20 08/26/21 History RX: Cholecalciferol [Vitamin D3 50 mcg PO DAILY 08/10/21 08/26/21 History (25 Mcg = 1000 Iu)] RX: Ibuprofen [Motrin] 800 mg PO TID PRN 08/10/21 08/26/21 History RX: Pseudoephedrine HCl [Sudafed 240 mg PO DAILY 08/10/21 08/26/21 History 24-Hour] HYDROcodone/APAP 5-325MG [[place] 1 tab PO Q6HR PRN 3 Days #12 tab 08/18/21 08/26/21 Rx 5-325] Losartan [Cozaar] 50 mg PO DAILY 08/26/21 08/26/21 History Allergies Allergy/AdvReac Type Severity Reaction Status Date / Time Penicillins Allergy Anaphylaxis Verified 08/26/21 18:23 Physical Exam Vitals: Vital Signs Temp Pulse Pulse Resp BP BP Pulse Ox 08/27/21 08:00 98.0 F 83 16 94/61 96 08/27/21 02:00 97.9 F 73 17 92/55 95 08/26/21 22:51 97.8 F 66 16 103/69 98 08/26/21 21:41 80 16 97/60 99 08/26/21 19:46 71 16 94/59 98 08/26/21 16:41 97.8 F 74 16 99/56 96 Intake and Output 08/26/21 08/27/21 08/27/21 22:59 06:59 14:59 Intake Total 1000 Output Total 150 Balance 850 Intake: Intake, IV Titration 1000 Amount Sodium Chloride 0.9% 1, 1000 000 ml @ 130 mls/hr IV . Q7H42M [facility] Rx#:[id number] Output: Urine 150 Other: Weight 122.47 kg - GENERAL: The patient is alert and oriented x3, not in any acute distress. Obese HEENT: Pupils are round and equally reacting to light. EOMI. No scleral icterus. No conjunctival pallor. Normocephalic, atraumatic. No pharyngeal erythema. No thyromegaly. CARDIOVASCULAR: S1 and S2 present. No murmurs, rubs, or gallops. PULMONARY: Chest is clear to auscultation, no wheezing or crackles. -ABDOMEN: Soft, nontender, nondistended, normoactive bowel sounds. No palpable organomegaly. Midline surgical wound closed with paco in place MUSCULOSKELETAL: No joint swelling or deformity. -EXTREMITIES: No cyanosis, clubbing, or pedal edema. Both legs are large and indurated, more on the left side NEUROLOGICAL: Gross neurological examination did not reveal any focal deficits. SKIN: No rashes. No petechiae Results CBC & Chem 7: 08/27/21 08:34 08/27/21 08:34 Labs: Abnormal Lab Results - Last 24 Hours (Table) 08/26/21 08/26/21 08/26/21 Range/Units 17:13 18:57 18:57 WBC 18.4 H (3.8-10.6) k/uL Neutrophils # 15.8 H (1.3-7.7) k/uL APTT 20.9 L (22.0-30.0) sec Sodium (137-145) mmol/L BUN (9-20) mg/dL Creatinine (0.66-1.25) mg/dL Glucose (74-99) mg/dL Urine Protein 2+ H (Negative) Urine Glucose (UA) Trace H (Negative) Urine Blood Trace H (Negative) Ur Leukocyte Esterase Moderate H (Negative) Urine WBC 20 H (0-5) /hpf Hyaline Casts 21 H (0-2) /lpf Urine Mucus Many H (None) /hpf 08/26/21 Range/Units 18:57 WBC (3.8-10.6) k/uL Neutrophils # (1.3-7.7) k/uL APTT (22.0-30.0) sec Sodium 136 L (137-145) mmol/L BUN 24 H (9-20) mg/dL Creatinine 1.65 H (0.66-1.25) mg/dL Glucose 102 H (74-99) mg/dL Urine Protein (Negative) Urine Glucose (UA) (Negative) Urine Blood (Negative) Ur Leukocyte Esterase (Negative) Urine WBC (0-5) /hpf Hyaline Casts (0-2) /lpf Urine Mucus (None) /hpf Thrombosis Risk Factor Assmnt - Choose All That Apply Each Factor Represents 1 point: Age 41-60 years, History of prior major surgery (<1month), Obesity (BMI >25) Each Risk Factor Represents 3 Points: History of DVT/PE Thrombosis Risk Factor Assessment Total Risk Factor Score: 6 Thrombosis Risk Factor Assessment Level: High Risk Assessment and Plan Assessment: Acute urinary tract infection bilateral leg pain and induration, DVT suspected Low back pain Acute kidney injury Borderline low blood pressure Orthostatic dizziness Recent History of DVT History of lymphoma Hypertension, currently is hypotensive History of GERD Morbid obesity with BMI of 41.1 Plan: This is a pleasant 50 years old male who presents with UTI, acute kidney injury, right leg pain and borderline blood pressure Continue with normal saline Continue with Levaquin follow-up urine culture Check bladder scan Check venous Doppler of the legs We'll check orthostatic vitals Pulmonary/critical team consult Labs and medication were reviewed.. Continue same treatment. Continue with symptomatic treatment. Resume home medication. Monitor lytes and vitals. DVT and GI prophylaxis. Further recommendations depends on the clinical course of the patient DVT prophylaxis: heparin GI Prophylaxis: Pepcid PT/OT: Deferred Prognosis is guarded
--- NOTE | 2021-08-27 14:57 | P.GSCN ---
History of Present Illness Consult date: 08/27/21 Reason for Consult: Bowel obstruction History of present illness: 50-year-old male known to our service from recent exploratory laparotomy with small bowel resection related to recurrent incisional hernia. Patient was discharged home last week and was seen me in the office yesterday when he was noted to be diaphoretic and pale. He was sent to the ER for evaluation. Apparently he had been feeling well until yesterday around noon. He has been tolerating a diet with good bowel function. No abdominal pain. When his symptoms began yesterday he experienced lower back pain that radiated to the groin and suprapubic region. In the ER patient had a CAT scan abdomen and pelvis which did not show any acute abnormality other than postoperative changes. No abscess or leak was seen. Patient this morning had pain in his calves and a Doppler showed acute DVT reportedly. Patient has a history of DVT with filter placement in 2007. Filter still in place. Patient's white blood cell count and creatinine were elevated yesterday and those numbers are improved today. Still denies abdominal pain. He is hypotensive orthostatic. Review of Systems The patient denies any acute changes in vision or hearing, no dysphagia or odynophagia, no chest pain or shortness of breath, no dysuria or hematuria, no headache, no runny nose, no rectal bleeding or melena, no unexplained weight loss Past Medical History Past Medical History: Cancer, Deep Vein Thrombosis (DVT), GERD/Reflux, Hypertension Additional Past Medical History / Comment(s): Lymphoma/small bowel with surgery and chemo in 2003, small bowel obstructions, DVT R calf 2003 History of Any Multi-Drug Resistant Organisms: None Reported Past Surgical History: Bowel Resection, Cholecystectomy, Hernia Repair, Orthopedic Surgery, Tonsillectomy Additional Past Surgical History / Comment(s): Bowel resection d/t small bowel lymphoma, colonoscopies, incisional hernia repair with mesh x2, vanita filter, port a cath -now removed, bowel resection x2, cervical spine surgery with implant 2004 Past Anesthesia/Blood Transfusion Reactions: No Reported Reaction Past Psychological History: No Psychological Hx Reported Additional Psychological History / Comment(s): Pt resides with his spouse. 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 Smoking Status: Never smoker Past Alcohol Use History: Occasional Past Drug Use History: None Reported, Unable to Obtain - Past Family History Mother Family Medical History: No Reported History Additional Family Medical History / Comment(s): Mother is healthy Father Family Medical History: Myocardial Infarction ([place]) Additional Family Medical History / Comment(s): AT AGE 48 OF A [place] Medications and Allergies Home Medications Medication Instructions Recorded Confirmed Type Esomeprazole Magnesium [NexIUM] 40 mg PO BID 05/04/20 08/26/21 History Cholecalciferol [Vitamin D3 (25 50 mcg PO DAILY 08/10/21 08/26/21 History Mcg = 1000 Iu)] Ibuprofen [Motrin] 800 mg PO TID PRN 08/10/21 08/26/21 History Pseudoephedrine HCl [Sudafed 240 mg PO DAILY 08/10/21 08/26/21 History 24-Hour] HYDROcodone/APAP 5-325MG [[place] 1 tab PO Q6HR PRN 3 Days #12 tab 08/18/21 08/26/21 Rx 5-325] Losartan [Cozaar] 50 mg PO DAILY 08/26/21 08/26/21 History Allergies Allergy/AdvReac Type Severity Reaction Status Date / Time Penicillins Allergy Anaphylaxis Verified 08/26/21 18:23 Surgical - Exam Vital Signs Temp Pulse Resp BP Pulse Ox 97.8 F 74 16 99/56 96 08/26/21 16:41 08/26/21 16:41 08/26/21 16:41 08/26/21 16:41 08/26/21 16:41 Physical exam: General: Well-developed, well-nourished HEENT: Normocephalic, sclerae nonicteric Abdomen: Nontender, nondistended, incision clean and dry Extremities: Mild calf tenderness Neuro: Alert and oriented Results - Labs 08/27/21 08:34 08/27/21 08:34 Abnormal Lab Results - Last 24 Hours (Table) 08/26/21 08/26/21 08/26/21 Range/Units 17:13 18:57 18:57 WBC 18.4 H (3.8-10.6) k/uL Neutrophils # 15.8 H (1.3-7.7) k/uL APTT 20.9 L (22.0-30.0) sec Sodium (137-145) mmol/L Carbon Dioxide (22-30) mmol/L BUN (9-20) mg/dL Creatinine (0.66-1.25) mg/dL Glucose (74-99) mg/dL Urine Protein 2+ H (Negative) Urine Glucose (UA) Trace H (Negative) Urine Blood Trace H (Negative) Ur Leukocyte Esterase Moderate H (Negative) Urine WBC 20 H (0-5) /hpf Hyaline Casts 21 H (0-2) /lpf Urine Mucus Many H (None) /hpf 08/26/21 08/27/21 08/27/21 Range/Units 18:57 08:34 08:34 WBC 12.8 H (3.8-10.6) k/uL Neutrophils # 9.8 H (1.3-7.7) k/uL APTT (22.0-30.0) sec Sodium 136 L (137-145) mmol/L Carbon Dioxide 21 L (22-30) mmol/L BUN 24 H 24 H (9-20) mg/dL Creatinine 1.65 H (0.66-1.25) mg/dL Glucose 102 H 131 H (74-99) mg/dL Urine Protein (Negative) Urine Glucose (UA) (Negative) Urine Blood (Negative) Ur Leukocyte Esterase (Negative) Urine WBC (0-5) /hpf Hyaline Casts (0-2) /lpf Urine Mucus (None) /hpf Diabetes panel 08/26/21 08/27/21 Range/Units 18:57 08:34 Sodium 136 L 137 (137-145) mmol/L Potassium 4.7 4.4 (3.5-5.1) mmol/L Chloride 102 105 (98-107) mmol/L Carbon Dioxide 22 21 L (22-30) mmol/L BUN 24 H 24 H (9-20) mg/dL Creatinine 1.65 H 1.23 (0.66-1.25) mg/dL Glucose 102 H 131 H (74-99) mg/dL Calcium 9.3 8.9 (8.4-10.2) mg/dL AST 29 (17-59) U/L ALT 25 (4-49) U/L Alkaline Phosphatase 112 (38-126) U/L Total Protein 7.6 (6.3-8.2) g/dL Albumin 4.2 (3.5-5.0) g/dL Calcium panel 08/26/21 08/27/21 Range/Units 18:57 08:34 Calcium 9.3 8.9 (8.4-10.2) mg/dL Albumin 4.2 (3.5-5.0) g/dL Pituitary panel 08/26/21 08/27/21 Range/Units 18:57 08:34 Sodium 136 L 137 (137-145) mmol/L Potassium 4.7 4.4 (3.5-5.1) mmol/L Chloride 102 105 (98-107) mmol/L Carbon Dioxide 22 21 L (22-30) mmol/L BUN 24 H 24 H (9-20) mg/dL Creatinine 1.65 H 1.23 (0.66-1.25) mg/dL Glucose 102 H 131 H (74-99) mg/dL Calcium 9.3 8.9 (8.4-10.2) mg/dL Adrenal panel 08/26/21 08/27/21 Range/Units 18:57 08:34 Sodium 136 L 137 (137-145) mmol/L Potassium 4.7 4.4 (3.5-5.1) mmol/L Chloride 102 105 (98-107) mmol/L Carbon Dioxide 22 21 L (22-30) mmol/L BUN 24 H 24 H (9-20) mg/dL Creatinine 1.65 H 1.23 (0.66-1.25) mg/dL Glucose 102 H 131 H (74-99) mg/dL Calcium 9.3 8.9 (8.4-10.2) mg/dL Total Bilirubin 0.7 (0.2-1.3) mg/dL AST 29 (17-59) U/L ALT 25 (4-49) U/L Alkaline Phosphatase 112 (38-126) U/L Total Protein 7.6 (6.3-8.2) g/dL Albumin 4.2 (3.5-5.0) g/dL Assessment and Plan (1) SBO (small bowel obstruction) Narrative/Plan: 50-year-old male with recent history of a laparotomy with bowel resection. Patient hospitalized now with dehydration, acute kidney injury, and now findings of DVT. Patient has history of filter. We'll consult vascular surgery for their opinion since the patient does have a history of previous filter and his symptoms began with lower back pain. I do wonder if it's possible the patient has thrown a clot to the filter and IVC. Continue diet for now. Will follow. Current Visit: No Status: Acute Code(s): K56.609 - UNSP INTESTNL OBST, UNSP TO PARTIAL VERSUS COMPLETE OBST SNOMED Code(s): 093281756
--- NOTE | 2021-08-27 14:58 | P.GSCN ---
History of Present Illness Consult date: 08/27/21 Reason for Consult: Bilateral deep vein thrombosis Requesting physician: Chemo Mg History of present illness: This is a pleasant 50-year-old male with the past medical history of lymphoma, right lower extremity DVT with filter in 2003, hypertension, with prior small bowel obstructions who recently underwent exploratory laparotomy with small bowel resection related to recurrent incisional hernia on 08/12/[address] Mg. Apparently patient was discharged last week and had a follow-up with Dr. Mg in the office today and was complaining of syncope with standing and was found to be hypotensive. He was told to come to the emergency department for further evaluation. Patient states he has having lower back pain radiating to the groin region. States he does have history of sciatic pain and was unde rgoing physical therapy prior to surgery. He stated that he started having pain in his right calf yesterday evening and venous duplex was ordered this morning. It was reported that patient has bilateral lower extremity DVTs. He is on a heparin drip currently. Computer system is currently down so report is unavailable at this time. Patient denies any shortness of breath, chest pain, does report surgical pain in the abdomen. He has been afebrile. Review of Systems A 14 point review systems was completed all pertinent positives and negatives as stated in the HPI. Past Medical History Past Medical History: Cancer, Deep Vein Thrombosis (DVT), GERD/Reflux, Hypertension Additional Past Medical History / Comment(s): Lymphoma/small bowel with surgery and chemo in 2003, small bowel obstructions, DVT R calf 2003 History of Any Multi-Drug Resistant Organisms: None Reported Past Surgical History: Bowel Resection, Cholecystectomy, Hernia Repair, Orthopedic Surgery, Tonsillectomy Additional Past Surgical History / Comment(s): Bowel resection d/t small bowel lymphoma, colonoscopies, incisional hernia repair with mesh x2, vanita filter, port a cath -now removed, bowel resection x2, cervical spine surgery with implant 2004 Past Anesthesia/Blood Transfusion Reactions: No Reported Reaction Past Psychological History: No Psychological Hx Reported Additional Psychological History / Comment(s): Pt resides with his spouse. 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 Smoking Status: Never smoker Past Alcohol Use History: Occasional Past Drug Use History: None Reported, Unable to Obtain - Past Family History Mother Family Medical History: No Reported History Additional Family Medical History / Comment(s): Mother is healthy Father Family Medical History: Myocardial Infarction ([place]) Additional Family Medical History / Comment(s): AT AGE 48 OF A [place] Medications and Allergies Home Medications Medication Instructions Recorded Confirmed Type Esomeprazole Magnesium [NexIUM] 40 mg PO BID 05/04/20 08/26/21 History Cholecalciferol [Vitamin D3 (25 50 mcg PO DAILY 08/10/21 08/26/21 History Mcg = 1000 Iu)] Ibuprofen [Motrin] 800 mg PO TID PRN 08/10/21 08/26/21 History Pseudoephedrine HCl [Sudafed 240 mg PO DAILY 08/10/21 08/26/21 History 24-Hour] HYDROcodone/APAP 5-325MG [[place] 1 tab PO Q6HR PRN 3 Days #12 tab 08/18/21 08/26/21 Rx 5-325] Losartan [Cozaar] 50 mg PO DAILY 08/26/21 08/26/21 History Allergies Allergy/AdvReac Type Severity Reaction Status Date / Time Penicillins Allergy Anaphylaxis Verified 08/26/21 18:23 Surgical - Exam Vital Signs Temp Pulse Resp BP Pulse Ox 97.8 F 74 16 99/56 96 08/26/21 16:41 08/26/21 16:41 08/26/21 16:41 08/26/21 16:41 08/26/21 16:41 General appearance: The patient is alert, oriented, appears in no acute distress. Obese. HET: Head is normocephalic and atraumatic. Pupils are equal and reactive. Neck: Supple without lymphadenopathy. Trachea midline. Heart: S1 S2. Regular rate and rhythm. Lungs: Clear to auscultation bilaterally. Abdomen: Soft, abdominal binder in place, surgical tenderness, nondistended. Extremities: Normal skin color and turgor. Bilateral lower extremity edema, nonpitting. Palpable bilateral femoral and dorsalis pedis pulses. Neurological: No focal deficits. Strength and sensation are grossly intact. Results - Labs 08/27/21 08:34 08/27/21 08:34 Abnormal Lab Results - Last 24 Hours (Table) 08/26/21 08/26/21 08/26/21 Range/Units 17:13 18:57 18:57 WBC 18.4 H (3.8-10.6) k/uL Neutrophils # 15.8 H (1.3-7.7) k/uL APTT 20.9 L (22.0-30.0) sec Sodium (137-145) mmol/L Carbon Dioxide (22-30) mmol/L BUN (9-20) mg/dL Creatinine (0.66-1.25) mg/dL Glucose (74-99) mg/dL Urine Protein 2+ H (Negative) Urine Glucose (UA) Trace H (Negative) Urine Blood Trace H (Negative) Ur Leukocyte Esterase Moderate H (Negative) Urine WBC 20 H (0-5) /hpf Hyaline Casts 21 H (0-2) /lpf Urine Mucus Many H (None) /hpf 08/26/21 08/27/21 08/27/21 Range/Units 18:57 08:34 08:34 WBC 12.8 H (3.8-10.6) k/uL Neutrophils # 9.8 H (1.3-7.7) k/uL APTT (22.0-30.0) sec Sodium 136 L (137-145) mmol/L Carbon Dioxide 21 L (22-30) mmol/L BUN 24 H 24 H (9-20) mg/dL Creatinine 1.65 H (0.66-1.25) mg/dL Glucose 102 H 131 H (74-99) mg/dL Urine Protein (Negative) Urine Glucose (UA) (Negative) Urine Blood (Negative) Ur Leukocyte Esterase (Negative) Urine WBC (0-5) /hpf Hyaline Casts (0-2) /lpf Urine Mucus (None) /hpf Diabetes panel 08/26/21 08/27/21 Range/Units 18:57 08:34 Sodium 136 L 137 (137-145) mmol/L Potassium 4.7 4.4 (3.5-5.1) mmol/L Chloride 102 105 (98-107) mmol/L Carbon Dioxide 22 21 L (22-30) mmol/L BUN 24 H 24 H (9-20) mg/dL Creatinine 1.65 H 1.23 (0.66-1.25) mg/dL Glucose 102 H 131 H (74-99) mg/dL Calcium 9.3 8.9 (8.4-10.2) mg/dL AST 29 (17-59) U/L ALT 25 (4-49) U/L Alkaline Phosphatase 112 (38-126) U/L Total Protein 7.6 (6.3-8.2) g/dL Albumin 4.2 (3.5-5.0) g/dL Calcium panel 08/26/21 08/27/21 Range/Units 18:57 08:34 Calcium 9.3 8.9 (8.4-10.2) mg/dL Albumin 4.2 (3.5-5.0) g/dL Pituitary panel 08/26/21 08/27/21 Range/Units 18:57 08:34 Sodium 136 L 137 (137-145) mmol/L Potassium 4.7 4.4 (3.5-5.1) mmol/L Chloride 102 105 (98-107) mmol/L Carbon Dioxide 22 21 L (22-30) mmol/L BUN 24 H 24 H (9-20) mg/dL Creatinine 1.65 H 1.23 (0.66-1.25) mg/dL Glucose 102 H 131 H (74-99) mg/dL Calcium 9.3 8.9 (8.4-10.2) mg/dL Adrenal panel 08/26/21 08/27/21 Range/Units 18:57 08:34 Sodium 136 L 137 (137-145) mmol/L Potassium 4.7 4.4 (3.5-5.1) mmol/L Chloride 102 105 (98-107) mmol/L Carbon Dioxide 22 21 L (22-30) mmol/L BUN 24 H 24 H (9-20) mg/dL Creatinine 1.65 H 1.23 (0.66-1.25) mg/dL Glucose 102 H 131 H (74-99) mg/dL Calcium 9.3 8.9 (8.4-10.2) mg/dL Total Bilirubin 0.7 (0.2-1.3) mg/dL AST 29 (17-59) U/L ALT 25 (4-49) U/L Alkaline Phosphatase 112 (38-126) U/L Total Protein 7.6 (6.3-8.2) g/dL Albumin 4.2 (3.5-5.0) g/dL - Imaging Comments: Venous duplex bilateral lower extremities. Imaging and report unavailable per [facility]. Spoke to Dr. Magdaleno who stated bilateral lower extremities with DVT present from common femoral vein down through the popliteal veins. CT abdomen and pelvis without contrast shows postsurgical changes on the anterior abdominal wall with some fat stranding and edema. No abscess. Bowel surgery. There is clearing of dilated loops of small bowel compared to old exam. Assessment and Plan Assessment: 1. Bilateral lower extremity deep vein thrombosis 2. History of right lower extremity with [place] filter still in place 3. Syncope 4. Hypotension 5. Recent exploratory laparotomy with small bowel resection on 08/11/2021 Plan: 1. Continue heparin drip as ordered 2. Will order CT venous phase abdomen and pelvis 3. Nothing by mouth after midnight 4. Further recommendations forthcoming per vascular surgeon Thank you for this consultation, we will continue to follow. The impression and plan of care has been dictated as directed. Dr. Aldridge I performed a history and examination of this patient, discussed the same with the dictator. I agree with the dictator's note ,documented as a scribe. Any additional findings or plans will be noted.
[2021-08-27] MEDS ORDERED: HEPARIN SODIUM 1,000 UN/ML (10ML VL) IV PRN (15:15)
--- NOTE | 2021-08-27 16:24 | P.CNPUL ---
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 Other medical history includes obstructive sleep apnea on CPAP, hypertension, GERD/reflux, nonsmoker, occasional EtOH use. Patient follows with Dr. Montoay for medical oncology, and his lymphoma has been in remission. Recently patient had exploratory laparotomy with small bowel resection related to recurrent incarcerated incisional hernia with extensive abdominal adhesions. Patient was discharged home on 08/18/2021. Today patient was at Dr. Mg's office for 2 week postop follow-up for abdominal surgery, and became lightheaded and was near syncopal, he was brought into the emergency department by EMS. Patient denied any chest pain, no dyspnea, no fever, mild cough which is chronic, patient did have mild nausea without vomiting, he was passing bowel movements after his surgery, his abdominal incision is healing quite well. His orthostatic blood pressures were positive, suggesting possibility of dehydration. EKG shows normal sinus rhythm with left axis deviation and a rate of [address] segment elevation. His blood pressures were marginal upon arrival, he was given IV fluids. Laboratory studies showed a white blood cell count of 18.4, patient had evidence of acute kidney injury with elevated creatinine of 1.64, urinalysis showed leukocytes without bacteria, urine culture was sent. CT of the abdomen and pelvis was obtained showing postsurgical changes without other acute findings. Patient also noted increased swelling in his bilateral lower extremities, and was complaining of lower back pain radiating to the groin area and right calf pain. Venous Doppler showed evidence of bilateral lower extrem ity DVTs. He was started on heparin drip, he denies any shortness of breath, no chest pain, no hemoptysis, unable to obtain CT angiogram of the chest related to evidence of acute kidney injury. But breathing comfortably, he is on room air pulse ox of 96%. Echocardiogram has been taken, results are pending. Vascular surgery and cardiology have been consulted. Review of Systems All systems: negative Constitutional: Denies chills, Denies fever Eyes: denies blurred vision, denies pain Ears, nose, mouth and throat: Denies headache, Denies sore throat Cardiovascular: Reports edema, Denies chest pain, Denies shortness of breath Respiratory: Denies cough Gastrointestinal: Denies abdominal pain, Denies diarrhea, Denies nausea, Denies vomiting Musculoskeletal: Reports low back pain, Denies myalgias Integumentary: Denies pruritus, Denies rash Neurological: Denies numbness, Denies weakness Psychiatric: Denies anxiety, Denies depression Endocrine: Denies fatigue, Denies weight change Past Medical History Past Medical History: Cancer, Deep Vein Thrombosis (DVT), GERD/Reflux, Hypertension Additional Past Medical History / Comment(s): Lymphoma/small bowel with surgery and chemo in 2003, small bowel obstructions, DVT R calf 2003 History of Any Multi-Drug Resistant Organisms: None Reported Past Surgical History: Bowel Resection, Cholecystectomy, Hernia Repair, Orthopedic Surgery, Tonsillectomy Additional Past Surgical History / Comment(s): Bowel resection d/t small bowel lymphoma, colonoscopies, incisional hernia repair with mesh x2, speedy filter, port a cath -now removed, bowel resection x2, cervical spine surgery with implant 2004 Past Anesthesia/Blood Transfusion Reactions: No Reported Reaction Past Psychological History: No Psychological Hx Reported Additional Psychological History / Comment(s): Pt resides with his spouse. He does half-way work for [employer] Smoking Status: Never smoker Past Alcohol Use History: Occasional Past Drug Use History: None Reported, Unable to Obtain - Past Family History Mother Family Medical History: No Reported History Additional Family Medical History / Comment(s): Mother is healthy Father Family Medical History: Myocardial Infarction ([place]) Additional Family Medical History / Comment(s): AT AGE 48 OF A [place] Medications and Allergies Home Medications Medication Instructions Recorded Confirmed Type Esomeprazole Magnesium [NexIUM] 40 mg PO BID 05/04/20 08/26/21 History Cholecalciferol [Vitamin D3 (25 50 mcg PO DAILY 08/10/21 08/26/21 History Mcg = 1000 Iu)] Ibuprofen [Motrin] 800 mg PO TID PRN 08/10/21 08/26/21 History Pseudoephedrine HCl [Sudafed 240 mg PO DAILY 08/10/21 08/26/21 History 24-Hour] HYDROcodone/APAP 5-325MG [[place] 1 tab PO Q6HR PRN 3 Days #12 tab 08/18/21 08/26/21 Rx 5-325] Losartan [Cozaar] 50 mg PO DAILY 08/26/21 08/26/21 History Allergies Allergy/AdvReac Type Severity Reaction Status Date / Time Penicillins Allergy Anaphylaxis Verified 08/26/21 18:23 Physical Exam Vitals: Vital Signs Temp Pulse Pulse Resp BP BP BP 08/27/21 09:56 84/52 08/27/21 09:55 103/71 08/27/21 08:00 98.0 F 83 16 94/61 08/27/21 02:00 97.9 F 73 17 92/55 08/26/21 22:51 97.8 F 66 16 103/69 08/26/21 21:41 80 16 97/60 08/26/21 19:46 71 16 94/59 08/26/21 16:41 97.8 F 74 16 99/56 Pulse Ox 08/27/21 09:56 08/27/21 09:55 08/27/21 08:00 96 08/27/21 02:00 95 08/26/21 22:51 98 08/26/21 21:41 99 08/26/21 19:46 98 08/26/21 16:41 96 Intake and Output 08/27/21 08/27/21 08/27/21 06:59 14:59 22:59 Intake Total 1000 Output Total 150 100 Balance 850 -100 Intake: Intake, IV Titration 1000 Amount Sodium Chloride 0.9% 1, 1000 000 ml @ 130 mls/hr IV . [id number] [facility] Rx#:[id number] Output: Urine 150 Post Void Residual 100 GENERAL EXAM: Alert, very pleasant, 50-year-old white male on room air with pulse ox of 96% comfortable in no apparent distress. HEAD: Normocephalic/atraumatic. EYES: Normal reaction of pupils, equal size. Conjunctiva pink, sclera white. NOSE: Clear with pink turbinates. THROAT: No erythema or exudates. NECK: No masses, no JVD, no thyroid enlargement, no adenopathy. CHEST: No chest wall deformity. Symmetrical expansion. LUNGS: Equal air entry with no crackles, wheeze, rhonchi or dullness. CVS: Regular rate and rhythm, normal S1 and S2, no gallops, no murmurs, no rubs ABDOMEN: Soft, nontender. No hepatosplenomegaly, normal bowel sounds, no guarding or rigidity. Midabdominal incision is clean dry and intact, surgical paco are in place, clean dry and intact EXTREMITIES: No clubbing, mild nonpitting swelling in bilateral lower extremities, no cyanosis, 2+ pulses and upper and lower extremities. MUSCULOSKELETAL: Muscle strength and tone normal. SPINE: No scoliosis or deformity SKIN: No rashes CENTRAL NERVOUS SYSTEM: Alert and oriented -3. No focal deficits, tone is normal in all 4 extremities. PSYCHIATRIC: Alert and oriented -3. Appropriate affect. Intact judgment and insight. Results - Laboratory Findings CBC and BMP: 08/27/21 08:34 08/27/21 08:34 PT/INR, D-dimer PT 10.8 sec (9.0-12.0) 08/26/21 18:57 INR 1.0 (<1.2) 08/26/21 18:57 Abnormal lab findings: Abnormal Labs 08/26/21 08/26/21 08/26/21 17:13 18:57 18:57 WBC 18.4 H Neutrophils # 15.8 H APTT 20.9 L Sodium Carbon Dioxide BUN Creatinine Glucose Urine Protein 2+ H Urine Glucose (UA) Trace H Urine Blood Trace H Ur Leukocyte Esterase Moderate H Urine WBC 20 H Hyaline Casts 21 H Urine Mucus Many H 08/26/21 08/27/21 08/27/21 18:57 08:34 08:34 WBC 12.8 H Neutrophils # 9.8 H APTT Sodium 136 L Carbon Dioxide 21 L BUN 24 H 24 H Creatinine 1.65 H Glucose 102 H 131 H Urine Protein Urine Glucose (UA) Urine Blood Ur Leukocyte Esterase Urine WBC Hyaline Casts Urine Mucus - Diagnostic Findings Additional studies: Results the CT abdomen and pelvis, EKG reviewed Assessment and Plan Plan: Assessment: #1. Acute bilateral lower extremity DVTs, this is a recurrent event the patient had a DVT several years back, at that time completed course of Coumadin. #2. Hypotension, hypovolemic likely related to dehydration #3. History of right lower extremity DVT with placement of [place] filter #4. Near syncopal episode related to dehydration #5. Recent history of exploratory laparotomy with small bowel resection on 08/11/2021 #6. History of Burkitt's lymphoma with previous history of bowel resection, followed by chemotherapy, currently in remission #7. GERD/reflux #8. Hypertension #9. Chronic back and neck pain #10. Nonsmoker #11. Occasional alcohol only Plan: Continue heparin infusion Echocardiogram has been completed results are pending Continue IV hydration Patient will likely need lifelong or long-term anticoagulation possibly with Eliquis or Xarelto We'll consider obtaining a CTA chest was kidney function improves But at any rate the treatment will remain the same Cardiology in the past with surgery recommendations Gen. surgery recommendations We'll continue to follow I have personally seen and examined the patient, performed the documentation and the assessment and plan as written. Number of minutes spent on the visit: [15] Time with Patient: Greater than 30
--- NOTE | 2021-08-27 16:57 | US ---
EXAMINATION TYPE: US venous doppler duplex LE BI DATE OF EXAM: 08/27/2021 8:28 AM COMPARISON: NONE CLINICAL HISTORY: leg swelling. patient has h/o dvt in right leg in 2003 , has Speedy filter, dylan n in right calf and swelling SIDE PERFORMED: Bilateral TECHNIQUE: The lower extremity deep venous system is examined utilizing real time linear array sonog racquel with graded compression, doppler sonography and color-flow sonography. VESSELS IMAGED: Common Femoral Vein Deep Femoral Vein Greater Saphenous Vein * Femoral Vein Popliteal Vein Small Saphenous Vein * Proximal Calf Veins (* superficial vessels) Right Leg: Extensive thrombus seen within entire leg from PTV's up through CFV, no blood flow detect ed, no compression, no doppler flow Left Leg: Extensive thrombus seen within entire leg from PTV's up through CFV, no blood flow detecte d, no compression, no doppler flow tech findings were relayed to nurse Alcala on floor IMPRESSION: Extensive deep venous thrombosis involving the lower extremities from the level of the kn ees centrally, report relayed to a referring clinician at the time of performance of the exam telepho nically
[2021-08-27 16:59] LABS: INR 1.1 (<1.2); Partial Thromboplastin Time 23.2 sec (22.0-30.0); Prothrombin Time 11.7 sec (9.0-12.0)
[2021-08-27] MEDS: LEVOFLOXACIN 500MG-D5W PMX 500 MG in DEXTROSE/WATER 1 100ML.BAG IVPB SCH (17:27)
[2021-08-27 19:05] LABS: Basophils % (A) 0 %; Eosinophils # (A) 0.1 k/uL (0-0.7); Eosinophils % (A) 1 %; HCT 42.7 % (39.0-53.0); Lymphocytes # (A) 1.7 k/uL (1.0-4.8); Lymphocytes % (A) 13 %; MCH 29.6 pg (25.0-35.0); MCHC 32.8 g/dL (31.0-37.0); MCV 90.4 fL (80.0-100.0); Mean Platelet Volume 6.9; Monocytes # (A) 0.7 k/uL (0-1.0); Monocytes % (A) 5 %; Neutrophils # (A) 9.8 k/uL (1.3-7.7); Neutrophils % (A) 80 %; Platelet Count 248 k/uL (150-450); RBC 4.72 m/uL (4.30-5.90); RDW 12.9 % (11.5-15.5); WBC 12.3 k/uL (3.8-10.6)
[2021-08-27] MEDS: HEPARIN SOD,PORK IN 0.45% NACL 25,000 UNIT in 0.45% NACL 1 250ML.BAG IV SCH ×2 (19:21→22:54)
--- NOTE | 2021-08-27 19:45 | US ---
EXAMINATION TYPE: US renals and bladder DATE OF EXAM: 08/27/2021 COMPARISON: NONE CLINICAL HISTORY: uti and back pain. UTI, back pain, no other renal issues EXAM MEASUREMENTS: Right Kidney: 12.2 x 5.5 x 6.8 cm Left Kidney: 11.8 x 4.9 x 5.8 cm Right Kidney: No hydronephrosis or masses seen Left Kidney: No hydronephrosis or masses seen Bladder: venegas cath but did not see There is no evidence for hydronephrosis at this point in time. No nephrolithiasis is seen. No kiel s are identified. The urinary bladder is not evaluated. Bilateral ureteral jets are not seen. IMPRESSION: No evident hydronephrosis.
[2021-08-27] MEDS: HYDROcodone/APAP 5-325MG 1 EACH TAB PO PRN (21:48)
[2021-08-28] MEDS: HYDROmorphone 0.5 MG/0.5 ML SYRINGE IVP PRN ×5 (00:21→21:08)
[2021-08-28] MEDS: SODIUM CHLORIDE 0.9% 1,000 ML IV SCH ×2 (02:51→11:22)
--- NOTE | 2021-08-28 07:46 | CA ---
Transthoracic Echo Report Name: Juve Knott Age: 50 Gender: M : 1970 Exam Date: 08/27/2021 14:51 Exam Location: [facility] Ht (in): 68 Wt (lb): 270 Ordering Physician: Robert Tripp MD Attending/Referring Phys: [id number], Qasim Switchboard Receptionist Areli Kerr, [facility] Procedure CPT: Indications: Rule out heart disease Cardiac Hx: Technical Quality: Fair Contrast 1: Total Dose (mL): Contrast 2: Total Dose (mL): MEASUREMENTS (Male / Female) Normal Values 2D ECHO LV Diastolic Diameter PLAX 4.0 cm 4.2 - 5.9 / 3.9 - 5.3 cm LV Systolic Diameter PLAX 2.3 cm IVS Diastolic Thickness 1.1 cm 0.6 - 1.0 / 0.6 - 0.9 cm LVPW Diastolic Thickness 1.2 cm 0.6 - 1.0 / 0.6 - 0.9 cm LV Relative Wall Thickness 0.6 RV Internal Dim ED PLAX 2.7 cm LA Systolic Diameter LX 3.5 cm 3.0 - 4.0 / 2.7 - 3.8 cm M-MODE Aortic Root Diameter MM 3.4 cm MV E Point Septal Separation 0.7 cm AV Cusp Separation MM 2.3 cm DOPPLER AV Peak Velocity 105.1 cm/s AV Peak Gradient 4.4 mmHg MV Area PHT 2.9 cm??? Mitral E Point Velocity 57.6 cm/s Mitral A Point Velocity 71.3 cm/s Mitral E to A Ratio 0.8 MV Deceleration Time 260.8 ms MV E' Velocity 4.4 cm/s Mitral E to MV E' Ratio 13.2 FINDINGS Left Ventricle Left ventricular ejection fraction is estimated at 55-60%left ventricular cavity size normal. Borderline left ventricular hypertrophy. Right Ventricle Normal right ventricular size and function. Unable to estimate the right ventricular systolic pressure. Right Atrium Normal right atrial size. Left Atrium Normal left atrial size. No evidence for an atrial septal defect. Mitral Valve Structurally normal mitral valve. No mitral stenosis, regurgitation or prolapse. Aortic Valve Trileaflet aortic valve. No aortic valve stenosis or regurgitation. Tricuspid Valve Trace tricuspid regurgitation. Pulmonic Valve Pulmonic valve not well visualized. Pericardium Normal pericardium. Aorta Normal size aortic root and proximal ascending aorta. CONCLUSIONS Technically difficult study for interpretation Normal left ventricular dimension and systolic from Previewed by: Dr. Jacky Muniz MD (Electronically Signed) Final Date: 28 Aug 2021 07:45
--- NOTE | 2021-08-28 10:46 | P.PN ---
Subjective Progress Note Date: 08/28/21 Patient seen and examined. CT venous phase not yet completed. Overall he is feeling okay with some discomfort in his lower extremities. He denies any fevers, chills, nausea, vomiting or changes in his breathing. Objective - Vital Signs Vital signs: Vital Signs Temp 97.8 F 08/28/21 01:37 Pulse 95 08/28/21 01:37 Resp 16 08/28/21 01:37 BP 134/85 08/28/21 01:37 Pulse Ox 97 08/28/21 01:37 FiO2 Intake & Output 08/27/21 08/28/21 08/28/21 18:59 06:59 18:59 Intake Total 480 178.26 Output Total 800 450 600 Balance -320 -271.74 -600 Intake: Intake, IV Titration 178.26 Amount Heparin Sod,Pork in 0.45% 78.26 NaCl 25,000 unit In 0.45 % NaCl 1 250ml.bag @ 18 UNITS/KG/HR 22.045 mls/hr IV .[id number] [facility] Rx#: [id number] Levofloxacin 500Mg-D5w 100 Pmx 500 mg In Dextrose/ Water 1 100ml.bag @ 100 mls/hr IVPB DAILY@1700 [facility] Rx#:[id number] Oral 480 0 Output: Urine 700 450 600 Post Void Residual 100 Other: Voiding Method Indwelling Catheter Indwelling Catheter - Exam General appearance: The patient is alert, oriented, appears in no acute distress. Obese. HET: Head is normocephalic and atraumatic. Pupils are equal and reactive. Neck: Supple without lymphadenopathy. Trachea midline. Heart: S1 S2. Regular rate and rhythm. Lungs: Clear to auscultation bilaterally. Abdomen: Soft, abdominal binder in place, surgical tenderness, nondistended. Extremities: Normal skin color and turgor. Bilateral lower extremity edema, nonpitting. Palpable bilateral femoral and dorsalis pedis pulses. Neurological: No focal deficits. Strength and sensation are grossly intact. - Labs CBC & Chem 7: 08/27/21 18:41 08/27/21 08:34 Labs: Abnormal Lab Results - Last 24 Hours (Table) 08/27/21 08/27/21 08/27/21 Range/Units 08:34 18:41 18:41 WBC 12.3 H (3.8-10.6) k/uL Neutrophils # 9.8 H (1.3-7.7) k/uL APTT 86.1 H (22.0-30.0) sec Procalcitonin 0.15 H (0.02-0.09) ng/mL 08/28/21 Range/Units 09:32 WBC (3.8-10.6) k/uL Neutrophils # (1.3-7.7) k/uL APTT 78.8 H (22.0-30.0) sec Procalcitonin (0.02-0.09) ng/mL Microbiology - Last 24 Hours (Table) 08/26/21 17:00 Urine Culture - Preliminary Urine,Clean Catch Assessment and Plan Assessment: 1. Bilateral extensive lower extremity deep vein thrombosis 2. History of right lower extremity with filter, Optease 3. Syncope 4. Hypotension 5. Recent exploratory laparotomy with small bowel resection on 08/11/2021 Plan: Continue heparin drip as ordered. Long discussion had with the patient regarding his extensive lower extremity DVT as well as a type of filter he has. Given all these findings I would recommend he follow-up with Dr. Alonso Whitehead in [facility] for intervention and removal of the filter if possible as well as treatment of his DVT. This has artery been set in motion. The patient is aware as well as Dr. Butt. We discussed the is very close to his window for utilizing TPA with his recent surgery therefore if it is not emergent, we will forego aggressive intervention at this time due to bleeding complication risks. Anticipate this can be done as an outpatient in the near future. Increase fluids and hydration and increase activity. As long as the patient is able to tolerate activity without significant hypotension, he may be discharged. He may elevate and use compression on his lower extremities.
[2021-08-28 11:39] LABS: Basophils # (A) 0.06 X 10*3/uL (0.00-0.10); Basophils % (A) 0.3 %; Eosinophils # (A) 0.05 X 10*3/uL (0.04-0.35); Eosinophils % (A) 0.3 %; HCT 41.7 % (39.6-50.0); HGB 13.1 g/dL (13.0-17.0); Immature Grans, Automated 0.9 %; Lymphocytes # (A) 2.28 X 10*3/uL (0.90-5.00); Lymphocytes % (A) 13.1 %; MCH 28.6 pg (27.0-32.0); MCHC 31.4 g/dL (32.0-37.0); Monocytes # (A) 1.42 X 10*3/uL (0.20-1.00); Monocytes % (A) 8.2 %; NRBC Per 100 WBC 0 /100 WBCS (0.0-0.0); Neutrophils # (A) 13.44 X 10*3/uL (1.80-7.70); Neutrophils % (A) 77.2 %; Platelet Count 213 X 10*3/uL (140-440); RBC 4.58 X 10*6/uL (4.40-5.60); RDW 12.8 % (11.5-14.5)
[2021-08-28 12:08] LABS: Magnesium 1.9 mg/dL (1.5-2.4)
[2021-08-28 12:14] LABS: African American GFR (CKD) 80.1 (60.0-200.0); Anion Gap 15.2 mmol/L (10.00-18.00); BUN/Creat Ratio 17.25 Ratio (12.00-20.00); Blood Urea Nitrogen 20.7 mg/dL (9.0-27.0); Calcium 9.2 mg/dL (8.7-10.3); Carbon Dioxide 14.8 mmol/L (20.0-27.5); Non-African American GFR(CKD) 69.1 (60.0-200.0); Potassium 4.5 mmol/L (3.5-5.5)
[2021-08-28] MEDS: IOPAMIDOL CONTRAST (ORAL USE) VIAL PO PRN ×2 (12:18→13:11)
[2021-08-28] MEDS: HEPARIN SOD,PORK IN 0.45% NACL 25,000 UNIT in 0.45% NACL 1 250ML.BAG IV SCH ×2 (12:19→22:10)
--- NOTE | 2021-08-28 12:38 | P.PN ---
Subjective Progress Note Date: 08/28/21 CHIEF COMPLAINT: Bilateral lower extremity DVT HISTORY OF PRESENT ILLNESS: Patient does complain of pain in his legs. He is on IV heparin. Patient followed by vascular surgery. They are recommending that patient follows up with Dr. Whitehead out of [facility] for intervention and removal of the filter and possible treatment of his DVT in the outpatient setting. Patient denies any abdominal pain. He is having flatus. Last bowel movement was a few days ago. Denies any nausea or vomiting. Afebrile. WBC is up from 12.3-17.4 hemoglobin 13.1 PHYSICAL EXAM: VITAL SIGNS: Reviewed. GENERAL: Well-developed in no acute distress. HEENT: No sclera icterus. Extraocular movements grossly intact. Moist buccal mucosa. Head is atraumatic, normocephalic. ABDOMEN: Soft. Nondistended. Nontender. Incision site clean dry and intact present. NEUROLOGIC: Alert and oriented. Cranial nerves II through XII grossly intact. ASSESSMENT: 1. Bilateral lower extremity DVT 2. Recent small bowel obstruction secondary to recurrent incarcerated incisional hernia with abdominal adhesions status post exploratory laparotomy, extensive lysis of adhesions, small bowel resection and repair of recurrent i ncarcerated incisional hernia on 08/11/2021 PLAN: -Continue IV heparin for bilateral lower extremity DVT. Patient followed by vascular surgery and they have ordered a computed tomography scan of venous phase -Continue supportive care Physician Senior Research Consultant note has been reviewed by physician. Signing provider agrees with the documented findings, assessment, and plan of care. I have personally seen and examined the patient, reviewed the GI TECH /PAs history, exam and MDM and agree with the assessment and plan as written. Based on total visit time, I have performed more than 50% of the visit. As above: Patient reevaluated today. States his lower extremity pain is somewhat worse than yesterday left greater than right. Repeat CAT scan ordered by vascular surgery. Plans for possible percutaneous filter removal apparently planned either outpatient or inpatient. Denies abdominal pain. Tolerating diet. Labs noted. Continue vascular workup. Objective - Vital Signs Vital signs: Vital Signs Temp 97.8 F 08/28/21 01:37 Pulse 95 08/28/21 01:37 Resp 16 08/28/21 01:37 BP 134/85 08/28/21 01:37 Pulse Ox 97 05/27/22 01:37 FiO2 Intake & Output 08/27/21 08/28/21 08/28/21 18:59 06:59 18:59 Intake Total 480 178.26 250 Output Total 800 450 600 Balance -320 -271.74 -350 Intake: Intake, IV Titration 178.26 250 Amount Heparin Sod,Pork in 0.45% 78.26 250 NaCl 25,000 unit In 0.45 % NaCl 1 250ml.bag @ 18 UNITS/KG/HR 22.045 mls/hr IV .[id number] [facility] Rx#: [id number] Levofloxacin 500Mg-D5w 100 Pmx 500 mg In Dextrose/ Water 1 100ml.bag @ 100 mls/hr IVPB DAILY@1700 [facility] Rx#:[id number] Oral 480 0 Output: Urine 700 450 600 Post Void Residual 100 Other: Voiding Method Indwelling Catheter Indwelling Catheter - Labs CBC & Chem 7: 08/28/21 07:14 08/28/21 07:14 Labs: Abnormal Lab Results - Last 24 Hours (Table) 08/27/21 08/27/21 08/27/21 Range/Units 08:34 18:41 18:41 WBC 12.3 H (3.8-10.6) k/uL MCHC (32.0-37.0) g/dL Immature Gran # (0.00-0.04) X 10*3/uL Neutrophils # 9.8 H (1.3-7.7) k/uL Monocytes # (0.20-1.00) X 10*3/uL APTT 86.1 H (22.0-30.0) sec Carbon Dioxide (20.0-27.5) mmol/L Procalcitonin 0.15 H (0.02-0.09) ng/mL 08/28/21 08/28/21 08/28/21 Range/Units 07:14 07:14 09:32 WBC 17.40 H (3.8-10.6) k/uL MCHC 31.4 L (32.0-37.0) g/dL Immature Gran # 0.15 H (0.00-0.04) X 10*3/uL Neutrophils # 13.44 H (1.3-7.7) k/uL Monocytes # 1.42 H (0.20-1.00) X 10*3/uL APTT 78.8 H (22.0-30.0) sec Carbon Dioxide 14.8 L (20.0-27.5) mmol/L Procalcitonin (0.02-0.09) ng/mL Microbiology - Last 24 Hours (Table) 08/26/21 17:00 Urine Culture - Preliminary Urine,Clean Catch
[2021-08-28] MEDS ORDERED: FUROSEMIDE 10 MG/ML 4 ML VIAL IV STA (13:04)
--- NOTE | 2021-08-28 13:04 | P.PN ---
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 Other medical history includes obstructive sleep apnea on CPAP, hypertension, GERD/reflux, nonsmoker, occasional EtOH use. Patient follows with Dr. Montoya for medical oncology, and his lymphoma has been in remission. Recently patient had exploratory laparotomy with small bowel resection related to recurrent incarcerated incisional hernia with extensive abdominal adhesions. Patient was discharged home on 08/18/2021. Today patient was at Dr. Mg's office for 2 week postop follow-up for abdominal surgery, and became lightheaded and was near syncopal, he was brought into the emergency department by EMS. Patient denied any chest pain, no dyspnea, no fever, mild cough which is chronic, patient did have mild nausea without vomiting, he was passing bowel movements after his lai rgery, his abdominal incision is healing quite well. His orthostatic blood pressures were positive, suggesting possibility of dehydration. EKG shows normal sinus rhythm with left axis deviation and a rate of [address] segment elevation. His blood pressures were marginal upon arrival, he was given IV fluids. Laboratory studies showed a white blood cell count of 18.4, patient had evidence of acute kidney injury with elevated creatinine of 1.64, urinalysis showed leukocytes without bacteria, urine culture was sent. CT of the abdomen and pelvis was obtained showing postsurgical changes without other acute findings. Patient also noted increased swelling in his bilateral lower extremities, and was complaining of lower back pain radiating to the groin area and right calf pain. Venous Doppler showed evidence of bilateral lower extremity DVTs. He was started on heparin drip, he denies any shortness of breath, no chest pain, no hemoptysis, unable to obtain CT angiogram of the chest related to evidence of acute kidney injury. But breathing comfortably, he is on room air pulse ox of 96%. Echocardiogram has been taken, results are pending. Vascular surgery and cardiology have been consulted. 08/28/2021, the patient is still laying in bed. He was quite uncomfortable and the legs are quite swollen lower extremities and there are also hurting. The patient remains on IV heparin. Vascular surgery evaluated the patient. Noted the patient had an IVC filter in place. No vascular intervention was recommended then IV diuretics. The PTT is therapeutic at 78. Renal function continues to improve in the creatinine is down to 1.2 and the patient developed a component of non-anion gap metabolic acidosis. Echocardiogram was also completed and in turn down attendant to be a poor window. No evidence of any significant pulmonary hypertension and the PA pressures were not adequately measures. Otherwise it was at 70 with a hemoglobin of 13.1. No shortness of breath. No pleurisy. No hemoptysis. Objective - Vital Signs Vital signs: Vital Signs Temp 97.8 F 08/28/21 01:37 Pulse 95 08/28/21 01:37 Resp 16 08/28/21 01:37 BP 134/85 08/28/21 01:37 Pulse Ox 97 08/28/21 01:37 FiO2 Intake & Output 08/27/21 08/28/21 08/28/21 18:59 06:59 18:59 Intake Total 480 178.26 250 Output Total 800 450 600 Balance -320 -271.74 -350 Intake: Intake, IV Titration 178.26 250 Amount Heparin Sod,Pork in 0.45% 78.26 250 NaCl 25,000 unit In 0.45 % NaCl 1 250ml.bag @ 18 UNITS/KG/HR 22.045 mls/hr IV .[id number] [facility] Rx#: [id number] Levofloxacin 500Mg-D5w 100 Pmx 500 mg In Dextrose/ Water 1 100ml.bag @ 100 mls/hr IVPB DAILY@1700 [facility] Rx#:[id number] Oral 480 0 Output: Urine 700 450 600 Post Void Residual 100 Other: Voiding Method Indwelling Catheter Indwelling Catheter - Exam GENERAL EXAM: Alert, very pleasant, 50-year-old white male on room air with pulse ox of 96% comfortable in no apparent distress. HEAD: Normocephalic/atraumatic. EYES: Normal reaction of pupils, equal size. Conjunctiva pink, sclera white. NOSE: Clear with pink turbinates. THROAT: No erythema or exudates. NECK: No masses, no JVD, no thyroid enlargement, no adenopathy. CHEST: No chest wall deformity. Symmetrical expansion. LUNGS: Equal air entry with no crackles, wheeze, rhonchi or dullness. CVS: Regular rate and rhythm, normal S1 and S2, no gallops, no murmurs, no rubs ABDOMEN: Soft, nontender. No hepatosplenomegaly, normal bowel sounds, no guardi ng or rigidity. Midabdominal incision is clean dry and intact, surgical paco are in place, clean dry and intact EXTREMITIES: No clubbing, mild nonpitting swelling in bilateral lower extremities, no cyanosis, 2+ pulses and upper and lower extremities. MUSCULOSKELETAL: Muscle strength and tone normal. SPINE: No scoliosis or deformity SKIN: No rashes CENTRAL NERVOUS SYSTEM: Alert and oriented -3. No focal deficits, tone is normal in all 4 extremities. PSYCHIATRIC: Alert and oriented -3. Appropriate affect. Intact judgment and insight. - Labs CBC & Chem 7: 08/28/21 07:14 08/28/21 07:14 Labs: Abnormal Lab Results - Last 24 Hours (Table) 08/27/21 08/27/21 08/27/21 Range/Units 08:34 18:41 18:41 WBC 12.3 H (3.8-10.6) k/uL MCHC (32.0-37.0) g/dL Immature Gran # (0.00-0.04) X 10*3/uL Neutrophils # 9.8 H (1.3-7.7) k/uL Monocytes # (0.20-1.00) X 10*3/uL APTT 86.1 H (22.0-30.0) sec Carbon Dioxide (20.0-27.5) mmol/L Procalcitonin 0.15 H (0.02-0.09) ng/mL 08/28/21 08/28/21 08/28/21 Range/Units 07:14 07:14 09:32 WBC 17.40 H (3.8-10.6) k/uL MCHC 31.4 L (32.0-37.0) g/dL Immature Gran # 0.15 H (0.00-0.04) X 10*3/uL Neutrophils # 13.44 H (1.3-7.7) k/uL Monocytes # 1.42 H (0.20-1.00) X 10*3/uL APTT 78.8 H (22.0-30.0) sec Carbon Dioxide 14.8 L (20.0-27.5) mmol/L Procalcitonin (0.02-0.09) ng/mL Microbiology - Last 24 Hours (Table) 08/26/21 17:00 Urine Culture - Preliminary Urine,Clean Catch Assessment and Plan Plan: #1. Acute bilateral lower extremity DVTs, this is a recurrent event the patient had a DVT several years back, at that time completed course of Coumadin. The patient for now has extensive bilateral lower extremity DVTs with significant swelling and pain which is affecting his mobility. He has an IVC filter in place. Vascular surgery has evaluated the patient. Not a candidate for any th rombolytic therapy as the patient undergone recent bowel surgery. We decided to continue with IV heparin. A second opinion will be obtained by another vascular surgeon output of [facility]. #2. Hypotension, hypovolemic likely related to dehydration, recovered #3. History of right lower extremity DVT with placement of [place] filter #4. Near syncopal episode related to dehydration, recovered #5. Recent history of exploratory laparotomy with small bowel resection on 01/2022 #6. History of Burkitt's lymphoma with previous history of bowel resection, followed by chemotherapy, currently in remission #7. GERD/reflux #8. Hypertension #9. Chronic back and neck pain #10. Nonsmoker #11. Occasional alcohol only #12 acute kidney injury, improving #13 non-anion gap metabolic acidosis. Plan: Stop the IV fluids for now Dear the patient does of Lasix 20 mg of push Compression stockings his lower extremities bilaterally Continue heparin infusion Echocardiogram has been completed results are noted Vascular surgeries on the case Mobility hasn't affected his extensive clotting in lower extremities We'll continue to follow
[2021-08-28] MEDS: PANTOPRAZOLE 40 MG TABLET PO SCH ×2 (13:24→16:14)
--- NOTE | 2021-08-28 15:18 | CT ---
EXAMINATION TYPE: CT abdomen pelvis w con DATE OF EXAM: 08/28/2021 COMPARISON: 08/26/2021 HISTORY: Possible abscess CT DLP: 1389.4 mGycm Automated exposure control for dose reduction was used. TECHNIQUE: Helical acquisition of images was performed from the lung bases through the pelvis. CONTRAST: Performed with Oral Contrast and with IV Contrast, patient injected with 100 mL of Isovue 300. FINDINGS: Visualized lung bases are clear. There is surgical absence of gallbladder. There is no biliary ductal dilatation. There is no focal ma ss within the liver, pancreas, spleen or adrenal glands. The bowel loops are normal in caliber and there is no dilatation or obstruction. No inflammatory zheng ges are identified in the mesentery. There is no free intraperitoneal air or fluid. There are postsurgical changes involving the midline anterior abdominal wall which are stable. The kidneys perfuse probably and symmetrically and there is no solid renal mass or hydronephrosis. Th e caliber of the abdominal aorta is normal.There is an IVC filter unchanged in position. There is no pelvic mass, free fluid, abscess or adenopathy. There is a Aldridge catheter within the urinary bladder. There is a mild to moderate stool within the rectum. The visualized osseous structures are intact. Impression: 1. Postsurgical changes in the midline anterior abdominal wall. 2. Surgical absence of the gallbladder, IVC filter and Aldridge catheter within the urinary bladder. 3. No intra-abdominal or pelvic abscess. 4. No bowel obstruction or free intraperitoneal air or fluid.
[2021-08-28] MEDS: ONDANSETRON 4 MG/2 ML VIAL IVP PRN ×2 (15:34→21:40)
--- NOTE | 2021-08-28 15:42 | CT ---
EXAMINATION TYPE: CT lumbar spine w con DATE OF EXAM: 08/28/2021 COMPARISON: None HISTORY: back pain CT DLP: 1389.4 mGycm Automated exposure control for dose reduction was used. CONTRAST: CT scan of the lumbar is performed with IV Contrast, patient injected with 100 mL of Isovue 300. Findings: The lumbar vertebral segments are normal in height and alignment and there is no fracture or subluxat ion. The disc spaces are well-maintained in height. There is mild degenerative change of the right SI joint. There is no significant facet arthropathy. There are no large disc herniations. Secondary to posterior disc bulge and thickening ligamentum flav um. There is mild to moderate spinal stenosis at the L4-5 level. IMPRESSION: 1. No lumbar spine fracture or malalignment. 2. Mild degenerative change of the right SI joint. 3. Mild to moderate spinal stenosis at the L4-5 level. MRI of the lumbar spine would be useful for fu rther characterization.
[2021-08-28] MEDS: LEVOFLOXACIN 500MG-D5W PMX 500 MG in DEXTROSE/WATER 1 100ML.BAG IVPB SCH (16:16)
[2021-08-29] MEDS: HYDROmorphone 0.5 MG/0.5 ML SYRINGE IVP PRN ×6 (00:13→21:05)
[2021-08-29] MEDS: PANTOPRAZOLE 40 MG TABLET PO SCH ×2 (07:10→16:36)
--- NOTE | 2021-08-29 09:57 | P.CNOR ---
History of Present Illness - [facility] Consult date: 08/29/21 Consult reason: low back pain History of present illness: 50 yo male presented with c/o LE pain and difficulty with ambulation as well as pain with ambulation. He was found to have extensive DVT in his b/l LE. He recently underwent bowel surgery. He has a previous g[place]field filter which is blocked at this time. He c/o LE pain that is b/l in nature and worse when he moves his legs. He was previously being worked up for sciatica by his PCP with MRI from [facility] and was in PT. He did get a CT scan here. He states no bowel or bladder issues. No perineal numbness/tingling. He states this pain is much different than his sciatica pain. 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 Denies any other sx at this time. Review of Systems Constitutional: Reports as per [facility] Past Medical History Past Medical History: Cancer, Deep Vein Thrombosis (DVT), GERD/Reflux, Hypertension Additional Past Medical History / Comment(s): Lymphoma/small bowel with surgery and chemo in 2003, small bowel obstructions, DVT R calf 2003 History of Any Multi-Drug Resistant Organisms: None Reported Past Surgical History: Bowel Resection, Cholecystectomy, Hernia Repair, Orthopedic Surgery, Tonsillectomy Additional Past Surgical History / Comment(s): Bowel resection d/t small bowel lymphoma, colonoscopies, incisional hernia repair with mesh x2, vanita filter, port a cath -now removed, bowel resection x2, cervical spine surgery with implant 2004 Past Anesthesia/Blood Transfusion Reactions: No Reported Reaction Past Psychological History: No Psychological Hx Reported Additional Psychological History / Comment(s): Pt resides with his spouse. 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 Smoking Status: Never smoker Past Alcohol Use History: Occasional Past Drug Use History: None Reported, Unable to Obtain - Past Family History Mother Family Medical History: No Reported History Additional Family Medical History / Comment(s): Mother is healthy Father Family Medical History: Myocardial Infarction ([place]) Additional Family Medical History / Comment(s): AT AGE 48 OF A [place] Medications and Allergies Home Medications Medication Instructions Recorded Confirmed Type Esomeprazole Magnesium [NexIUM] 40 mg PO BID 05/04/20 08/26/21 History Cholecalciferol [Vitamin D3 (25 50 mcg PO DAILY 08/10/21 08/26/21 History Mcg = 1000 Iu)] Ibuprofen [Motrin] 800 mg PO TID PRN 08/10/21 08/26/21 History Pseudoephedrine HCl [Sudafed 240 mg PO DAILY 08/10/21 08/26/21 History 24-Hour] HYDROcodone/APAP 5-325MG [[place] 1 tab PO Q6HR PRN 3 Days #12 tab 08/18/21 08/26/21 Rx 5-325] Losartan [Cozaar] 50 mg PO DAILY 08/26/21 08/26/21 History Allergies Allergy/AdvReac Type Severity Reaction Status Date / Time Penicillins Allergy Anaphylaxis Verified 08/26/21 18:23 Physical Examination Osteopathic Statement: *. No significant issues noted on an osteopathic structural exam other than those noted in the History and Physical/Consult. Swelling and Edema about his B/L LE with wraps at this time. - Lumbar Spine Back pain: gradual onset, staying the same Pain modifiers: with flexion, with extension, with lateral flexion right, with lateral flexion left, throughout ROM Nerve symptoms: burning pain in leg or foot: bilateral, buttock pain radiating to back of leg: right Other nerve symptoms: abnormal gait Previous treatment: ice: effective, NSAIDs: effective, pain medication: effective, muscle relaxant: effective, exercise: not effective, physical therapy: somewhat effective, chiropractic: somewhat effective Tenderness with palpation: L/S junction, buttock Appearance: normal Full ROM: yes Crepitus with motion: No - L Spine: dermatomal strength & reflexes bilateral Strength: hip flexion: 5/5 Strength: hip extension: 5/5 Strength: knee flexion: 5/5 Strength: knee extension: 5/5 Strength: ankle dorsiflexion: 5/5 Strength: ankle plantar flexion: 5/5 Strength: ankle inversion: 5/5 Strength: ankle eversion: 5/5 Strength: great toe flexion: 5/5 Strength: great toe extension: 5/5 Reflexes: knee reflex: grade 2, ankle reflex: grade 2 Other reflexes: Babinski's: negative, clonus: negative Nerve sensory abnormalities: buttocks/perianal (S3, S4, S5): no, entire leg: no, medial upper thigh: no, inguinal (L1): no, proximal thigh (L2): no, distal thigh (L3): no, knee (L4): no, lateral leg and first dorsal webspace (L5): no, posterior leg and plantar foot (S1): no, posterior thigh (S2): no Nerve tests: straight leg raising tests: negative, contralateral straight leg raising tests: negative Results CT lumbar spine shows mild stenotic features at L4-[address] scan. Some facet arthrosis L4-S1 with hypertrophy. No fractures. Disc heights reasonable. No lesions noted. Alignment maintained. - Labs Labs: Abnormal Lab Results - Last 24 Hours (Table) 08/28/21 08/28/21 08/28/21 Range/Units 07:14 07:14 09:32 WBC 17.40 H (4.50-10.00) X 10*3/uL MCHC 31.4 L (32.0-37.0) g/dL Immature Gran # 0.15 H (0.00-0.04) X 10*3/uL Neutrophils # 13.44 H (1.80-7.70) X 10*3/uL Monocytes # 1.42 H (0.20-1.00) X 10*3/uL APTT 78.8 H (22.0-30.0) sec Carbon Dioxide 14.8 L (20.0-27.5) mmol/L 08/28/21 08/29/21 Range/Units 16:14 06:34 WBC (4.50-10.00) X 10*3/uL MCHC (32.0-37.0) g/dL Immature Gran # (0.00-0.04) X 10*3/uL Neutrophils # (1.80-7.70) X 10*3/uL Monocytes # (0.20-1.00) X 10*3/uL APTT 54.3 H 45.5 H (22.0-30.0) sec Carbon Dioxide (20.0-27.5) mmol/L Microbiology - Last 24 Hours (Table) 08/26/21 17:00 Urine Culture - Preliminary Urine,Clean Catch H & H 08/26/21 08/27/21 08/27/21 Range/Units 18:57 08:34 18:41 Hgb 15.0 13.7 14.0 (13.0-17.5) gm/dL Hct 48.3 42.9 42.7 (39.0-53.0) % 08/28/21 Range/Units 07:14 Hgb 13.1 (13.0-17.5) gm/dL Hct 41.7 (39.0-53.0) % Coagulation 08/26/21 08/27/21 Range/Units 18:57 12:03 INR 1.0 1.1 (<1.2) Result Diagrams: 08/28/21 07:14 08/28/21 07:14 Assessment and Plan Assessment: 1. LBP 2. L4-5 mild stenosis 3. LE radiculopathy, mild 4. b/l LE DVT (main culprit for pain) 5. hx NHL 6. Complex pt Plan: -No orthopedic surgical intervention at this time -Consider steroids if appropriate for sciatic and radicular pain -Consider gabapentin for radicular pain if appropriate -May follow up with MRI from [facility] in office when able
[2021-08-29] MEDS ORDERED: FUROSEMIDE 10 MG/ML 4 ML VIAL IV STA (10:14)
[2021-08-29 10:25] LABS: HCT 41.3 % (39.0-53.0); HGB 13.1 gm/dL (13.0-17.5); MCH 29.4 pg (25.0-35.0); MCHC 31.8 g/dL (31.0-37.0); MCV 92.4 fL (80.0-100.0); Platelet Count 249 k/uL (150-450); RBC 4.47 m/uL (4.30-5.90); RDW 13.2 % (11.5-15.5); WBC 15.2 k/uL (3.8-10.6)
[2021-08-29 10:31] LABS: ALT 36 U/L (4-49); AST 36 U/L (17-59); African American GFR (CKD) 78 (>60 ml/min/1.73 sqM); Albumin 3.6 g/dL (3.5-5.0); Albumin/Globulin Ratio 1.2; Alkaline Phosphatase 162 U/L (38-126); Anion Gap 10 mmol/L; Blood Urea Nitrogen 23 mg/dL (9-20); Carbon Dioxide 21 mmol/L (22-30); Chloride 104 mmol/L (98-107); Globulin 3.1 g/dL; Glucose 117 mg/dL (74-99); Non-African American GFR(CKD) 67 (>60 ml/min/1.73 sqM); Potassium 4.6 mmol/L (3.5-5.1); Sodium 135 mmol/L (137-145); Total Bilirubin 0.6 mg/dL (0.2-1.3); Total Protein 6.7 g/dL (6.3-8.2)
[2021-08-29] MEDS: HEPARIN SOD,PORK IN 0.45% NACL 25,000 UNIT in 0.45% NACL 1 250ML.BAG IV SCH ×3 (11:35→23:18)
--- NOTE | 2021-08-29 12:51 | P.PN ---
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 Other medical history includes obstructive sleep apnea on CPAP, hypertension, GERD/reflux, nonsmoker, occasional EtOH use. Patient follows with Dr. Montoya for medical oncology, and his lymphoma has been in remission. Recently patient had exploratory laparotomy with small bowel resection related to recurrent incarcerated incisional hernia with extensive abdominal adhesions. Patient was discharged home on 08/18/2021. Today patient was at Dr. Mg's office for 2 week postop follow-up for abdominal surgery, and became lightheaded and was near syncopal, he was brought into the emergency department by EMS. Patient denied any chest pain, no dyspnea, no fever, mild cough which is chronic, patient did have mild nausea without vomiting, he was passing bowel movements after his lai rgery, his abdominal incision is healing quite well. His orthostatic blood pressures were positive, suggesting possibility of dehydration. EKG shows normal sinus rhythm with left axis deviation and a rate of [address] segment elevation. His blood pressures were marginal upon arrival, he was given IV fluids. Laboratory studies showed a white blood cell count of 18.4, patient had evidence of acute kidney injury with elevated creatinine of 1.64, urinalysis showed leukocytes without bacteria, urine culture was sent. CT of the abdomen and pelvis was obtained showing postsurgical changes without other acute findings. Patient also noted increased swelling in his bilateral lower extremities, and was complaining of lower back pain radiating to the groin area and right calf pain. Venous Doppler showed evidence of bilateral lower extremity DVTs. He was started on heparin drip, he denies any shortness of breath, no chest pain, no hemoptysis, unable to obtain CT angiogram of the chest related to evidence of acute kidney injury. But breathing comfortably, he is on room air pulse ox of 96%. Echocardiogram has been taken, results are pending. Vascular surgery and cardiology have been consulted. 08/28/2021, the patient is still laying in bed. He was quite uncomfortable and the legs are quite swollen lower extremities and there are also hurting. The patient remains on IV heparin. Vascular surgery evaluated the patient. Noted the patient had an IVC filter in place. No vascular intervention was recommended then IV diuretics. The PTT is therapeutic at 78. Renal function continues to improve in the creatinine is down to 1.2 and the patient developed a component of non-anion gap metabolic acidosis. Echocardiogram was also completed and in collar turner to be a poor window. No evidence of any significant pulmonary hypertension and the PA pressures were not adequately measures. Otherwise it was at 70 with a hemoglobin of 13.1. No shortness of breath. No pleurisy. No hemoptysis. 08/29/2021, the patient continues to have significant amount of swelling in lower extremities and pain and discomfort to the point where the patient is unable to ambulate. I give him a dose of Lasix yesterday and he had excellent diuresis. There is some improvement in swelling lower extremities since yesterday and the patient is a negative fluid balance of 3 L. Remains on IV heparin. Nevertheless, continues to have significant amount of soreness and pressure sensation tightness in lower extremities. No chest pain. No shortness of breath. Laying comfortably in bed. Surgical site over the abdomen is dry clean and intact and the patient is passing gas and tolerating bowel movements. Echo was done yesterday and was a poor window. On his blood work, the white centers of 50 with a hemoglobin of 15.1. PTT is therapeutic at 45. BUN is at 23 with a creatinine of 1.2 and the sodium level is at 135. Serum bicarbs of 21. Objective - Vital Signs Vital signs: Vital Signs Temp 98.0 F 08/29/21 07:31 Pulse 88 08/29/21 07:31 Resp 16 08/29/21 07:31 BP 115/75 08/29/21 07:31 Pulse Ox 95 08/29/21 07:31 FiO2 Intake & Output 08/28/21 08/29/21 08/29/21 18:59 06:59 18:59 Intake Total 652.466 86.545 250.000 Output Total 2600 600 Balance -1947.534 -513.455 250.000 Intake: Intake, IV Titration 356.466 86.545 250.000 Amount Heparin Sod,Pork in 0.45% 356.466 86.545 250.000 NaCl 25,000 unit In 0.45 % NaCl 1 250ml.bag @ 18 UNITS/KG/HR 22.045 mls/hr IV .[id number] [facility] Rx#: [id number] Oral 296 Output: Urine 2600 600 Other: Voiding Method Indwelling Catheter Indwelling Catheter Indwelling Catheter - Exam GENERAL EXAM: Alert, very pleasant, 50-year-old white male on room air with pulse ox of 96% comfortable in no apparent distress. HEAD: Normocephalic/atraumatic. EYES: Normal reaction of pupils, equal size. Conjunctiva pink, sclera white. NOSE: Clear with pink turbinates. THROAT: No erythema or exudates. NECK: No masses, no JVD, no thyroid enlargement, no adenopathy. CHEST: No chest wall deformity. Symmetrical expansion. LUNGS: Equal air entry with no crackles, wheeze, rhonchi or dullness. CVS: Regular rate and rhythm, normal S1 and S2, no gallops, no murmurs, no rubs ABDOMEN: Soft, nontender. No hepatosplenomegaly, normal bowel sounds, no guarding or rigidity. Midabdominal incision is clean dry and intact, surgical paco are in place, clean dry and intact EXTREMITIES: No clubbing, mild nonpitting swelling in bilateral lower extremit ies, no cyanosis, 2+ pulses and upper and lower extremities. MUSCULOSKELETAL: Muscle strength and tone normal. SPINE: No scoliosis or deformity SKIN: No rashes CENTRAL NERVOUS SYSTEM: Alert and oriented -3. No focal deficits, tone is normal in all 4 extremities. PSYCHIATRIC: Alert and oriented -3. Appropriate affect. Intact judgment and insight. - Labs CBC & Chem 7: 08/29/21 06:34 08/29/21 06:34 Labs: Abnormal Lab Results - Last 24 Hours (Table) 08/28/21 08/29/21 08/29/21 Range/Units 16:14 06:34 06:34 WBC 15.2 H (3.8-10.6) k/uL APTT 54.3 H 45.5 H (22.0-30.0) sec Sodium (137-145) mmol/L Carbon Dioxide (22-30) mmol/L BUN (9-20) mg/dL Glucose (74-99) mg/dL Alkaline Phosphatase (38-126) U/L 08/29/21 Range/Units 06:34 WBC (3.8-10.6) k/uL APTT (22.0-30.0) sec Sodium 135 L (137-145) mmol/L Carbon Dioxide 21 L (22-30) mmol/L BUN 23 H (9-20) mg/dL Glucose 117 H (74-99) mg/dL Alkaline Phosphatase 162 H (38-126) U/L Microbiology - Last 24 Hours (Table) 08/26/21 17:00 Urine Culture - Final Urine,Clean Catch Assessment and Plan Plan: #1. Acute bilateral lower extremity DVTs, this is a recurrent event the patient had a DVT several years back, at that time completed course of Coumadin. The patient for now has extensive bilateral lower extremity DVTs with significant swelling and pain which is affecting his mobility. He has an IVC filter in place. Vascular surgery has evaluated the patient. Not a candidate for any thrombolytic therapy as the patient undergone recent bowel surgery. We decided to continue with IV heparin. A second opinion will be obtained by another vascular surgeon output of [facility]. #2. Hypotension, hypovolemic likely related to dehydration, recovered #3. History of right lower extremity DVT with placement of Williams filter #4. Near syncopal episode related to dehydration, recovered #5. Recent history of exploratory laparotomy with small bowel resection on 08/11/2021 #6. History of Burkitt's lymphoma with previous history of bowel resection, followed by chemotherapy, currently in remission #7. GERD/reflux #8. Hypertension #9. Chronic back and neck pain #10. Nonsmoker #11. Occasional alcohol only #12 acute kidney injury, improving #13 non-anion gap metabolic acidosis. Plan: The patient is still having symptomatic tightness and pain due to his extensive DVT lower extremity is bilaterally. I give the patient does of Lasix yesterday with some help. A repeat dose of Lasix will be given today The legs will be kept tight with Jamar wraps IV fluids to KVO Vascular surgeries on the case Mobility hasn't affected his extensive clotting in lower extremities We'll continue to follow
--- NOTE | 2021-08-29 13:47 | P.PN ---
Subjective Progress Note Date: 08/29/21 CHIEF COMPLAINT: Incisional hernia HISTORY OF PRESENT ILLNESS: The patient is a 50-year-old male readmitted following open incisional hernia with lysis of adhesions and bowel resection. Patient developed bilateral lower extremity DVTs despite having previous IVC filter. Today, patient reports improvement of discomfort from his legs. Per patient report, "they're taken fluid of my leg." He is being followed by vascular including orthopedics. He is on heparin drip. ROS: No reports of nausea and vomiting. No bowel movements. No fevers or chills. No new chest pain. No productive sputum PHYSICAL EXAM: VITAL SIGNS: Reviewed CONSTITUTIONAL: Well developed and in no acute distress. EYES: Conjuctivae without sclera icterus. Extraocular movements grossly intact. HEAD, EARS, NOSE, THROAT: Moist buccal mucosa. Head is atraumatic, normocephalic. Hears conversational speech. No nasal drainage. RESPIRATORY: Non-labored respirations and equal bilateral excursions. CARDIOVASCULAR: Palpable 2+ radial pulses. ABDOMEN: No peritonitis. MUSCULOSKELETAL: Bilateral lower extremity swelling. SKIN: Good skin turgor. Well perfused. NEUROLOGIC: Cranial nerves II through XII grossly intact. No focal or lateralizing signs. PSYCH: Appropriate affect. Alert and oriented to person, place and time. CLINICAL LABS: Reviewed. WBC down 17.4-15.2. ASSESSMENT: 1. Bilateral lower extremity DVTs 2. History of IVC filter placement 3. History of ventral hernia repair PLAN: 1. Clinically, patient reports that he is feeling better with heparin drip and conservative management. 2. Appreciate vascular surgery consultation and recommendations. 3. Continue heparin drip Objective - Vital Signs Vital signs: Vital Signs Temp 98.0 F 08/29/21 07:31 Pulse 88 08/29/21 07:31 Resp 16 08/29/21 07:31 BP 115/75 08/29/21 07:31 Pulse Ox 95 08/29/21 07:31 FiO2 Intake & Output 08/28/21 08/29/21 08/29/21 18:59 06:59 18:59 Intake Total 652.466 86.545 250.000 Output Total 2600 600 Balance -1947.534 -513.455 250.000 Intake: Intake, IV Titration 356.466 86.545 250.000 Amount Heparin Sod,Pork in 0.45% 356.466 86.545 250.000 NaCl 25,000 unit In 0.45 % NaCl 1 250ml.bag @ 18 UNITS/KG/HR 22.045 mls/hr IV .[id number] [facility] Rx#: [id number] Oral 296 Output: Urine 2600 600 Other: Voiding Method Indwelling Catheter Indwelling Catheter Indwelling Catheter - Labs CBC & Chem 7: 08/29/21 06:34 08/29/21 06:34 Labs: Abnormal Lab Results - Last 24 Hours (Table) 08/28/21 08/29/21 08/29/21 Range/Units 16:14 06:34 06:34 WBC 15.2 H (3.8-10.6) k/uL APTT 54.3 H 45.5 H (22.0-30.0) sec Sodium (137-145) mmol/L Carbon Dioxide (22-30) mmol/L BUN (9-20) mg/dL Glucose (74-99) mg/dL Alkaline Phosphatase (38-126) U/L 08/29/21 Range/Units 06:34 WBC (3.8-10.6) k/uL APTT (22.0-30.0) sec Sodium 135 L (137-145) mmol/L Carbon Dioxide 21 L (22-30) mmol/L BUN 23 H (9-20) mg/dL Glucose 117 H (74-99) mg/dL Alkaline Phosphatase 162 H (38-126) U/L Microbiology - Last 24 Hours (Table) 08/26/21 17:00 Urine Culture - Final Urine,Clean Catch
[2021-08-29] MEDS: LEVOFLOXACIN 500 MG TAB PO SCH (16:36)
--- NOTE | 2021-08-29 21:35 | P.PN ---
Subjective Progress Note Date: 08/29/21 Principal diagnosis: bilateral lower extremity swelling Pain controlled. Still complaining of swelling. No other complaints Objective - Vital Signs Vital signs: Vital Signs Temp 98.3 F 08/29/21 14:00 Pulse 92 08/29/21 14:00 Resp 17 08/29/21 14:00 BP 114/76 08/29/21 14:00 Pulse Ox 97 08/29/21 14:00 FiO2 Intake & Output 08/29/21 08/29/21 08/30/21 06:59 18:59 06:59 Intake Total 86.545 1330.000 Output Total 600 1100 675 Balance -513.455 230.000 -675 Intake: Intake, IV Titration 86.545 250.000 Amount Heparin Sod,Pork in 0.45% 86.545 250.000 NaCl 25,000 unit In 0.45 % NaCl 1 250ml.bag @ 18 UNITS/KG/HR 22.045 mls/hr IV .[id number] [facility] Rx#: [id number] Oral 1080 Output: Urine 600 1100 675 Other: Voiding Method Indwelling Catheter Indwelling Catheter - Exam bilateral lower extremity edema. +TTP bilateral thighs. Good capillary refill. Patient able to move extremities but painful - Constitutional General appearance: Present: cooperative - Labs CBC & Chem 7: 08/29/21 06:34 08/29/21 06:34 Labs: Abnormal Lab Results - Last 24 Hours (Table) 08/29/21 08/29/21 08/29/21 Range/Units 06:34 06:34 06:34 WBC 15.2 H (3.8-10.6) k/uL APTT 45.5 H (22.0-30.0) sec Sodium 135 L (137-145) mmol/L Carbon Dioxide 21 L (22-30) mmol/L BUN 23 H (9-20) mg/dL Glucose 117 H (74-99) mg/dL Alkaline Phosphatase 162 H (38-126) U/L Microbiology - Last 24 Hours (Table) 08/26/21 17:00 Urine Culture - Final Urine,Clean Catch Assessment and Plan Assessment: 1. Bilateral lower extremity and IVC DVT 2. History of IVC filter 3. Recent laparotomy Plan: no intervention at this time. Continue oral anticoagulation. Follow up with IR physician at [place] as previously planned.
[2021-08-29] MEDS: HYDROcodone/APAP 5-325MG 1 EACH TAB PO PRN (22:45)
[2021-08-30] MEDS: HYDROmorphone 0.5 MG/0.5 ML SYRINGE IVP PRN ×2 (02:14→20:53)
[2021-08-30] MEDS: HYDROcodone/APAP 5-325MG 1 EACH TAB PO PRN ×3 (06:29→23:50)
[2021-08-30] MEDS: PANTOPRAZOLE 40 MG TABLET PO SCH ×2 (07:22→16:30)
[2021-08-30] MEDS ORDERED: FUROSEMIDE 10 MG/ML 4 ML VIAL IV STA (10:20)
--- NOTE | 2021-08-30 10:30 | P.PN ---
Subjective Progress Note Date: 08/28/21 50 years old male with past medical history of Deep Vein Thrombosis , GERD/Reflux, Hypertension, Lymphoma/small bowel with surgery and chemo in 2003, small bowel obstructions, DVT R calf 2003 Presents with dizziness and lightheadedness. Patient states that he has history of bowel lymphoma and DVT many years ago and his undergoing treatment for now and he is not on a blood thinner. recently he had a bowel surgery with dr. temple for bowel obstruction on 08/11, he was discharged from this hospital on 08/18 and he wants to see dr. green for follow-up appointment, he had low back pain and went to see him for that too. while in the office he had 2 episodes of presyncope and patient was referred to the emergency room. Patient also was complaining of from bilateral leg pain with left leg more indurated. He denies any weakness in his leg, no numbness. The patient borderline hypotensive. He has urinary symptoms of dysuria and feeling of pressure. Patient denies chest pain or dyspnea, no cough or blood. He denies smoking, alcohol patient has normal bowel movement passing gases. Patient is hemodynamically stable, blood pressure on the low side 92/55. As leukocytosis of 18.4 K, X CBC is unremarkable. INR is 1.0. BMP showed sodium of 136, creatinine 1.6. Rest of BMP and liver enzymes are unremarkable CT of the abdomen and pelvis was ordered to the emergency room but [facility] system was down and I could not look into the report, however her EGD report (shows postsurgical changes without other acute findings Objective - Vital Signs Vital signs: Vital Signs Temp 99 F 08/28/21 14:00 Pulse 88 08/28/21 14:00 Resp 16 08/28/21 14:00 BP 123/77 08/28/21 14:00 Pulse Ox 95 08/28/21 14:00 FiO2 Intake & Output 08/27/21 08/28/21 08/28/21 18:59 06:59 18:59 Intake Total 480 178.26 546 Output Total 800 450 600 Balance -320 -271.74 -54 Intake: Intake, IV Titration 178.26 250 Amount Heparin Sod,Pork in 0.45% 78.26 250 NaCl 25,000 unit In 0.45 % NaCl 1 250ml.bag @ 18 UNITS/KG/HR 22.045 mls/hr IV .[id number] [facility] Rx#: [id number] Levofloxacin 500Mg-D5w 100 Pmx 500 mg In Dextrose/ Water 1 100ml.bag @ 100 mls/hr IVPB DAILY@1700 [facility] Rx#:[id number] Oral 480 0 296 Output: Urine 700 450 600 Post Void Residual 100 Other: Voiding Method Indwelling Catheter Indwelling Catheter - Exam GENERAL: The patient is alert and oriented x3, not in any acute distress. Obese HEENT: Pupils are round and equally reacting to light. EOMI. No scleral icterus. No conjunctival pallor. Normocephalic, atraumatic. No pharyngeal erythema. No thyromegaly. CARDIOVASCULAR: S1 and S2 present. No murmurs, rubs, or gallops. PULMONARY: Chest is clear to auscultation, no wheezing or crackles. -ABDOMEN: Soft, nontender, nondistended, normoactive bowel sounds. No palpable organomegaly. Midline surgical wound closed with paco in place MUSCULOSKELETAL: No joint swelling or deformity. -EXTREMITIES: No cyanosis, clubbing, or pedal edema. Both legs are large and indurated, more on the left side NEUROLOGICAL: Gross neurological examination did not reveal any focal deficits. SKIN: No rashes. No petechiae - Labs CBC & Chem 7: 08/29/21 06:34 08/29/21 06:34 Labs: Abnormal Lab Results - Last 24 Hours (Table) 08/27/21 08/27/21 08/27/21 Range/Units 08:34 18:41 18:41 WBC 12.3 H (3.8-10.6) k/uL MCHC (32.0-37.0) g/dL Immature Gran # (0.00-0.04) X 10*3/uL Neutrophils # 9.8 H (1.3-7.7) k/uL Monocytes # (0.20-1.00) X 10*3/uL APTT 86.1 H (22.0-30.0) sec Carbon Dioxide (20.0-27.5) mmol/L Procalcitonin 0.15 H (0.02-0.09) ng/mL 08/28/21 08/28/21 08/28/21 Range/Units 07:14 07:14 09:32 WBC 17.40 H (3.8-10.6) k/uL MCHC 31.4 L (32.0-37.0) g/dL Immature Gran # 0.15 H (0.00-0.04) X 10*3/uL Neutrophils # 13.44 H (1.3-7.7) k/uL Monocytes # 1.42 H (0.20-1.00) X 10*3/uL APTT 78.8 H (22.0-30.0) sec Carbon Dioxide 14.8 L (20.0-27.5) mmol/L Procalcitonin (0.02-0.09) ng/mL Microbiology - Last 24 Hours (Table) 08/26/21 17:00 Urine Culture - Preliminary Urine,Clean Catch Assessment and Plan Assessment: Acute urinary tract infection bilateral leg pain and induration, DVT suspected Low back pain Acute kidney injury Borderline low blood pressure Orthostatic dizziness Recent History of DVT History of lymphoma Hypertension, currently is hypotensive History of GERD Morbid obesity with BMI of 41.1 This is a pleasant 50 years old male who presents with UTI, acute kidney injury, right leg pain and borderline blood pressure Continue with normal saline Continue with Levaquin follow-up urine culture Check bladder scan Check venous Doppler of the legs We'll check orthostatic vitals Pulmonary/critical team consult Labs and medication were reviewed.. Continue same treatment. Continue with symptomatic treatment. Resume home medication. Monitor lytes and vitals. DVT and GI prophylaxis. Further recommendations depends on the clinical course of the patient DVT prophylaxis: heparin GI Prophylaxis: Pepcid PT/OT: Deferred Prognosis is guarded
--- NOTE | 2021-08-30 10:35 | P.PN ---
Subjective Progress Note Date: 08/29/21 Principal diagnosis: Bilateral lower extremity DVT Acute urinary tract infection Low back pain 50 years old male with past medical history of Deep Vein Thrombosis , GERD/Reflux, Hypertension, Lymphoma/small bowel with surgery and chemo in 2003, small bowel obstructions, DVT R calf 2003 Presents with dizziness and lightheadedness. Patient states that he has history of bowel lymphoma and DVT many years ago and his undergoing treatment for now and he is not on a blood thinner. recently he had a bowel surgery with dr. temple for bowel obstruction on 08/11, he was discharged from this hospital on 08/18 and he wants to see dr. green for follow-up appointment, he had low back pain and went to see him for that too. while in the office he had 2 episodes of presyncope and patient was referred to the emergency room. Patient also was complaining of from bilateral leg pain with left leg more indurated. He denies any weakness in his leg, no numbness. The patient borderline hypotensive. He has urinary symptoms of dysuria and feeling of pressure. Patient denies chest pain or dyspnea, no cough or blood. He denies smoking, alcohol patient has normal bowel movement passing gases. Patient is hemodynamically stable, blood pressure on the low side 92/55. As leukocytosis of 18.4 K, X CBC is unremarkable. INR is 1.0. BMP showed sodium of 136, creatinine 1.6. Rest of BMP and liver enzymes are unremarkable CT of the abdomen and pelvis was ordered to the emergency room but [facility] system was down and I could not look into the report, however her EGD report (shows postsurgical changes without other acute findings 08/29/2021 Patient is seen and evaluated resting in bed; continues to report marked swelli ng and pain in both lower extremities; patient did receive a dose of Lasix and reports it did help with pain Vital signs are stable temperature 98.2, pulse 88, respirations 16 and blood pressure 150/75 with O2 saturation of 95% Blood work is reviewed and reveals WBC of 15.2, hemoglobin of 15.1. PTT is therapeutic at 45. BUN is at 23 with a creatinine of 1.2 and the sodium level is at 135. Serum bicarbs of 21. Pulmonary on board and recommending a repeat dose of Lasix for discomfort, swelling and tightness in both lower extremities; patient continues to have legs wrapped Jamar wrap; vascular surgery has deferred any further management as an outpatient Patient was seen by orthopedic surgery for intractable back pain and is recommended possible use of steroids if appropriate for sciatica and radicular pain and gabapentin blood radicular pain as deemed appropriate; orthopedic surgery will follow-up as an outpatient Objective - Vital Signs Vital signs: Vital Signs Temp 98.0 F 08/29/21 07:31 Pulse 88 08/29/21 07:31 Resp 16 08/29/21 07:31 BP 115/75 08/29/21 07:31 Pulse Ox 95 08/29/21 07:31 FiO2 Intake & Output 08/28/21 08/29/21 08/29/21 18:59 06:59 18:59 Intake Total 652.466 86.545 195.623 Output Total 2600 600 Balance -1947.534 -513.455 195.623 Intake: Intake, IV Titration 356.466 86.545 195.623 Amount Heparin Sod,Pork in 0.45% 356.466 86.545 195.623 NaCl 25,000 unit In 0.45 % NaCl 1 250ml.bag @ 18 UNITS/KG/HR 22.045 mls/hr IV [id number] Rx#: [id number] Oral 296 Output: Urine 2600 600 Other: Voiding Method Indwelling Catheter Indwelling Catheter Indwelling Catheter - Exam GENERAL: The patient is alert and oriented x3, not in any acute distress. Obese HEENT: Pupils are round and equally reacting to light. EOMI. No scleral icterus. No conjunctival pallor. Normocephalic, atraumatic. No pharyngeal erythema. No thyromegaly. CARDIOVASCULAR: S1 and S2 present. No murmurs, rubs, or gallops. PULMONARY: Chest is clear to auscultation, no wheezing or crackles. -ABDOMEN: Soft, nontender, nondistended, normoactive bowel sounds. No palpable organomegaly. Midline surgical wound closed with paco in place MUSCULOSKELETAL: No joint swelling or deformity. -EXTREMITIES: No cyanosis, clubbing, or pedal edema. Both legs are large and indurated, more on the left side NEUROLOGICAL: Gross neurological examination did not reveal any focal deficits. SKIN: No rashes. No petechiae - Labs CBC & Chem 7: 08/29/21 06:34 08/29/21 06:34 Labs: Abnormal Lab Results - Last 24 Hours (Table) 08/28/21 08/28/21 08/28/21 Range/Units 07:14 07:14 09:32 WBC 17.40 H (4.50-10.00) X 10*3/uL MCHC 31.4 L (32.0-37.0) g/dL Immature Gran # 0.15 H (0.00-0.04) X 10*3/uL Neutrophils # 13.44 H (1.80-7.70) X 10*3/uL Monocytes # 1.42 H (0.20-1.00) X 10*3/uL APTT 78.8 H (22.0-30.0) sec Carbon Dioxide 14.8 L (20.0-27.5) mmol/L 08/28/21 08/29/21 Range/Units 16:14 06:34 WBC (4.50-10.00) X 10*3/uL MCHC (32.0-37.0) g/dL Immature Gran # (0.00-0.04) X 10*3/uL Neutrophils # (1.80-7.70) X 10*3/uL Monocytes # (0.20-1.00) X 10*3/uL APTT 54.3 H 45.5 H (22.0-30.0) sec Carbon Dioxide (20.0-27.5) mmol/L Microbiology - Last 24 Hours (Table) 08/26/21 17:00 Urine Culture - Preliminary Urine,Clean Catch Assessment and Plan Assessment: Acute urinary tract infection bilateral leg pain and induration, DVT suspected Low back pain Acute kidney injury Borderline low blood pressure Orthostatic dizziness Recent History of DVT History of lymphoma Hypertension, currently is hypotensive History of GERD Morbid obesity with BMI of 41.1 This is a pleasant 50 years old male who presents with UTI, acute kidney injury, right leg pain and borderline blood pressure Continue with normal saline Continue with Levaquin follow-up urine culture Check bladder scan Check venous Doppler of the legs We'll check orthostatic vitals Pulmonary/critical team consult Labs and medication were reviewed.. Continue same treatment. Continue with symptomatic treatment. Resume home medication. Monitor lytes and vitals. DVT and GI prophylaxis. Further recommendations depends on the clinical course of the patient DVT prophylaxis: heparin GI Prophylaxis: Pepcid PT/OT: Deferred Prognosis is guarded
[2021-08-30 11:05] LABS: African American GFR (CKD) 86 (>60 ml/min/1.73 sqM); Anion Gap 11 mmol/L; Blood Urea Nitrogen 25 mg/dL (9-20); Calcium 9.2 mg/dL (8.4-10.2); Carbon Dioxide 22 mmol/L (22-30); Chloride 101 mmol/L (98-107); Glucose 108 mg/dL (74-99); Non-African American GFR(CKD) 74 (>60 ml/min/1.73 sqM); Potassium 4.2 mmol/L (3.5-5.1); Sodium 134 mmol/L (137-145)
[2021-08-30 11:07] LABS: Basophils # (A) 0.1 k/uL (0-0.2); Basophils % (A) 1 %; Eosinophils # (A) 0.2 k/uL (0-0.7); Eosinophils % (A) 2 %; HCT 39.5 % (39.0-53.0); HGB 12.8 gm/dL (13.0-17.5); Lymphocytes % (A) 17 %; MCH 29.5 pg (25.0-35.0); MCHC 32.3 g/dL (31.0-37.0); MCV 91.1 fL (80.0-100.0); Mean Platelet Volume 8.5; Monocytes % (A) 9 %; Neutrophils # (A) 7.9 k/uL (1.3-7.7); Neutrophils % (A) 70 %; Platelet Count 223 k/uL (150-450); RBC 4.34 m/uL (4.30-5.90); RDW 13.2 % (11.5-15.5); WBC 11.3 k/uL (3.8-10.6)
--- NOTE | 2021-08-30 11:48 | P.PN ---
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 Other medical history includes obstructive sleep apnea on CPAP, hypertension, GERD/reflux, nonsmoker, occasional EtOH use. Patient follows with Dr. Montoya for medical oncology, and his lymphoma has been in remission. Recently patient had exploratory laparotomy with small bowel resection related to recurrent incarcerated incisional hernia with extensive abdominal adhesions. Patient was discharged home on 08/18/2021. Today patient was at Dr. Mg's office for 2 week postop follow-up for abdominal surgery, and became lightheaded and was near syncopal, he was brought into the emergency department by EMS. Patient denied any chest pain, no dyspnea, no fever, mild cough which is chronic, patient did have mild nausea without vomiting, he was passing bowel movements after his lai rgery, his abdominal incision is healing quite well. His orthostatic blood pressures were positive, suggesting possibility of dehydration. EKG shows normal sinus rhythm with left axis deviation and a rate of [address] segment elevation. His blood pressures were marginal upon arrival, he was given IV fluids. Laboratory studies showed a white blood cell count of 18.4, patient had evidence of acute kidney injury with elevated creatinine of 1.64, urinalysis showed leukocytes without bacteria, urine culture was sent. CT of the abdomen and pelvis was obtained showing postsurgical changes without other acute findings. Patient also noted increased swelling in his bilateral lower extremities, and was complaining of lower back pain radiating to the groin area and right calf pain. Venous Doppler showed evidence of bilateral lower extremity DVTs. He was started on heparin drip, he denies any shortness of breath, no chest pain, no hemoptysis, unable to obtain CT angiogram of the chest related to evidence of acute kidney injury. But breathing comfortably, he is on room air pulse ox of 96%. Echocardiogram has been taken, results are pending. Vascular surgery and cardiology have been consulted. 08/28/2021, the patient is still laying in bed. He was quite uncomfortable and the legs are quite swollen lower extremities and there are also hurting. The patient remains on IV heparin. Vascular surgery evaluated the patient. Noted the patient had an IVC filter in place. No vascular intervention was recommended then IV diuretics. The PTT is therapeutic at 78. Renal function continues to improve in the creatinine is down to 1.2 and the patient developed a component of non-anion gap metabolic acidosis. Echocardiogram was also completed and in buffing turner and counter to be a poor window. No evidence of any significant pulmonary hypertension and the PA pressures were not adequately measures. Otherwise it was at 70 with a hemoglobin of 13.1. No shortness of breath. No pleurisy. No hemoptysis. 08/29/2021, the patient continues to have significant amount of swelling in lower extremities and pain and discomfort to the point where the patient is unable to ambulate. I give him a dose of Lasix yesterday and he had excellent diuresis. There is some improvement in swelling lower extremities since yesterday and the patient is a negative fluid balance of 3 L. Remains on IV heparin. Nevertheless, continues to have significant amount of soreness and pressure sensation tightness in lower extremities. No chest pain. No shortness of breath. Laying comfortably in bed. Surgical site over the abdomen is dry clean and intact and the patient is passing gas and tolerating bowel movements. Echo was done yesterday and was a poor window. On his blood work, the white centers of 50 with a hemoglobin of 15.1. PTT is therapeutic at 45. BUN is at 23 with a creatinine of 1.2 and the sodium level is at 135. Serum bicarbs of 21. 08/30/2021, the patient's is reporting lymphoma with diuresis and the patient is able to bend his knees. Nevertheless, he continues to be extremely limited. The patient remains on IV heparin. The patient was given a dose of Lasix and the patient is more than 1 L negative fluid balance. Lower extremity edema still present. The patient is also having his legs are wrapped. Vascular surgery about that the patient and asked to continue with the same treatment. No other new complaints otherwise for now. No shortness of breath and the patient remains on room air oxygen. No nausea vomiting or abdominal pain. On today's blood work, the patient has a white cell count of 11.3 with a hemoglobin 4.8 and the BUN of 24 with a creatinine of 1.1. No other significant issues otherwise for now. Objective - Vital Signs Vital signs: Vital Signs Temp 97.8 F 08/30/21 07:39 Pulse 84 08/30/21 07:39 Resp 16 08/30/21 07:39 BP 121/78 08/30/21 07:39 Pulse Ox 95 08/30/21 07:39 FiO2 Intake & Output 08/29/21 08/30/21 08/30/21 18:59 06:59 18:59 Intake Total 1330.000 229.588 325.094 Output Total 1100 1575 Balance 230.000 -1345.412 325.094 Intake: Intake, IV Titration 250.000 229.588 205.094 Amount Heparin Sod,Pork in 0.45% 250.000 229.588 205.094 NaCl 25,000 unit In 0.45 % NaCl 1 250ml.bag @ 18 UNITS/KG/HR 22.045 mls/hr IV .[id number] [facility] Rx#: [id number] Oral 1080 120 Output: Urine 1100 1575 Other: Voiding Method Indwelling Catheter Indwelling Catheter Indwelling Catheter - Exam GENERAL EXAM: Alert, very pleasant, 50-year-old white male on room air with pulse ox of 96% comfortable in no apparent distress. HEAD: Normocephalic/atraumatic. EYES: Normal reaction of pupils, equal size. Conjunctiva pink, sclera white. NOSE: Clear with pink turbinates. THROAT: No erythema or exudates. NECK: No masses, no JVD, no thyroid enlargement, no adenopathy. CHEST: No chest wall deformity. Symmetrical expansion. LUNGS: Equal air entry with no crackles, wheeze, rhonchi or dullness. CVS: Regular rate and rhythm, normal S1 and S2, no gallops, no murmurs, no rubs ABDOMEN: Soft, nontender. No hepatosplenomegaly, normal bowel sounds, no guarding or rigidity. Midabdominal incision is clean dry and intact, surgical paco are in place, clean dry and intact EXTREMITIES: No clubbing, mild nonpitting swelling in bilateral lower extremities, no cyanosis, 2+ pulses and upper and lower extremities. MUSCULOSKELETAL: Muscle strength and tone normal. SPINE: No scoliosis or deformity SKIN: No rashes CENTRAL NERVOUS SYSTEM: Alert and oriented -3. No focal deficits, tone is normal in all 4 extremities. PSYCHIATRIC: Alert and oriented -3. Appropriate affect. Intact judgment and insight. - Labs CBC & Chem 7: 08/30/21 07:28 08/30/21 07:28 Labs: Abnormal Lab Results - Last 24 Hours (Table) 08/29/21 08/29/21 08/30/21 Range/Units 06:34 06:34 07:28 WBC 15.2 H (3.8-10.6) k/uL APTT 44.4 H (22.0-30.0) sec Sodium 135 L (137-145) mmol/L Carbon Dioxide 21 L (22-30) mmol/L BUN 23 H (9-20) mg/dL Glucose 117 H (74-99) mg/dL Alkaline Phosphatase 162 H (38-126) U/L Microbiology - Last 24 Hours (Table) 08/26/21 17:00 Urine Culture - Final Urine,Clean Catch Assessment and Plan Plan: #1. Acute bilateral lower extremity DVTs, this is a recurrent event the patient had a DVT several years back, at that time completed course of Coumadin. The patient for now has extensive bilateral lower extremity DVTs with significant swelling and pain which is affecting his mobility. He has an IVC filter in place. Vascular surgery has evaluated the patient. Not a candidate for any thrombolytic therapy as the patient undergone recent bowel surgery. We decided to continue with IV heparin. A second opinion will be obtained by another vascular surgeon output of [facility]. For now, the treatment is to continue with the patient bradycardia patient IV heparin with possible transition to oral anticoagulants with next 24 hours. The patient continues to have significant amount of swelling which is preventing him from walking due to pressure and tension in his lower extremities. There has been some improvement with use of diuretics. #2. Hypotension, hypovolemic likely related to dehydration, recovered #3. History of right lower extremity DVT with placement of [place] filter #4. Near syncopal episode related to dehydration, recovered #5. Recent history of exploratory laparotomy with small bowel resection on 08/11/2021 #6. History of Burkitt's lymphoma with previous history of bowel resection, followed by chemotherapy, currently in remission #7. GERD/reflux #8. Hypertension #9. Chronic back and neck pain #10. Nonsmoker #11. Occasional alcohol only #12 acute kidney injury, improving #13 non-anion gap metabolic acidosis. Plan: We'll give the patient another dose of Lasix 40 mg IV push Continued IV heparin Increase his mobility as tolerated The legs will be kept tight with Jamar wraps IV fluids to K[facility] Vascular surgeries on the case and their input is appreciated Mobility is still effective We'll continue to follow
[2021-08-30] MEDS: HEPARIN SOD,PORK IN 0.45% NACL 25,000 UNIT in 0.45% NACL 1 250ML.BAG IV SCH ×2 (12:28→23:51)
[2021-08-30] MEDS: LEVOFLOXACIN 500 MG TAB PO SCH (16:30)
--- NOTE | 2021-08-30 17:24 | P.PN ---
Subjective Progress Note Date: 08/30/21 CHIEF COMPLAINT: Incisional hernia HISTORY OF PRESENT ILLNESS: The patient is a 50-year-old male readmitted following open incisional hernia with lysis of adhesions and bowel resection. Patient developed bilateral lower extremity DVTs despite having previous IVC filter. Family is at bedside. Patient reports bilateral leg pain improved. ROS: No reports of nausea and vomiting. No bowel movements. No fevers or chills. No new chest pain. No productive sputum PHYSICAL EXAM: VITAL SIGNS: Reviewed CONSTITUTIONAL: Well developed and in no acute distress. EYES: Conjuctivae without sclera icterus. Extraocular movements grossly intact. HEAD, EARS, NOSE, THROAT: Moist buccal mucosa. Head is atraumatic, normocephalic. Hears conversational speech. No nasal drainage. RESPIRATORY: Non-labored respirations and equal bilateral excursions. CARDIOVASCULAR: Palpable 2+ radial pulses. ABDOMEN: No peritonitis. MUSCULOSKELETAL: Bilateral lower extremity swelling. SKIN: Good skin turgor. Well perfused. NEUROLOGIC: Cranial nerves II through XII grossly intact. No focal or lateralizing signs. PSYCH: Appropriate affect. Alert and oriented to person, place and time. CLINICAL LABS: Reviewed. WBC down 17.4-15.2, now 11.3. Hemoglobin down 13.1- 12.8. ASSESSMENT: 1. Bilateral lower extremity DVTs 2. History of IVC filter placement 3. History of ventral hernia repair PLAN: 1. Continue heparin 2. Monitor for bleeding Objective - Vital Signs Vital signs: Vital Signs Temp 98.8 F 08/30/21 14:00 Pulse 97 08/30/21 14:00 Resp 16 08/30/21 14:00 BP 115/77 08/30/21 14:00 Pulse Ox 94 L 08/30/21 14:00 FiO2 Intake & Output 08/29/21 08/30/21 08/30/21 18:59 06:59 18:59 Intake Total 1330.000 229.588 610.000 Output Total 1100 1575 3600 Balance 230.000 -1345.412 -2990.000 Intake: Intake, IV Titration 250.000 229.588 250.000 Amount Heparin Sod,Pork in 0.45% 250.000 229.588 250.000 NaCl 25,000 unit In 0.45 % NaCl 1 250ml.bag @ 18 UNITS/KG/HR 22.045 mls/hr IV .[id number] [facility] Rx#: [id number] Oral 1080 360 Output: Urine 1100 1575 3600 Uretheral ([place]) 1800 Other: Voiding Method Indwelling Catheter Indwelling Catheter Indwelling Catheter - Labs CBC & Chem 7: 08/30/21 07:28 08/30/21 07:28 Labs: Abnormal Lab Results - Last 24 Hours (Table) 08/30/21 08/30/21 08/30/21 Range/Units 07:28 07:28 07:28 WBC 11.3 H (3.8-10.6) k/uL Hgb 12.8 L (13.0-17.5) gm/dL Neutrophils # 7.9 H (1.3-7.7) k/uL APTT 44.4 H (22.0-30.0) sec Sodium 134 L (137-145) mmol/L BUN 25 H (9-20) mg/dL Glucose 108 H (74-99) mg/dL
[2021-08-30 18:09] LABS: Appearance,Urine Clear (Clear); Bilirubin,Urine Negative (Negative); Blood,Urine Moderate (Negative); Color,Urine Yellow; Glucose,Urine (UA) Negative (Negative); Hyaline Casts,Urine 6 /lpf (0-2); Ketones,Urine Negative (Negative); Leukocyte Esterase,Urine Moderate (Negative); Mucus,Urine Many /hpf; Nitrite,Urine Negative (Negative); Protein,Urine Trace (Negative); RBC,Urine 67 /hpf (0-5); Specific Gravity,Urine 1.023 (1.001-1.035); Squamous Epithelial Cell,Urine <1 /hpf (0-4); Urobilinogen,Urine <2.0 mg/dL (<2.0); WBC,Urine 26 /hpf (0-5)
--- NOTE | 2021-08-30 19:37 | P.PN ---
Subjective Progress Note Date: 08/30/21 Principal diagnosis: Bilateral lower extremity DVT Acute urinary tract infection Low back pain 50 years old male with past medical history of Deep Vein Thrombosis , GERD/Reflux, Hypertension, Lymphoma/small bowel with surgery and chemo in 2003, small bowel obstructions, DVT R calf 2003 Presents with dizziness and lightheadedness. Patient states that he has history of bowel lymphoma and DVT many years ago and his undergoing treatment for now and he is not on a blood thinner. recently he had a bowel surgery with dr. temple for bowel obstruction on 08/11, he was discharged from this hospital on 08/18 and he wants to see dr. green for follow-up appointment, he had low back pain and went to see him for that too. while in the office he had 2 episodes of presyncope and patient was referred to the emergency room. Patient also was complaining of from bilateral leg pain with left leg more indurated. He denies any weakness in his leg, no numbness. The patient borderline hypotensive. He has urinary symptoms of dysuria and feeling of pressure. Patient denies chest pain or dyspnea, no cough or blood. He denies smoking, alcohol patient has normal bowel movement passing gases. Patient is hemodynamically stable, blood pressure on the low side 92/55. As leukocytosis of 18.4 K, X CBC is unremarkable. INR is 1.0. BMP showed sodium of 136, creatinine 1.6. Rest of BMP and liver enzymes are unremarkable CT of the abdomen and pelvis was ordered to the emergency room but [facility] system was down and I could not look into the report, however her EGD report (shows postsurgical changes without other acute findings 08/29/2021 Patient is seen and evaluated resting in bed; continues to report marked swelli ng and pain in both lower extremities; patient did receive a dose of Lasix and reports it did help with pain Vital signs are stable temperature 98.2, pulse 88, respirations 16 and blood pressure 150/75 with O2 saturation of 95% Blood work is reviewed and reveals WBC of 15.2, hemoglobin of 15.1. PTT is therapeutic at 45. BUN is at 23 with a creatinine of 1.2 and the sodium level is at 135. Serum bicarbs of 21. Pulmonary on board and recommending a repeat dose of Lasix for discomfort, swelling and tightness in both lower extremities; patient continues to have legs wrapped Jamar wrap; vascular surgery has deferred any further management as an outpatient Patient was seen by orthopedic surgery for intractable back pain and is recommended possible use of steroids if appropriate for sciatica and radicular pain and gabapentin blood radicular pain as deemed appropriate; orthopedic surgery will follow-up as an outpatient 08/30/2021 Patient is seen and evaluated with family at bedside; report some improvement in back pain and was able to sit up at bedside Vital signs stable; denies any chest pain or shortness of breath Labs reviewed revealed a WBC of 11.3, hemoglobin 12 point Patient is admitted with bilateral DVT with previous history of DVT and IVC filter placement; patient has been recommended to follow-up with primary vascular surgery for removal of IVC filter Currently on IV heparin; pulmonary on board and recommending to continue heparin infusion at this time Continues to report severe back pain; has been recommended possible steroids and Neurontin for sciatica and radicular pain; patient requesting to hold off at this time Objective - Vital Signs Vital signs: Vital Signs Temp 98.8 F 08/30/21 14:00 Pulse 97 08/30/21 14:00 Resp 16 08/30/21 14:00 BP 115/77 08/30/21 14:00 Pulse Ox 94 L 08/30/21 14:00 FiO2 Intake & Output 08/29/21 08/30/21 08/30/21 18:59 06:59 18:59 Intake Total 1330.000 229.588 610.000 Output Total 1100 1575 1800 Balance 230.000 -1345.412 -1190.000 Intake: Intake, IV Titration 250.000 229.588 250.000 Amount Heparin Sod,Pork in 0.45% 250.000 229.588 250.000 NaCl 25,000 unit In 0.45 % NaCl 1 250ml.bag @ 18 UNITS/KG/HR 22.045 mls/hr IV .[id number] [facility] Rx#: [id number] Oral 1080 360 Output: Urine 1100 1575 1800 Uretheral ([place]) 1800 Other: Voiding Method Indwelling Catheter Indwelling Catheter Indwelling Catheter - Exam GENERAL: The patient is alert and oriented x3, not in any acute distress. Obese HEENT: Pupils are round and equally reacting to light. EOMI. No scleral icterus. No conjunctival pallor. Normocephalic, atraumatic. No pharyngeal erythema. No thyromegaly. CARDIOVASCULAR: S1 and S2 present. No murmurs, rubs, or gallops. PULMONARY: Chest is clear to auscultation, no wheezing or crackles. -ABDOMEN: Soft, nontender, nondistended, normoactive bowel sounds. No palpable organomegaly. Midline surgical wound closed with paco in place MUSCULOSKELETAL: No joint swelling or deformity. -EXTREMITIES: No cyanosis, clubbing, or pedal edema. Both legs are large and indurated, more on the left side NEUROLOGICAL: Gross neurological examination did not reveal any focal deficits. SKIN: No rashes. No petechiae - Labs CBC & Chem 7: 08/30/21 07:28 08/30/21 07:28 Labs: Abnormal Lab Results - Last 24 Hours (Table) 08/30/21 08/30/21 08/30/21 Range/Units 07:28 07:28 07:28 WBC 11.3 H (3.8-10.6) k/uL Hgb 12.8 L (13.0-17.5) gm/dL Neutrophils # 7.9 H (1.3-7.7) k/uL APTT 44.4 H (22.0-30.0) sec Sodium 134 L (137-145) mmol/L BUN 25 H (9-20) mg/dL Glucose 108 H (74-99) mg/dL Microbiology - Last 24 Hours (Table) 08/26/21 17:00 Urine Culture - Final Urine,Clean Catch Assessment and Plan Assessment: Acute urinary tract infection bilateral leg pain and induration, DVT suspected Low back pain Acute kidney injury Borderline low blood pressure Orthostatic dizziness Recent History of DVT History of lymphoma Hypertension, currently is hypotensive History of GERD Morbid obesity with BMI of 41.1 This is a pleasant 50 years old male who presents with UTI, acute kidney injury, right leg pain and borderline blood pressure Continue with normal saline Continue with Levaquin follow-up urine culture Check bladder scan Check venous Doppler of the legs We'll check orthostatic vitals Pulmonary/critical team consult Labs and medication were reviewed.. Continue same treatment. Continue with symptomatic treatment. Resume home medication. Monitor lytes and vitals. DVT and GI prophylaxis. Further recommendations depends on the clinical course of the patient DVT prophylaxis: heparin GI Prophylaxis: Pepcid PT/OT: Deferred Prognosis is guarded
[2021-08-31] MEDS: HYDROcodone/APAP 5-325MG 1 EACH TAB PO PRN ×2 (05:01→16:03)
[2021-08-31] MEDS: PANTOPRAZOLE 40 MG TABLET PO SCH ×2 (07:41→17:03)
[2021-08-31] MEDS: HYDROmorphone 0.5 MG/0.5 ML SYRINGE IVP PRN (07:42)
[2021-08-31] MEDS: DOCUSATE 100 MG CAP PO SCH ×2 (09:43→20:25)
[2021-08-31 10:50] LABS: Basophils # (A) 0.11 X 10*3/uL (0.00-0.10); Basophils % (A) 0.9 %; Eosinophils # (A) 0.36 X 10*3/uL (0.04-0.35); HCT 40.1 % (39.6-50.0); HGB 12.7 g/dL (13.0-17.0); Immature Grans, Automated 1.8 %; Lymphocytes # (A) 2.79 X 10*3/uL (0.90-5.00); Lymphocytes % (A) 22.9 %; MCH 28.4 pg (27.0-32.0); MCHC 31.7 g/dL (32.0-37.0); MCV 89.7 fL (80.0-97.0); Mean Platelet Volume 9.9 fL (9.5-12.2); Monocytes # (A) 1.44 X 10*3/uL (0.20-1.00); Monocytes % (A) 11.8 %; NRBC Per 100 WBC 0 /100 WBCS (0.0-0.0); Neutrophils # (A) 7.28 X 10*3/uL (1.80-7.70); Neutrophils % (A) 59.6 %; Platelet Count 273 X 10*3/uL (140-440); RBC 4.47 X 10*6/uL (4.40-5.60); RDW 12.5 % (11.5-14.5)
[2021-08-31 11:31] LABS: African American GFR (CKD) 80.1 (60.0-200.0); Anion Gap 15.8 mmol/L (10.00-18.00); BUN/Creat Ratio 22.25 Ratio (12.00-20.00); Blood Urea Nitrogen 26.7 mg/dL (9.0-27.0); Calcium 9.4 mg/dL (8.7-10.3); Carbon Dioxide 21.2 mmol/L (20.0-27.5); Non-African American GFR(CKD) 69.1 (60.0-200.0); Potassium 4.2 mmol/L (3.5-5.5)
--- NOTE | 2021-08-31 11:49 | P.PN ---
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 Other medical history includes obstructive sleep apnea on CPAP, hypertension, GERD/reflux, nonsmoker, occasional EtOH use. Patient follows with Dr. Montoya for medical oncology, and his lymphoma has been in remission. Recently patient had exploratory laparotomy with small bowel resection related to recurrent incarcerated incisional hernia with extensive abdominal adhesions. Patient was discharged home on 08/18/2021. Today patient was at Dr. Mg's office for 2 week postop follow-up for abdominal surgery, and became lightheaded and was near syncopal, he was brought into the emergency department by EMS. Patient denied any chest pain, no dyspnea, no fever, mild cough which is chronic, patient did have mild nausea without vomiting, he was passing bowel movements after his lai rgery, his abdominal incision is healing quite well. His orthostatic blood pressures were positive, suggesting possibility of dehydration. EKG shows normal sinus rhythm with left axis deviation and a rate of [address] segment elevation. His blood pressures were marginal upon arrival, he was given IV fluids. Laboratory studies showed a white blood cell count of 18.4, patient had evidence of acute kidney injury with elevated creatinine of 1.64, urinalysis showed leukocytes without bacteria, urine culture was sent. CT of the abdomen and pelvis was obtained showing postsurgical changes without other acute findings. Patient also noted increased swelling in his bilateral lower extremities, and was complaining of lower back pain radiating to the groin area and right calf pain. Venous Doppler showed evidence of bilateral lower extremity DVTs. He was started on heparin drip, he denies any shortness of breath, no chest pain, no hemoptysis, unable to obtain CT angiogram of the chest related to evidence of acute kidney injury. But breathing comfortably, he is on room air pulse ox of 96%. Echocardiogram has been taken, results are pending. Vascular surgery and cardiology have been consulted. 08/28/2021, the patient is still laying in bed. He was quite uncomfortable and the legs are quite swollen lower extremities and there are also hurting. The patient remains on IV heparin. Vascular surgery evaluated the patient. Noted the patient had an IVC filter in place. No vascular intervention was recommended then IV diuretics. The PTT is therapeutic at 78. Renal function continues to improve in the creatinine is down to 1.2 and the patient developed a component of non-anion gap metabolic acidosis. Echocardiogram was also completed and in shank turner to be a poor window. No evidence of any significant pulmonary hypertension and the PA pressures were not adequately measures. Otherwise it was at 70 with a hemoglobin of 13.1. No shortness of breath. No pleurisy. No hemoptysis. 08/29/2021, the patient continues to have significant amount of swelling in lower extremities and pain and discomfort to the point where the patient is unable to ambulate. I give him a dose of Lasix yesterday and he had excellent diuresis. There is some improvement in swelling lower extremities since yesterday and the patient is a negative fluid balance of 3 L. Remains on IV heparin. Nevertheless, continues to have significant amount of soreness and pressure sensation tightness in lower extremities. No chest pain. No shortness of breath. Laying comfortably in bed. Surgical site over the abdomen is dry clean and intact and the patient is passing gas and tolerating bowel movements. Echo was done yesterday and was a poor window. On his blood work, the white centers of 50 with a hemoglobin of 15.1. PTT is therapeutic at 45. BUN is at 23 with a creatinine of 1.2 and the sodium level is at 135. Serum bicarbs of 21. 08/30/2021, the patient's is reporting lymphoma with diuresis and the patient is able to bend his knees. Nevertheless, he continues to be extremely limited. The patient remains on IV heparin. The patient was given a dose of Lasix and the patient is more than 1 L negative fluid balance. Lower extremity edema still present. The patient is also having his legs are wrapped. Vascular surgery about that the patient and asked to continue with the same treatment. No other new complaints otherwise for now. No shortness of breath and the patient remains on room air oxygen. No nausea vomiting or abdominal pain. On today's blood work, the patient has a white cell count of 11.3 with a hemoglobin 4.8 and the BUN of 24 with a creatinine of 1.1. No other significant issues otherwise for now. 08/31/2021, the patient remains on IV heparin. I would like to continue IV heparin for another 24 hours. The patient diurese more than 3 L with Lasix yest erday and the patient's mobility is gradually improving. No new complaints. UA is abnormal and the patient is currently on Levaquin. No pleurisy. No hemoptysis. No shortness of breath. No indication for pulmonary embolism and the patient is being treated for extensive bilateral lower extremity DVT. Vascular surgery is on the case. No fever. No chills. The. He was subtherapeutic as the patient's IV heparin got discontinued or disconnected briefly. The patient was a bolus. Hemoglobin 12.7 and the patient's platelet count is at 273. Renal function is stable with a creatinine of 1.2 and the BUN of 26 and the sodium level of 136. Objective - Vital Signs Vital signs: Vital Signs Temp 98.0 F 08/31/21 07:32 Pulse 78 08/31/21 07:32 Resp 19 08/31/21 07:32 BP 115/76 08/31/21 07:32 Pulse Ox 94 L 08/31/21 07:32 FiO2 Intake & Output 08/30/21 08/31/21 08/31/21 18:59 06:59 18:59 Intake Total 850.000 223.056 144.35 Output Total 3600 900 1000 Balance -2750.000 -676.944 -855.65 Intake: Intake, IV Titration 250.000 223.056 144.35 Amount Heparin Sod,Pork in 0.45% 250.000 223.056 144.35 NaCl 25,000 unit In 0.45 % NaCl 1 250ml.bag @ 18 UNITS/KG/HR 22.045 mls/hr IV .[id number] [facility] Rx#: [id number] Oral 600 Output: Urine 3600 900 1000 Uretheral ([place]) 1800 1000 Other: Voiding Method Indwelling Catheter Indwelling Catheter Indwelling Catheter - Exam GENERAL EXAM: Alert, very pleasant, 50-year-old white male on room air with pulse ox of 96% comfortable in no apparent distress. HEAD: Normocephalic/atraumatic. EYES: Normal reaction of pupils, equal size. Conjunctiva pink, sclera white. NOSE: Clear with pink turbinates. THROAT: No erythema or exudates. NECK: No masses, no JVD, no thyroid enlargement, no adenopathy. CHEST: No chest wall deformity. Symmetrical expansion. LUNGS: Equal air entry with no crackles, wheeze, rhonchi or dullness. CVS: Regular rate and rhythm, normal S1 and S2, no gallops, no murmurs, no rubs ABDOMEN: Soft, nontender. No hepatosplenomegaly, normal bowel sounds, no guarding or rigidity. Midabdominal incision is clean dry and intact, surgical paco are in place, clean dry and intact EXTREMITIES: No clubbing, mild nonpitting swelling in bilateral lower extremities, no cyanosis, 2+ pulses and upper and lower extremities. MUSCULOSKELETAL: Muscle strength and tone normal. SPINE: No scoliosis or deformity SKIN: No rashes CENTRAL NERVOUS SYSTEM: Alert and oriented -3. No focal deficits, tone is normal in all 4 extremities. PSYCHIATRIC: Alert and oriented -3. Appropriate affect. Intact judgment and insight. - Labs CBC & Chem 7: 08/31/21 04:29 08/31/21 04:29 Labs: Abnormal Lab Results - Last 24 Hours (Table) 08/30/21 08/31/21 08/31/21 Range/Units 17:50 04:29 04:29 WBC 12.20 H (4.50-10.00) X 10*3/uL Hgb 12.7 L (13.0-17.0) g/dL MCHC 31.7 L (32.0-37.0) g/dL Immature Gran # 0.22 H (0.00-0.04) X 10*3/uL Monocytes # 1.44 H (0.20-1.00) X 10*3/uL Eosinophils # 0.36 H (0.04-0.35) X 10*3/uL Basophils # 0.11 H (0.00-0.10) X 10*3/uL APTT 20.8 L (22.0-30.0) sec BUN/Creatinine Ratio (12.00-20.00) Ratio Urine Protein Trace H (Negative) Urine Blood Moderate H (Negative) Ur Leukocyte Esterase Moderate H (Negative) Urine RBC 67 H (0-5) /hpf Urine WBC 26 H (0-5) /hpf Hyaline Casts 6 H (0-2) /lpf Urine Mucus Many H (None) /hpf 08/31/21 Range/Units 04:29 WBC (4.50-10.00) X 10*3/uL Hgb (13.0-17.0) g/dL MCHC (32.0-37.0) g/dL Immature Gran # (0.00-0.04) X 10*3/uL Monocytes # (0.20-1.00) X 10*3/uL Eosinophils # (0.04-0.35) X 10*3/uL Basophils # (0.00-0.10) X 10*3/uL APTT (22.0-30.0) sec BUN/Creatinine Ratio 22.25 H (12.00-20.00) Ratio Urine Protein (Negative) Urine Blood (Negative) Ur Leukocyte Esterase (Negative) Urine RBC (0-5) /hpf Urine WBC (0-5) /hpf Hyaline Casts (0-2) /lpf Urine Mucus (None) /hpf Assessment and Plan Plan: #1. Acute bilateral lower extremity DVTs, this is a recurrent event the patient had a DVT several years back, at that time completed course of Coumadin. The patient for now has extensive bilateral lower extremity DVTs with significant swelling and pain which is affecting his mobility. He has an IVC filter in place. Vascular surgery has evaluated the patient. Not a candidate for any thrombolytic therapy as the patient undergone recent bowel surgery. We decided to continue with IV heparin. A second opinion will be obtained by another v ascular surgeon output of [facility]. The patient continues to have significant amount of swelling which is preventing him from walking due to pressure and tension in his lower extremities. There has been some improvement with use of diuretics. The patient has diuresed more than 6 L upon receiving diuretics over the past 48 hours. Lower extremity edema is improved and the patient's mobility is also improving. I would suggest continuing the IV heparin for its anti-inflammatory properties for another 24 hours and switch this patient to oral anticoagulation probably in the morning. No signs of any pulmonary embolism #2. Hypotension, hypovolemic likely related to dehydration, recovered #3. History of right lower extremity DVT with placement of [place] filter #4. Near syncopal episode related to dehydration, recovered #5. Recent history of exploratory laparotomy with small bowel resection on 08/11/2021 #6. History of Burkitt's lymphoma with previous history of bowel resection, followed by chemotherapy, currently in remission #7. GERD/reflux #8. Hypertension #9. Chronic back and neck pain #10. Nonsmoker #11. Occasional alcohol only #12 acute kidney injury, improving #13 non-anion gap metabolic acidosis. Plan: Volume status is improved. Lower extremity edema is improved with IV heparin and IV Lasix. Keep the legs wrapped and increased mobility Continued IV heparin We'll switch this patient to Eliquis as of tomorrow Increase his mobility as tolerated The legs will be kept tight with Jamar wraps IV fluids to [facility] Vascular surgeries on the case and their input is appreciated
--- NOTE | 2021-08-31 16:23 | P.PN ---
Subjective This is a pleasant 50 years old male with past medical history of Deep Vein Thrombosis , GERD/Reflux, Hypertension, Lymphoma/small bowel with surgery and chemo in 2003, small bowel obstructions, DVT R calf 2003 Presents with dizziness and lightheadedness. Patient states that he has history of bowel lymphoma and DVT many years ago and his undergoing treatment for now and he is not on a blood thinner. recently he had a bowel surgery with dr. temple for bowel obstruction on 08/11, he was discharged from this hospital on 08/18 and he wants to see dr. green for follow-up appointment, he had low back pain and went to see him for that too. while in the office he had 2 episodes of presyncope and patient was referred to the emergency room. Patient also was complaining of from bilateral leg pain with left leg more indurated. He denies any weakness in his leg, no numbness. The patient borderline hypotensive. He has urinary symptoms of dysuria and feeling of pressure. Patient denies chest pain or dyspnea, no cough or blood. He denies smoking, alcohol patient has normal bowel movement passing gases. Patient is hemodynamically stable, blood pressure on the low side 92/55. As leukocytosis of 18.4 K, X CBC is unremarkable. INR is 1.0. BMP showed sodium of 136, creatinine 1.6. Rest of BMP and liver enzymes are unremarkable CT of the abdomen and pelvis was ordered to the emergency room but [facility] system was down and I could not look into the report, however her EGD report (shows postsurgical changes without other acute findings). I am resuming the care of the patient today 08/31/2021 Patient admitted with bilateral leg DVT, he has evidence of IVC filter and currently he is kept on heparin drip with plan to be switched to oral anticoagulation by tomorrow, patient is followed closely by vascular surgery also. Also he is on oral Levaquin for possible UTI, urine culture is negative for infection however patient still have abnormal urinalysis. Continue course with antibiotic. Colace for constipation Objective - Vital Signs Vital signs: Vital Signs Temp 98.0 F 08/31/21 07:32 Pulse 78 08/31/21 07:32 Resp 19 08/31/21 07:32 BP 115/76 08/31/21 07:32 Pulse Ox 94 L 08/31/21 07:32 FiO2 Intake & Output 0508/31/21 08/31/21 18:59 06:59 18:59 Intake Total 850.000 223.056 144.35 Output Total 3600 900 1000 Balance -2750.000 -676.944 -855.65 Intake: Intake, IV Titration 250.000 223.056 144.35 Amount Heparin Sod,Pork in 0.45% 250.000 223.056 144.35 NaCl 25,000 unit In 0.45 % NaCl 1 250ml.bag @ 18 UNITS/KG/HR 22.045 mls/hr IV .[id number] [facility] Rx#: [id number] Oral 600 Output: Urine 3600 900 1000 Uretheral ([place]) 1800 1000 Other: Voiding Method Indwelling Catheter Indwelling Catheter Indwelling Catheter - Exam GENERAL: The patient is alert and oriented x3, not in any acute distress. Well developed, well nourished. HEENT: Pupils are round and equally reacting to light. EOMI. No scleral icterus. No conjunctival pallor. Normocephalic, atraumatic. No pharyngeal erythema. No thyromegaly. CARDIOVASCULAR: S1 and S2 present. No murmurs, rubs, or gallops. PULMONARY: Chest is clear to auscultation, no wheezing or crackles. ABDOMEN: Soft, nontender, nondistended, normoactive bowel sounds. No palpable organomegaly. MUSCULOSKELETAL: No joint swelling or deformity. -EXTREMITIES: No cyanosis, clubbing, bilateral leg swelling, improving NEUROLOGICAL: Gross neurological examination did not reveal any focal deficits. SKIN: No rashes. no petechiae. - Labs CBC & Chem 7: 08/31/21 04:29 08/31/21 04:29 Labs: Abnormal Lab Results - Last 24 Hours (Table) 08/30/21 08/30/21 08/30/21 Range/Units 07:28 07:28 17:50 WBC 11.3 H (3.8-10.6) k/uL Hgb 12.8 L (13.0-17.5) gm/dL Neutrophils # 7.9 H (1.3-7.7) k/uL APTT (22.0-30.0) sec Sodium 134 L (137-145) mmol/L BUN 25 H (9-20) mg/dL Glucose 108 H (74-99) mg/dL Urine Protein Trace H (Negative) Urine Blood Moderate H (Negative) Ur Leukocyte Esterase Moderate H (Negative) Urine RBC 67 H (0-5) /hpf Urine WBC 26 H (0-5) /hpf Hyaline Casts 6 H (0-2) /lpf Urine Mucus Many H (None) /hpf 08/31/ Range/Units 04:29 WBC (3.8-10.6) k/uL Hgb (13.0-17.5) gm/dL Neutrophils # (1.3-7.7) k/uL APTT 20.8 L (22.0-30.0) sec Sodium (137-145) mmol/L BUN (9-20) mg/dL Glucose (74-99) mg/dL Urine Protein (Negative) Urine Blood (Negative) Ur Leukocyte Esterase (Negative) Urine RBC (0-5) /hpf Urine WBC (0-5) /hpf Hyaline Casts (0-2) /lpf Urine Mucus (None) /hpf Assessment and Plan Assessment: Acute bilateral deep venous thrombosis Acute urinary tract infection History of DVT status post IVC filter Low back pain , evaluated by orthopedic team and recommended outpatient follow- up Acute kidney injury, improved Borderline low blood pressure Orthostatic dizziness, secondary to dehydration. Resolved History of lymphoma Hypertension, currently is hypotensive History of GERD Morbid obesity with BMI of 41.1 Plan: This is a pleasant 50 years old male who presents with UTI, acute kidney injury, right leg pain and borderline blood pressure Continue with heparin drip and switched to oral anticoagulation Continue with Levaquin f Vascular surgery and Gen. surgery team on the case Pulmonary/critical team consult Labs and medication were reviewed.. Continue same treatment. Continue with symptomatic treatment. Resume home medication. Monitor lytes and vitals. DVT and GI prophylaxis. Further recommendations depends on the clinical course of the patient DVT prophylaxis: heparin GI Prophylaxis: ppi PT/OT: Pending Prognosis is guarded
[2021-08-31] MEDS: LEVOFLOXACIN 500 MG TAB PO SCH (17:03)
[2021-08-31] MEDS: HEPARIN SOD,PORK IN 0.45% NACL 25,000 UNIT in 0.45% NACL 1 250ML.BAG IV SCH (17:44)
[2021-09-01] MEDS: HYDROcodone/APAP 5-325MG 1 EACH TAB PO PRN ×4 (00:18→19:11)
[2021-09-01] MEDS: HYDROmorphone 0.5 MG/0.5 ML SYRINGE IVP PRN (04:25)
[2021-09-01] MEDS: HEPARIN SOD,PORK IN 0.45% NACL 25,000 UNIT in 0.45% NACL 1 250ML.BAG IV SCH (06:12)
[2021-09-01] MEDS: DOCUSATE 100 MG CAP PO SCH (07:20)
[2021-09-01] MEDS: PANTOPRAZOLE 40 MG TABLET PO SCH ×2 (07:20→16:48)
--- NOTE | 2021-09-01 07:47 | P.PN ---
Subjective Progress Note Date: 08/31/21 CHIEF COMPLAINT: Incisional hernia HISTORY OF PRESENT ILLNESS: The patient is a 50-year-old male readmitted following open incisional hernia with lysis of adhesions and bowel resection. Patient developed bilateral lower extremity DVTs despite having previous IVC filter. He reports his legs feel doughey and less swelling. No increased pain along the lower extremities. He has been on Lasix including heparin drip. No reports of abdominal pain. He denies any obvious signs of bleeding. ROS: No reports of nausea and vomiting. No bowel movements. No fevers or chills. No new chest pain. No productive sputum PHYSICAL EXAM: VITAL SIGNS: Reviewed CONSTITUTIONAL: Well developed and in no acute distress. EYES: Conjuctivae without sclera icterus. Extraocular movements grossly intact. HEAD, EARS, NOSE, THROAT: Moist buccal mucosa. Head is atraumatic, normocephalic. Hears conversational speech. No nasal drainage. RESPIRATORY: Non-labored respirations and equal bilateral excursions. CARDIOVASCULAR: Palpable 2+ radial pulses. ABDOMEN: Obese, no peritonitis. MUSCULOSKELETAL: Bilateral lower extremity swelling. Legs are not pale. Bilateral lower extremity Jamar wraps along foot to knees. SKIN: Good skin turgor. Well perfused. NEUROLOGIC: Cranial nerves II through XII grossly intact. No focal or lateralizing signs. PSYCH: Appropriate affect. Alert and oriented to person, place and time. CLINICAL LABS: Reviewed. WBC down 17.4 now 12.2. Hemoglobin down 13.1-12.8, now 12.7 ASSESSMENT: 1. Bilateral lower extremity DVTs 2. History of IVC filter placement 3. History of ventral hernia repair PLAN: 1. Continue current treatment course with heparin and lasix 2. Diet as tolerated Objective - Vital Signs Vital signs: Vital Signs Temp 97.3 F L 09/01/21 07:19 Pulse 78 09/01/21 07:19 Resp 15 09/01/21 07:19 BP 116/76 09/01/21 07:19 Pulse Ox 95 09/01/21 07:19 FiO2 Intake & Output 08/31/21 09/01/21 09/01/21 18:59 06:59 18:59 Intake Total 1330.00 248.123 Output Total 1000 750 Balance 330.00 -501.877 Intake: Intake, IV Titration 250.00 248.123 Amount Heparin Sod,Pork in 0.45% 250.00 248.123 NaCl 25,000 unit In 0.45 % NaCl 1 250ml.bag @ 18 UNITS/KG/HR 22.045 mls/hr IV .[id number] [facility] Rx#: [id number] Oral 1080 Output: Urine 1000 750 Uretheral (Aldridge) 1000 Other: Voiding Method Indwelling Catheter Indwelling Catheter - Labs CBC & Chem 7: 08/31/21 04:29 08/31/21 04:29 Labs: Abnormal Lab Results - Last 24 Hours (Table) 08/31/21 08/31/21 08/31/21 Range/Units 04:29 04:29 12:53 WBC 12.20 H (4.50-10.00) X 10*3/uL Hgb 12.7 L (13.0-17.0) g/dL MCHC 31.7 L (32.0-37.0) g/dL Immature Gran # 0.22 H (0.00-0.04) X 10*3/uL Monocytes # 1.44 H (0.20-1.00) X 10*3/uL Eosinophils # 0.36 H (0.04-0.35) X 10*3/uL Basophils # 0.11 H (0.00-0.10) X 10*3/uL APTT 74.8 H (22.0-30.0) sec BUN/Creatinine Ratio 22.25 H (12.00-20.00) Ratio 08/31/21 09/01/21 Range/Units 18:59 00:51 WBC (4.50-10.00) X 10*3/uL Hgb (13.0-17.0) g/dL MCHC (32.0-37.0) g/dL Immature Gran # (0.00-0.04) X 10*3/uL Monocytes # (0.20-1.00) X 10*3/uL Eosinophils # (0.04-0.35) X 10*3/uL Basophils # (0.00-0.10) X 10*3/uL APTT 59.5 H 57.6 H (22.0-30.0) sec BUN/Creatinine Ratio (12.00-20.00) Ratio
[2021-09-01] MEDS: ONDANSETRON 4 MG/2 ML VIAL IVP PRN ×2 (08:47→19:11)
[2021-09-01 08:58] LABS: Basophils # (A) 0.08 X 10*3/uL (0.00-0.10); Basophils % (A) 0.7 %; Eosinophils # (A) 0.62 X 10*3/uL (0.04-0.35); Eosinophils % (A) 5.6 %; HCT 39.1 % (39.6-50.0); HGB 12.7 g/dL (13.0-17.0); Immature Grans, Automated 1.9 %; Lymphocytes # (A) 2.41 X 10*3/uL (0.90-5.00); Lymphocytes % (A) 21.8 %; MCHC 32.5 g/dL (32.0-37.0); MCV 89.3 fL (80.0-97.0); Monocytes # (A) 1.23 X 10*3/uL (0.20-1.00); Monocytes % (A) 11.1 %; NRBC Per 100 WBC 0 /100 WBCS (0.0-0.0); Neutrophils # (A) 6.49 X 10*3/uL (1.80-7.70); Neutrophils % (A) 58.9 %; Platelet Count 248 X 10*3/uL (140-440); RBC 4.38 X 10*6/uL (4.40-5.60); RDW 12.5 % (11.5-14.5); WBC 11.04 X 10*3/uL (4.50-10.00)
--- NOTE | 2021-09-01 09:06 | P.PN ---
Subjective Progress Note Date: 09/01/21 Principal diagnosis: Bilateral deep vein thrombosis Patient seen and examined as a follow-up. States he has not been out of bed and his legs still hurt. Physical therapy is on consult to work with patient and increase ambulation. Bilateral lower extremities with Jamar wrap's. He denies any shortness of breath or chest pain. States pain in his legs is about the same may be slightly better than when he came in. He remained on heparin drip. Objective - Vital Signs Vital signs: Vital Signs Temp 97.3 F L 09/01/21 07:19 Pulse 78 09/01/21 07:19 Resp 15 09/01/21 07:19 BP 116/76 09/01/21 07:19 Pulse Ox 95 09/01/21 07:19 FiO2 Intake & Output 08/31/21 09/01/21 09/01/21 18:59 06:59 18:59 Intake Total 1330.00 248.123 Output Total 1000 750 Balance 330.00 -501.877 Intake: Intake, IV Titration 250.00 248.123 Amount Heparin Sod,Pork in 0.45% 250.00 248.123 NaCl 25,000 unit In 0.45 % NaCl 1 250ml.bag @ 18 UNITS/KG/HR 22.045 mls/hr IV .[id number] [facility] Rx#: [id number] Oral 1080 Output: Urine 1000 750 Uretheral (Aldridge) 1000 Other: Voiding Method Indwelling Catheter Indwelling Catheter - Exam General appearance: The patient is alert, oriented, appears in no acute distress. HET: Head is normocephalic and atraumatic. Pupils are equal and reactive. Neck: Supple without lymphadenopathy. Trachea midline. Heart: S1 S2. Regular rate and rhythm. Lungs: Clear to auscultation bilaterally. Abdomen: Soft, nontender, nondistended. Extremities: Bilateral lower extremity edema, with Jamar wrap. Neurological: No focal deficits. Alert and oriented 3. - Labs CBC & Chem 7: 08/31/21 04:29 08/31/21 04:29 Labs: Abnormal Lab Results - Last 24 Hours (Table) 08/31/21 08/31/21 08/31/21 Range/Units 04:29 04:29 12:53 WBC 12.20 H (4.50-10.00) X 10*3/uL Hgb 12.7 L (13.0-17.0) g/dL MCHC 31.7 L (32.0-37.0) g/dL Immature Gran # 0.22 H (0.00-0.04) X 10*3/uL Monocytes # 1.44 H (0.20-1.00) X 10*3/uL Eosinophils # 0.36 H (0.04-0.35) X 10*3/uL Basophils # 0.11 H (0.00-0.10) X 10*3/uL APTT 74.8 H (22.0-30.0) sec BUN/Creatinine Ratio 22.25 H (12.00-20.00) Ratio 08/31/21 09/01/21 Range/Units 18:59 00:51 WBC (4.50-10.00) X 10*3/uL Hgb (13.0-17.0) g/dL MCHC (32.0-37.0) g/dL Immature Gran # (0.00-0.04) X 10*3/uL Monocytes # (0.20-1.00) X 10*3/uL Eosinophils # (0.04-0.35) X 10*3/uL Basophils # (0.00-0.10) X 10*3/uL APTT 59.5 H 57.6 H (22.0-30.0) sec BUN/Creatinine Ratio (12.00-20.00) Ratio Assessment and Plan Assessment: 1. Bilateral lower extremity deep vein thrombosis 2. History of right lower extremity with Speedy filter still in place 3. Syncope 4. Hypotension 5. Recent exploratory laparotomy with small bowel resection on 08/11/2021 Plan: 1. Transition heparin drip to Eliquis 10mg BID 2. Patient to follow-up with Dr. Alonso Whitehead in [facility] for intervention and removal of filter 3. No planned vascular surgical intervention. Continue with Jamar wrap and elevation of lower extremities Thank you for this consultation, the patient is clear from vascular surgery for discharge. The impression and plan of care has been dictated as directed. I performed a history and examination of this patient, discussed the same with the dictator. I agree with the dictator's note ,documented as a scribe. Any additional findings or plans will be noted.
[2021-09-01] MEDS: APIXABAN 5 MG TAB PO SCH ×2 (09:44→20:17)
--- NOTE | 2021-09-01 11:22 | CDI ---
Documentation Clarification Form Date: 09/01/2021 11:08:59 AM From: Jemima Willingham CCS, CCDS Admit Date: 08/26/2021 08:57:00 PM Patient Name: Juve Knott Visit Number: [id number] Discharge Date: ATTENTION: The Clinical Documentation Specialists (CDI) and [facility] Coding Staff appreciate your assistance in clarifying documentation. Please respond to the clarification below the line at the bottom and electronically sign. The CDI & [facility] Coding staff will review the response and follow-up if needed. Please note: Queries are made part of the Legal Health Record. If you have any questions, please contact the author of this message via ITS. Dr. Robert Mckee. Sheet: The patient presented with the following clinical indicators: Patient is two weeks postop abdominal surgery, presented with near-syncope, lightheadedness and urinary frequency, Mild cough (chronic) and nausea. Hypotensive with elevated WBC. Additional clarification regarding the etiology/cause of the clinical indicators is requested. History/Risk Factors per the 08/27 H/P: DVT, GERD, Hypertension, Lymphoma: small bowel status post chemotherapy in 2003 in remission, SBOs, DVT and GERD. Clinical Indicators: Presented to the ED on 08/26 via EMS with near-syncope, lightheadedness & urinary frequency and urgency, some nausea. Admit with VERNON, Dehydration and UTI. 08/26 VS: T 97.8, P 74, R 16, BP 99/56, PO 96 RA 08/26 LAB: WBC 18.4, Neutrophils 15.8; APTT 20.9; Na 136, BUN 24, Creatinine 1.65, Glucose 102, Procalcitonin 0.15. UA: cloudy, 2+ Protein, Trace Glucose, Trace Blood, Moderate Esterase, WBC 20, Hyaline Casts 21 08/26 Urine Culture: final: negative. 08/27 VS: T 98.7, P 125, R 18, BP 115/78 08/28 VS: T 99, P 88 - 109, R 16, BP 130/76 Treatment 08/26: Telemetry, IV Na Cl 1,000 mls @ 999 mls/hr q1H, IV Levaquin 100 mls @ 100 mls/hr x1, IV Na Cl 500 mls @ 999 mls/hr q31M, IV Na Cl 1,000 mls @ 130 mls/hr q7H, IV Dilaudid 0.5 mg q3H, IV Fentanyl 50 mcg x1. 08/27: Bladder Scan, Occult blood routine, IV Heparin/Na Cl Drip, IV Levaquin 100 mls @ 100 mls/hr Daily 08/28: IV Lasix 40 mg x1, IV Zofran 4 mg q6H. 08/29: Orthostatic CPs , IV Lasix 40 mg x1, po Levaquin 500 mg Daily In your professional opinion, please clarify if these findings signify one of the following conditions: [ ] Sepsis POA [ ] Sepsis, Not POA [ ] Severe Sepsis with organ failure [ ] Other, please specify: [ ] Unable to determine (Template Last Reviewed: May 2020) no sepsis MTDD
--- NOTE | 2021-09-01 11:39 | P.PN ---
Subjective Progress Note Date: 09/01/21 CHIEF COMPLAINT: Bilateral lower extremity DVT HISTORY OF PRESENT ILLNESS: Patient complains of bilateral leg pain. He reports that the pain has decreased since admission. He is still not walking much. He was able to get bedside chair today. Has Aldridge catheter in place for urinary retention. Vascular surgery has placed patient on Eliquis for oral anticoagulation. And they recommend patient follows up at [facility]. Afebrile. WBC 11.04 hemoglobin 12.7 PHYSICAL EXAM: VITAL SIGNS: Reviewed. GENERAL: Well-developed in no acute distress. HEENT: No sclera icterus. Extraocular movements grossly intact. Moist buccal mucosa. Head is atraumatic, normocephalic. ABDOMEN: Soft. Nondistended. Nontender. Incision site clean dry and intact present. NEUROLOGIC: Alert and oriented. Cranial nerves II through XII grossly intact. ASSESSMENT: 1. Bilateral lower extremity DVT 2. Recent small bowel obstruction secondary to recurrent incarcerated incisional hernia with abdominal adhesions status post exploratory laparotomy, extensive lysis of adhesions, small bowel resection and repair of recurrent incarcerated incisional hernia on 08/11/2021 PLAN: -Continue supportive care -Continue plan per vascular surgery with follow-up at [facility] for intervention and removal of IVC filter Physician Time Study Technologist note has been reviewed by physician. Signing provider agrees with the documented findings, assessment, and plan of care. I have personally seen and examined the patient, reviewed the CRIMINAL RECORDS TECHNICIAN /PAs history, exam and MDM and agree with the assessment and plan as written. Based on total visit time, I have performed more than 50% of the visit. As above: Patient is now getting out of bed. No abdominal pain. Some constipation. Denies nausea or vomiting. Tolerating diet. Tentative plans for discharge 24-48 hours. Objective - Vital Signs Vital signs: Vital Signs Temp 97.3 F L 09/01/21 07:19 Pulse 78 09/01/21 07:19 Resp 15 09/01/21 07:19 BP 116/76 09/01/21 07:19 Pulse Ox 95 09/01/21 07:19 FiO2 Intake & Output 08/31/21 09/01/21 09/01/21 18:59 06:59 18:59 Intake Total 1330.00 248.123 Output Total 1000 750 Balance 330.00 -501.877 Intake: Intake, IV Titration 250.00 248.123 Amount Heparin Sod,Pork in 0.45% 250.00 248.123 NaCl 25,000 unit In 0.45 % NaCl 1 250ml.bag @ 18 UNITS/KG/HR 22.045 mls/hr IV .[id number] [facility] Rx#: [id number] Oral 1080 Output: Urine 1000 750 Uretheral (Aldridge) 1000 Other: Voiding Method Indwelling Catheter Indwelling Catheter Indwelling Catheter - Labs CBC & Chem 7: 09/01/21 05:36 08/31/21 04:29 Labs: Abnormal Lab Results - Last 24 Hours (Table) 08/31/21 08/31/21 09/01/21 Range/Units 12:53 18:59 00:51 WBC (4.50-10.00) X 10*3/uL RBC (4.40-5.60) X 10*6/uL Hgb (13.0-17.0) g/dL Hct (39.6-50.0) % Immature Gran # (0.00-0.04) X 10*3/uL Monocytes # (0.20-1.00) X 10*3/uL Eosinophils # (0.04-0.35) X 10*3/uL APTT 74.8 H 59.5 H 57.6 H (22.0-30.0) sec 09/01/21 Range/Units 05:36 WBC 11.04 H (4.50-10.00) X 10*3/uL RBC 4.38 L (4.40-5.60) X 10*6/uL Hgb 12.7 L (13.0-17.0) g/dL Hct 39.1 L (39.6-50.0) % Immature Gran # 0.21 H (0.00-0.04) X 10*3/uL Monocytes # 1.23 H (0.20-1.00) X 10*3/uL Eosinophils # 0.62 H (0.04-0.35) X 10*3/uL APTT (22.0-30.0) sec
[2021-09-01] MEDS: SENNOSIDES-DOCUSATE SODIUM 1 EACH TAB PO SCH ×2 (13:59→20:17)
--- NOTE | 2021-09-01 14:33 | P.PN ---
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 Other medical h istory includes obstructive sleep apnea on CPAP, hypertension, GERD/reflux, nonsmoker, occasional EtOH use. Patient follows with Dr. Montoya for medical oncology, and his lymphoma has been in remission. Recently patient had exploratory laparotomy with small bowel resection related to recurrent incar cerated incisional hernia with extensive abdominal adhesions. Patient was discharged home on 08/18/2021. Today patient was at Dr. Mg's office for 2 week postop follow-up for abdominal surgery, and became lightheaded and was near syncopal, he was brought into the emergency department by EMS. Patient denied any chest pain, no dyspnea, no fever, mild cough which is chronic, patient did have mild nausea without vomiting, he was passing bowel movements after his surgery, his abdominal incision is healing quite well. His orthostatic blood pressures were positive, suggesting possibility of dehydration. EKG shows normal sinus rhythm with left axis deviation and a rate of [address] segment dustin vation. His blood pressures were marginal upon arrival, he was given IV fluids. Laboratory studies showed a white blood cell count of 18.4, patient had evidence of acute kidney injury with elevated creatinine of 1.64, urinalysis showed leukocytes without bacteria, urine culture was sent. CT of the abdomen and pelvis was obtained showing postsurgical changes without other acute findings. Patient also noted increased swelling in his bilateral lower extremities, and was complaining of lower back pain radiating to the groin area and right calf pain. Venous Doppler showed evidence of bilateral lower extremity DVTs. He was started on heparin drip, he denies any shortness of breath, no chest pain, no hemoptysis, unable to obtain CT angiogram of the chest related to evidence of acute kidney injury. But breathing comfortably, he is on room air pulse ox of 96%. Echocardiogram has been taken, results are pending. Vascular surgery and cardiology have been consulted. 08/28/2021, the patient is still laying in bed. He was quite uncomfortable and the legs are quite swollen lower extremities and there are also hurting. The patient remains on IV heparin. Vascular surgery evaluated the patient. Noted the patient had an IVC filter in place. No vascular intervention was recommended then IV diuretics. The PTT is therapeutic at 78. Renal function continues to improve in the creatinine is down to 1.2 and the patient developed a component of non-anion gap metabolic acidosis. Echocardiogram was also completed and in vehicle return associate to be a poor window. No evidence of any significant pulmonary hypertension and the PA pressures were not adequately measures. Otherwise it was at 70 with a hemoglobin of 13.1. No shortness of breath. No pleurisy. No hemoptysis. 08/29/2021, the patient continues to have significant amount of swelling in lower extremities and pain and discomfort to the point where the patient is unable to ambulate. I give him a dose of Lasix yesterday and he had excellent diuresis. There is some improvement in swelling lower extremities since yesterday and the patient is a negative fluid balance of 3 L. Remains on IV heparin. Nevertheless, continues to have significant amount of soreness and pressure sensation tightness in lower extremities. No chest pain. No shortness of breath. Laying comfortably in bed. Surgical site over the abdomen is dry clean and intact and the patient is passing gas and tolerating bowel movements. Echo was done yesterday and was a poor window. On his blood work, the white centers of 50 with a hemoglobin of 15.1. PTT is therapeutic at 45. BUN is at 23 with a creatinine of 1.2 and the sodium level is at 135. Serum bicarbs of 21. 08/30/2021, the patient's is reporting lymphoma with diuresis and the patient is able to bend his knees. Nevertheless, he continues to be extremely limited. The patient remains on IV heparin. The patient was given a dose of Lasix and the patient is more than 1 L negative fluid balance. Lower extremity edema still present. The patient is also having his legs are wrapped. Vascular surgery about that the patient and asked to continue with the same treatment. No other new complaints otherwise for now. No shortness of breath and the patient remains on room air oxygen. No nausea vomiting or abdominal pain. On today's blood work, the patient has a white cell count of 11.3 with a hemoglobin 4.8 and the BUN of 24 with a creatinine of 1.1. No other significant issues otherwise for now. 08/31/2021, the patient remains on IV heparin. I would like to continue IV heparin for another 24 hours. The patient diurese more than 3 L with Lasix yesterday and the patient's mobility is gradually improving. No new complaints. UA is abnormal and the patient is currently on Levaquin. No pleurisy. No hemoptysis. No shortness of breath. No indication for pulmonary embolism and the patient is being treated for extensive bilateral lower extremity DVT. Vascular surgery is on the case. No fever. No chills. The. He was subtherapeutic as the patient's IV heparin got discontinued or disconnected briefly. The patient was a bolus. Hemoglobin 12.7 and the patient's platelet count is at 273. Renal function is stable with a creatinine of 1.2 and the BUN of 26 and the sodium level of 136. On 09/01/2021 patient seen in follow-up on medical surgical floor. He is sitting up in the recliner, denies any respiratory distress, no shortness of breath no coughing or wheezing. Room air pulse ox is 95%. Hemodynamically has been stable, no fever or chills. Lower extremity edema is improving, she has been diuresed with Lasix, patient is in -171 mL net fluid balance and -3.4 L 48 hours ago. Started on Eliquis for anticoagulation. No vascular intervention was recommended. There was a first a patient was able to get up out of bed, probably he is weak, but he was able to ambulate to the bathroom with a walker. Objective - Vital Signs Vital signs: Vital Signs Temp 97.3 F L 09/01/21 07:19 Pulse 78 09/01/21 07:19 Resp 15 09/01/21 07:19 BP 116/76 09/01/21 07:19 Pulse Ox 95 09/01/21 07:19 FiO2 Intake & Output 08/31/21 09/01/21 09/01/21 18:59 06:59 18:59 Intake Total 1330.00 248.123 Output Total 7958 344 7703 Balance 330.00 -501.877 -2000 Intake: Intake, IV Titration 250.00 248.123 Amount Heparin Sod,Pork in 0.45% 250.00 248.123 NaCl 25,000 unit In 0.45 % NaCl 1 250ml.bag @ 18 UNITS/KG/HR 22.045 mls/hr IV .[id number] [facility] Rx#: [id number] Oral 1080 Output: Urine 9640 742 3902 Uretheral (Aldridge) 1000 1000 Other: Voiding Method Indwelling Catheter Indwelling Catheter Indwelling Catheter - Exam GENERAL EXAM: Alert, very pleasant, 50-year-old white male on room air with pulse ox of 95% comfortable in no apparent distress. HEAD: Normocephalic/atraumatic. EYES: Normal reaction of pupils, equal size. Conjunctiva pink, sclera white. NOSE: Clear with pink turbinates. THROAT: No erythema or exudates. NECK: No masses, no JVD, no thyroid enlargement, no adenopathy. CHEST: No chest wall deformity. Symmetrical expansion. LUNGS: Equal air entry with no crackles, wheeze, rhonchi or dullness. CVS: Regular rate and rhythm, normal S1 and S2, no gallops, no murmurs, no rubs ABDOMEN: Soft, nontender. No hepatosplenomegaly, normal bowel sounds, no guarding or rigidity. EXTREMITIES: No clubbing, nonpitting edema, legs are Jamar wrapped, no cyanosis, 2+ pulses and upper and lower extremities. MUSCULOSKELETAL: Muscle strength and tone normal. SPINE: No scoliosis or deformity SKIN: No rashes CENTRAL NERVOUS SYSTEM: Alert and oriented -3. No focal deficits, tone is normal in all 4 extremities. PSYCHIATRIC: Alert and oriented -3. Appropriate affect. Intact judgment and insight. - Labs CBC & Chem 7: 09/01/21 05:36 08/31/21 04:29 Labs: Abnormal Lab Results - Last 24 Hours (Table) 08/31/21 09/01/21 09/01/21 Range/Units 18:59 00:51 05:36 WBC 11.04 H (4.50-10.00) X 10*3/uL RBC 4.38 L (4.40-5.60) X 10*6/uL Hgb 12.7 L (13.0-17.0) g/dL Hct 39.1 L (39.6-50.0) % Immature Gran # 0.21 H (0.00-0.04) X 10*3/uL Monocytes # 1.23 H (0.20-1.00) X 10*3/uL Eosinophils # 0.62 H (0.04-0.35) X 10*3/uL APTT 59.5 H 57.6 H (22.0-30.0) sec Assessment and Plan Plan: Assessment: #1. Acute bilateral lower extremity DVTs, this is a recurrent event the patient had a DVT several years back, at that time completed course of Coumadin. Patient has evidence of extensive bilateral lower extremity DVTs with significant swelling and pain which has also affected his mobility. Vascular surgery has evaluated the patient, not a candidate for any thrombolytic therapy because the patient recently undergone bowel surgery. Initially was treated with IV heparin, currently has been transitioned to Eliquis. Patient has also received intermittent diuretics with improvement in bilateral lower extremity swelling #2. Hypotension, hypovolemic likely related to dehydration, recovered #3. History of right lower extremity DVT with placement of Speedy filter #4. Near syncopal episode related to dehydration, recovered #5. Recent history of exploratory laparotomy with small bowel resection on 08/11/2021 #6. History of Burkitt's lymphoma with previous history of bowel resection, followed by chemotherapy, currently in remission #7. GERD/reflux #8. Hypertension #9. Chronic back and neck pain #10. Nonsmoker #11. Occasional alcohol only #12. Acute kidney injury, improving #13. Non-anion gap metabolic acidosis, resolved Plan: Continue oral anticoagulation Patient has been transitioned to Eliquis Hemodynamically stable No shortness of breath, no cough, Lower extremity edema and pain have subsided Increase activity as tolerated Generally patient is weak, but he is able to ambulate with a walker He could be considered for discharge home if cleared by medicine Outpatient follow-up in the office in 7-10 days Patient will likely need lifetime anticoagulation for diagnosis of recurrent DVT I have personally seen and examined the patient, performed the documentation and the assessment and plan as written. Number of minutes spent on the visit: [15] Time with Patient: Less than 30
--- NOTE | 2021-09-01 16:40 | P.PN ---
Progress Note - Text Progress Note Date: 09/01/21 This is a pleasant 50-year-old patient of Dr. Hollis. Chronic stable medical conditions include GERD, hypertension, morbid obesity hepatic steatosis. 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 Has had recurrent bowel obstructions. Often managed with NG tube suction and conservative management. August 11 underwent surgery found to several adhesions small bowel partial was resected. By Dr. Peña Patient presents August 27 bilateral leg pain and weakness heaviness tired. Found to bilateral extensive DVT. Started on IV heparin. Patient is a prior history of IVC filter. In 2003. Patient was seen by Dr. Aldridge from vascular. He recommended that the patient follow up with Dr. Gupta also [facility] for intervention and removal of filter if possible as well as treatment of his DVT. She did come in a care for Dr. Lincoln. It was decided to hold off any TPA. Because of recent surgery. September 01: I assumed care of the patient today. Patient changed over from IV heparin to eliquis today. Aldridge catheter in. Given orders to discontinue F oley. Did walk some. Tired. Oral intake fair. Breathing stable. Active Medications Acetaminophen (Acetaminophen Tab 325 Mg Tab) 650 mg PO Q6HR PRN PRN Reason: Mild Pain or Fever > 100.5 Hydrocodone Bitart/Acetaminophen (Hydrocodone/Apap 5-325mg 1 Each Tab) 1 each PO Q6HR PRN PRN Reason: Pain Last Admin: 09/01/21 13:59 Dose: 1 each Apixaban (Apixaban 5 Mg Tab) 10 mg PO BID ELIZABETH; Protocol Stop: 09/07/21 21:01 Last Admin: 09/01/21 09:44 Dose: 10 mg Heparin Sodium (Porcine) (Heparin Sodium 1,000 Un/Ml (10ml Vl)) 0 unit IV PER PROTOCOL PRN; Protocol PRN Reason: Low PTT Last Admin: 08/31/21 07:13 Dose: 9,800 unit Hydromorphone HCl (Hydromorphone 0.5 Mg/0.5 Ml Syringe) 0.5 mg IVP Q3HR PRN PRN Reason: Moderate Pain Last Admin: 09/01/21 04:25 Dose: 0.5 mg Levofloxacin (Levofloxacin 500 Mg Tab) 500 mg PO DAILY@1700 ELIZABETH Last Admin: 08/31/21 17:03 Dose: 500 mg Naloxone HCl (Naloxone 0.4 Mg/Ml 1 Ml Vial) 0.2 mg IV Q2M PRN PRN Reason: Opioid Reversal Ondansetron HCl (Ondansetron 4 Mg/2 Ml Vial) 4 mg IVP Q6HR PRN PRN Reason: Nausea And Vomiting Last Admin: 09/01/21 08:47 Dose: 4 mg Pantoprazole Sodium (Pantoprazole 40 Mg Tablet) 40 mg PO AC-BID [facility] Last Admin: 09/01/21 07:20 Dose: 40 mg Senna/Docusate Sodium (Sennosides-Docusate Sodium 1 Each Tab) 1 each PO BID [facility] Last Admin: 09/01/21 13:59 Dose: 1 each Past history to include: DVT right leg, lymphoma small bowel surgery and chemotherapy in 2003, hypertension, GERD, obesity, morbid obesity Social history: [employer] for [employer]. . Nonsmoker. Alcohol occasionally. Family history: Reviewed, noncontributory to presentation Physical examination: VITAL SIGNS: 98.2, 91, 20, 120/75, 96% room air GENERAL: Up in a recliner, comfortable EYES: Pupils equal. Conjunctiva normal. HEENT: External appearance of nose and ears normal, oral cavity dry mucous membrane, NG tube. NECK: JVD not raised; masses not palpable. HEART: First and second heart sounds are normal; no edema. LUNGS: Respiratory rate normal; clear to auscultation. ABDOMEN: Soft, no tenderness, no guarding rigidity liver spleen not palpable, no masses palpable. Aldridge catheter EXTREMITIES: Bilateral lower extremity Jamar wraps PSYCH: Alert and oriented x3; mood and affect normal. MUSCULOSKELETAL:No Clubbing/cyanosis;muscles-grossly intact INVESTIGATIONS, reviewed in the clinical context: White count 11 improvement 0.7 platelets 248 potassium 4.2 creatinine 1.2 Lumbar spine computed tomography scan: Some DJD. Mild to moderate spinal stenosis at L4-L5. CT abdomen and pelvis with contrast: Absent gallbladder. IVC filter. Doppler ultrasound lower extremity: Right leg: Extensive thrombosis C benign leg up through common femoral vein. Left leg: Extensive thrombosis seen through common femoral vein. Assessment and plan: -Acute bilateral lower extremity DVT. Prior history of DVT and IVC filter. Recent decreased activity for abdominal surgery. IV heparin. Jamar wrap. Eliquis started today. Patient to follow-up with Dr. Alonso Butt at [facility] -Morbid obesity BMI of 41.1 Weight loss measures -Essential hypertension Cozaar. -GERD Nexium 40 mg twice a day -Hepatic steatosis Follow-up with PCP IV heparin changed over to eliquis today. Will DC Aldridge catheter. Discussed at length with the patient. Increase activity. Hopefully discharge tomorrow
[2021-09-01] MEDS: LEVOFLOXACIN 500 MG TAB PO SCH (16:49)
[2021-09-02] MEDS: HYDROcodone/APAP 5-325MG 1 EACH TAB PO PRN ×4 (02:32→21:48)
[2021-09-02] MEDS: SENNOSIDES-DOCUSATE SODIUM 1 EACH TAB PO SCH ×2 (07:39→21:46)
[2021-09-02] MEDS: PANTOPRAZOLE 40 MG TABLET PO SCH ×2 (07:39→17:14)
[2021-09-02] MEDS: APIXABAN 5 MG TAB PO SCH ×2 (07:40→21:46)
--- NOTE | 2021-09-02 09:55 | P.PN ---
Subjective Progress Note Date: 09/02/21 Principal diagnosis: Bilateral deep vein thrombosis Patient seen and examined as a follow-up. Yesterday the patient was transitioned from heparin to Eliquis. Patient has prescription coverage for Eliquis. Physical therapy worked with patient yesterday. He was up and ambulating with assistance with walker. Aldridge catheter has been discontinued. Plan is for possible discharge home today. Objective - Vital Signs Vital signs: Vital Signs Temp 98.2 F 09/02/21 07:43 Pulse 70 09/02/21 07:43 Resp 18 09/02/21 07:43 BP 130/75 09/02/21 07:43 Pulse Ox 94 L 09/02/21 07:43 FiO2 Intake & Output 09/01/21 09/02/21 09/02/21 18:59 06:59 18:59 Output Total 2600 Balance -2600 Output: Urine 2600 Uretheral (Aldridge) 1000 Other: Voiding Method Indwelling Catheter Urinal Urinal # Bowel Movements 1 - Exam General appearance: The patient is alert, oriented, appears in no acute distress. HET: Head is normocephalic and atraumatic. Pupils are equal and reactive. Neck: Supple without lymphadenopathy. Trachea midline. Heart: S1 S2. Regular rate and rhythm. Lungs: Clear to auscultation bilaterally. Abdomen: Soft, nontender, nondistended. Extremities: Bilateral lower extremity edema, with Jamar wrap. Neurological: No focal deficits. Alert and oriented 3. - Labs CBC & Chem 7: 09/01/21 05:36 08/31/21 04:29 Assessment and Plan Assessment: 1. Bilateral lower extremity deep vein thrombosis 2. History of right lower extremity with Speedy filter still in place 3. Syncope 4. Hypotension 5. Recent exploratory laparotomy with small bowel resection on 08/11/2021 Plan: 1. Continue Eliquis starter pack. 2. Patient to follow-up with Dr. Alonso [facility]head in [facility] for intervention and removal of filter 3. No planned vascular surgical intervention. Continue with Jamar wrap and elevation of lower extremities Thank you for this consultation, the patient is clear from vascular surgery for discharge. The impression and plan of care has been dictated as directed. Dr. Aldridge I performed a history and examination of this patient, discussed the same with the dictator. I agree with the dictator's note ,documented as a scribe. Any additional findings or plans will be noted.
--- NOTE | 2021-09-02 11:41 | P.PN ---
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 Other medical h istory includes obstructive sleep apnea on CPAP, hypertension, GERD/reflux, nonsmoker, occasional EtOH use. Patient follows with Dr. Montoya for medical oncology, and his lymphoma has been in remission. Recently patient had exploratory laparotomy with small bowel resection related to recurrent incar cerated incisional hernia with extensive abdominal adhesions. Patient was discharged home on 08/18/2021. Today patient was at Dr. Mg's office for 2 week postop follow-up for abdominal surgery, and became lightheaded and was near syncopal, he was brought into the emergency department by EMS. Patient denied any chest pain, no dyspnea, no fever, mild cough which is chronic, patient did have mild nausea without vomiting, he was passing bowel movements after his surgery, his abdominal incision is healing quite well. His orthostatic blood pressures were positive, suggesting possibility of dehydration. EKG shows normal sinus rhythm with left axis deviation and a rate of [address] segment dustin vation. His blood pressures were marginal upon arrival, he was given IV fluids. Laboratory studies showed a white blood cell count of 18.4, patient had evidence of acute kidney injury with elevated creatinine of 1.64, urinalysis showed leukocytes without bacteria, urine culture was sent. CT of the abdomen and pelvis was obtained showing postsurgical changes without other acute findings. Patient also noted increased swelling in his bilateral lower extremities, and was complaining of lower back pain radiating to the groin area and right calf pain. Venous Doppler showed evidence of bilateral lower extremity DVTs. He was started on heparin drip, he denies any shortness of breath, no chest pain, no hemoptysis, unable to obtain CT angiogram of the chest related to evidence of acute kidney injury. But breathing comfortably, he is on room air pulse ox of 96%. Echocardiogram has been taken, results are pending. Vascular surgery and cardiology have been consulted. 08/28/2021, the patient is still laying in bed. He was quite uncomfortable and the legs are quite swollen lower extremities and there are also hurting. The patient remains on IV heparin. Vascular surgery evaluated the patient. Noted the patient had an IVC filter in place. No vascular intervention was recommended then IV diuretics. The PTT is therapeutic at 78. Renal function continues to improve in the creatinine is down to 1.2 and the patient developed a component of non-anion gap metabolic acidosis. Echocardiogram was also completed and in income tax return preparer to be a poor window. No evidence of any significant pulmonary hypertension and the PA pressures were not adequately measures. Otherwise it was at 70 with a hemoglobin of 13.1. No shortness of breath. No pleurisy. No hemoptysis. 08/29/2021, the patient continues to have significant amount of swelling in lower extremities and pain and discomfort to the point where the patient is unable to ambulate. I give him a dose of Lasix yesterday and he had excellent diuresis. There is some improvement in swelling lower extremities since yesterday and the patient is a negative fluid balance of 3 L. Remains on IV heparin. Nevertheless, continues to have significant amount of soreness and pressure sensation tightness in lower extremities. No chest pain. No shortness of breath. Laying comfortably in bed. Surgical site over the abdomen is dry clean and intact and the patient is passing gas and tolerating bowel movements. Echo was done yesterday and was a poor window. On his blood work, the white centers of 50 with a hemoglobin of 15.1. PTT is therapeutic at 45. BUN is at 23 with a creatinine of 1.2 and the sodium level is at 135. Serum bicarbs of 21. 08/30/2021, the patient's is reporting lymphoma with diuresis and the patient is able to bend his knees. Nevertheless, he continues to be extremely limited. The patient remains on IV heparin. The patient was given a dose of Lasix and the patient is more than 1 L negative fluid balance. Lower extremity edema still present. The patient is also having his legs are wrapped. Vascular surgery about that the patient and asked to continue with the same treatment. No other new complaints otherwise for now. No shortness of breath and the patient remains on room air oxygen. No nausea vomiting or abdominal pain. On today's blood work, the patient has a white cell count of 11.3 with a hemoglobin 4.8 and the BUN of 24 with a creatinine of 1.1. No other significant issues otherwise for now. 08/31/2021, the patient remains on IV heparin. I would like to continue IV heparin for another 24 hours. The patient diurese more than 3 L with Lasix yesterday and the patient's mobility is gradually improving. No new complaints. UA is abnormal and the patient is currently on Levaquin. No pleurisy. No hemoptysis. No shortness of breath. No indication for pulmonary embolism and the patient is being treated for extensive bilateral lower extremity DVT. Vascular surgery is on the case. No fever. No chills. The. He was subtherapeutic as the patient's IV heparin got discontinued or disconnected briefly. The patient was a bolus. Hemoglobin 12.7 and the patient's platelet count is at 273. Renal function is stable with a creatinine of 1.2 and the BUN of 26 and the sodium level of 136. On 09/01/2021 patient seen in follow-up on medical surgical floor. He is sitting up in the recliner, denies any respiratory distress, no shortness of breath no coughing or wheezing. Room air pulse ox is 95%. Hemodynamically has been stable, no fever or chills. Lower extremity edema is improving, she has been diuresed with Lasix, patient is in -171 mL net fluid balance and -3.4 L 48 hours ago. Started on Eliquis for anticoagulation. No vascular intervention was recommended. There was a first a patient was able to get up out of bed, probably he is weak, but he was able to ambulate to the bathroom with a walker. On 09/02/2021 patient seen in follow-up on medical surgical floor. Is calm and comfortable, resting quietly in bed, denies any respiratory difficulty, tor thing comfortable, room air pulse ox is 94-96%, hemodynamically stable, his been afebrile. Remains on Eliquis 10 mg twice daily, Lasix has been discontinued, and patient still maintaining negative fluid balance, of -2.6 L over the last 24 hours, lower extremity edema is improving. But generally patient is weak, his been ambulating with a walker. So far patient is anticipated to return home and he lives with her spouse and he will have home care following Objective - Vital Signs Vital signs: Vital Signs Temp 98.2 F 09/02/21 07:43 Pulse 70 09/02/21 07:43 Resp 18 09/02/21 07:43 BP 130/75 09/02/21 07:43 Pulse Ox 94 L 09/02/21 07:43 FiO2 Intake & Output 09/01/21 09/02/21 09/02/21 18:59 06:59 18:59 Output Total 2600 Balance -2600 Output: Urine 2600 Uretheral (Aldridge) 1000 Other: Voiding Method Indwelling Catheter Urinal Urinal # Bowel Movements 1 - Exam GENERAL EXAM: Alert, very pleasant, 50-year-old white male on room air with pulse ox of 94% comfortable in no apparent distress. HEAD: Normocephalic/atraumatic. EYES: Normal reaction of pupils, equal size. Conjunctiva pink, sclera white. NOSE: Clear with pink turbinates. THROAT: No erythema or exudates. NECK: No masses, no JVD, no thyroid enlargement, no adenopathy. CHEST: No chest wall deformity. Symmetrical expansion. LUNGS: Equal air entry with no crackles, wheeze, rhonchi or dullness. CVS: Regular rate and rhythm, normal S1 and S2, no gallops, no murmurs, no rubs ABDOMEN: Soft, nontender. No hepatosplenomegaly, normal bowel sounds, no gua rding or rigidity. EXTREMITIES: No clubbing, nonpitting edema, legs are Jamar wrapped, no cyanosis, 2+ pulses and upper and lower extremities. MUSCULOSKELETAL: Muscle strength and tone normal. SPINE: No scoliosis or deformity SKIN: No rashes CENTRAL NERVOUS SYSTEM: Alert and oriented -3. No focal deficits, tone is normal in all 4 extremities. PSYCHIATRIC: Alert and oriented -3. Appropriate affect. Intact judgment and insight. - Labs CBC & Chem 7: 09/01/21 05:36 08/31/21 04:29 Assessment and Plan Plan: Assessment: #1. Acute bilateral lower extremity DVTs, this is a recurrent event the patient had a DVT several years back, at that time completed course of Coumadin. Patient has evidence of extensive bilateral lower extremity DVTs with significant swelling and pain which has also affected his mobility. Vascular surgery has evaluated the patient, not a candidate for any thrombolytic therapy because the patient recently undergone bowel surgery. Initially was treated with IV heparin, currently has been transitioned to Eliquis. Patient has also received intermittent diuretics with improvement in bilateral lower extremity swelling #2. Hypotension, hypovolemic likely related to dehydration, recovered #3. History of right lower extremity DVT with placement of [place] filter #4. Near syncopal episode related to dehydration, recovered #5. Recent history of exploratory laparotomy with small bowel resection on 08/11/2021 #6. History of Burkitt's lymphoma with previous history of bowel resection, followed by chemotherapy, currently in remission #7. GERD/reflux #8. Hypertension #9. Chronic back and neck pain #10. Nonsmoker #11. Occasional alcohol only #12. Acute kidney injury, improving #13. Non-anion gap metabolic acidosis, resolved Plan: Continue oral anticoagulation Vital signs are stable No difficulty breathing Patient is ambulating with a walker He was evaluated by PT, and the recommendation for patient to return home with home care From pulmonary perspective patient has remained stable, he can be considered for discharge home from our standpoint Outpatient follow-up with Dr. Daniels in the office in 3-4 weeks I have personally seen and examined the patient, performed the documentation and the assessment and plan as written. Number of minutes spent on the visit: [15] Time with Patient: Less than 30
--- NOTE | 2021-09-02 12:06 | P.PN ---
Subjective Progress Note Date: 09/02/21 CHIEF COMPLAINT: Bilateral lower extremity DVT HISTORY OF PRESENT ILLNESS: Patient complains of bilateral leg pain. Does report that the pain is getting better. Patient reports that he did ambulate yesterday. On apparently when he got up this morning walk to the bathroom he did have a heart rate that went into the 130s 140s. Nursing staff reported that it shows sinus tachycardia on telemetry. The medicine service was notified and ordered an EKG. He denies any shortness of breath. Patient denies any abdominal pain. Patient did have a bowel movement. Denies any nausea vomiting. Afebrile. No new labs for today. Patient had every other staple removed from incision site yesterday PHYSICAL EXAM: VITAL SIGNS: Reviewed. GENERAL: Well-developed in no acute distress. HEENT: No sclera icterus. Extraocular movements grossly intact. Moist buccal mucosa. Head is atraumatic, normocephalic. ABDOMEN: Soft. Nondistended. Nontender. Incision site clean dry and intact NEUROLOGIC: Alert and oriented. Cranial nerves II through XII grossly intact. ASSESSMENT: 1. Bilateral lower extremity DVT on Eliquis 2. Recent small bowel obstruction secondary to recurrent incarcerated incisional hernia with abdominal adhesions status post exploratory laparotomy, extensive lysis of adhesions, small bowel resection and repair of recurrent incarcerated incisional hernia on 08/11/2021 PLAN: -Continue supportive care -Continue plan per vascular surgery with follow-up at [facility] for i ntervention and removal of IVC filter Physician Head Of Mobile note has been reviewed by physician. Signing provider agrees with the documented findings, assessment, and plan of care. I have personally seen and examined the patient, reviewed the SCIENTIFIC EDITOR /PAs history, exam and MDM and agree with the assessment and plan as written. Based on total visit time, I have performed more than 50% of the visit. As above: Patient had some tachycardia with ambulation. Says his lower show any pain continues to improve. Denies abdominal pain. One half paco removed. Continue anticoagulation and plans for management of vena cava clot per vascular surgery. Objective - Vital Signs Vital signs: Vital Signs Temp 98.2 F 09/02/21 07:43 Pulse 70 09/02/21 07:43 Resp 18 09/02/21 07:43 BP 130/75 09/02/21 07:43 Pulse Ox 94 L 09/02/21 07:43 FiO2 Intake & Output 09/01/21 09/02/21 09/02/21 18:59 06:59 18:59 Output Total 2600 Balance -2600 Output: Urine 2600 Uretheral (Aldridge) 1000 Other: Voiding Method Indwelling Catheter Urinal Urinal # Bowel Movements 1 - Labs CBC & Chem 7: 09/01/21 05:36 08/31/21 04:29
[2021-09-02 14:36] VITALS: BMI 41.0
[2021-09-02] MEDS: HYDROmorphone 0.5 MG/0.5 ML SYRINGE IVP PRN (17:14)
[2021-09-02] MEDS: LEVOFLOXACIN 500 MG TAB PO SCH (17:14)
--- NOTE | 2021-09-02 22:40 | P.PN ---
Progress Note - Text Progress Note Date: 09/02/21 This is a pleasant 50-year-old patient of Dr. Hollis. Chronic stable medical conditions include GERD, hypertension, morbid obesity hepatic steatosis. 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 Has had recurrent bowel obstructions. Often managed with NG tube suction and conservative management. August 11 underwent surgery found to several adhesions small bowel partial was resected. By Dr. Peña Patient presents August 27 bilateral leg pain and weakness heaviness tired. Found to bilateral extensive DVT. Started on IV heparin. Patient is a prior history of IVC filter. In 2003. Patient was seen by Dr. Aldridge from vascular. He recommended that the patient follow up with Dr. Gupta also [facility] for intervention and removal of filter if possible as well as treatment of his DVT. She did come in a care for Dr. Lincoln. It was decided to hold off any TPA. Because of recent surgery. September 01: I assumed care of the patient today. Patient changed over from IV heparin to eliquis today. Aldridge catheter in. Given orders to discontinue F oley. Did walk some. Tired. Oral intake fair. Breathing stable. September 02: Patient get a bit tachycardic with ambulation. Care was discussed with the patient. On eliquis. Swelling of the lower extremities. Jamar wrap ordered for thighs. Patient noticed to have some swelling redness of the scrotum. Urology consulted. Active Medications Acetaminophen (Acetaminophen Tab 325 Mg Tab) 650 mg PO Q6HR PRN PRN Reason: Mild Pain or Fever > 100.5 Hydrocodone Bitart/Acetaminophen (Hydrocodone/Apap 5-325mg 1 Each Tab) 1 each PO Q6HR PRN PRN Reason: Pain Last Admin: 09/02/21 21:48 Dose: 1 each Apixaban (Apixaban 5 Mg Tab) 10 mg PO BID [facility]; Protocol Stop: 09/07/21 21:01 Last Admin: 09/02/21 21:46 Dose: 10 mg Heparin Sodium (Porcine) (Heparin Sodium 1,000 Un/Ml (10ml Vl)) 0 unit IV PER PROTOCOL PRN; Protocol PRN Reason: Low PTT Last Admin: 08/31/21 07:13 Dose: 9,800 unit Hydromorphone HCl (Hydromorphone 0.5 Mg/0.5 Ml Syringe) 0.5 mg IVP Q3HR PRN PRN Reason: Moderate Pain Last Admin: 09/02/21 17:14 Dose: 0.5 mg Levofloxacin (Levofloxacin 500 Mg Tab) 500 mg PO DAILY@1700 [facility] Last Admin: 09/02/21 17:14 Dose: 500 mg Naloxone HCl (Naloxone 0.4 Mg/Ml 1 Ml Vial) 0.2 mg IV Q2M PRN PRN Reason: Opioid Reversal Ondansetron HCl (Ondansetron 4 Mg/2 Ml Vial) 4 mg IVP Q6HR PRN PRN Reason: Nausea And Vomiting Last Admin: 09/01/21 19:11 Dose: 4 mg Pantoprazole Sodium (Pantoprazole 40 Mg Tablet) 40 mg PO AC-BID [facility] Last Admin: 09/02/21 17:14 Dose: 40 mg Senna/Docusate Sodium (Sennosides-Docusate Sodium 1 Each Tab) 1 each PO BID [facility] Last Admin: 09/02/21 21:46 Dose: 1 each Past history to include: DVT right leg, lymphoma small bowel surgery and chemotherapy in 2003, hypertension, GERD, obesity, morbid obesity 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 . Nonsmoker. Alcohol occasionally. Family history: Reviewed, noncontributory to presentation Physical examination: VITAL SIGNS: 98.9, 82, 18, 118/73, 96% room air GENERAL: Up in a recliner, comfortable EYES: Pupils equal. Conjunctiva normal. HEENT: External appearance of nose and ears normal, oral cavity dry mucous membrane, NG tube. NECK: JVD not raised; masses not palpable. HEART: First and second heart sounds are normal; no edema. LUNGS: Respiratory rate normal; clear to auscultation. ABDOMEN: Soft, no tenderness, no guarding rigidity liver spleen not palpable, no masses palpable. EXTREMITIES: Bilateral lower extremity Jamar wraps. Edema present PSYCH: Alert and oriented x3; mood and affect normal. MUSCULOSKELETAL:No Clubbing/cyanosis;muscles-grossly intact INVESTIGATIONS, reviewed in the clinical context: White count 11 improvement 0.7 platelets 248 potassium 4.2 creatinine 1.2 Lumbar spine computed tomography scan: Some DJD. Mild to moderate spinal stenosis at L4-L5. CT abdomen and pelvis with contrast: Absent gallbladder. IVC filter. Doppler ultrasound lower extremity: Right leg: Extensive thrombosis C benign leg up through common femoral vein. Left leg: Extensive thrombosis seen through common femoral vein. Assessment and plan: -Acute bilateral lower extremity DVT. Prior history of DVT and IVC filter. Recent decreased activity for abdominal surgery. IV heparin. Jamar wrap. Eliquis Patient to follow-up with Dr. Alonso Butt at [facility] -Bilateral lower extremity edema secondary to DVT Bilateral Jamar wraps -Sinus tachycardia with activity due to deconditioning Increase activity as tolerated -Morbid obesity BMI of 41.1 Weight loss measures -Essential hypertension Cozaar. -GERD Nexium 40 mg twice a day -Hepatic steatosis Follow-up with PCP Discussed with patient. Increase activity to short frequent activity. Jamar wrap for thighs. Elevated scrotum. Urology consult.
[2021-09-03] MEDS: HYDROcodone/APAP 5-325MG 1 EACH TAB PO PRN ×3 (03:08→15:09)
[2021-09-03] MEDS: HYDROmorphone 0.5 MG/0.5 ML SYRINGE IVP PRN (06:27)
[2021-09-03] MEDS: SENNOSIDES-DOCUSATE SODIUM 1 EACH TAB PO SCH (07:10)
[2021-09-03] MEDS: PANTOPRAZOLE 40 MG TABLET PO SCH (07:10)
[2021-09-03] MEDS: APIXABAN 5 MG TAB PO SCH (07:10)
--- NOTE | 2021-09-03 09:44 | P.PN ---
Subjective Progress Note Date: 09/03/21 Principal diagnosis: Bilateral deep vein thrombosis Patient seen and examined as a follow-up. He continues to complain of back pain. He's been up and ambulating with assistance with physical therapy. Complaining of swelling in the scrotum. He has been afebrile. He was held overnight for urology consultation for scrotal swelling. No acute changes through the night. Objective - Vital Signs Vital signs: Vital Signs Temp 97.9 F 09/03/21 08:00 Pulse 93 09/03/21 08:00 Resp 16 09/03/21 08:00 BP 111/72 09/03/21 08:00 Pulse Ox 92 L 09/03/21 08:00 FiO2 Intake & Output 09/02/21 09/03/21 09/03/21 18:59 06:59 18:59 Output Total 220 Balance -220 Weight 122.47 kg Output: Urine 220 Other: Voiding Method Urinal Urinal # Voids 2 # Bowel Movements 1 - Exam General appearance: The patient is alert, oriented, appears in no acute distress. HET: Head is normocephalic and atraumatic. Pupils are equal and reactive. Neck: Supple without lymphadenopathy. Trachea midline. Heart: S1 S2. Regular rate and rhythm. Lungs: Clear to auscultation bilaterally. Abdomen: Soft, nontender, nondistended. Extremities: Bilateral lower extremity edema improved, with Jamar wrap. Neurological: No focal deficits. Alert and oriented 3. - Labs CBC & Chem 7: 09/01/21 05:36 08/31/21 04:29 Assessment and Plan Assessment: 1. Bilateral lower extremity deep vein thrombosis 2. History of right lower extremity with Speedy filter still in place 3. Syncope 4. Hypotension 5. Recent exploratory laparotomy with small bowel resection on 08/11/2021 Plan: 1. Continue Eliquis starter pack. 2. Patient to follow-up with Dr. Alonso Whitehead in [facility] for intervention and removal of filter 3. No planned vascular surgical intervention. Continue with Jamar wrap and elevation of lower extremities Thank you for this consultation, the patient is clear from vascular surgery for discharge. The impression and plan of care has been dictated as directed. Dr. Lyons I performed a history and examination of this patient, discussed the same with the dictator. I agree with the dictator's note ,documented as a scribe. Any additional findings or plans will be noted.
--- NOTE | 2021-09-03 11:49 | P.PN ---
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 Other medical h istory includes obstructive sleep apnea on CPAP, hypertension, GERD/reflux, nonsmoker, occasional EtOH use. Patient follows with Dr. Montoya for medical oncology, and his lymphoma has been in remission. Recently patient had exploratory laparotomy with small bowel resection related to recurrent incar cerated incisional hernia with extensive abdominal adhesions. Patient was discharged home on 08/18/2021. Today patient was at Dr. Mg's office for 2 week postop follow-up for abdominal surgery, and became lightheaded and was near syncopal, he was brought into the emergency department by EMS. Patient denied any chest pain, no dyspnea, no fever, mild cough which is chronic, patient did have mild nausea without vomiting, he was passing bowel movements after his surgery, his abdominal incision is healing quite well. His orthostatic blood pressures were positive, suggesting possibility of dehydration. EKG shows normal sinus rhythm with left axis deviation and a rate of [address] segment dustin vation. His blood pressures were marginal upon arrival, he was given IV fluids. Laboratory studies showed a white blood cell count of 18.4, patient had evidence of acute kidney injury with elevated creatinine of 1.64, urinalysis showed leukocytes without bacteria, urine culture was sent. CT of the abdomen and pelvis was obtained showing postsurgical changes without other acute findings. Patient also noted increased swelling in his bilateral lower extremities, and was complaining of lower back pain radiating to the groin area and right calf pain. Venous Doppler showed evidence of bilateral lower extremity DVTs. He was started on heparin drip, he denies any shortness of breath, no chest pain, no hemoptysis, unable to obtain CT angiogram of the chest related to evidence of acute kidney injury. But breathing comfortably, he is on room air pulse ox of 96%. Echocardiogram has been taken, results are pending. Vascular surgery and cardiology have been consulted. 08/28/2021, the patient is still laying in bed. He was quite uncomfortable and the legs are quite swollen lower extremities and there are also hurting. The patient remains on IV heparin. Vascular surgery evaluated the patient. Noted the patient had an IVC filter in place. No vascular intervention was recommended then IV diuretics. The PTT is therapeutic at 78. Renal function continues to improve in the creatinine is down to 1.2 and the patient developed a component of non-anion gap metabolic acidosis. Echocardiogram was also completed and in rubber turner to be a poor window. No evidence of any significant pulmonary hypertension and the PA pressures were not adequately measures. Otherwise it was at 70 with a hemoglobin of 13.1. No shortness of breath. No pleurisy. No hemoptysis. 08/29/2021, the patient continues to have significant amount of swelling in lower extremities and pain and discomfort to the point where the patient is unable to ambulate. I give him a dose of Lasix yesterday and he had excellent diuresis. There is some improvement in swelling lower extremities since yesterday and the patient is a negative fluid balance of 3 L. Remains on IV heparin. Nevertheless, continues to have significant amount of soreness and pressure sensation tightness in lower extremities. No chest pain. No shortness of breath. Laying comfortably in bed. Surgical site over the abdomen is dry clean and intact and the patient is passing gas and tolerating bowel movements. Echo was done yesterday and was a poor window. On his blood work, the white centers of 50 with a hemoglobin of 15.1. PTT is therapeutic at 45. BUN is at 23 with a creatinine of 1.2 and the sodium level is at 135. Serum bicarbs of 21. 08/30/2021, the patient's is reporting lymphoma with diuresis and the patient is able to bend his knees. Nevertheless, he continues to be extremely limited. The patient remains on IV heparin. The patient was given a dose of Lasix and the patient is more than 1 L negative fluid balance. Lower extremity edema still present. The patient is also having his legs are wrapped. Vascular surgery about that the patient and asked to continue with the same treatment. No other new complaints otherwise for now. No shortness of breath and the patient remains on room air oxygen. No nausea vomiting or abdominal pain. On today's blood work, the patient has a white cell count of 11.3 with a hemoglobin 4.8 and the BUN of 24 with a creatinine of 1.1. No other significant issues otherwise for now. 08/31/2021, the patient remains on IV heparin. I would like to continue IV heparin for another 24 hours. The patient diurese more than 3 L with Lasix yesterday and the patient's mobility is gradually improving. No new complaints. UA is abnormal and the patient is currently on Levaquin. No pleurisy. No hemoptysis. No shortness of breath. No indication for pulmonary embolism and the patient is being treated for extensive bilateral lower extremity DVT. Vascular surgery is on the case. No fever. No chills. The. He was subtherapeutic as the patient's IV heparin got discontinued or disconnected briefly. The patient was a bolus. Hemoglobin 12.7 and the patient's platelet count is at 273. Renal function is stable with a creatinine of 1.2 and the BUN of 26 and the sodium level of 136. On 09/01/2021 patient seen in follow-up on medical surgical floor. He is sitting up in the recliner, denies any respiratory distress, no shortness of breath no coughing or wheezing. Room air pulse ox is 95%. Hemodynamically has been stable, no fever or chills. Lower extremity edema is improving, she has been diuresed with Lasix, patient is in -171 mL net fluid balance and -3.4 L 48 hours ago. Started on Eliquis for anticoagulation. No vascular intervention was recommended. There was a first a patient was able to get up out of bed, probably he is weak, but he was able to ambulate to the bathroom with a walker. On 09/02/2021 patient seen in follow-up on medical surgical floor. Is calm and comfortable, resting quietly in bed, denies any respiratory difficulty, tor thing comfortable, room air pulse ox is 94-96%, hemodynamically stable, his been afebrile. Remains on Eliquis 10 mg twice daily, Lasix has been discontinued, and patient still maintaining negative fluid balance, of -2.6 L over the last 24 hours, lower extremity edema is improving. But generally patient is weak, his been ambulating with a walker. So far patient is anticipated to return home and he lives with her spouse and he will have home care following On 09/03/2021 patient seen in follow-up on medical surgical floor. He is resting comfortably in bed, his legs are still swollen, they are jamar wrapped, patient has received some diuretics, he is currently on oral anticoagulation with Eliquis Patient had IVC filter placed quite sometime ago, most 18 years ago. His surgery is following, and patient is being set up on outpatient basis for possible laser removal of the IVC filter at the [facility] by vascular specialist. Her breathing standpoint patient is breathing comfortably, he is on room air, pulse ox is 92-94%, stable vitals, stable blood pressure, no complaint of chest pain. No new labs today. Objective - Vital Signs Vital signs: Vital Signs Temp 97.9 F 09/03/21 08:00 Pulse 93 09/03/21 08:00 Resp 16 09/03/21 08:00 BP 111/72 09/03/21 08:00 Pulse Ox 92 L 09/03/21 08:00 FiO2 Intake & Output 09/02/21 09/03/21 09/03/21 18:59 06:59 18:59 Output Total 220 Balance -220 Weight 122.47 kg Output: Urine 220 Other: Voiding Method Urinal Urinal Urinal # Voids 2 # Bowel Movements 1 - Exam GENERAL EXAM: Alert, very pleasant, 50-year-old white male on room air with pulse ox of 94% comfortable in no apparent distress. HEAD: Normocephalic/atraumatic. EYES: Normal reaction of pupils, equal size. Conjunctiva pink, sclera white. NOSE: Clear with pink turbinates. THROAT: No erythema or exudates. NECK: No masses, no JVD, no thyroid enlargement, no adenopathy. CHEST: No chest wall deformity. Symmetrical expansion. LUNGS: Equal air entry with no crackles, wheeze, rhonchi or dullness. CVS: Regular rate and rhythm, normal S1 and S2, no gallops, no murmurs, no rubs ABDOMEN: Soft, nontender. No hepatosplenomegaly, normal bowel sounds, no guarding or rigidity. EXTREMITIES: No clubbing, nonpitting edema, legs are Jamar wrapped, no cyanosis, 2+ pulses and upper and lower extremities. MUSCULOSKELETAL: Muscle strength and tone normal. SPINE: No scoliosis or deformity SKIN: No rashes CENTRAL NERVOUS SYSTEM: Alert and oriented -3. No focal deficits, tone is normal in all 4 extremities. PSYCHIATRIC: Alert and oriented -3. Appropriate affect. Intact judgment and insight. - Labs CBC & Chem 7: 09/01/21 05:36 08/31/21 04:29 Assessment and Plan Plan: Assessment: #1. Acute bilateral lower extremity DVTs, this is a recurrent event the patient had a DVT several years back, at that time completed course of Coumadin. Patient has evidence of extensive bilateral lower extremity DVTs with signific ant swelling and pain which has also affected his mobility. Vascular surgery has evaluated the patient, not a candidate for any thrombolytic therapy because the patient recently undergone bowel surgery. Initially was treated with IV heparin, currently has been transitioned to Eliquis. Patient has also received intermittent diuretics with improvement in bilateral lower extremity swelling #2. Hypotension, hypovolemic likely related to dehydration, recovered #3. History of right lower extremity DVT with placement of [place] filter #4. Near syncopal episode related to dehydration, recovered #5. Recent history of exploratory laparotomy with small bowel resection on 08/11/2021 #6. History of Burkitt's lymphoma with previous history of bowel resection, followed by chemotherapy, currently in remission #7. GERD/reflux #8. Hypertension #9. Chronic back and neck pain #10. Nonsmoker #11. Occasional alcohol only #12. Acute kidney injury, improving #13. Non-anion gap metabolic acidosis, resolved Plan: Continue oral anticoagulation Patient's breathing comfortable, maintaining stable O2 saturations Physical surgery recommendations Pulmonary service will sign off and follow on an as-needed basis I have personally seen and examined the patient, performed the documentation and the assessment and plan as written. Number of minutes spent on the visit: [10] Time with Patient: Less than 30
--- NOTE | 2021-09-03 11:53 | P.PN ---
Subjective Progress Note Date: 09/03/21 CHIEF COMPLAINT: Bilateral lower extremity DVT HISTORY OF PRESENT ILLNESS: Patient continues to complain of bilateral leg pain. He is able to walk a short distance with physical therapy. He denies any ab dominal pain. Denies any nausea or vomiting. He is having bowel movements. He is complaining of scrotal swelling. Urology is on consult. Afebrile. Mild tachycardia heart rate 104 last night PHYSICAL EXAM: VITAL SIGNS: Reviewed. GENERAL: Well-developed in no acute distress. HEENT: No sclera icterus. Extraocular movements grossly intact. Moist buccal mucosa. Head is atraumatic, normocephalic. ABDOMEN: Soft. Nondistended. Nontender. NEUROLOGIC: Alert and oriented. Cranial nerves II through XII grossly intact. ASSESSMENT: 1. Bilateral lower extremity DVT on Eliquis 2. Recent small bowel obstruction secondary to recurrent incarcerated incisional hernia with abdominal adhesions status post exploratory laparotomy, extensive lysis of adhesions, small bowel resection and repair of recurrent incarcerated incisional hernia on 08/11/2021 PLAN: -Continue supportive care -Continue plan per vascular surgery with follow-up at [facility] for intervention and removal of IVC filter Physician Solid Waste Disposal Manager note has been reviewed by physician. Signing provider agrees with the documented findings, assessment, and plan of care. I have personally seen and examined the patient, reviewed the ANIMAL ASSISTANT /PAs history, exam and MDM and agree with the assessment and plan as written. Based on total visit time, I have performed more than 50% of the visit. As above: Patient discharge prior to my evaluation today. Outpatient management of DVT per vascular surgery. Follow-up to remove remainder of the paco in 1 week. Objective - Vital Signs Vital signs: Vital Signs Temp 97.9 F 09/03/21 08:00 Pulse 93 09/03/21 08:00 Resp 16 09/03/21 08:00 BP 111/72 09/03/21 08:00 Pulse Ox 92 L 09/03/21 08:00 FiO2 Intake & Output 09/02/21 09/03/21 09/03/21 18:59 06:59 18:59 Output Total 220 Balance -220 Weight 122.47 kg Output: Urine 220 Other: Voiding Method Urinal Urinal Urinal # Voids 2 # Bowel Movements 1 - Labs CBC & Chem 7: 09/01/21 05:36 08/31/21 04:29
[2021-09-03 14:14] VITALS: BP 124/75; PULSE 101; RESP 18; TEMP 98.5
--- NOTE | 2021-09-03 15:26 | P.GSCN ---
History of Present Illness Consult date: 09/03/21 Reason for Consult: Scrotal erythema and swelling History of present illness: This is a 50-year-old male admitted to the hospital with a DVT following an expiratory laparotomy for small bowel obstruction. Urology is consulted for scrotal edema and erythema. He indicated he's noticed it for the past 24 hours, he indicated erythema is minimal and associated with minimal pain at that site. But he is complaining of suprapubic abdominal pain. Denies any difficulty voiding gross hematuria or dysuria. No previous similar symptoms Review of Systems - Constitutional Denies fever, Denies weight loss - EENT Ears, nose, mouth and throat: Denies dysphagia - Cardiovascular Denies chest pain, Denies shortness of breath - Respiratory Denies cough, Denies 7 - Gastrointestinal Reports as per HPI - Genitourinary Reports genital pain - Integumentary Denies rash, Denies unusual bruising - Neurological Denies headaches, Denies syncope Past Medical History Past Medical History: Cancer, Deep Vein Thrombosis (DVT), GERD/Reflux, Hypertension Additional Past Medical History / Comment(s): Lymphoma/small bowel with surgery and chemo in 2003, small bowel obstructions, DVT R calf 2003 History of Any Multi-Drug Resistant Organisms: None Reported Past Surgical History: Bowel Resection, Cholecystectomy, Hernia Repair, Orthopedic Surgery, Tonsillectomy Additional Past Surgical History / Comment(s): Bowel resection d/t small bowel lymphoma, colonoscopies, incisional hernia repair with mesh x2, vanita filter, port a cath -now removed, bowel resection x2, cervical spine surgery with implant 2004 Past Anesthesia/Blood Transfusion Reactions: No Reported Reaction Past Psychological History: No Psychological Hx Reported Additional Psychological History / Comment(s): Pt resides with his spouse. 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 Smoking Status: Never smoker Past Alcohol Use History: Occasional Past Drug Use History: None Reported, Unable to Obtain - Past Family History Mother Family Medical History: No Reported History Additional Family Medical History / Comment(s): Mother is healthy Father Family Medical History: Myocardial Infarction ([place]) Additional Family Medical History / Comment(s): AT AGE 48 OF A [place] Medications and Allergies Home Medications Medication Instructions Recorded Confirmed Type Esomeprazole Magnesium [NexIUM] 40 mg PO BID 05/04/20 08/26/21 History Cholecalciferol [Vitamin D3 (25 50 mcg PO DAILY 08/10/21 08/26/21 History Mcg = 1000 Iu)] Pseudoephedrine HCl [Sudafed 240 mg PO DAILY 08/10/21 08/26/21 History 24-Hour] HYDROcodone/APAP 5-325MG [[place] 1 tab PO Q6HR PRN 3 Days #12 tab 08/18/21 08/26/21 Rx 5-325] Apixaban [Eliquis Starter Pack 5 - 10 mg PO DIRECTED 30 Days 09/01/21 Rx (for VTE)] #1 each Acetaminophen Tab [Tylenol] 650 mg PO Q6HR PRN tab 09/02/21 Rx Losartan [Cozaar] 50 mg PO HS #0 09/02/21 08/26/21 Rx Sennosides-Docusate Sodium 1 each PO BID #60 tab 09/02/21 Rx [Senokot-S] Allergies Allergy/AdvReac Type Severity Reaction Status Date / Time Penicillins Allergy Anaphylaxis Verified 08/26/21 18:23 Surgical - Exam Vital Signs Temp Pulse Resp BP Pulse Ox 97.8 F 74 16 99/56 96 08/26/21 16:41 08/26/21 16:41 08/26/21 16:41 08/26/21 16:41 08/26/21 16:41 - General no distress, no pain - Eyes normal ocular movement, no pale - ENT normal nares, normal mucosa - Respiratory normal expansion, normal respiratory effort - Abdomen Abdomen: soft, non tender - Genitourinary Minimal erythema along the scrotal skin with minimal edema. no tenderness, no testicular swelling or tenderness. Results - Labs 09/01/21 05:36 08/31/21 04:29 Assessment and Plan Assessment: 50-year-old male admitted with bilateral DVT, having scrotal edema and minimal erythema. On exam is consistent with cellulitis, it appears to be more consistent to 2 patient position due to his limited mobility since his hospital admission. The edema is most likely from patient laying in a supine position. From urology standpoint, no further intervention is needed recommend scrotal elevation. Okay for discharge from urology standpoint. Recommend obtaining a bladder scan given his suprapubic pain, to rule out urinary retention
--- NOTE | 2021-09-03 19:45 | P.DS ---
Providers Date of admission: 08/26/21 20:57 Expected date of discharge: 09/03/21 Attending physician: Hiram Nogueira Consults: 08/27/21 12:57 Consult Physician Urgent Consulting Provider: Angi Daniels Consult Reason/Comments: dvt and hypotension Do you want consulting provider notified?: Yes 08/27/21 13:53 Consult Physician Urgent Consulting Provider: Chemo Mg Consult Reason/Comments: recent surgery Do you want consulting provider notified?: Yes 08/27/21 14:09 Consult Physician Routine Consulting Provider: Elly Aldridge Consult Reason/Comments: dvt Do you want consulting provider notified?: Yes 08/28/21 19:20 Consult Physician Urgent Consulting Provider: Ashok Yancey Consult Reason/Comments: spinal stenosis Do you want consulting provider notified?: Yes 09/02/21 17:32 Consult Physician Routine Consulting Provider: Castro Valera Consult Reason/Comments: red and swollen scrotum Do you want consulting provider notified?: Yes Primary care physician: [facility] Course: This is a pleasant 50-year-old patient of Dr. Hollis. Chronic stable medical conditions include GERD, hypertension, morbid obesity hepatic steatosis. P atient has history of small bowel surgery for lymphoma had chemotherapy 2003.. Has had recurrent bowel obstructions. Often managed with NG tube suction and conservative management. August 11 underwent surgery found to several adhesions small bowel partial was resected. By Dr. Peña Patient presents August 27 bilateral leg pain and weakness heaviness tired. Found to bilateral extensive DVT. Started on IV heparin. Patient is a prior history of IVC filter. In 2003. Patient was seen by Dr. Aldridge from vascular. He recommended that the patient follow up with Dr. Gupta also [facility] for intervention and removal of filter if possible as well as treatment of his DVT. She did come in a care for Dr. Lincoln. It was decided to hold off any TPA. Because of recent surgery. September 01: I assumed care of the patient today. Patient changed over from IV heparin to eliquis today. Aldridge catheter in. Given orders to discontinue Aldridge. Did walk some. Tired. Oral intake fair. Breathing stable. September 02: Patient get a bit tachycardic with ambulation. Care was discussed with the patient. On eliquis. Swelling of the lower extremities. Jamar wrap ordered for thighs. Patient noticed to have some swelling redness of the scrotum. Urology consulted. September 03: Minimal scrotal swelling. Jamar wrap lower extremity. Compression stockings ordered by vascular. Discussed with patient. Patient to follow-up with vascular surgery as suggested by our team. 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 . Nonsmoker. Alcohol occasionally. Family history: Reviewed, noncontributory to presentation Physical examination: VITAL SIGNS: 98.5, 101, 18, 120/75, 94% room air GENERAL: Comfortable in bed, comfortable EYES: Pupils equal. Conjunctiva normal. HEENT: External appearance of nose and ears normal, oral cavity dry mucous membrane, NG tube. NECK: JVD not raised; masses not palpable. HEART: First and second heart sounds are normal; no edema. LUNGS: Respiratory rate normal; clear to auscultation. ABDOMEN: Soft, no tenderness, no guarding rigidity liver spleen not palpable, no masses palpable. EXTREMITIES: Bilateral lower extremity Jamar wraps. Edema present PSYCH: Alert and oriented x3; mood and affect normal. MUSCULOSKELETAL:No Clubbing/cyanosis;muscles-grossly intact INVESTIGATIONS, reviewed in the clinical context: White count 11 improvement 0.7 platelets 248 potassium 4.2 creatinine 1.2 Lumbar spine computed tomography scan: Some DJD. Mild to moderate spinal stenosis at L4-L5. CT abdomen and pelvis with contrast: Absent gallbladder. IVC filter. Doppler ultrasound lower extremity: Right leg: Extensive thrombosis C benign leg up through common femoral vein. Left leg: Extensive thrombosis seen through common femoral vein. Assessment and plan: -Acute bilateral lower extremity DVT. Prior history of DVT and IVC filter. Recent decreased activity for abdominal surgery. IV heparin. Jamar wrap. [place] Patient to follow-up with Dr. Alonso Butt at [facility] -Bilateral lower extremity edema secondary to DVT Bilateral Jamar wraps -Sinus tachycardia with activity due to deconditioning Increase activity as tolerated -Morbid obesity BMI of 41.1 Weight loss measures -Essential hypertension Cozaar. -GERD Nexium 40 mg twice a day -Hepatic steatosis Follow-up with PCP Disposition: Home Plan - Discharge Summary Discharge Rx Participant: No New Discharge Prescriptions: New Apixaban [Eliquis Starter Pack (for VTE)] 5 - 10 mg PO DIRECTED 30 Days #1 each Sennosides-Docusate Sodium [Senokot-S] 1 each PO BID #60 tab Acetaminophen Tab [Tylenol] 650 mg PO Q6HR PRN tab PRN Reason: Mild Pain Or Fever > 100.5 Continue Esomeprazole Magnesium [NexIUM] 40 mg PO BID Cholecalciferol [Vitamin D3 (25 Mcg = 1000 Iu)] 50 mcg PO DAILY HYDROcodone/APAP 5-325MG [[place] 5-325] 1 tab PO Q6HR PRN 3 Days #12 tab PRN Reason: Pain Pseudoephedrine HCl [Sudafed 24-Hour] 240 mg PO DAILY Changed Losartan [Cozaar] 50 mg PO HS #0 Discontinued Ibuprofen [Motrin] 800 mg PO TID PRN PRN Reason: Pain Discharge Medication List Esomeprazole Magnesium [NexIUM] 40 mg PO BID 05/04/20 [History] Cholecalciferol [Vitamin D3 (25 Mcg = 1000 Iu)] 50 mcg PO DAILY 08/10/21 [History] Pseudoephedrine HCl [Sudafed 24-Hour] 240 mg PO DAILY 08/10/21 [History] HYDROcodone/APAP 5-325MG [[place] 5-325] 1 tab PO Q6HR PRN 3 Days #12 tab 08/18/21 [Rx] Apixaban [Eliquis Starter Pack (for VTE)] 5 - 10 mg PO DIRECTED 30 Days #1 each 09/01/21 [Rx] Acetaminophen Tab [Tylenol] 650 mg PO Q6HR PRN tab 09/02/21 [Rx] Losartan [Cozaar] 50 mg PO HS #0 09/02/21 [Rx] Sennosides-Docusate Sodium [Senokot-S] 1 each PO BID #60 tab 09/02/21 [Rx] Follow up Appointment(s)/Referral(s): Frederic Hollis DO [Primary Care Provider] - 1-2 days (OFFICE WILL CALL PATIENT WITH DATE AND TIME ) [employer] [NON-STAFF] - (*Please call [facility] to arrange delivery of commode chair and wheelchair. ) Elly Aldridge DO [STAFF PHYSICIAN] - As Needed Angi Daniels MD [STAFF PHYSICIAN] - 10/12/21 1:15 pm Patient Instructions/Handouts: Dehydration (DC), Deep Vein Thrombosis (DC) Activity/Diet/Wound Care/Special Instructions: Please have all images put on disk and give to patient to take to follow up appointment- per Dr. Aldridge. Thank you. Pauline copay $40/month. Patient given $10 copay card and will give it to his pharmacy. First month is free and waiting at [facility]. Send home with Jamar wrap's. Discharge Disposition: HOME SELF-CARE
== END 2021-09-03 16:21 | disposition home or self-care (01) | DRG 683 ==
LOC: EC 15:59 → 4SSUR 20:57
PROVIDERS: ADMIT Hospitalist; ATTEND Hospitalist
DX: N17.9 Acute kidney failure, unspecified (principal); E87.2 Acidosis; K43.0 Incisional hernia with obstruction, without gangrene; L03.116 Cellulitis of left lower limb; L03.115 Cellulitis of right lower limb; N39.0 Urinary tract infection, site not specified; Z68.41 Body mass index [BMI] 40.0-44.9, adult; C83.7 Burkitt lymphoma; I82.413 Acute embolism and thrombosis of femoral vein, bilateral; E66.01 Morbid (severe) obesity due to excess calories; E86.0 Dehydration; E86.1 Hypovolemia; G89.29 Other chronic pain; I10 Essential (primary) hypertension; R00.0 Tachycardia, unspecified; R39.15 Urgency of urination; R05.3 Chronic cough; I95.1 Orthostatic hypotension; G47.33 Obstructive sleep apnea (adult) (pediatric); M54.16 Radiculopathy, lumbar region; N50.89 Other specified disorders of the male genital organs; K21.9 Gastro-esophageal reflux disease without esophagitis; K76.0 Fatty (change of) liver, not elsewhere classified; R11.2 Nausea with vomiting, unspecified; I07.1 Rheumatic tricuspid insufficiency; M48.061 Spinal stenosis, lumbar region without neurogenic claudication; Z79.01 Long term (current) use of anticoagulants; Z79.899 Other long term (current) drug therapy; Z82.49 Family history of ischemic heart disease and other diseases of the circulatory system; Z86.718 Personal history of other venous thrombosis and embolism; Z90.49 Acquired absence of other specified parts of digestive tract; Z92.21 Personal history of antineoplastic chemotherapy; Z95.828 Presence of other vascular implants and grafts; Z90.2 Acquired absence of lung [part of]; Z87.19 Personal history of other diseases of the digestive system; Z88.0 Allergy status to penicillin
CPT/HCPCS: 36415; 72132; 74176; 74177; 76770; 80048; 80053; 81001; 83735; 84145; 84484; 85025; 85027; 85610; 85730; 87086; 93005; 93306; 93970; 96361; 96365; 96366; 96375; 99285

== ENCOUNTER 2021-10-11 11:10 | Emergency (ER) | payer BC ==
--- NOTE | 2021-10-11 12:32 | ED ---
General Adult HPI - General Chief complaint: Extremity Problem,Nontraumatic Stated complaint: rt wrist issue Time Seen by Provider: 10/11/21 11:40 Source: patient, RN notes reviewed Mode of arrival: ambulatory Limitations: no limitations - History of Present Illness Initial comments: Patient is a pleasant 50-year-old male presenting to the emergency Department with right wrist discomfort. Patient did have an art line done secondary to vascular procedure of removing IVC filter last week. Patient has had some discomfort in the area of the radial artery since that time. Patient did have our line placed there for this procedure. Discomfort is mild to moderate but persistent. There is some increase in discomfort with movement. No upper arm pain or swelling. Patient does have history of previous blood clots however is on Lovenox injections. - Related Data Home Medications Medication Instructions Recorded Confirmed Esomeprazole Magnesium [NexIUM] 40 mg PO BID 05/04/20 08/26/21 Cholecalciferol [Vitamin D3 (25 50 mcg PO DAILY 08/10/21 08/26/21 Mcg = 1000 Iu)] Pseudoephedrine HCl [Sudafed 240 mg PO DAILY 08/10/21 08/26/21 24-Hour] Previous Rx's Medication Instructions Recorded HYDROcodone/APAP 5-325MG [[place] 1 tab PO Q6HR PRN 3 Days #12 tab 08/18/21 5-325] Apixaban [Eliquis Starter Pack 5 - 10 mg PO DIRECTED 30 Days 09/01/21 (for VTE)] #1 each Acetaminophen Tab [Tylenol] 650 mg PO Q6HR PRN tab 09/02/21 Losartan [Cozaar] 50 mg PO HS #0 09/02/21 Sennosides-Docusate Sodium 1 each PO BID #60 tab 09/02/21 [Senokot-S] Allergies Allergy/AdvReac Type Severity Reaction Status Date / Time Penicillins Allergy Anaphylaxis Verified 10/11/21 11:27 Review of Systems ROS Statement: Those systems with pertinent positive or pertinent negative responses have been documented in the HPI. ROS Other: All systems not noted in ROS Statement are negative. Constitutional: Denies: fever Eyes: Denies: eye pain ENT: Denies: ear pain Respiratory: Denies: cough, dyspnea Cardiovascular: Denies: chest pain Gastrointestinal: Denies: abdominal pain Genitourinary: Denies: dysuria Musculoskeletal: Denies: back pain Skin: Denies: lesions Neurological: Denies: weakness Past Medical History Past Medical History: Cancer, Deep Vein Thrombosis (DVT), GERD/Reflux, Hypertension Additional Past Medical History / Comment(s): Lymphoma/small bowel with surgery and chemo in 2003, small bowel obstructions, DVT R calf 2003 History of Any Multi-Drug Resistant Organisms: None Reported Past Surgical History: Bowel Resection, Cholecystectomy, Hernia Repair, Orthopedic Surgery, Tonsillectomy Additional Past Surgical History / Comment(s): Bowel resection d/t small bowel lymphoma, colonoscopies, incisional hernia repair with mesh x2, vanita filter, port a cath -now removed, bowel resection x2, cervical spine surgery with implant 2004 Past Anesthesia/Blood Transfusion Reactions: No Reported Reaction Past Psychological History: No Psychological Hx Reported Smoking Status: Never smoker Past Alcohol Use History: Occasional Past Drug Use History: None Reported, Unable to Obtain - Past Family History Mother Family Medical History: No Reported History Additional Family Medical History / Comment(s): Mother is healthy Father Family Medical History: Myocardial Infarction ([place]) Additional Family Medical History / Comment(s): AT AGE 48 OF A [place] General Exam Limitations: no limitations General appearance: alert, in no apparent distress Eye exam: Present: normal appearance Neck exam: Present: normal inspection Respiratory exam: Present: normal lung sounds bilaterally Cardiovascular Exam: Present: regular rate, normal rhythm Expanded Peripheral pulses: 2+: Radial (R) GI/Abdominal exam: Present: soft. Absent: tenderness Extremities exam: Present: tenderness (Mild tenderness near the area of the radial artery with swelling. Pulse is present. Minimal ecchymotic discoloration. No upper arm swelling or discoloration.) Neurological exam: Present: alert Psychiatric exam: Present: normal affect, normal mood Skin exam: Absent: rash Course Vital Signs 10/11/21 11:25 Temperature 98.2 F Pulse Rate 93 Respiratory 20 Rate Blood Pressure 128/87 O2 Sat by Pulse 98 Oximetry Medical Decision Making - Medical Decision Making Patient reevaluated. Patient and family updated. Jamar wrap placed right wrist - Radiology Data Radiology results: report reviewed (Radial artery patent. No abnormality. No sign of DVT.) Disposition Clinical Impression: Wrist pain, right Disposition: HOME SELF-CARE Condition: Stable Instructions (If sedation given, give patient instructions): Ecchymosis (ED) Additional Instructions: Please do follow-up with your [facility] doctor and primary care physician in the next couple days for recheck. Return for increased pain, swelling, hand problems, worsening or change in symptoms or other concerns. Is patient prescribed a controlled substance at d/c from ED?: No Referrals: Frederic Hollis DO [Primary Care Provider] - 1-2 days Time of Disposition: 14:23
--- NOTE | 2021-10-11 13:42 | US ---
EXAMINATION TYPE: US venous doppler duplex UE RT DATE OF EXAM: 10/11/2021 COMPARISON: NONE CLINICAL HISTORY: pain. Swelling right wrist, history of arterial line in wrist. SIDE PERFORMED: Right IJV, subclavian, axillary, brachial, basilic, cephalic, radial and ulnar veins interrogated. Right Arm: Negative for DVT Grayscale, color doppler, spectral doppler imaging performed of the deep veins of the upper extremiti es. There is normal flow, compressibility and vascular waveforms. Scanning was performed over right wrist, area of swelling, no definite abnormality noted. Right radia l artery is patent. IMPRESSION: 1. No evidence of deep vein thrombus of the right upper kidney. 2. Radial artery is patent.
[2021-10-11 14:48] VITALS: RESP 18
[2021-10-11 14:50] VITALS: BP 125/78; PULSE 75; TEMP 98.9
== END 2021-10-11 14:50 | disposition home or self-care (01) ==
LOC: EC 11:10
DX: M25.531 Pain in right wrist (principal); I10 Essential (primary) hypertension; K21.9 Gastro-esophageal reflux disease without esophagitis; Z86.718 Personal history of other venous thrombosis and embolism; Z79.01 Long term (current) use of anticoagulants; Z79.899 Other long term (current) drug therapy
CPT/HCPCS: 99283

== ENCOUNTER → 2021-11-16 | Outpatient (CLI) | payer BC ==
--- NOTE | 2021-11-16 18:04 | US ---
EXAMINATION TYPE: US venous doppler duplex LE DATE OF EXAM: 11/16/2021 5:33 PM COMPARISON: NONE CLINICAL HISTORY: 50-year-old male I82.523 DVT OF ILIAC VEIN BOTH LOWER EXT. 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 Venous stenting bilaterally. SIDE PERFORMED: Bilateral TECHNIQUE: The lower extremity deep venous system is examined utilizing real time linear array sonog racquel with graded compression, doppler sonography and color-flow sonography. FINDINGS: VESSELS IMAGED: Common Femoral Vein Deep Femoral Vein Greater Saphenous Vein * Femoral Vein Popliteal Vein Small Saphenous Vein * Proximal Calf Veins (* superficial vessels) Compressions were not performed given provided history of venous stenting. Right Leg: Right Femoral vein shows no flow proximal, there is an anterior vessel takes off at the u pper femoral vein just after the bifurcation and connects back to the mid femoral vein. This could re present a prominent collateral vs a bypass. Otherwise, no other DVT seen down to the upper calf. Left Leg: No evidence for DVT within the groin down to the upper calf. IMPRESSION: 1. Right: Occluded upper right femoral vein. However, there appears to be either a patent collateral or bypass which takes off at the upper femoral vein just after the CFV bifurcation and reconnects wit h the mid femoral vein, circumventing the occluded portion. Clinically correlate. No other DVT seen d own to the upper calf. 2. No evidence for DVT within the left lower extremity imaged from the groin to the upper calf.
== END | disposition home or self-care (01) ==
LOC: RADUSWWP 12:09
DX: I82.411 Acute embolism and thrombosis of right femoral vein (principal)
CPT/HCPCS: 93970

== ENCOUNTER → 2021-11-19 | Outpatient (CLI) | payer BC ==
--- NOTE | 2021-11-19 16:35 | P.PN ---
Subjective DATE: 11/19/2021 FOLLOW UP VISIT. Patient with obstructive sleep apnea hypopnea syndrome return to sleep center for follow-up visit. Recently patient had sleep study which documented obstructive sleep apnea hypopnea syndrome. Patient was initiated on PAP therapy and today is first visit after treatment was started. Patient was able to use PAP equipment every night for the whole night. She feels improvements with his sleep and feeling during the day after CPAP treatment was started. The patient does not have significant problems with the mask, PAP pressure and humidification. [place] sleepiness scale is 10. Recently patient had a bowel resection and bilateral leg thrombosis in September of this year, stents were inserted. I checked information from PAP unit. PAP unit pressure 5-12, average 11.6 cm H2O. Usage is 97 % for more then 4 hours, average 6.8 hours per night. Leak is 7.8 l/m, which is in acceptable range. Apnea Hypopnea Index is increased to 8.1. MEDICATIONS:1. Losartan 2. omeprazole During physical exam: GENERAL: A pleasant patient without any distress. VITAL SIGNS: BP 168/99, HR 69, RR 15 , weight 271.6, temperature 97.6, oxygen saturation at room air 98% . HEENT: PERRLA, EOMI.low position of soft palate, Mallapati 4 . NECK: Supple. No JVD. LUNGS: Clear to percussion and to auscultation. Good air exchange. No wheezing or rhonchi. HEART: S1, S2 regular. ABDOMEN: Soft and nontender. Obese EXTREMITIES: No clubbing or cyanosis. BLASTING CAP ASSEMBLER: Awake, alert, and oriented x3. No focal deficit. Impressions: 1. Obstructive sleep apnea-hypopnea syndrome. Patient demonstrated great compliance with treatment, benefiting from treatment. Apnea-hypopnea index slightly increased. 2. Obesity. 3. Hypertension. 4. Status post recent bowel resection. 5. Status post leg thrombosis with the stent insertions in September 2021. 6. History of Burkitt lymphoma, status post abdominal surgery. 7. Acid reflux. 8. Status post neck surgery. 9. Status post hernia repair. Plan: 1. Continue using PAP equipment every night for the whole night. I increased range of pressure to 5-16 centimeters of water. 2. To change air filter at least 1-2 times per month. 3. PAP unit should stay lower then position of the head. 4. Advised patient to remove all remaining water from humidifier canister daily and make it dry after each usage. Refill canister with fresh distilled water before each usage. 5. Sleep hygiene with regular time in bed for at least 8 hours. 6. Precautions related to driving. No driving if feel any sleepiness. 7. I will maintain prescription for PAP supplies including mask, tube, filters. We will try nasal mask. 8. Follow up visit in 6 months or earlier if patient has any problems. 9. Losing weight. Thank you very much for allowing me to participate in the management of your patient. Renan Chavez MD, PhD, FAASM. Diplomat of [place] [employer], Sleep Medicine Board by [place] [employer] [facility] [place]
== END ==
LOC: SLEEP 15:55
PROVIDERS: ATTEND Internal Medicine
DX: G47.33 Obstructive sleep apnea (adult) (pediatric) (principal); E66.9 Obesity, unspecified; I10 Essential (primary) hypertension; Z98.890 Other specified postprocedural states; Z95.5 Presence of coronary angioplasty implant and graft; K21.9 Gastro-esophageal reflux disease without esophagitis; Z85.72 Personal history of non-Hodgkin lymphomas; Z99.89 Dependence on other enabling machines and devices; Z88.0 Allergy status to penicillin
CPT/HCPCS: 99212

== ENCOUNTER → 2022-01-15 | Outpatient (CLI) | payer BC ==
--- NOTE | 2022-01-15 09:45 | US ---
EXAMINATION TYPE: US venous doppler duplex LE DATE OF EXAM: 01/15/2022 9:28 AM COMPARISON: NONE CLINICAL HISTORY: I82.523 DVT. h/o dvt within bilateral legs, stenting bilaterally in groin, on 2 thi nners, no symptoms today, just reassess for any new clots SIDE PERFORMED: Bilateral TECHNIQUE: The lower extremity deep venous system is examined utilizing real time linear array sonog racquel with graded compression, doppler sonography and color-flow sonography. VESSELS IMAGED: Common Femoral Vein Deep Femoral Vein Greater Saphenous Vein * Femoral Vein Popliteal Vein Small Saphenous Vein * Proximal Calf Veins (* superficial vessels) Right Leg: Negative for DVT - known [place] femoral vein has chronic DVT, but duplicate vein is paten t. Left Leg: Negative for DVT IMPRESSION: 1. Chronic deep venous thrombosis right lower extremity. 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 2. No deep venous thrombosis left lower extremity.
== END | disposition home or self-care (01) ==
LOC: RADUSWWP 08:57
PROVIDERS: ATTEND Radiology Vascular & Interventional Radiology
DX: I82.401 Acute embolism and thrombosis of unspecified deep veins of right lower extremity (principal)
CPT/HCPCS: 93970

== ENCOUNTER 2022-04-05 11:22 | Emergency (ER) | payer BC ==
--- NOTE | 2022-04-05 12:10 | ED ---
Lower Extremity Injury HPI - General Chief Complaint: Extremity Injury, Lower Stated Complaint: lt leg injury Time Seen by Provider: 04/05/22 12:09 Source: patient, RN notes reviewed Mode of arrival: ambulatory Limitations: no limitations - History of Present Illness Initial Comments: 51-year-old male presents emergency Department with chief complaint of left leg pain. Patient states she is in his headache putting [place] decorations when he fell through. Patient states cannot follow the ground but states that he fell to the ceiling has a large hematoma to his left leg abrasion to his left calf region. He believes his tetanus is up-to-date. Patient states he is on request. He denies any head injury no back pain no loss of consciousness. - Related Data Home Medications Medication Instructions Recorded Confirmed Esomeprazole Magnesium [NexIUM] 40 mg PO BID 05/04/20 08/26/21 Cholecalciferol [Vitamin D3 (25 50 mcg PO DAILY 08/10/21 08/26/21 Mcg = 1000 Iu)] Pseudoephedrine HCl [Sudafed 240 mg PO DAILY 08/10/21 08/26/21 24-Hour] Previous Rx's Medication Instructions Recorded HYDROcodone/APAP 5-325MG [[place] 1 tab PO Q6HR PRN 3 Days #12 tab 08/18/21 5-325] Apixaban [Eliquis Starter Pack 5 - 10 mg PO DIRECTED 30 Days 09/01/21 (for VTE)] #1 each Acetaminophen Tab [Tylenol] 650 mg PO Q6HR PRN tab 09/02/21 Losartan [Cozaar] 50 mg PO HS #0 09/02/21 Sennosides-Docusate Sodium 1 each PO BID #60 tab 09/02/21 [Senokot-S] Allergies Allergy/AdvReac Type Severity Reaction Status Date / Time Penicillins Allergy Anaphylaxis Verified 04/05/22 11:38 Review of Systems ROS Statement: Those systems with pertinent positive or pertinent negative responses have been documented in the HPI. ROS Other: All systems not noted in ROS Statement are negative. Past Medical History Past Medical History: Cancer, Deep Vein Thrombosis (DVT), GERD/Reflux, Hypertension Additional Past Medical History / Comment(s): Lymphoma/small bowel with surgery and chemo in 2003, small bowel obstructions, DVT R calf 2003 History of Any Multi-Drug Resistant Organisms: None Reported Past Surgical History: Bowel Resection, Cholecystectomy, Hernia Repair, Orthopedic Surgery, Tonsillectomy Additional Past Surgical History / Comment(s): Bowel resection d/t small bowel lymphoma, colonoscopies, incisional hernia repair with mesh x2, vanita filter, port a cath -now removed, bowel resection x2, cervical spine surgery wi th implant 2004 Past Anesthesia/Blood Transfusion Reactions: No Reported Reaction Past Psychological History: No Psychological Hx Reported Smoking Status: Never smoker Past Alcohol Use History: Occasional Past Drug Use History: None Reported, Unable to Obtain - Past Family History Mother Family Medical History: No Reported History Additional Family Medical History / Comment(s): Mother is healthy Father Family Medical History: Myocardial Infarction ([place]) Additional Family Medical History / Comment(s): AT AGE 48 OF A [place] General Exam Limitations: no limitations General appearance: alert, in no apparent distress Head exam: Present: atraumatic, normocephalic, normal inspection Neck exam: Present: normal inspection. Absent: tenderness, meningismus, lymphadenopathy Respiratory exam: Present: normal lung sounds bilaterally. Absent: respiratory distress, wheezes, rales, rhonchi, stridor Cardiovascular Exam: Present: regular rate, normal rhythm, normal heart sounds. Absent: systolic murmur, diastolic murmur, rubs, gallop, clicks Extremities exam: Present: other (2 large hematomas left thigh, small abrasion noted left thigh and left calf region no large lacerations neurovascular intact) Course Vital Signs 04/05/22 11:36 Temperature 98.4 F Pulse Rate 105 H Respiratory 20 Rate Blood Pressure 145/83 O2 Sat by Pulse 96 Oximetry Medical Decision Making - Medical Decision Making Was pt. sent in by a medical professional or institution? @ -no Did you speak to anyone other than the patient for history? @ -no Did you review nursing and triage notes? @ -agree and reviewed Were old charts reviewed? @ -no Differential Diagnosis? @ -Left leg fracture, hematoma, laceration, abrasion, crush injury, this list is not meant to be all-inclusive EKG interpreted by me (3pts min.)? @ -no X-rays interpreted by me (1pt min.)? @ -X-ray of the left femur interpreted by me no acute fracture. CT interpreted by me (1pt min.)? @ -none U/S interpreted by me (1pt. min.)? @ -none What testing was considered but not performed? (CT, X-rays, U/S, labs)? Why? @ none What meds were considered but not given? Why? @ -pain meds patient was discharged with meds no meds given Did you discuss the management of the patient with other professionals? @ -no Did you reconcile home meds? @ -no Was smoking cessation discussed for >3mins.? @ -no Was critical care preformed (if so, how long)? @ -no Were there social determinants of health that impacted care today? How? (Homelessness, low income, unemployed, alcoholism, drug addiction, transportation, low edu. Level, literacy, decrease access to med. care, alf, rehab)? @ -no Was there de-escalation of care discussed even if they declined? (Discuss DNR or withdrawal of care, Hospice)? @ -no What co-morbidities impacted this encounter? (DM, HTN, Smoking, COPD, CAD, Cancer, CVA, Hep., AIDS, mental health diagnosis, sleep apnea, morbid obesity)? @ -no Was patient admitted / discharged? @ -discharged Undiagnosed new problem with uncertain prognosis? @ -no Drug Therapy requiring intensive monitoring for toxicity (Heparin, Nitro, Insulin, Cardizem)? @ -no Were any procedures done? @ -no Diagnosis/symptom? @ -Left leg hematoma Acute, or Chronic, or Acute on Chronic? @ -Acute Uncomplicated (without systemic symptoms) or Complicated (systemic symptoms)? @ -Uncomplicated Side effects of treatment? @ -None Exacerbation, Progression, or Severe Exacerbation] @ -no Poses a threat to life or bodily function? @ -no 51-year-old male presented for left leg pain after falling to headache ceiling. Patient has hematoma. Patient advised to ice, elevate, take pain medications as directed. Disposition Clinical Impression: Abrasion of left leg, Hematoma of left lower extremity Disposition: HOME SELF-CARE Condition: Stable Instructions (If sedation given, give patient instructions): Hematoma (ED) Additional Instructions: Please return to the Emergency Department if symptoms worsen or any other concerns. Is patient prescribed a controlled substance at d/c from ED?: No Referrals: Frederic Hollis DO [Primary Care Provider] - 1-2 days Time of Disposition: 13:59
--- NOTE | 2022-04-05 12:34 | XR ---
EXAMINATION TYPE: XR femur 2 views LT DATE OF EXAM: 04/05/2022 COMPARISON: NONE HISTORY: 51-year-old male pain after injury FINDINGS: Partially visualized stent in the left side of the pelvis. Minimal marginal spurring of the left acetabulum. Joint space appears relatively maintained. No acute fracture, subluxation, or dislo cation is seen. IMPRESSION: No acute osseous abnormality seen.
[2022-04-05] MEDS ORDERED: ACET/COD 300 MG/30 MG STARTER PACK 6 TAB BTL PO STA (14:00)
[2022-04-05 15:48] VITALS: BP 134/91; PULSE 88; RESP 16; TEMP 97.8
== END 2022-04-05 15:40 | disposition home or self-care (01) ==
LOC: EC 11:22
DX: S80.12XA Contusion of left lower leg, initial encounter (principal); I10 Essential (primary) hypertension; Z88.0 Allergy status to penicillin; W18.30XA Fall on same level, unspecified, initial encounter; Y93.89 Activity, other specified
CPT/HCPCS: 99283

== ENCOUNTER 2022-10-08 06:13 | Day surgery (SDC) | payer BC ==
[2022-10-01 14:09] VITALS: BMI 38.3
[2022-10-08] MEDS ORDERED: LACTATED RINGERS 1,000 ML IV SCH (07:05)
[2022-10-08 07:10] VITALS: TEMP 98
[2022-10-08] MEDS ORDERED: MIDAZOLAM 2 MG/2 ML VIAL ONE (07:58)
[2022-10-08] MEDS ORDERED: PROPOFOL 10 MG/ML 20 ML VIAL IV ONE (07:58)
[2022-10-08] MEDS ORDERED: fentaNYL (PF) 50 MCG/ML 2 ML AMP ONE (07:58)
--- NOTE | 2022-10-08 08:20 | P.PCN ---
Date of Procedure: 10/08/22 Procedure(s) Performed: Brief history: Patient is a pleasant 51-year-old white male scheduled for an elective upper endoscopy as well as colonoscopy as a part of evaluation of historyofGERDandscreeningforcoloncancer Procedure performed: Esophagogastroduodenoscopy with biopsy Colonoscopy with snare polypectomy Preoperative diagnosis: Long-standing history of GERD Screening for colon cancer Anesthesia: MAC Procedure: After informed consent was obtained from the patient was brought into the endo scopy unit and IV sedation was administered by anesthesia under continuous monitoring. Initially upper endoscopy was done. The Olympus GF 160 video endoscope was inserted inserted into the mouth and esophagus intubated without any difficulty and was gradually advanced into the stomach and duodenum and carefully examined. The bulb and second part of the duodenum appeared normal. The scope was then withdrawn into the stomach adequately insufflated with air and upon careful examination the antrum had diffuse gastritis with linear areas of erythema and biopsies were done from this area. Mucosa of the body, cardia and fundus appeared normal. The scope was then withdrawn into the esophagus. Small sliding type hiatal hernia noted. The GE junction was located at 38 cm to the incisors. It appeared regular with no erythema erosions or ulcerations. Rest of the esophagus appeared normal. Patient tolerated the procedure well. At this time the patient continued to remain sedation. Initial digital rectal examination was normal. Olympus CF 160 video colonoscope was then inserted into the rectum and gradually advanced to the cecum without any difficulty. Careful examination was performed as the scope was gradually being withdrawn. The prep was excellent. The cecum, ascending colon, transverse colon, descending colon, sigmoid colon and rectum appeared normal. In the distal rectum there was a 7 mm polyp that was removed by snare polypectomy. Retroflexion was performed in the rectum and no lesions were noted. Patient tolerated the procedure well. Impression: 1. Upper endoscopy revealed diffuse antral gastritis and a small sliding type hiatal hernia but no evidence of esophagitis or peptic ulcer disease 2. Colonoscopy revealed a 7 mm distal rectal polyp status post polypectomy Recommendations: Findings of this examination were discussed with the patient as well as his family. He was advised to follow with the biopsy results. If the biopsy results adenoma he can have a repeat colonoscopy in 5 years
[2022-10-08 08:28] VITALS: RESP 16
[2022-10-08 08:59] VITALS: BP 118/80; PULSE 81
== END 2022-10-08 09:18 | disposition home or self-care (01) ==
LOC: ORWHC2ENDO 06:13
PROVIDERS: ATTEND Internal Medicine Gastroenterology
DX: Z12.11 Encounter for screening for malignant neoplasm of colon (principal); K29.50 Unspecified chronic gastritis without bleeding; K21.9 Gastro-esophageal reflux disease without esophagitis; K44.9 Diaphragmatic hernia without obstruction or gangrene; K62.1 Rectal polyp; I10 Essential (primary) hypertension; G47.33 Obstructive sleep apnea (adult) (pediatric); Z79.899 Other long term (current) drug therapy; Z88.0 Allergy status to penicillin
CPT/HCPCS: 88305; 45385; 43239; J2250; J3010; J2704

== ENCOUNTER 2022-10-08 15:35 | Observation (INO) | payer BC ==
--- NOTE | 2022-10-08 16:30 | ED ---
Extremity Problem HPI - General Chief complaint: Extremity Problem,Nontraumatic Stated complaint: post op comp,leg pain Time Seen by Provider: 10/08/22 15:46 Source: patient, RN notes reviewed, old records reviewed Mode of arrival: ambulatory Limitations: no limitations - History of Present Illness Initial comments: This is a 51-year-old male the ER. The patient presents today for evaluation regards to possible blood clots. Patient does have history of DVT underlying cancer. Patient is on daily [place] was taken off to recent outpatient colonoscopy and EGD. After examination today patient had left arm pain right shoulder pain right arm pain and bilateral leg pain to the point where he feels like he's having difficulty walking secondary to severe amount of pain. No trauma no injuries no other complaints no shortness of breath or chest pain MD Complaint: extremity pain, extremity swelling, joint pain -: hour(s) Location: left, right, upper extremity, bilateral lower extremity History of Same: Yes -: Yes myalgia, Yes arthralgia Radiation: proximal Severity scale (1-10): 7 Quality: aching Consistency: constant Improves with: nothing Worsens with: weight bearing Associated Symptoms: denies other symptoms - Related Data Home Medications Medication Instructions Recorded Confirmed Esomeprazole Magnesium [NexIUM] 40 mg PO BID 05/04/20 10/01/22 Cholecalciferol [Vitamin D3 (25 50 mcg PO DAILY 08/10/21 10/01/22 Mcg = 1000 Iu)] Acetaminophen [Tylenol Extra 500 - 1,000 mg PO DIRECTED PRN 10/01/22 10/01/22 Strength] Apixaban [Eliquis] 5 mg PO BID 10/01/22 10/08/22 Cetirizine HCl [Zyrtec] 10 mg PO DAILY 10/01/22 10/01/22 Losartan [Cozaar] 50 mg PO QAM 10/01/22 10/08/22 Allergies Allergy/AdvReac Type Severity Reaction Status Date / Time Penicillins Allergy Anaphylaxis Verified 10/08/22 15:42 Review of Systems ROS Statement: Those systems with pertinent positive or pertinent negative responses have been documented in the HPI. ROS Other: All systems not noted in ROS Statement are negative. Past Medical History Past Medical History: Cancer, Deep Vein Thrombosis (DVT), GERD/Reflux, Hypertension, Sleep Apnea/CPAP/BIPAP Additional Past Medical History / Comment(s): bilateral blood clots in legs in 2021. Lymphoma/small bowel with surgery and chemo in 2003, small bowel obstructions, DVT R calf 2003. Hx kidney stone X1. 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 Past Anesthesia/Blood Transfusion Reactions: No Reported Reaction Past Psychological History: No Psychological Hx Reported Smoking Status: Never smoker Past Alcohol Use History: Occasional Past Drug Use History: None Reported - Past Family History Mother Family Medical History: No Reported History Father Family Medical History: Myocardial Infarction ([place]) Additional Family Medical History / Comment(s): AT AGE 48 OF A [place]. General Exam Limitations: no limitations General appearance: alert, in no apparent distress Head exam: Present: atraumatic, normocephalic, normal inspection Eye exam: Present: normal appearance, PERRL, EOMI. Absent: scleral icterus, conjunctival injection, periorbital swelling ENT exam: Present: normal exam, mucous membranes moist Neck exam: Present: normal inspection. Absent: tenderness, meningismus, lymphadenopathy Respiratory exam: Present: normal lung sounds bilaterally. Absent: respiratory distress, wheezes, rales, rhonchi, stridor Cardiovascular Exam: Present: regular rate, normal rhythm, normal heart sounds. Absent: systolic murmur, diastolic murmur, rubs, gallop, clicks GI/Abdominal exam: Present: soft, normal bowel sounds. Absent: distended, tenderness, guarding, rebound, rigid Extremities exam: Present: normal inspection, full ROM, normal capillary refill. Absent: tenderness, pedal edema, joint swelling, calf tenderness Back exam: Present: normal inspection Neurological exam: Present: alert, oriented X3, CN II-XII intact Psychiatric exam: Present: normal affect, normal mood Skin exam: Present: warm, dry, intact, normal color. Absent: rash Course Vital Signs 10/08/22 10/08/22 10/08/22 15:38 16:54 18:03 Temperature 98.5 F Pulse Rate 10 L 93 83 Respiratory 19 18 17 Rate Blood Pressure 121/80 140/86 O2 Sat by Pulse 96 95 98 Oximetry 10/08/22 19:00 Temperature Pulse Rate 87 Respiratory 18 Rate Blood Pressure 145/89 O2 Sat by Pulse 97 Oximetry - Reevaluation(s) Reevaluation #1: 10/08/22 17:00 Medical records reviewed Reevaluation #2: 10/08/22 17:00 Patient symptoms are relatively unchanged Reevaluation #4: 10/08/22 17:00 Was pt. sent in by a medical professional or institution? @ -no Did you speak to anyone other than the patient for history? @ -no Did you review nursing and triage notes? @ -agree Were old charts reviewed? @ -yes Differential Diagnosis? @ -prior EKG interpreted by me (3pts min.)? @ -yes X-rays interpreted by me (1pt min.)? @ -yes CT interpreted by me (1pt min.)? @ -no U/S interpreted by me (1pt. min.)? @ -no What testing was considered but not performed? (CT, X-rays, U/S, labs)? Why? @ -no What meds were considered but not given? Why? @ -no Did you discuss the management of the patient with other professionals? @ -no Did you reconcile home meds? @ -no Was smoking cessation discussed for >3mins.? @ -no Was critical care preformed (if so, how long)? @ -no Were there social determinants of health that impacted care today? How? (Homelessness, low income, unemployed, alcoholism, drug addiction, transportation, low edu. Level, literacy, decrease access to med. care, residential, rehab)? @ -no Was there de-escalation of care discussed even if they declined? (Discuss DNR or withdrawal of care, Hospice)? @ -no What co-morbidities impacted this encounter? (DM, HTN, Smoking, COPD, CAD, Cancer, CVA, Hep., AIDS, mental health diagnosis, sleep apnea, morbid obesity)? @ -none Was patient admitted / discharged? @ - Undiagnosed new problem with uncertain prognosis? @ -no Drug Therapy requiring intensive monitoring for toxicity (Heparin, Nitro, Insuli n, Cardizem)? @ -no Were any procedures done? @ -no Diagnosis/symptom? @ - Acute, or Chronic, or Acute on Chronic? @ -acute Uncomplicated (without systemic symptoms) or Complicated (systemic symptoms)? @ -complicated Side effects of treatment? @ -no Exacerbation, Progression, or Severe Exacerbation] @ -no Poses a threat to life or bodily function? @ -yes Medical Decision Making - Lab Data Result diagrams: 10/08/22 16:32 10/08/22 16:32 Lab Results 10/08/22 10/08/22 10/08/22 Range/Units 16:32 16:32 16:32 WBC 10.3 (3.8-10.6) k/uL RBC 5.19 (4.30-5.90) m/uL Hgb 14.8 (13.0-17.5) gm/dL Hct 46.0 (39.0-53.0) % MCV 88.7 (80.0-100.0) fL MCH 28.6 (25.0-35.0) pg MCHC 32.3 (31.0-37.0) g/dL RDW 13.4 (11.5-15.5) % Plt Count 243 (150-450) k/uL MPV 7.4 Neutrophils % 69 % Lymphocytes % 22 % Monocytes % 7 % Eosinophils % 1 % Basophils % 0 % Neutrophils # 7.1 (1.3-7.7) k/uL Lymphocytes # 2.3 (1.0-4.8) k/uL Monocytes # 0.8 (0-1.0) k/uL Eosinophils # 0.1 (0-0.7) k/uL Basophils # 0.0 (0-0.2) k/uL PT 9.8 (9.0-12.0) sec INR 0.9 (<1.2) APTT 21.5 L (22.0-30.0) sec Sodium 138 (137-145) mmol/L Potassium 4.0 (3.5-5.1) mmol/L Chloride 104 (98-107) mmol/L Carbon Dioxide 24 (22-30) mmol/L Anion Gap 10 mmol/L BUN 14 (9-20) mg/dL Creatinine 1.17 (0.66-1.25) mg/dL Est GFR (CKD-EPI)AfAm 82 (>60 ml/min/1.73 sqM) Est GFR (CKD-EPI)NonAf 71 (>60 ml/min/1.73 sqM) Glucose 107 H (74-99) mg/dL Plasma Lactic Acid [place] (0.7-2.0) mmol/L Calcium 9.4 (8.4-10.2) mg/dL Phosphorus 2.7 (2.5-4.5) mg/dL Magnesium 2.2 (1.6-2.3) mg/dL Total Bilirubin 0.7 (0.2-1.3) mg/dL AST 28 (17-59) U/L ALT 30 (4-49) U/L Alkaline Phosphatase 90 (38-126) U/L Troponin I (0.000-0.034) ng/mL Total Protein 7.3 (6.3-8.2) g/dL Albumin 4.3 (3.5-5.0) g/dL 10/08/22 10/08/22 Range/Units 16:32 16:32 WBC (3.8-10.6) k/uL RBC (4.30-5.90) m/uL Hgb (13.0-17.5) gm/dL Hct (39.0-53.0) % MCV (80.0-100.0) fL MCH (25.0-35.0) pg MCHC (31.0-37.0) g/dL RDW (11.5-15.5) % Plt Count (150-450) k/uL MPV Neutrophils % % Lymphocytes % % Monocytes % % Eosinophils % % Basophils % % Neutrophils # (1.3-7.7) k/uL Lymphocytes # (1.0-4.8) k/uL Monocytes # (0-1.0) k/uL Eosinophils # (0-0.7) k/uL Basophils # (0-0.2) k/uL PT (9.0-12.0) sec INR (<1.2) APTT (22.0-30.0) sec Sodium (137-145) mmol/L Potassium (3.5-5.1) mmol/L Chloride (98-107) mmol/L Carbon Dioxide (22-30) mmol/L Anion Gap mmol/L BUN (9-20) mg/dL Creatinine (0.66-1.25) mg/dL Est GFR (CKD-EPI)AfAm (>60 ml/min/1.73 sqM) Est GFR (CKD-EPI)NonAf (>60 ml/min/1.73 sqM) Glucose (74-99) mg/dL Plasma Lactic Acid [place] 1.8 (0.7-2.0) mmol/L Calcium (8.4-10.2) mg/dL Phosphorus (2.5-4.5) mg/dL Magnesium (1.6-2.3) mg/dL Total Bilirubin (0.2-1.3) mg/dL AST (17-59) U/L ALT (4-49) U/L Alkaline Phosphatase (38-126) U/L Troponin I <0.012 (0.000-0.034) ng/mL Total Protein (6.3-8.2) g/dL Albumin (3.5-5.0) g/dL - EKG Data -: EKG Interpreted by Me (EKG is sinus 98 AL 189 QRS 109 QTC 398) Disposition Clinical Impression: History of DVT (deep vein thrombosis), DVT, bilateral lower limbs, Left leg DVT Disposition: ADMITTED IP TO THIS [facility] Condition: Good Is patient prescribed a controlled substance at d/c from ED?: No Referrals: Frederic Hollis DO [Primary Care Provider] - 1-2 days Time of Disposition: 18:40
[2022-10-08 16:55] LABS: Basophils % (A) 0 %; Eosinophils # (A) 0.1 k/uL (0-0.7); Eosinophils % (A) 1 %; HGB 14.8 gm/dL (13.0-17.5); Lymphocytes # (A) 2.3 k/uL (1.0-4.8); Lymphocytes % (A) 22 %; MCH 28.6 pg (25.0-35.0); MCHC 32.3 g/dL (31.0-37.0); MCV 88.7 fL (80.0-100.0); Mean Platelet Volume 7.4; Monocytes # (A) 0.8 k/uL (0-1.0); Monocytes % (A) 7 %; Neutrophils # (A) 7.1 k/uL (1.3-7.7); Neutrophils % (A) 69 %; Platelet Count 243 k/uL (150-450); RBC 5.19 m/uL (4.30-5.90); RDW 13.4 % (11.5-15.5); WBC 10.3 k/uL (3.8-10.6)
[2022-10-08 17:18] LABS: INR 0.9 (<1.2); Prothrombin Time 9.8 sec (9.0-12.0)
[2022-10-08 17:22] LABS: ALT 30 U/L (4-49); AST 28 U/L (17-59); African American GFR (CKD) 82 (>60 ml/min/1.73 sqM); Albumin 4.3 g/dL (3.5-5.0); Alkaline Phosphatase 90 U/L (38-126); Anion Gap 10 mmol/L; Blood Urea Nitrogen 14 mg/dL (9-20); Calcium 9.4 mg/dL (8.4-10.2); Carbon Dioxide 24 mmol/L (22-30); Chloride 104 mmol/L (98-107); Glucose 107 mg/dL (74-99); Magnesium 2.2 mg/dL (1.6-2.3); Non-African American GFR(CKD) 71 (>60 ml/min/1.73 sqM); Partial Thromboplastin Time 21.5 sec (22.0-30.0); Phosphorus 2.7 mg/dL (2.5-4.5); Sodium 138 mmol/L (137-145); Total Bilirubin 0.7 mg/dL (0.2-1.3); Total Protein 7.3 g/dL (6.3-8.2)
--- NOTE | 2022-10-08 19:01 | US ---
EXAMINATION TYPE: US venous doppler duplex UE BI DATE OF EXAM: 10/08/2022 COMPARISON: NONE CLINICAL INDICATION: Male, 51 years old with history of DVT; Pain left shoulder. History of DVT bilat eral legs SIDE PERFORMED: bilateral Right Arm: no evidence of DVT as visualized Left Arm: no evidence of DVT as visualized IMPRESSION: Grayscale, color doppler, spectral doppler imaging performed of the deep veins of the upper extremiti es. There is normal flow, compressibility and vascular waveforms.
--- NOTE | 2022-10-08 19:02 | US ---
EXAMINATION TYPE: US venous doppler duplex LE DATE OF EXAM: 10/08/2022 6:23 PM COMPARISON: Prior exam most recently 11/16/2021 CLINICAL INDICATION: Male, 51 years old with history of DVT; History of DVT. Pain bilateral legs, wor se on the right. Patient off blood thinner for 5 days for recent procedure SIDE PERFORMED: Bilateral TECHNIQUE: The lower extremity deep venous system is examined utilizing real time linear array sonog racquel with graded compression, doppler sonography and color-flow sonography. VESSELS IMAGED: Common Femoral Vein Deep Femoral Vein Greater Saphenous Vein * Femoral Vein Popliteal Vein Small Saphenous Vein * Proximal Calf Veins (* superficial vessels) Right Leg: chronic DVT within [place] femoral vein as on prior exam. Duplicate vein appears patent Left Leg: positive for DVT left CFV Grayscale, color doppler, spectral doppler imaging performed of the deep veins of the lower extremiti es. There is normal flow, compressibility, vascular waveforms. IMPRESSION: Left common femoral vein deep deep vein tendinosis which is new.. Chronic deep vein tendinosis within the right femoral vein. Findings communicated to Dr. Garner on 10/08/2022 6:[address] Carlo Alvarado.
[2022-10-08] MEDS ORDERED: NALOXONE 0.4 MG/ML 1 ML VIAL IV PRN (19:08)
[2022-10-08] MEDS ORDERED: HEPARIN SODIUM 1,000 UN/ML (10ML VL) IV PRN (19:08)
[2022-10-08] MEDS ORDERED: HEPARIN SODIUM 1,000 UN/ML (10ML VL) IV ONE (19:08)
[2022-10-08] MEDS ORDERED: HYDROmorphone 1 MG/ML 1 ML SYRINGE IVP STA (19:08)
[2022-10-08] MEDS: HEPARIN SOD,PORK IN 0.45% NACL 25,000 UNIT in 0.45% NACL 1 250ML.BAG IV SCH (19:38)
[2022-10-08] MEDS: MORPHINE SULFATE 4 MG/ML SYRINGE IV PRN (20:39)
[2022-10-08] MEDS ORDERED: ONDANSETRON 4 MG/2 ML VIAL IVP PRN (21:16)
[2022-10-08] MEDS ORDERED: TEMAZEPAM 15 MG CAP PO PRN (21:16)
[2022-10-08] MEDS ORDERED: LORazepam 0.5 MG TAB PO PRN (21:16)
[2022-10-08] MEDS ORDERED: ACETAMINOPHEN TAB 325 MG TAB PO PRN (21:16)
[2022-10-08] MEDS ORDERED: LACTULOSE 20 GM/30 ML CUP PO PRN (21:16)
[2022-10-08] MEDS ORDERED: CALCIUM CARBONATE 500 MG CHEWABLE PO PRN (21:16)
--- NOTE | 2022-10-08 21:45 | P.HPIM ---
History of Present Illness H&P Date: 10/08/22 Chief Complaint: Swelling pain in both legs This is a pleasant 51-year-old patient of Dr. Hollis. Chronic stable medical conditions include GERD, hypertension, morbid obesity hepatic steatosis. 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 recurrent bowel obstructions. Often managed with NG tube suction and conservative management. August 2021 bilateral lower extremity DVT. Following surgery. Placed On eliquis. Being followed by Dr. Montoya from oncology. This morning patient underwent colonoscopy and EGD by Dr. Yeimy Aguilera. Patient is off eliquis for 3 days and the plan was to resume at night. Patient went on started developing significant pain in both the lower extremity. Also shoulder. Came back to the ER. No change in breathing. Doppler ultrasound showed a new DVT in the left common femoral vein. Also chronic DVT was noted. No DVT Doppler extremity. Based IV heparin. Resting in bed. Review of systems: GEN.: None EYES: None HEENT: None NECK: None RESPIRATORY: None CARDIOVASCULAR: None GASTROINTESTINAL: None GENITOURINARY: None MUSCULOSKELETAL: Joint muscle pains LYMPHATICS: None HEMATOLOGICAL: None PSYCHIATRY: None NEUROLOGICAL: None Past history to include: DVT 2021, lymphoma small bowel surgery and chemotherapy in 2003, hypertension, GERD, obesity, morbid obesity Social history: Long Term for [employer]. . Nonsmoker. Alcohol occasionally. Family history: Reviewed, noncontributory to presentation Physical examination: VITAL SIGNS: 98.5, 93, 19, 121/80, 96% room air GENERAL: BMI 40, reclining bed awake comfortable EYES: Pupils equal. Conjunctiva normal. HEENT: External appearance of nose and ears normal, oral cavity dry mucous membrane, NG tube. NECK: JVD not raised; masses not palpable. HEART: First and second heart sounds are normal; no edema. LUNGS: Respiratory rate normal; clear to auscultation. ABDOMEN: Soft, no tenderness, no guarding rigidity liver spleen not palpable, no masses palpable. EXTREMITIES: Bilateral lower mild tenderness. Minimal edema. PSYCH: Alert and oriented x3; mood and affect normal. MUSCULOSKELETAL:No Clubbing/cyanosis;muscles-grossly intact line NEUROLOGICAL: Cranial nerves grossly intact. Positive sensation grossly intact INVESTIGATIONS, reviewed in the clinical context: White count 10.3 hemoglobin 14.8 platelets 243 sodium 138 potassium 4 BUN 14 creatinine 1.17 EKG tracing personally reviewed by me-normal sinus rhythm. Incomplete right bundle block block. Venous Doppler lower extremity: Right leg: Chronic DVT within [place] femoral vein. Same as before. Duplicate vein appears patent. Left leg: Positive for DVT left common femoral vein Venous Doppler ultrasound upper extremity: Negative Assessment and plan: -Acute left lower extremity DVT. In the left common femoral vein. Patient been off eliquis for 3 days. For procedure. Prior history of DVT and IVC filter. IV heparin. Jamar wrap. Eliquis will be started tomorrow morning with 10 mg twice a day. 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 -Chronic right femoral vein DVT Bilateral Jamar wraps -IV heparin monitoring Follow PTT -Morbid obesity BMI of 40.0 Weight loss measures -Essential hypertension Cozaar. 50 mg a day -GERD Pepcid when necessary -Hepatic steatosis Follow-up with PCP Discussed with patient. Past Medical History Past Medical History: Cancer, Deep Vein Thrombosis (DVT), GERD/Reflux, Hypertension, Sleep Apnea/CPAP/BIPAP Additional Past Medical History / Comment(s): bilateral blood clots in legs in 2021. Lymphoma/small bowel with surgery and chemo in 2003, small bowel obstructions, DVT R calf 2003. Hx kidney stone X1. 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 Past Anesthesia/Blood Transfusion Reactions: No Reported Reaction Past Psychological History: No Psychological Hx Reported Smoking Status: Never smoker Past Alcohol Use History: Occasional Past Drug Use History: None Reported - Past Family History Mother Family Medical History: No Reported History Father Family Medical History: Myocardial Infarction ([place]) Additional Family Medical History / Comment(s): AT AGE 48 OF A [place]. Medications and Allergies Home Medications Medication Instructions Recorded Confirmed Type Esomeprazole Magnesium [NexIUM] 40 mg PO BID 05/04/20 10/08/22 History Cholecalciferol [Vitamin D3 (25 50 mcg PO DAILY 08/10/21 10/08/22 History Mcg = 1000 Iu)] Acetaminophen [Tylenol Extra 500 - 1,000 mg PO Q6H PRN 10/01/22 10/08/22 History Strength] Apixaban [Eliquis] 5 mg PO BID 10/01/22 10/08/22 History Losartan [Cozaar] 50 mg PO DAILY 10/01/22 10/08/22 History Cetirizine HCl/Pseudoephedrine 1 tab PO DAILY PRN 10/08/22 10/08/22 History [Zyrtec-D ER 5 mg-120 mg Tablet] Allergies Allergy/AdvReac Type Severity Reaction Status Date / Time Penicillins Allergy Anaphylaxis Verified 10/08/22 19:28 Physical Exam Vitals: Vital Signs Temp Pulse Resp BP Pulse Ox 10/08/22 20:20 98.6 F 86 18 123/76 94 L 10/08/22 19:00 87 18 145/89 97 10/08/22 18:03 83 17 98 10/08/22 16:54 93 18 140/86 95 10/08/22 15:38 98.5 F 10 L 19 121/80 96 Intake and Output 10/08/22 10/08/22 10/08/22 06:59 14:59 22:59 Other: Weight 126.552 kg Results CBC & Chem 7: 10/08/22 16:32 10/08/22 16:32 Labs: Abnormal Lab Results - Last 24 Hours (Table) 10/08/22 10/08/22 Range/Units 16:32 16:32 APTT 21.5 L (22.0-30.0) sec Glucose 107 H (74-99) mg/dL
[2022-10-09] MEDS: MORPHINE SULFATE 4 MG/ML SYRINGE IV PRN ×2 (00:35→06:09)
[2022-10-09] MEDS: HEPARIN SOD,PORK IN 0.45% NACL 25,000 UNIT in 0.45% NACL 1 250ML.BAG IV SCH (09:02)
[2022-10-09] MEDS: APIXABAN 5 MG TAB PO SCH ×2 (09:27→21:18)
--- NOTE | 2022-10-09 14:32 | P.PN ---
Progress Note - Text Progress Note Date: 10/09/22 Chief Complaint: Swelling pain in both legs This is a pleasant 51-year-old patient of Dr. Hollis. Chronic stable medical conditions include GERD, hypertension, morbid obesity hepatic steatosis. 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 recurrent bowel obstructions. Often managed with NG tube suction and conservative management. August 2021 bilateral lower extremity DVT. Following surgery. Placed On eliquis. Being followed by Dr. Montoya from oncology. This morning patient underwent colonoscopy and EGD by Dr. Yeimy Aguilera. Patient is off eliquis for 3 days and the plan was to resume at night. Patient went on started developing significant pain in both the lower extremity. Also shoulder. Came back to the ER. No change in breathing. Doppler ultrasound showed a new DVT in the left common femoral vein. Also chronic DVT was noted. No DVT Doppler extremity. Based IV heparin. Resting in bed. October 09: Sitting up in a chair. Eating better. Some leg pain present. 5. The bedside. IV heparin changed over to eliquis this morning 10 mg. Watch for 24 hours. Patient did not get RAIN stockings. Spoke to the nurse Corona to follow-up on the same. Jamar wrap to the patient. Questions answered Active Medications Acetaminophen (Acetaminophen Tab 325 Mg Tab) 650 mg PO Q6HR PRN PRN Reason: Mild Pain or Fever > 100.5 Apixaban (Apixaban 5 Mg Tab) 10 mg PO BID ELIZABETH; Taper Stop: 11/08/22 08:59 Last Admin: 10/09/22 09:27 Dose: 10 mg Calcium Carbonate/Glycine (Calcium Carbonate 500 Mg Chewable) 1,000 mg PO Q4HR PRN PRN Reason: Dyspepsia Lactulose (Lactulose 20 Gm/30 Ml Cup) 20 gm PO DAILY PRN PRN Reason: Constipation Lorazepam (Lorazepam 0.5 Mg Tab) 0.5 mg PO Q6HR PRN PRN Reason: Anxiety Morphine Sulfate (Morphine Sulfate 4 Mg/Ml Syringe) 4 mg IV Q4HR PRN PRN Reason: Severe Pain (Scale 7 to 10) Last Admin: 10/09/22 06:09 Dose: 4 mg Naloxone HCl (Naloxone 0.4 Mg/Ml 1 Ml Vial) 0.2 mg IV Q2M PRN PRN Reason: Opioid Reversal Ondansetron HCl (Ondansetron 4 Mg/2 Ml Vial) 4 mg IVP Q8HR PRN PRN Reason: Nausea And Vomiting Temazepam (Temazepam 15 Mg Cap) 15 mg PO HS PRN PRN Reason: Insomnia Past history to include: DVT 2021, lymphoma small bowel surgery and chemotherapy in 2003, hypertension, GERD, obesity, morbid obesity Social history: Long-Term for [employer]. . Nonsmoker. Alcohol occasionally. Family history: Reviewed, noncontributory to presentation Physical examination: VITAL SIGNS: 97.4, 80, 16, 126/83, 95% room air GENERAL: BMI 40, sitting up in a chair, comfortable EYES: Pupils equal. Conjunctiva normal. HEENT: External appearance of nose and ears normal, oral cavity dry mucous membrane, NG tube. NECK: JVD not raised; masses not palpable. HEART: First and second heart sounds are normal; no edema. LUNGS: Respiratory rate normal; clear to auscultation. ABDOMEN: Soft, no tenderness, no guarding rigidity liver spleen not palpable, no masses palpable. EXTREMITIES: Bilateral lower mild tenderness. Minimal edema. PSYCH: Alert and oriented x3; mood and affect normal. MUSCULOSKELETAL:No Clubbing/cyanosis;muscles-grossly intact line. Mild tenderness of the left right thigh. NEUROLOGICAL: Cranial nerves grossly intact. Positive sensation grossly intact INVESTIGATIONS, reviewed in the clinical context: White count 10.3 hemoglobin 14.8 platelets 243 sodium 138 potassium 4 BUN 14 creatinine 1.17 EKG tracing personally reviewed by me-normal sinus rhythm. Incomplete right bundle block block. Venous Doppler lower extremity: Right leg: Chronic DVT within [place] femoral vein. Same as before. Duplicate vein appears patent. Left leg: Positive for DVT left common femoral vein Venous Doppler ultrasound upper extremity: Negative Assessment and plan: -Acute left lower extremity DVT. In the left common femoral vein. Patient been off eliquis for 3 days. For procedure. Prior history of DVT and IVC filter. IV heparin stopped this morning. Jamar wrap. Eliquis 10 mg started this morning. -Chronic right femoral vein DVT Bilateral Jamar wraps -IV heparin monitoring Follow PTT -Morbid obesity BMI of 40.0 Weight loss measures -Essential hypertension Cozaar. 50 mg a day -GERD Pepcid when necessary -Hepatic steatosis Follow-up with PCP Discussed with patient and the .. Discussed with nurse Corona reminded about the Jamar wrap t activity as tolerated.
--- NOTE | 2022-10-09 16:50 | P.CONS ---
History of Present Illness - Reason for Consult Consult date: 10/09/22 DVT - Chief Complaint Left leg swelling - History of Present Illness Mr. 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 He is on therapeutic Eliquis through his primary oncologist/family service worker Dr. Montoya and had been tolerating this well without any complications. He had a colonoscopy on 10/08/2022, which he tolerated without complications. He stopped Eliquis on 10/06/2022 as recommended by GI prior to the procedure. Following the colonoscopy , he had increased swelling of his left lower extremity with progressive discomfort to the point he could no longer ambulate. He presented to the ED for additional management recommendations. In the ED, venous Doppler of the lower extremities bilaterally was notable for DVT in the left common femoral vein as well as chronic DVT in the femoral vein the right lower extremity. He was hemodynamically stable and afebrile. Labs revealed no acute metabolic abnormalities or cytopenias. He was darted on heparin drip and admitted for additional management. Since admission, he has been transitioned to therapeutic Eliquis 10 mg twice daily. He is feeling well with decreased swelling in the left lower extremity. He denies any dyspnea, pleuritic chest pain, dizziness, or lightheadedness. Review of Systems 14 point review of systems was conducted with pertinent positives and negatives as noted per HPI. Past Medical History Past Medical History: Cancer, Deep Vein Thrombosis (DVT), GERD/Reflux, Hypertension, Sleep Apnea/CPAP/BIPAP Additional Past Medical History / Comment(s): bilateral blood clots in legs in 2021. Burkitt's Lymphoma/small bowel with surgery and chemo in 2003, multiple small bowel obstructions last surgery was 08/2021, DVT R calf 2003. Hx kidney stone X1. CPAP Use History of Any Multi-Drug Resistant Organisms: None Reported Past Surgical History: Bowel Resection, Cholecystectomy, Hernia Repair, Orthopedic Surgery, Tonsillectomy Additional Past Surgical History / Comment(s): Total of 2 bowel resections, one due to small bowel lymphomaand second surgery due to scar tissure, colonoscopies, incisional hernia repair with mesh X2, vanita filter placed and then removed 10/2021, port a catheter placement and later removed, cervical spine surgery with implant 2004. Past Anesthesia/Blood Transfusion Reactions: No Reported Reaction Additional Past Anesthesia/Blood Transfusion Reaction / Comm: no prior reactions to past blood transfusions Past Psychological History: No Psychological Hx Reported Additional Psychological History / Comment(s): Pt resides with his spouse. 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 Smoking Status: Never smoker Past Alcohol Use History: Occasional Past Drug Use History: None Reported - Past Family History Mother Family Medical History: No Reported History Father Family Medical History: Myocardial Infarction ([place]) Additional Family Medical History / Comment(s): AT AGE 48 OF A [place]. Medications and Allergies Home Medications Medication Instructions Recorded Confirmed Type Esomeprazole Magnesium [NexIUM] 40 mg PO BID 05/04/20 10/08/22 History Cholecalciferol [Vitamin D3 (25 50 mcg PO DAILY 08/10/21 10/08/22 History Mcg = 1000 Iu)] Acetaminophen [Tylenol Extra 500 - 1,000 mg PO Q6H PRN 10/01/22 10/08/22 History Strength] Apixaban [Eliquis] 5 mg PO BID 10/01/22 10/08/22 History Losartan [Cozaar] 50 mg PO DAILY 10/01/22 10/08/22 History Cetirizine HCl/Pseudoephedrine 1 tab PO DAILY PRN 10/08/22 10/08/22 History [Zyrtec-D ER 5 mg-120 mg Tablet] Allergies Allergy/AdvReac Type Severity Reaction Status Date / Time Penicillins Allergy Anaphylaxis Verified 10/08/22 19:28 Physical Exam Vitals: Vital Signs Temp Pulse Pulse Resp BP BP BP 10/09/22 15:00 98.0 F 82 16 121/79 10/09/22 07:00 97.4 F L 80 16 126/83 10/09/22 02:00 97.4 F L 91 18 136/84 10/08/22 21:32 97.8 F 105 H 18 136/93 10/08/22 20:20 98.6 F 86 18 123/76 10/08/22 19:00 87 18 145/89 10/08/22 18:03 83 17 10/08/22 16:54 93 18 140/86 Pulse Ox 10/09/22 15:00 98 10/09/22 07:00 95 10/09/22 02:00 96 10/08/22 21:32 95 10/08/22 20:20 94 L 10/08/22 19:00 97 10/08/22 18:03 98 10/08/22 16:54 95 Intake and Output 10/09/22 10/09/22 10/09/22 06:59 14:59 22:59 Intake Total 161.731 88.269 Balance 161.731 88.269 Intake: Intake, IV Titration 161.731 88.269 Amount Heparin Sod,Pork in 0.45% 161.731 88.269 NaCl 25,000 unit In 0.45 % NaCl 1 250ml.bag @ 18 UNITS/KG/HR 22.779 mls/hr IV .[id number] ELIZABETH Rx#: [id number] Other: # Voids 2 1 - Constitutional General appearance: cooperative, no acute distress - EENT Eyes: EOMI - Respiratory Respiratory: bilateral: CTA - Cardiovascular Both lower extremities wrapped in Jamar bandage Rhythm: regular leg Peripheral Edema: left: 2+ ( No tenderness to palpation) - Integumentary Integumentary: normal, no rash - Neurologic Neurologic: CNII-XII intact - Psychiatric Psychiatric: A&O x's 3 Results CBC & Chem 7: 10/08/22 16:32 10/08/22 16:32 Labs: Abnormal Lab Results - Last 24 Hours (Table) 10/08/22 10/08/22 10/09/22 Range/Units 16:32 16:32 01:46 APTT 21.5 L 102.3 H* (22.0-30.0) sec Glucose 107 H (74-99) mg/dL Assessment and Plan (1) History of DVT (deep vein thrombosis) Current Visit: Yes Status: Chronic Code(s): Z86.718 - PERSONAL HISTORY OF OTHER VENOUS THROMBOSIS AND EMBOLISM SNOMED Code(s): 400211815 (2) Left leg DVT Current Visit: Yes Status: Acute Code(s): I82.402 - ACUTE EMBOLISM AND THOMBOS UNSP DEEP VEINS OF L LOW EXTREM SNOMED Code(s): 749987255 Plan: #Left lower extremity DVT -Noted on Doppler ultrasound on 10/08/2022 occurring in the left common femoral vein with chronic DVT noted in the right femoral vein -Therapeutic Eliquis was stopped for 2 days prior to colonoscopy -He did have DVT/PE in August 2021 as a complication of surgery from small bowel o bstruction. At that time, there was thought to be contribution from IVC filter placed in 2003 and subsequently underwent removal of the old IVC filter along with thrombectomy -Since the DVT occurred off of Eliquis, this does not represent a failure of anticoagulation -Given recurrent DVT off of Eliquis, he would likely need indefinite anticoagulation -Continue therapeutic Eliquis 10 mg twice daily for 1 week followed by Eliquis 5 mg twice daily -This plan was discussed with his primary family service worker Dr. Montoya -If he does not have any complications over the next 24 hours, he would be cleared for discharge from a hematology perspective Thank you for allowing us to participate in Mr. Knott's care. Marycruz Garcia MD
[2022-10-10 02:37] VITALS: RESP 15
[2022-10-10 06:59] VITALS: BP 152/89; PULSE 76; TEMP 97.5
[2022-10-10 07:51] LABS: Basophils % (A) 0 %; Eosinophils # (A) 0.2 k/uL (0-0.7); Eosinophils % (A) 2 %; HCT 45.6 % (39.0-53.0); HGB 15.4 gm/dL (13.0-17.5); Lymphocytes # (A) 2.5 k/uL (1.0-4.8); Lymphocytes % (A) 29 %; MCH 29.7 pg (25.0-35.0); MCHC 33.8 g/dL (31.0-37.0); MCV 87.7 fL (80.0-100.0); Mean Platelet Volume 9.4; Monocytes # (A) 0.7 k/uL (0-1.0); Monocytes % (A) 8 %; Neutrophils % (A) 58 %; Platelet Count 130 k/uL (150-450); RDW 13.5 % (11.5-15.5); WBC 8.6 k/uL (3.8-10.6)
[2022-10-10] MEDS: APIXABAN 5 MG TAB PO SCH (08:10)
[2022-10-10] MEDS ORDERED: LOSARTAN 50 MG TAB PO SCH (09:00)
--- NOTE | 2022-10-10 20:53 | P.DS ---
Providers Date of admission: 10/08/22 19:11 Expected date of discharge: 10/10/22 Attending physician: Hiram Nogueira Consults: 10/08/22 19:08 Consult Physician Routine Consulting Provider: Stephen Montoya Consult Reason/Comments: known Do you want consulting provider notified?: Yes Primary care physician: [facility]: Chief Complaint: Swelling pain in both legs This is a pleasant 51-year-old patient of Dr. Hollis. Chronic stable medical conditions include GERD, hypertension, morbid obesity hepatic steatosis. 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 recurrent bowel obstructions. Often managed with NG tube suction and conservative management. August 2021 bilateral lower extremity DVT. Following surgery. Placed On eliquis. Being followed by Dr. Montoya from oncology. This morning patient underwent colonoscopy and EGD by Dr. Yeimy Aguilera. Patient is off eliquis for 3 days and the plan was to resume at night. Patient went on started developing significant pain in both the lower extremity. Also shoulder. Came back to the ER. No change in breathing. Doppler ultrasound showed a new DVT in the left common femoral vein. Also chronic DVT was noted. No DVT Doppler extremity. Based IV heparin. Resting in bed. October 09: Sitting up in a chair. Eating better. Some leg pain present. 5. The bedside. IV heparin changed over to eliquis this morning 10 mg. Watch for 24 hours. Patient did not get RAIN stockings. Spoke to the nurse Corona to follow-up on the same. Jamar wrap to the patient. Questions answered October 10: Lower extremity pain much improved. Jamar wrap. Discussed at length with the patient and . Question answered. Eliquis prescribed. He'll follow-up with Dr. Montoya upon discharge. 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 Alcohol occasionally. Family history: Reviewed, noncontributory to presentation Physical examination: VITAL SIGNS: 97.5, 76, 15, 152/89, 97% room air GENERAL: Sitting up, comfortable EYES: Pupils equal. Conjunctiva normal. HEENT: External appearance of nose and ears normal, oral cavity dry mucous membrane, NG tube. NECK: JVD not raised; masses not palpable. HEART: First and second heart sounds are normal; no edema. LUNGS: Respiratory rate normal; clear to auscultation. ABDOMEN: Soft, no tenderness, no guarding rigidity liver spleen not palpable, no masses palpable. EXTREMITIES: Bilateral lower mild tenderness. Minimal edema. PSYCH: Alert and oriented x3; mood and affect normal. MUSCULOSKELETAL:No Clubbing/cyanosis;muscles-grossly intact line. Mild tenderness of the left right thigh. INVESTIGATIONS, reviewed in the clinical context: White count 10.3 hemoglobin 14.8 platelets 243 sodium 138 potassium 4 BUN 14 creatinine 1.17 EKG tracing personally reviewed by me-normal sinus rhythm. Incomplete right bundle block block. Venous Doppler lower extremity: Right leg: Chronic DVT within [place] femoral vein. Same as before. Duplicate vein appears patent. Left leg: Positive for DVT left common femoral vein Venous Doppler ultrasound upper extremity: Negative Assessment and plan: -Acute left lower extremity DVT. In the left common femoral vein. Patient been off eliquis for 3 days. For procedure. Prior history of DVT and IVC filter. IV heparin. Continue. Jamar wrap. Eliquis starter pack. Follow up with Dr. Montoya -Chronic right femoral vein DVT Bilateral Jamar wraps -IV heparin monitoring Follow PTT -Morbid obesity BMI of 40.0 Weight loss measures -Essential hypertension Cozaar. 50 mg a day -GERD Pepcid when necessary -Hepatic steatosis Follow-up with PCP Disposition: Home Plan - Discharge Summary New Discharge Prescriptions: New Apixaban [Eliquis Starter Pack (for VTE)] 5 - 10 mg PO DIRECTED 30 Days #1 each Continue Esomeprazole Magnesium [NexIUM] 40 mg PO BID Cholecalciferol [Vitamin D3 (25 Mcg = 1000 Iu)] 50 mcg PO DAILY Acetaminophen [Tylenol Extra Strength] 500 - 1,000 mg PO Q6H PRN PRN Reason: Pain Losartan [Cozaar] 50 mg PO DAILY Cetirizine HCl/Pseudoephedrine [Zyrtec-D ER 5 mg-120 mg Tablet] 1 tab PO DAILY PRN PRN Reason: Allergy Symptoms Discontinued Apixaban [Eliquis] 5 mg PO BID Discharge Medication List Esomeprazole Magnesium [NexIUM] 40 mg PO BID 05/04/20 [History] Cholecalciferol [Vitamin D3 (25 Mcg = 1000 Iu)] 50 mcg PO DAILY 08/10/21 [History] Acetaminophen [Tylenol Extra Strength] 500 - 1,000 mg PO Q6H PRN 10/01/22 [History] Losartan [Cozaar] 50 mg PO DAILY 10/01/22 [History] Cetirizine HCl/Pseudoephedrine [Zyrtec-D ER 5 mg-120 mg Tablet] 1 tab PO DAILY PRN 10/08/22 [History] Apixaban [Eliquis Starter Pack (for VTE)] 5 - 10 mg PO DIRECTED 30 Days #1 each 10/10/22 [Rx] Follow up Appointment(s)/Referral(s): Frederic Hollis DO [Primary Care Provider] - 1-2 days Stephen Montoya MD [STAFF PHYSICIAN] - 1 Week Patient Instructions/Handouts: Deep Vein Thrombosis ([place]) Discharge Disposition: HOME SELF-CARE
== END 2022-10-10 14:03 | disposition home or self-care (01) ==
LOC: EC 15:35 → 6NMEDSUR 19:11
PROVIDERS: ADMIT Hospitalist; ATTEND Hospitalist
DX: I82.412 Acute embolism and thrombosis of left femoral vein (principal); I82.511 Chronic embolism and thrombosis of right femoral vein; I10 Essential (primary) hypertension; K21.9 Gastro-esophageal reflux disease without esophagitis; G47.30 Sleep apnea, unspecified; E66.01 Morbid (severe) obesity due to excess calories; K76.0 Fatty (change of) liver, not elsewhere classified; Z79.01 Long term (current) use of anticoagulants; Z79.899 Other long term (current) drug therapy; Z88.0 Allergy status to penicillin; Z92.21 Personal history of antineoplastic chemotherapy; Z87.442 Personal history of urinary calculi; Z90.49 Acquired absence of other specified parts of digestive tract; Z82.49 Family history of ischemic heart disease and other diseases of the circulatory system; Z68.41 Body mass index [BMI] 40.0-44.9, adult; Z63.4 Disappearance and death of family member; Z85.79 Personal history of other malignant neoplasms of lymphoid, hematopoietic and related tissues
CPT/HCPCS: 96366 ×2; 96376; 96365; 96375; 99285; 36415; 93005; 80053; 83605; 83735; 84100; 84484; 85025 ×2; 85610; 85730 ×2; 93970 ×2; G0378 ×3; J2270 ×2; J1644 ×3; J1170

== ENCOUNTER → 2022-11-12 | Outpatient (CLI) | payer BC ==
--- NOTE | 2022-11-13 07:06 | US ---
EXAMINATION TYPE: US venous doppler duplex LE RT DATE OF EXAM: 11/12/2022 5:56 PM COMPARISON: NONE CLINICAL INDICATION: Male, 51 years old with history of I82.5Z9; rt posterior calf pain, history of D VT, early October hospitalized for DVT, put on high dose blood thinners for a week, now on normal dose e liquis SIDE PERFORMED: Right TECHNIQUE: The lower extremity deep venous system is examined utilizing real time linear array sonog racquel with graded compression, doppler sonography and color-flow sonography. VESSELS IMAGED: Common Femoral Vein Deep Femoral Vein Greater Saphenous Vein * Femoral Vein Popliteal Vein Small Saphenous Vein * Proximal Calf Veins (* superficial vessels) Right Leg: Negative for DVT exam slightly limited due to patient body habitus IMPRESSION: Grayscale, color doppler, spectral doppler imaging performed of the deep veins of the lo wer extremities. There is normal flow, compressibility, vascular waveforms.
== END | disposition home or self-care (01) ==
LOC: RADUSWWP 17:09
PROVIDERS: ATTEND Internal Medicine Hematology & Oncology
DX: I82.5Z9 Chronic embolism and thrombosis of unspecified deep veins of unspecified distal lower extremity (principal)

== ENCOUNTER → 2022-12-16 | Outpatient (CLI) | payer BC ==
--- NOTE | 2022-12-16 11:35 | P.PN ---
Subjective DATE: 12/16/2022 FOLLOW UP VISIT. Patient with obstructive sleep apnea hypopnea syndrome return to sleep center for follow-up visit. Information from previous visit have been reviewed. Patient is using PAP equipment but not every night, getting PAP supplies in time. The patient does not have significant problems with the mask, PAP unit and humidification. [place] sleepiness scale is increased to 12. I checked information from PAP unit. PAP unit pressure 5-16, average 11.3 cm H2O. Usage is about 50% % for more then 4 hours, average 6.5 hours per night. Leak is in good range 4.0 l/m. Apnea Hypopnea Index is 2.3, which is normal. MEDICATIONS:1. Losartan 50 mg once a day 2. Eliquis 5 mg twice a day 3. Esomeprazole 40 mg twice a day During physical exam: GENERAL: A pleasant patient without any distress. VITAL SIGNS: BP 142/82, HR 63, RR 18 , weight to 83.0, temperature 97.6, oxygen saturation at room air 96 % . HEENT: PERRLA, EOMI.low position of soft palate, Mallapati 4 . NECK: Supple. No JVD. LUNGS: Clear to percussion and to auscultation. Good air exchange. No wheezing or rhonchi. HEART: S1, S2 regular. ABDOMEN: Soft and nontender. Slightly obese EXTREMITIES: No clubbing or cyanosis. MANAGER FRONT OFFICE: Awake, alert, and oriented x3. No focal deficit. Impressions: 1. Obstructive sleep apnea-hypopnea syndrome. Patient demonstrated slightly low compliance with treatment, benefiting from treatment. 2. Obesity, patient increased to wait on 7 pounds comparing with previous visit. 3. Hypertension. 4. Status post deep venous thrombosis of the leg and 2021. 5. History of Burkitt lymphoma, status post abdominal surgery. 6. Acid reflux. 7. Status post neck surgery. 8. Status post hernia repair. I discussed with patient necessity to use CPAP equipment every night. I changed parameters on CPAP unit to the range of the pressure 7-14 cm of water. Sometimes patient does not feel enough pressure at the beginning of the night. Plan: 1. Continue using PAP equipment every night for the whole night. Patient promised to follow recommendations. 2. To change air filter at least 1-2 times per month. 3. PAP unit should stay lower then position of the head. 4. Advised patient to remove all remaining water from humidifier canister daily and make it dry after each usage. Refill canister with fresh distilled water before each usage. 5. Sleep hygiene with regular time in bed for at least 8 hours. 6. Precautions related to driving. No driving if feel any sleepiness. 7. I will maintain prescription for PAP supplies including mask, tube, filters. 8. Follow up visit in 6 months or earlier if patient has any problems. 9. Watching and losing weight. Thank you very much for allowing me to participate in the management of your patient. Renan Chavez MD, PhD, FAASM. Diplomat of [place] [employer], Sleep Medicine Board by [place] [employer] Straightening Machine Operator of [facility] [place]
== END ==
LOC: 3 N SLEEP 10:49
PROVIDERS: ATTEND Internal Medicine
DX: G47.33 Obstructive sleep apnea (adult) (pediatric) (principal); E66.9 Obesity, unspecified; I10 Essential (primary) hypertension; K21.9 Gastro-esophageal reflux disease without esophagitis; Z86.718 Personal history of other venous thrombosis and embolism; Z79.01 Long term (current) use of anticoagulants; Z79.899 Other long term (current) drug therapy; Z98.890 Other specified postprocedural states; Z99.89 Dependence on other enabling machines and devices; Z88.0 Allergy status to penicillin; Z85.72 Personal history of non-Hodgkin lymphomas
CPT/HCPCS: 99212

== ENCOUNTER 2023-02-26 18:43 | Emergency (ER) | payer BC ==
[2023-02-26 19:59] VITALS: RESP 18; TEMP 98.1
--- NOTE | 2023-02-26 21:20 | CT ---
EXAMINATION TYPE: CT brain cspine wo con CT DLP: 1737.1 mGycm, Automated exposure control for dose reduction was used. DATE OF EXAM: 02/26/2023 8:27 PM COMPARISON: None. CLINICAL INDICATION:Male, 52 years old with history of head injury on eliquis; hit head on fireplace mantle- patient on blood thinners. TECHNIQUE: Brain: Multiple axial CT images of the brain were obtained without IV contrast. Cspine: Axial CT images from the skull base to the inferior aspect of T2 we obtained without intraven ous contrast. Coronal and sagittal reformatted images were also reviewed. FINDINGS: Brain: Extra-axial spaces: No abnormal extra-axial fluid collections. Ventricular system: Appear dilated in proportion to the degree of cerebral atrophy. Cerebral parenchyma: No increased attenuation to suggest acute intraparenchymal hemorrhage. The gra y-white matter interface appears maintained. No significant atrophy. White matter unremarkable by C T. Cerebellum: No acute abnormality. Mass effect: No evidence of mass effect or midline shift. Intracranial vasculature: Unremarkable Soft tissues: Unremarkable Visualized orbits: Orbital contents appear grossly intact. Calvarium/osseous structures: No evidence of calvarial fracture. Paranasal sinuses and mastoid air cells: Clear MRI is more sensitive for detecting acute processes such as infarct, and may be considered if clinica lly warranted. Cervical spine: Fracture: None seen. Osseous structures, spinal canal/neural foramina: ACDF hardware with vertebral body screws spanning t he C5-C6-C7 levels, with near complete interbody fusion. Mild spondylotic changes without significant spinal canal or neural foraminal osseous narrowing in the upper cervical spine. Mild posterior spond ylotic ridging C5-C6 causes mild canal and neural foraminal stenosis. C6-7 and C7-T1 show no signific ant canal or foraminal stenosis. Vertebral alignment: No traumatic malalignment. Neck soft tissues: No acute finding.. Mild calcifications noted involving the cervical carotid arteri es. Other: Lung apices show no acute infiltrate or pneumothorax. IMPRESSION: CT head: 1. No acute intracranial CT abnormality. CT cervical spine: 1. No evidence of cervical spine fracture or traumatic malalignment. 2. Status post ACDF at C5-C6-C7 with mild canal and neural foraminal stenosis C5-C6.
--- NOTE | 2023-02-26 21:40 | ED ---
General Adult HPI - General Chief complaint: Head Injury Stated complaint: hit head-on thinners Time Seen by Provider: 02/26/23 20:00 Source: patient Mode of arrival: ambulatory Limitations: no limitations - History of Present Illness Initial comments: 52-year-old male on Eliquis due to history of DVT presenting to the ED with a chief complaint of head injury. Patient states that he was picking something up and when he stood up he hit the back of his head on the fireplace mantle. There was no LOC. No other injuries at this time. Per , acting his normal self. Patient is on blood thinners. No nausea or vomiting. No chest or shortness of breath. No other complaints. - Related Data Home Medications Medication Instructions Recorded Confirmed Esomeprazole Magnesium [NexIUM] 40 mg PO BID 05/04/20 10/08/22 Cholecalciferol [Vitamin D3 (25 50 mcg PO DAILY 08/10/21 10/08/22 Mcg = 1000 Iu)] Acetaminophen [Tylenol Extra 500 - 1,000 mg PO Q6H PRN 10/01/22 10/08/22 Strength] Losartan [Cozaar] 50 mg PO DAILY 10/01/22 10/08/22 Cetirizine HCl/Pseudoephedrine 1 tab PO DAILY PRN 10/08/22 10/08/22 [Zyrtec-D ER 5 mg-120 mg Tablet] Previous Rx's Medication Instructions Recorded Apixaban [Eliquis Starter Pack 5 - 10 mg PO DIRECTED 30 Days 10/10/22 (for VTE)] #1 each Allergies Allergy/AdvReac Type Severity Reaction Status Date / Time Penicillins Allergy Anaphylaxis Verified 02/26/23 19:50 Review of Systems ROS Statement: Those systems with pertinent positive or pertinent negative responses have been documented in the HPI. ROS Other: All systems not noted in ROS Statement are negative. Past Medical History Past Medical History: Cancer, Deep Vein Thrombosis (DVT), GERD/Reflux, Hypertension, Sleep Apnea/CPAP/BIPAP Additional Past Medical History / Comment(s): bilateral blood clots in legs in 2021. Lymphoma/small bowel with surgery and chemo in 2003, small bowel obstructions, DVT R calf 2003. Hx kidney stone X1. 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 Past Anesthesia/Blood Transfusion Reactions: No Reported Reaction Additional Past Anesthesia/Blood Transfusion Reaction / Comment(s): no prior reactions to past blood transfusions Past Psychological History: No Psychological Hx Reported Smoking Status: Never smoker Past Alcohol Use History: Occasional Past Drug Use History: None Reported - Past Family History Mother Family Medical History: No Reported History Father Family Medical History: Myocardial Infarction ([place]) Additional Family Medical History / Comment(s): AT AGE 48 OF A [place]. General Exam Limitations: no limitations General appearance: alert, in no apparent distress Head exam: Present: other (Ecchymosis on the posterior portion of the scalp however no laceration.) Neck exam: Present: normal inspection Respiratory exam: Present: normal lung sounds bilaterally Cardiovascular Exam: Present: regular rate, normal rhythm GI/Abdominal exam: Present: soft Neurological exam: Present: alert, oriented X3, CN II-XII intact, other (Finger to nose, rapid alternating hand movements, [id number] intact) Skin exam: Present: warm, dry Course Vital Signs 02/26/23 19:51 Temperature 98.1 F Pulse Rate 84 Respiratory 18 Rate Blood Pressure 156/85 O2 Sat by Pulse 98 Oximetry Medical Decision Making - Medical Decision Making Was pt. sent in by a medical professional or institution (, PA, SIGNAL OPERATOR TECHNICAL, urgent care, hospital, or correction...) When possible be specific @ -No Did you speak to anyone other than the patient for history (EMS, parent, family, police, friend...)? What history was obtained from this source @ -No Did you review nursing and triage notes (agree or disagree)? Why? @ -I reviewed and agree with nursing and triage notes Were old charts reviewed (outside hosp., previous admission, EMS record, old EKG, old radiological studies, urgent care reports/EKG's, correction records)? Report findings @ -Review of old chart shows patient on blood thinners due to extensive history of DVTs. Differential Diagnosis (chest pain, altered mental status, abdominal pain women, abdominal pain men, vaginal bleeding, weakness, fever, dyspnea, syncope, headache, dizziness, GI bleed, back pain, seizure, CVA, palpatations, mental health, musculoskeletal)? @ -Acute traumatic hemorrhage, acute fracture. This is not meant to be an all- inclusive list. EKG interpreted by me (3pts min.). @ -As above X-rays interpreted by me (1pt min.). @ -None done CT interpreted by me (1pt min.). @ -CT brain interpreted by me show no evidence of acute hemorrhage or other acute finding. U/S interpreted by me (1pt. min.). @ -None done What testing was considered but not performed or refused? (CT, X-rays, U/S, labs)? Why? @ -None What meds were considered but not given or refused? Why? @ -None Did you discuss the management of the patient with other professionals (professionals i.e. , PA, SIGNAL OPERATOR TECHNICAL, lab, RT, psych nurse, social service director, finance professor, teacher, division officer weapons department, rehabilitation case coordinator)? Give summary @ -No Was smoking cessation discussed for >3mins.? @ -No Was critical care preformed (if so, how long)? @ -No Were there social determinants of health that impacted care today? How? (Homelessness, low income, unemployed, alcoholism, drug addiction, transportation, low edu. Level, literacy, decrease access to med. care, half-way, rehab)? @ -No Was there de-escalation of care discussed even if they declined (Discuss DNR or withdrawal of care, Hospice)? DNR status @ -No What co-morbidities impacted this encounter? (DM, HTN, Smoking, COPD, CAD, Cancer, CVA, ARF, Chemo, Hep., AIDS, mental health diagnosis, sleep apnea, morbid obesity)? @ -None Was patient admitted / discharged? Hospital course, mention meds given and route, prescriptions, significant lab abnormalities, going to OR and other pertinent info. @ -Discharge 52-year-old male presenting status post head injury. CT brain showed no evidence of hemorrhage or other acute finding. Patient discharged home in stable condition. Discussed return precautions with patient and family who verbalizes agreement. Undiagnosed new problem with uncertain prognosis? @ -No Drug Therapy requiring intensive monitoring for toxicity (Heparin, Nitro, Insulin, Cardizem)? @ -No Were any procedures done? @ -No Diagnosis/symptom? @ -Head injury on blood thinners Acute, or Chronic, or Acute on Chronic? @ -Acute Uncomplicated (without systemic symptoms) or Complicated (systemic symptoms)? @ -Uncomplicated Side effects of treatment? @ -No Exacerbation, Progression, or Severe Exacerbation? @ -No Poses a threat to life or bodily function? How? (Chest pain, [place], [place], pneumonia, PE, COPD, DKA, ARF, appy, cholecystitis, CVA, Diverticulitis, Homicidal, Suicidal, threat to staff... and all critical care pts) @ -No Disposition Clinical Impression: Head injury Disposition: HOME SELF-CARE Condition: Good Additional Instructions: Please return to the Emergency Department if symptoms worsen or any other concerns. Is patient prescribed a controlled substance at d/c from ED?: No Referrals: Frederic Hollis DO [Primary Care Provider] - 1-2 days Time of Disposition: 21:44
[2023-02-26 22:08] VITALS: BP 172/108; PULSE 82
== END 2023-02-26 21:51 | disposition home or self-care (01) ==
LOC: EC 18:43
DX: S09.90XA Unspecified injury of head, initial encounter (principal); K21.9 Gastro-esophageal reflux disease without esophagitis; I10 Essential (primary) hypertension; G47.30 Sleep apnea, unspecified; Z88.0 Allergy status to penicillin; Z79.899 Other long term (current) drug therapy; W22.8XXA Striking against or struck by other objects, initial encounter
CPT/HCPCS: 70450; 72125; 99284

== ENCOUNTER → 2023-06-23 | Outpatient (CLI) | payer BC ==
[2023-06-23 11:32] VITALS: BP 131/81; PULSE 72; RESP 16; TEMP 97.9
--- NOTE | 2023-06-23 11:43 | P.PN ---
Subjective DATE: 06/23/2023 FOLLOW UP VISIT. Patient with obstructive sleep apnea hypopnea syndrome return to sleep center for follow-up visit. Information from previous visit have been reviewed. Patient is using PAP equipment every night for the whole night, getting PAP supplies in time. The patient does not have significant problems with the mask, PAP unit and humidification. [place] sleepiness scale is slightly increased to 12. Sometimes patient has pain in his leg and it does not allow him to sleep well. I checked information from PAP unit. PAP unit pressure 7-14, average 12.2 cm H2O. Usage is 97% for more then 4 hours, average 6-3/4 hours per night. Leak is 2.9 l/m, which is in acceptable range. Apnea Hypopnea Index is 2.1, which is normal. MEDICATIONS:1. Eliquis 5 mg twice a day 2. Esomeprazole 40 mg twice a day 3. Losartan 50 mg once a day During physical exam: GENERAL: A pleasant patient without any distress. VITAL SIGNS: Please see below. HEENT: PERRLA, EOMI.low position of soft palate, Mallapati 4 . NECK: Supple. No JVD. LUNGS: Clear to percussion and to auscultation. Good air exchange. No wheezing or rhonchi. HEART: S1, S2 regular. ABDOMEN: Soft and nontender. Obese EXTREMITIES: No clubbing or cyanosis. FOOD AND BEVERAGE ASSOCIATE: Awake, alert, and oriented x3. No focal deficit. Impressions: 1. Obstructive sleep apnea-hypopnea syndrome. Patient demonstrated great compliance with treatment, benefiting from treatment. 2. Obesity, BMI 41.1, patient increased weight on 4 pounds comparing with previous visit. 3. Hypertension. 4. Status post DVT of the leg in 2021. 5. History of Burkitt lymphoma, status post abdominal surgery. 6. Acid reflux. 7. Status post hernia repair. 8. Status post neck surgery. Plan: 1. Continue using PAP equipment every night for the whole night. 2. To change air filter at least 1-2 times per month. 3. PAP unit should stay lower then position of the head. 4. Advised patient to remove all remaining water from humidifier canister daily and make it dry after each usage. Refill canister with fresh distilled water before each usage. 5. Sleep hygiene with regular time in bed for at least 8 hours. 6. Precautions related to driving. No driving if feel any sleepiness. 7. I will maintain prescription for PAP supplies including mask, tube, filters. 8. Watching and losing weight. 9. Follow up visit in 6 months or earlier if patient has any problems. Thank you very much for allowing me to participate in the management of your patient. Renan Chavez MD, PhD, FAASM. Diplomat of [place] [employer], Sleep Medicine Board by [place] [employer] Teacher Asst of [facility] [place] Objective - Vital Signs Vital signs: Vital Signs Temp 97.9 F 06/23/23 11:09 Pulse 72 06/23/23 11:09 Resp 16 06/23/23 11:09 BP 131/81 06/23/23 11:09 Pulse Ox 97 06/23/23 11:09 FiO2 Intake & Output 06/22/23 06/23/23 06/23/23 18:59 06:59 18:59 Weight 130.181 kg
== END ==
LOC: 3 N SLEEP 10:50
PROVIDERS: ATTEND Internal Medicine
DX: G47.33 Obstructive sleep apnea (adult) (pediatric) (principal); E66.9 Obesity, unspecified; I10 Essential (primary) hypertension; K21.9 Gastro-esophageal reflux disease without esophagitis; Z98.890 Other specified postprocedural states; Z86.718 Personal history of other venous thrombosis and embolism; Z85.72 Personal history of non-Hodgkin lymphomas; Z68.41 Body mass index [BMI] 40.0-44.9, adult; Z79.01 Long term (current) use of anticoagulants; Z79.899 Other long term (current) drug therapy; Z99.89 Dependence on other enabling machines and devices; Z88.0 Allergy status to penicillin
CPT/HCPCS: 99212

== ENCOUNTER → 2024-01-26 | Outpatient (CLI) | payer BC ==
[2024-01-26 10:17] VITALS: BP 137/87; PULSE 56; RESP 16; TEMP 97.6
--- NOTE | 2024-01-26 13:10 | P.PROGSL ---
Subjective DATE: 01/26/2024 FOLLOW UP VISIT. Patient with obstructive sleep apnea hypopnea syndrome return to sleep center for follow-up visit. Information from previous visit have been reviewed. The patient does not have significant problems with the mask, PAP unit and humidification. [place] sleepiness scale is 4, which is normal. I checked information from PAP unit. PAP unit pressure 7-14, average 12 cm H2O. Usage is 70% for more then 4 hours, average 6.4 hours per night. Leak is 11 l/m, which is in acceptable range. Apnea Hypopnea Index is 1.0, which is normal. MEDICATIONS have been reviewed, please see below. During physical exam: GENERAL: A pleasant patient without any distress. VITAL SIGNS: Please see below, weight is 288 lbs. HEENT: PERRLA, EOMI.low position of soft palate, Mallapati 4 . NECK: Supple. No JVD. LUNGS: Clear to percussion and to auscultation. Good air exchange. No wheezing or rhonchi. HEART: S1, S2 regular. ABDOMEN: Soft and nontender. Obese EXTREMITIES: No clubbing or cyanosis. MANNEQUIN REFINISHER: Awake, alert, and oriented x3. No focal deficit. Impressions: 1. Obstructive sleep apnea-hypopnea syndrome. Patient demonstrated borderline compliance with treatment, benefiting from treatment. 2. Obesity, BMI 41.9. 3. Hypertension. 4. History of Burkitt lymphoma, status post surgical treatment in abdominal are a. 5. Status post DVT of the lower leg in 2021. 6. Acid reflux. 7. Status post neck surgery. 8. Status post hernia repair. Plan: 1. Continue using PAP equipment every night for the whole night. 2. Sleep hygiene with regular time in bed for at least 7.5-8 hours 3. PAP unit should stay lower then position of the head. 4. Advised patient to remove all remaining water from humidifier canister daily and make it dry after each usage. Refill canister with fresh distilled water before each usage. 5. Watching and losing weight. 6. Precautions related to driving. No driving if feel any sleepiness. 7. I will maintain prescription for PAP supplies including mask, tube, filters. 8. Follow up visit in 8 months or earlier if patient has any problems. Thank you very much for allowing me to participate in the management of your patient. Renan Chavez MD, PhD, FAASM. Diplomat of [place] [employer] Sleep Medicine, Sleep Medicine Board by [place] [employer] Medicine Contour Band Saw Operator Vertical of [facility] [place] Objective - Vital Signs Vital Signs: Vital Signs Temp 97.6 F 01/26/24 10:16 Pulse 56 L 01/26/24 10:16 Resp 16 01/26/24 10:16 BP 137/87 01/26/24 10:16 Pulse Ox 97 01/26/24 10:16 FiO2 Intake & Output 01/25/24 01/26/24 01/26/24 18:59 06:59 18:59 Weight 130.635 kg Home Medications: Home Medications Medication Instructions Recorded Confirmed Type Esomeprazole Magnesium [NexIUM] 40 mg PO BID 05/04/20 01/26/24 History Cholecalciferol [Vitamin D3 (25 50 mcg PO DAILY 08/10/21 01/26/24 History Mcg = 1000 Iu)] Acetaminophen [Tylenol Extra 500 - 1,000 mg PO Q6H PRN 10/01/22 01/26/24 History Strength] Losartan [Cozaar] 50 mg PO DAILY 10/01/22 01/26/24 History Cetirizine HCl/Pseudoephedrine 1 tab PO DAILY PRN 10/08/22 01/26/24 History [Zyrtec-D ER 5 mg-120 mg Tablet] Apixaban [Eliquis Starter Pack 5 - 10 mg PO DIRECTED 30 Days 10/10/22 01/26/24 Rx (for VTE)] #1 each
== END ==
LOC: 3 N SLEEP 10:06
PROVIDERS: ATTEND Internal Medicine
CPT/HCPCS: 99212

== ENCOUNTER → 2024-09-27 | Outpatient (CLI) | payer BC ==
[2024-09-27 10:57] VITALS: BP 130/85; PULSE 70; RESP 16; TEMP 97.9
--- NOTE | 2024-09-27 11:13 | P.PROGSL ---
Subjective DATE: 09/27/2024 FOLLOW UP VISIT. Patient with obstructive sleep apnea hypopnea syndrome return to sleep center for follow-up visit. Information from previous visit have been reviewed. Patient is using PAP equipment every night for the whole night, getting PAP supplies in time. The patient does not have significant problems with the mask, PAP unit and humidification. [place] sleepiness scale is 9, which is in normal range. I checked information from PAP unit. PAP unit pressure 7-14, average 12.4 cm H2O. Usage is 83% for more then 4 hours, average 6.5 hours per night. Leak is 9.7 l/m, which is in acceptable range. Apnea Hypopnea Index is 1.8, which is normal. MEDICATIONS have been reviewed, please see below. During physical exam: GENERAL: A pleasant patient without any distress. VITAL SIGNS: Please see below, weight is 291 lbs. HEENT: PERRLA, EOMI.low position of soft palate, Mallapati 4 . NECK: Supple. No JVD. LUNGS: Clear to percussion and to auscultation. Good air exchange. No wheezing or rhonchi. HEART: S1, S2 regular. ABDOMEN: Soft and nontender. Slightly obese EXTREMITIES: No clubbing or cyanosis. MACHINE FEATHEREDGER AND REDUCER: Awake, alert, and oriented x3. No focal deficit. Impressions: 1. Obstructive sleep apnea-hypopnea syndrome. Patient demonstrated good compliance with treatment, benefiting from treatment. 2. Status post recent COVID-19. 3. Obesity, BMI 42.9. 4. Hypertension. 5. Status post surgical treatment for Burkitt lymphoma in abdominal area. 6. Status post DVT of the lower leg in 2021. 7. Acid reflux. 8. Status post hernia repair. 9. Status post neck surgery. Plan: 1. Continue using PAP equipment every night for the whole night. 2. Sleep hygiene with regular time in bed for at least 7.5-8 hours 3. PAP unit should stay lower then position of the head. 4. Advised patient to remove all remaining water from humidifier canister daily and make it dry after each usage. Refill canister with fresh distilled water before each usage. 5. Watching weight. 6. Precautions related to driving. No driving if feel any sleepiness. 7. I will maintain prescription for PAP supplies including mask, tube, filters. 8. Follow up visit in 8 months or earlier if patient has any problems. Thank you very much for allowing me to participate in the management of your patient. Renan Chavez MD, PhD, FAASM. Diplomat of [place] [employer] Medicine, Sleep Medicine Board by [place] [employer] Body Trimmer Upholsterer of [facility] [place] Objective - Vital Signs Vital Signs: Vital Signs Temp 97.9 F 09/27/24 10:55 Pulse 70 09/27/24 10:55 Resp 16 09/27/24 10:55 BP 130/85 09/27/24 10:55 Pulse Ox 95 09/27/24 10:55 FiO2 Intake & Output 09/26/24 09/27/24 09/27/24 18:59 06:59 18:59 Weight 131.995 kg Home Medications: Home Medications Medication Instructions Recorded Confirmed Type Esomeprazole Magnesium [NexIUM] 40 mg PO BID 05/04/20 09/27/24 History Cholecalciferol [Vitamin D3 (25 50 mcg PO DAILY 08/10/21 09/27/24 History Mcg = 1000 Iu)] Acetaminophen [Tylenol Extra 500 - 1,000 mg PO Q6H PRN 10/01/22 09/27/24 History Strength] Losartan [Cozaar] 50 mg PO DAILY 10/01/22 09/27/24 History Cetirizine HCl/Pseudoephedrine 1 tab PO DAILY PRN 10/08/22 01/26/24 History [Zyrtec-D ER 5 mg-120 mg Tablet] Apixaban [Eliquis Starter Pack 5 - 10 mg PO DIRECTED 30 Days 10/10/22 09/27/24 Rx (for VTE)] #1 each Fexofenadine/Pseudoephedrine See Rx Instructions .ROUTE .COMPLEX 09/27/24 09/27/24 History [Kristal-D 24 Hour Tablet]
== END ==
LOC: 3 N SLEEP 10:36
PROVIDERS: ATTEND Internal Medicine
DX: G47.33 Obstructive sleep apnea (adult) (pediatric) (principal); E66.9 Obesity, unspecified; Z68.41 Body mass index [BMI] 40.0-44.9, adult; I10 Essential (primary) hypertension; K21.9 Gastro-esophageal reflux disease without esophagitis; Z86.16 Personal history of COVID-19; Z98.890 Other specified postprocedural states; Z86.718 Personal history of other venous thrombosis and embolism; Z85.72 Personal history of non-Hodgkin lymphomas; Z99.89 Dependence on other enabling machines and devices; Z88.0 Allergy status to penicillin
CPT/HCPCS: 99212